=== PATIENT | female | born 1985 | race African-American/Black ===

== ENCOUNTER 2021-08-01 12:15 | Emergency (ER) | payer SELFPAY ==
[2021-08-01 13:02] LABS: Absolute Lymphocytes (CBC) 1.7 K/uL (0.7-4.9); Basophils % 0.5 % (0-1.3); Hematocrit 35.6 % (36.0-45.0); Lymphocytes % 37.1 % (15.3-44.8); MPV 9.6 fL (7.6-11.3); RBC Red Blood Cell Count 4.74 M/uL (3.86-4.86)
[2021-08-01 13:20] LABS: Urine Blood Negative (Negative); Urine Glucose Negative (Negative); Urine Protein Negative (Negative); Urine Specific Gravity 1.025 (1.005-1.030)
[2021-08-01 13:20] LABS: ALT/SGPT 15 U/L (12-78); AST/SGOT 17 U/L (15-37); Albumin 3.9 g/dL (3.4-5.0); Alkaline Phosphatase 97 U/L (45-117); BUN Blood Urea Nitrogen 14 mg/dL (7-18); Bicarbonate 22 mmol/L (21-32); Bilirubin Direct 0.2 mg/dL (0-0.2); Bilirubin Total 0.5 mg/dL (0.2-1.0); Glucose Level 101 mg/dL (74-106); Lipase 55 U/L (73-393); Potassium 3.9 mmol/L (3.5-5.1); Protein, Total 8.5 g/dL (6.4-8.2); Sodium Level 136 mmol/L (136-145)
[2021-08-01] MEDS ORDERED: METOCLOPRAMIDE 10 MG/2mL INJ ONE (13:23)
[2021-08-01] MEDS ORDERED: KETOROLAC 30 MG/ML INJ ONE (13:24)
[2021-08-01] MEDS ORDERED: NA CHLORIDE 0.9% 1,000 ML ONE (13:24)
[2021-08-01] MEDS ORDERED: ONDANSETRON 4 MG/2 ML VIAL ONE (13:24)
--- NOTE | 2021-08-01 13:30 | RAD REPORT ---
EXAM DESCRIPTION: CT - Head Brain Wo Cont - 08/01/2021 1:19 pm CLINICAL HISTORY: PAIN COMPARISON: No comparisons TECHNIQUE: All CT scans are performed using dose optimization technique as appropriate and may inclu de automated exposure control or mA/KV adjustment according to patient size. FINDINGS: No intracranial hemorrhage, hydrocephalus or extra-axial fluid collection.No areas of brai n edema or evidence of midline shift. The paranasal sinuses and mastoids are clear. The calvarium is intact. IMPRESSION: No acute intracranial abnormality.
--- NOTE | 2021-08-01 13:53 | ER ---
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 i felt nauseous. i went to sit down \T\ it was like i couldn't recover from it. Coronavirus screen: nausea, Client presents with at least one sign or symptom that may indicate coronavirus-19. Ebola Screen: Patient denies travel to an Ebola-affected area in the 21 days before illness onset. Initial Sepsis Screen: Does the patient meet any 2 criteria? No. Patient's initial sepsis screen is negative. Does the patient have a suspected source of infection? No. Patient's initial sepsis screen is negative. Risk Assessment: Do you want to hurt yourself or someone else? Patient reports no desire to harm self or others. Onset of symptoms was August 01, 2021. 12:20 Method Of Arrival: Ambulatory tw2 12:20 Acuity: ILIA 2 tw2 Triage Assessment: 12:23 General: Appears uncomfortable, Behavior is calm, cooperative, appropriate for age. tw2 Pain: Complains of pain in headache. GI: Reports nausea. 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 - Social history:: Smoking status: Patient denies any tobacco usage or history of. - Family history:: not pertinent. Screenin:27 Abuse screen: Denies threats or abuse. Nutritional screening: No deficits noted. tw2 Tuberculosis screening: No symptoms or risk factors identified. Fall Risk None identified. Assessment: 12:28 Reassessment:. General: Appears in no apparent distress. comfortable, obese, well aj2 developed. Pain: Denies pain. Complains of pain in left parietal area and right parietal area Pain does not radiate. Pain currently is 7 out of 10 on a pain scale. Quality of pain is described as aching, Pain began 30 min ago. Is continuous, Alleviated by nothing. Aggravated by increased activity. GI: Abdomen is flat. 13:43 Reassessment: Patient appears in no apparent distress at this time. Patient and/or aj2 family updated on plan of care and expected duration. Pain level reassessed. Patient is alert, oriented x 3, equal unlabored respirations, skin warm/dry/pink. Patient denies pain at this time. Patient states feeling better. Patient states symptoms have improved. 13:43 General: Behavior is calm, cooperative. aj2 Vital Signs: 12:20 BP 147 / 103; Pulse 112; Resp 17; Temp 97.9(TE); Pulse Ox 100% on R/A; Weight 70.31 kg tw2 (R); Height 5 ft. 4 in. (162.56 cm); Pain 8/10; 12:28 BP 138 / 101; Pulse 94; Resp 18; Temp 98.0; Pulse Ox 100% ; aj2 12:54 BP 121 / 91; Pulse 90; Resp 18; Temp 98.0; Pulse Ox 100% ; aj2 13:42 BP 104 / 69; Pulse 93; Resp 18; Temp 98.0; Pulse Ox 100% ; aj2 12:20 Body Mass Index 26.61 (70.31 kg, 162.56 cm) tw2 12:20 headache tw2 ED Course: 12:17 Patient arrived in ED. as 12:22 Triage completed. tw2 12:23 Arm band placed on. tw2 12:26 Olivia Rubi is Primary Nurse. aj2 12:28 No apparent distress. Resting quietly. aj2 12:28 Placed in gown. Bed in low position. Call light in reach. tw2 12:28 No provider procedures requiring assistance completed. Inserted saline lock: 20 gauge. aj2 12:28 Inserted saline lock: 20 gauge in right antecubital area, using aseptic technique. aj2 12:46 Fish Banks MD is Attending Physician. ma2 12:50 Basic Metabolic Panel Sent. aj2 12:50 CBC with Diff Sent. aj2 12:50 Hepatic Function Sent. aj2 12:50 Lipase Sent. aj2 12:54 No apparent distress. Resting quietly. aj2 12:54 IV is patent, is intact. aj2 13:18 CT Head Brain wo Cont In Process Unspecified. EDMS 13:43 No apparent distress. Resting quietly. aj2 13:43 IV is patent, is intact. aj2 14:29 IV discontinued. aj2 Administered Medications: 12:51 Drug: NS 0.9% 1000 ml Route: IV; Rate: 1 bolus; Site: right antecubital; aj2 13:19 Drug: Reglan (metoCLOPramide) 20 mg Route: IVP; Site: left antecubital; aj2 13:19 Drug: Ketorolac 30 mg Route: IVP; Site: left antecubital; aj2 13:19 Drug: Zofran (Ondansetron) 4 mg Route: IVP; Site: left antecubital; aj2 Outcome: 13:53 Discharge ordered by . ma2 14:29 Discharged to home ambulatory. aj2 14:29 Condition: stable 14:29 Discharge instructions given to patient, Instructed on discharge instructions, follow up and referral plans. Demonstrated understanding of instructions, follow-up care, medications, Prescriptions given X 2. 14:30 Patient left the ED. aj2 Signatures: Dispatcher [employer] EDMS Yamile Morton Tara, RN RN tw2 Fish Banks MD MD ma2 Olivia Rubi aj2
--- NOTE | 2021-08-01 13:53 | EDPHYS ---
Physician Documentation [facility] Name: Tran Ocampo Age: 36 yrs Sex: Female : 1985 Arrival Date: 08/01/2021 Time: 12:17 Bed 23 Private MD: ED Physician Fish Banks HPI: 08/01 13:15 This 36 yrs old Black Female presents to ER via Ambulatory with complaints of Blood ma2 Pressure Problem, Nausea. 13:15 The patient presents to the emergency department with nausea, vomiting. Onset: The ma2 symptoms/episode began/occurred gradually, 1 day(s) ago. Associated signs and symptoms: Pertinent positives: nausea, Pertinent negatives: diarrhea, fever, hematuria, nausea. Severity of symptoms: At their worst the symptoms were mild in the emergency department the symptoms are unchanged. The patient has not experienced similar symptoms in the past. 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 - Social history:: Smoking status: Patient denies any tobacco usage or history of. - Family history:: not pertinent. ROS: 13:15 Constitutional: Negative for fever, chills, and weight loss. ma2 13:15 All other systems are negative. Exam: 13:15 Constitutional: This is a well developed, well nourished patient who is awake, alert, ma2 and in no acute distress. Head/Face: Normocephalic, atraumatic. Eyes: Pupils equal round and reactive to light, extra-ocular motions intact. Lids and lashes normal. Conjunctiva and sclera are non-icteric and not injected. Cornea within normal limits. Periorbital areas with no swelling, redness, or edema. ENT: Nares patent. No nasal discharge, no septal abnormalities noted. Tympanic membranes are normal and external auditory canals are clear. Oropharynx with no redness, swelling, or masses, exudates, or evidence of obstruction, uvula midline. Mucous membranes moist. Neck: Trachea midline, no thyromegaly or masses palpated, and no cervical lymphadenopathy. Supple, full range of motion without nuchal rigidity, or vertebral point tenderness. No Meningismus. Chest/axilla: Normal chest wall appearance and motion. Nontender with no deformity. No lesions are appreciated. Cardiovascular: Regular rate and rhythm with a normal S1 and S2. No gallops, murmurs, or rubs. Normal PMI, no JVD. No pulse deficits. Respiratory: Lungs have equal breath sounds bilaterally, clear to auscultation and percussion. No rales, rhonchi or wheezes noted. No increased work of breathing, no retractions or nasal flaring. Abdomen/GI: Soft, non-tender, with normal bowel sounds. No distension or tympany. No guarding or rebound. No evidence of tenderness throughout. Skin: Warm, dry with normal turgor. Normal color with no rashes, no lesions, and no evidence of cellulitis. MS/ Extremity: Pulses equal, no cyanosis. Neurovascular intact. Full, normal range of motion. Neuro: Awake and alert, GCS 15, oriented to person, place, time, and situation. Cranial nerves II-XII grossly intact. Motor strength 5/5 in all extremities. Sensory grossly intact. Cerebellar exam normal. Normal gait. Vital Signs: 12:20 BP 147 / 103; Pulse 112; Resp 17; Temp 97.9(TE); Pulse Ox 100% on R/A; Weight 70.31 kg tw2 (R); Height 5 ft. 4 in. (162.56 cm); Pain 8/10; 12:28 BP 138 / 101; Pulse 94; Resp 18; Temp 98.0; Pulse Ox 100% ; aj2 12:54 BP 121 / 91; Pulse 90; Resp 18; Temp 98.0; Pulse Ox 100% ; aj2 13:42 BP 104 / 69; Pulse 93; Resp 18; Temp 98.0; Pulse Ox 100% ; aj2 12:20 Body Mass Index 26.61 (70.31 kg, 162.56 cm) tw2 12:20 headache tw2 MDM: 12:46 Patient medically screened. ma2 13:15 Differential diagnosis: Nonspecific abd pain, gastritis, viral gastroenteritis, ma2 gastroenteritis. Data reviewed: vital signs, nurses notes. Counseling: I had a detailed discussion with the patient and/or guardian regarding: the historical points, exam findings, and any diagnostic results supporting the discharge/admit diagnosis, the presence of at least one elevated blood pressure reading (>120/80) during this emergency department visit, the need for outpatient follow up. Response to treatment: the patient's symptoms have markedly improved after treatment. 08/01 12:46 Order name: Basic Metabolic Panel; Complete Time: 13:25 ma2 08/01 12:46 Order name: CBC with Diff; Complete Time: 13:19 ma2 08/01 12:46 Order name: Hepatic Function; Complete Time: 13:25 ma2 08/01 12:46 Order name: Lipase; Complete Time: 13:25 ma2 08/01 12:52 Order name: CT Head Brain wo Cont; Complete Time: 13:52 ma2 08/01 13:19 Order name: Urine Dipstick-Ancillary; Complete Time: 13:25 EDMS 08/01 12:46 Order name: IV Saline Lock; Complete Time: 12:50 ma2 08/01 12:46 Order name: Labs collected and sent; Complete Time: 12:50 ma2 08/01 12:47 Order name: Urine Dipstick-Ancillary (obtain specimen); Complete Time: 13:20 ma2 Administered Medications: 12:51 Drug: NS 0.9% 1000 ml Route: IV; Rate: 1 bolus; Site: right antecubital; aj2 13:19 Drug: Reglan (metoCLOPramide) 20 mg Route: IVP; Site: left antecubital; aj2 13:19 Drug: Ketorolac 30 mg Route: IVP; Site: left antecubital; aj2 13:19 Drug: Zofran (Ondansetron) 4 mg Route: IVP; Site: left antecubital; aj2 Disposition Summary: 08/01/21 13:53 Discharge Ordered Location: Home ma2 Condition: Stable ma2 Diagnosis - Headache - and Nausea ma2 Followup: ma2 - With: Private Physician - When: Tomorrow - Reason: Continuance of care Discharge Instructions: - Discharge Summary Sheet ma2 - General Headache Without Cause ma2 - Form - Excuse from Work, School, or Physical Activity ma2 Forms: - Medication Reconciliation Form ma2 - Thank You Letter ma2 - Antibiotic Education ma2 - Prescription Opioid Use ma2 - Work release form aj2 Prescriptions: - Zofran 4 mg Oral Tablet - take 1 tablet by ORAL route every 12 hours As needed; 20 tablet; Refills: 0, ma2 Product Selection Permitted - Diclofenac Sodium 75 mg Oral Tablet Sustained Release - take 1 tablet by ORAL route 2 times per day; 30 tablet; Refills: 0, Product ma2 Selection Permitted Signatures: Dispatcher [employer] Maria D Mckeon RN RN tw2 Fish Banks MD MD mi2 Olivia Rubi2 Corrections: (The following items were deleted from the chart) 13:21 12:[address] [facility] aj2
[2021-08-01 15:19] VITALS: O2SAT 100
[2021-08-01 15:20] VITALS: TEMP 98
[2021-08-01 15:23] VITALS: BP 104/69
== END 2021-08-01 14:30 | disposition home or self-care (01) ==
LOC: ER 12:15
DX: R51.9 Headache, unspecified (principal); R11.0 Nausea
CPT/HCPCS: 36415; 70450; 80048; 80076; 81003; 83690; 85025; 96374; 96375; 99284; J2405; J2765; J7030

== ENCOUNTER 2022-04-20 10:26 | Emergency (ER) | payer BC, SELFPAY ==
--- OUTSIDE RECORDS SUMMARY | 2022-04-20 10:31 | XMS REPORT | Continuity of Care Document ---
:1985 Author Organization [facility] t Address [address] [place] [address] Care Team Providers Name Role Phone Munira BABB Attending Clinician Unavailable Mario Ahn DO Attending Clinician [address] Attending Clinician Katarina CABRERA R Attending Clinician Adalgisa PEÑAP Attending Clinician Provider, Temp Attending Clinician Unavailable Wei PEÑAP C Attending Clinician WEI C Attending Clinician Unavailable Sudeep MCCALLUMP, R Attending Clinician Doctor Unassigned, Name Attending Clinician Unavailable Pcp, Does Not Have A Attending Clinician Singer GUTIERREZ Attending Clinician Payers Payer Name Policy Type Policy Number Effective Date Expiration Date Artie BOLTON O [id number] 2019 00:00:00 Problems Condition Condition Condition Status Onset Resolution Last Treating Co mments Source Name Details Category Date Date Treatment Clinician Date Well woman Well woman Disease Active U nivers exam exam 3-28 ity of 00:00: [address] Other Other Disease Active Univers general general 3-28 [place] and advice and advice 00 Vt dical [facility] contracept contracept sky sky management management UTI UTI Disease Active Univers symptoms symptoms 3-28 ity of 00:00: [address] History of History of Disease Active U nivers tubal tubal 3-28 ity of ligation ligation 00:00: [address] Obese Obese Disease Active Univers 3-28 ity of 00:00: [facility] Essential Essential Disease Active Uni vers hypertensi hypertensi 02-04 it y of on, benign [place], benign [place] [facility] BV BV Disease Active Univers (bacterial (bacterial 02-04 it y of vaginosis) vaginosis) [place] [facility] UTI UTI Disease Active Univers symptoms symptoms 02-04 ity of 00:00: [facility] Allergies, Adverse Reactions, Alerts Allergy Allergy Status Severity Reaction(s) Onset Inactive Treating Comm ents Source Name Type Date Date Clinician NO KNOWN Drug Active Unknown-Cmnt Un shena ALLERGIE Class 7-12 ity of S 00:00: [facility] No Known Propensi Active Unknown - Uni vers Allergie ty to See comments 7-12 it y of s adverse 00:00: [place] reaction 00 [facility] s [place] Social History Social Habit Start Date Stop Date Quantity Comments Source Exposure to Not sure [place] of SARS-CoV-2 [facility] (event) Branch History of Cigarette Smoker Universi ty of tobacco use [facility] Tobacco use and 2020-08-29 2020-08-29 Never used Universit y of exposure 00:00:00 00:00:00 [facility] Alcohol intake 2020-08-29 2020-08-29 Current drinker of Un iversity of 00:00:00 00:00:00 alcohol (finding) [facility] Alcohol Comment 2020-03-24 2020-03-24 occasional Universit y of 00:00:00 00:00:00 [facility] Tobacco Comment 2017-02-04 2017-02-04 3 cigarettes/day Uni versity of 00:00:00 00:00:00 [facility] Sex [birth year] Universit y of 00:00:00 00:00:00 [facility] Smoking Status Start Date Stop Date Source Current every day smoker 2020-08-29 00:00:00 Uni versity of [facility] Medications Ordered Filled Start Stop Current Ordering Indication Dosage Frequency Signature Comments Components Source Medication Medication Date Date Medication? Clinician (SIG) Name Name cloNIDine 2019-11 2020- No .2mg 0.2 mg, Univ ers (CATAPRES) 0-21 10-21 Oral, ity of tablet 0.2 03:00: 02:11 ONCE, 1 [place] mg 00 :00 dose, [facility] 08/29/20 Branch at 2200, STAT diphenhydrA 2019-11 2020- No 12.5mg 12.5 mg, Univers MINE 0-21 10-21 Slow IV ity of (BENADRYL) 03:00: 02:03 Push, [place] injection 00 :00 ONCE, 1 Medical 12.5 mg dose, [facility] 08/29/20 at 2200, STAT metoclopram 2019-11 2020- No 10mg 10 mg, Uni vers patrick HCl 0-21 10-21 Slow IV ity of (REGLAN) 03:00: 02:02 Push, [place] injection 00 :00 ONCE, 1 Medical 10 mg dose, [facility] 08/29/20 at 2200, RAMIRO HYDROCHLORO 2019-1 Yes 1{tbl} Take 1 Un shena THIAZIDE 0-21 tablet by ity of ORAL 00:10: mouth [place] 08 daily. Medical Branch HYDROCHLORO 2019- Yes 1{tbl} Take 1 Un shena THIAZIDE 0-21 tablet by ity of ORAL 00:10: mouth [place] 08 daily. Medical Branch hydroCHLORO 2019-1 Yes [id number] 25mg Take 1 Univers thiazide 25 0-20 tablet by ity of mg tablet 00:00: mouth [place] 00 every Medical morning. Branch hydroCHLORO 2020-1 Yes [id number] 25mg Take 1 Univers thiazide 25 0-20 tablet by ity of mg tablet 00:00: mouth [place] 00 every Medical morning. Branch amoxicillin 2020-0 Yes [id number] 500mg Take 1 Univers 500 mg 5-20 capsule by ity of capsule 00:00: mouth 2 (two) Medical times Branch daily. amoxicillin 2020-0 Yes [id number] 500mg Take 1 Univers 500 mg 5-20 capsule by ity of capsule 00:00: mouth (two) Medical times Branch daily. amoxicillin 2020-0 Yes [id number] 500mg Take 1 Univers 500 mg 5-20 capsule by ity of capsule 00:00: mouth 2 (two) Medical times Branch daily. amoxicillin 2020-0 Yes [id number] 500mg Take 1 Univers 500 mg 5-20 capsule by ity of capsule 00:00: mouth 2 (two) Medical times Branch daily. HYDROCHLORO 2020-0 Yes 1{tbl} Take 1 Un shena THIAZIDE 5-15 tablet by ity of ORAL 16:15: mouth [place] 23 daily. Medical Branch HYDROCHLORO 2020-0 Yes 1{tbl} Take 1 Un shena THIAZIDE 5-15 tablet by ity of ORAL 16:15: mouth [place] 23 daily. Medical Branch HYDROCHLORO 2020-0 Yes 1{tbl} Take 1 Un shena THIAZIDE 5-15 tablet by ity of ORAL 16:15: mouth [place] 23 daily. Medical Branch HYDROCHLORO 2020-0 Yes 1{tbl} Take 1 Un shena THIAZIDE 5-15 tablet by ity of ORAL 16:15: mouth [place] 23 daily. Medical Branch HYDROCHLORO 2020-0 Yes 1{tbl} Take 1 Un shena THIAZIDE 5-15 tablet by ity of ORAL 16:15: mouth [place] 23 daily. Medical Branch ondansetron 2019- No 4mg 4 mg, Univ ers (ZOFRAN-ODT 03-15 Oral, ity of ) 18:15: 17:25 ONCE, 1 [place] disintegrat 00 :00 dose, Wed Med ical ing tablet 03/15/[address] [facility] ch 4 mg 1315, Routine metroNIDAZO 2019- No 2000mg 2,000 mg, Univers LE (FLAGYL) 03-15 Oral, ity of tablet 18:15: 17:25 ONCE, 1 [place] 2,000 mg 00 :00 dose, Wed Medica l 03/15/20 at Branch 1315, RAMIRO
Re ason for Anti-Infec tive: Empiric Therapy for Suspected Infection< br>Empiric Therapy Site: Urine
D uration of therapy: 7 days azithromyci 2019- No 1000mg 1,000 mg, Univers n 03-15 Oral, ity of (ZITHROMAX) 18:15: 17:26 ONCE, 1 [place] tablet 00 :00 dose, Wed Medical 1,000 mg 03/15/20 at Branch 1315, RAMIRO
Re ason for Anti-Infec tive: Empiric Therapy for Suspected Infection< br>Empiric Therapy Site: Urine
D uration of therapy: 7 days lidocaine 2020- No 2mL 2 mL, Univer s 1% 5-06 05- Infiltrati ity of (XYLOCAINE) 18:15: 17:32 on, ONCE, [place] 10 mg/mL (1 00 :00 1 dose, Medic al %) [facility] 03/15/20 Branch injection 2 at 1315, mL RAMIRO cefTRIAXone 2019-0 2020- No 250mg 250 mg, U nivers (ROCEPHIN) 03-15- Intramuscu it y of injection 18:15: 17:28 lar, ONCE, [place] 250 mg 00 :00 1 dose, Medical 03/15/20 Branch at 1315, RAMIRO
Re ason for Anti-Infec tive: Empiric Therapy for Suspected Infection< br>Empiric Therapy Site: Urine
D uration of therapy: 7 days phenazopyri 2020-0 2020- No 200mg 200 mg, U nivers dine 03-15-06 Oral, ity of (PYRIDIUM) 18:15: 17:26 ONCE, 1 [place] tablet 200 00 :00 dose, Wed Medi candelario mg 03/15/20 at Branch 1315, RAMIRO phenazopyri 2020-0 Yes [id number] 200mg Take 1 Univers dine 200 mg 5-06 tablet by ity of tablet 00:00: mouth 3 [place] 00 (three) Medical times Branch daily. phenazopyri 2020-0 Yes [id number] 200mg Take 1 Univers dine 200 mg 5-06 tablet by ity of tablet 00:00: mouth 3 [place] 00 (three) Medical times Branch daily. phenazopyri 2020-0 Yes [id number] 200mg Take 1 Univers dine 200 mg 5-06 tablet by ity of tablet 00:00: mouth 3 [place] 00 (three) Medical times Branch daily. phenazopyri 2020-0 Yes [id number] 200mg Take 1 Univers dine 200 mg 5-06 tablet by ity of tablet 00:00: mouth 3 [place] 00 (three) Medical times Branch daily. phenazopyri 2020-0 Yes [id number] 200mg Take 1 Univers dine 200 mg 5-06 tablet by ity of tablet 00:00: mouth 3 [place] 00 (three) Medical times Branch daily. phenazopyri 2020-0 Yes [id number] 200mg Take 1 Univers dine 200 mg 5-06 tablet by ity of tablet 00:00: mouth 3 00 (three) Medical times Branch daily. phenazopyri 2020-0 Yes [id number] 200mg Take 1 Univers dine 200 mg 5-06 tablet by ity of tablet 00:00: mouth 3 (three) Medical times Branch daily. phenazopyri 2020-0 Yes [id number] 200mg Take 1 Univers dine 200 mg 5-06 tablet by ity of tablet 00:00: mouth 3 (three) Medical times Branch daily. ciprofloxac 2019-0 2020- No [id number] 500mg Take 1 Univers in HCl 500 5-06 05-14 tablet by ity of mg tablet 00:00: 04:59 [place] :[place] (two) Medical times [place] daily for 7 days. erythromyci 2019-0 Yes [id number] .5[in_u Place 0.5 Univers n 5 mg/gram 3-02 9105 s] Inches in ity of (0.5 %) 00:00: left eye [place] ophthalmic 00 at Medical ointment bedtime. [place] erythromyci 2019-0 Yes [id number] .5[in_u Place 0.5 Univers n 5 mg/gram 3-02 9105 s] Inches in ity of (0.5 %) 00:00: left eye [place] ophthalmic 00 at Medical ointment bedtime. Anthony erythromyci 2019-0 Yes [id number] .5[in_u Place 0.5 Univers n 5 mg/gram 3-02 9105 s] Inches in ity of (0.5 %) 00:00: left eye [place] ophthalmic 00 at Medical ointment bedtime. Anthony erythromyci 2019-0 Yes [id number] .5[in_u Place 0.5 Univers n 5 mg/gram 3-02 9105 s] Inches in ity of (0.5 %) 00:00: left eye [place] ophthalmic 00 at Medical ointment bedtime. Anthony erythromyci 2020-0 Yes [id number] .5[in_u Place 0.5 Univers n 5 mg/gram 3-02 9105 s] Inches in ity of (0.5 %) 00:00: left eye [place] ophthalmic 00 at Medical ointment bedtime. Anthony erythromyci 2019-0 Yes [id number] .5[in_u Place 0.5 Univers n 5 mg/gram 3-02 9105 s] Inches in ity of (0.5 %) 00:00: left eye [place] ophthalmic 00 at Medical ointment bedtime. Anthony erythromyci Yes [id number] .5[in_u Place 0.5 Univers n 5 mg/gram 3-02 9105 s] Inches in ity of (0.5 %) 00:00: left eye [place] ophthalmic 00 at Medical ointment bedtime. Anthony erythromyci Yes [id number] .5[in_u Place 0.5 Univers n 5 mg/gram 3-02 9105 s] Inches in ity of (0.5 %) 00:00: left eye [place] ophthalmic 00 at Medical ointment bedtime. Anthony erythromyci Yes [id number] .5[in_u Place 0.5 Univers n 5 mg/gram 3-02 9105 s] Inches in ity of (0.5 %) 00:00: left eye [place] ophthalmic 00 at Medical ointment bedtime. Anthony erythromyci Yes [id number] .5[in_u Place 0.5 Univers n 5 mg/gram 3-02 9105 s] Inches in ity of (0.5 %) 00:00: left eye [place] ophthalmic 00 at Medical ointment bedtime. Anthony erythromyci Yes [id number] .5[in_u Place 0.5 Univers n 5 mg/gram 3-02 9105 s] Inches in ity of (0.5 %) 00:00: left eye [place] ophthalmic 00 at Medical ointment bedtime. Anthony erythromyci Yes [id number] .5[in_u Place 0.5 Univers n 5 mg/gram 3-02 9105 s] Inches in ity of (0.5 %) 00:00: left eye [place] ophthalmic 00 at Medical ointment bedtime. Anthony ketorolac 2018-0 2019- No 60mg 60 mg, Unive rs (TORADOL) 07-09 Intramuscu ity of injection 11:00: 09:58 [place], ONCE, [place] 60 mg 00 :00 1 dose, Medical Fri Branch 07/09/19 at 0600, [facility] : SHWETA MORRISON bital Yes [id number] 1{tbl} Take 1 Univers acetaminoph 8-30 tablet by ity of en-caff 00:00: mouth [place] 50-325-40 00 every 4 Medical mg tablet (four) Branch hours as needed for Pain (scale 7-10) (HEADACHE) . bit Yes [id number] 1{tbl} Take 1 Univers acetaminoph 8-30 tablet by ity of en-caff 00:00: mouth [place] 50-325-40 00 every 4 Medical mg tablet (four) Branch hours as needed for Pain (scale 7-10) (HEADACHE) . bit Yes [id number] 1{tbl} Take 1 Univers acetaminoph 8-30 tablet by ity of en-caff 00:00: mouth [place] 50-325-40 00 every 4 Medical mg tablet (four) Branch hours as needed for Pain (scale 7-10) (HEADACHE) . bit Yes [id number] 1{tbl} Take 1 Univers acetaminoph 8-30 tablet by ity of en-caff 00:00: mouth [place] 50-325-40 00 every 4 Medical mg tablet (four) Branch hours as needed for Pain (scale 7-10) (HEADACHE) . butbital Yes [id number] 1{tbl} Take 1 Univers acetaminoph 8-30 tablet by ity of en-caff 00:00: mouth [place] 50-325-40 00 every 4 Medical mg tablet (four) Branch hours as needed for Pain (scale 7-10) (HEADACHE) . butalbital Yes [id number] 1{tbl} Take 1 Univers acetaminoph 8-30 tablet by ity of en-caff 00:00: mouth [place] 50-325-40 00 every 4 Medical mg tablet (four) Branch hours as needed for Pain (scale 7-10) (HEADACHE) . butalbital Yes [id number] 1{tbl} Take 1 Univers acetaminoph 8-30 tablet by ity of en-caff 00:00: mouth [place] 50-325-40 00 every 4 Medical mg tablet (four) Branch hours as needed for Pain (scale 7-10) (HEADACHE) . butalbital Yes [id number] 1{tbl} Take 1 Univers acetaminoph 8-30 tablet by ity of en-caff 00:00: mouth [place] 50-325-40 00 every 4 Medical mg tablet (four) Branch hours as needed for Pain (scale 7-10) (HEADACHE) . butalbital Yes [id number] 1{tbl} Take 1 Univers acetaminoph 8-30 tablet by ity of en-caff 00:00: mouth [place] 50-325-40 00 every 4 Medical mg tablet (four) Branch hours as needed for Pain (scale 7-10) (HEADACHE) . butalbital Yes [id number] 1{tbl} Take 1 Univers acetaminoph 8-30 tablet by ity of en-caff 00:00: mouth [place] 50-325-40 00 every 4 Medical mg tablet (four) Branch hours as needed for Pain (scale 7-10) (HEADACHE) . butbit Yes [id number] 1{tbl} Take 1 Univers acetaminoph 8-30 tablet by ity of en-caff 00:00: mouth [place] 50-325-40 00 every 4 Medical mg tablet (four) Branch hours as needed for Pain (scale 7-10) (HEADACHE) . butbit Yes [id number] 1{tbl} Take 1 Univers acetaminoph 8-30 tablet by ity of en-caff 00:00: mouth [place] 50-325-40 00 every 4 Medical mg tablet (four) Branch hours as needed for Pain (scale 7-10) (HEADACHE) . butalbital Yes [id number] 1{tbl} Take 1 Univers acetaminoph 8-30 tablet by ity of en-caff 00:00: mouth [place] 50-325-40 00 every 4 Medical mg tablet (four) Branch hours as needed for Pain (scale 7-10) (HEADACHE) . butalbital Yes [id number] 1{tbl} Take 1 Univers acetaminoph 8-30 tablet by ity of en-caff 00:00: mouth [place] 50-325-40 00 every 4 Medical mg tablet (four) Branch hours as needed for Pain (scale 7-10) (HEADACHE) . KCL 2019- No 40meq 40 mEq, Univers (KLOR-CON 06-23 Oral, ity of M20) tablet 11:30: 10:37 ONCE, 1 [place] 40 mEq 00 :00 dose, Fri Medical 06/23/19 at Branch 0630, RAMIRO diphenhydrA 2018- No 12.5mg 12.5 mg, Univers MINE 06-23 Slow IV ity of (BENADRYL) 10:30: 09:52 Push, [place] injection 00 :00 ONCE, 1 Medical 12.5 mg dose, Fri [place] 06/23/19 at 0530, STAT metoclopram 2018- No 10mg 10 mg, Uni vers patrick HCl 06-23 Slow IV ity of (REGLAN) 10:30: 09:50 Push, [place] injection 00 :00 ONCE, 1 Medical 10 mg dose, [facility] 06/23/19 at 0530, [facility] hydroCHLORO 2019- No 25mg 25 mg, Uni vers thiazide 06-23 Oral, ity of (ESIDRIX) 10:30: 09:49 ONCE, 1 [place] tablet 25 00 :00 dose, Fri Medic al mg 06/23/19 at Branch 0530, [facility] hydroCHLORO Yes [id number] 25mg Take 1 Univers thiazide 25 8-14 tablet by ity of mg tablet 00:00: mouth [place] 00 every Medical morning. [place] hydroCHLORO Yes [id number] 25mg Take 1 Univers thiazide 25 8-14 tablet by ity of mg tablet 00:00: mouth [place] 00 every Medical morning. [place] hydroCHLORO Yes [id number] 25mg Take 1 Univers thiazide 25 8-14 tablet by ity of mg tablet 00:00: mouth [place] 00 every Medical morning. [place] hydroCHLORO Yes [id number] 25mg Take 1 Univers thiazide 25 8-14 tablet by ity of mg tablet 00:00: mouth [place] 00 every Medical morning. [place] hydroCHLORO Yes [id number] 25mg Take 1 Univers thiazide 25 8-14 tablet by ity of mg tablet 00:00: mouth [place] 00 every Medical morning. [place] hydroCHLORO 2019-0 Yes [id number] 25mg Take 1 Univers thiazide 25 8-14 tablet by ity of mg tablet 00:00: mouth [place] 00 every Medical morning. Branch hydroCHLORO 2019-0 Yes [id number] 25mg Take 1 Univers thiazide 25 8-14 tablet by ity of mg tablet 00:00: mouth [place] 00 every Medical morning. Branch hydroCHLORO 2019-0 Yes [id number] 25mg Take 1 Univers thiazide 25 8-14 tablet by ity of mg tablet 00:00: mouth [place] 00 every Medical morning. Branch hydroCHLORO 2019-0 Yes [id number] 25mg Take 1 Univers thiazide 25 8-14 tablet by ity of mg tablet 00:00: mouth [place] 00 every Medical morning. Branch hydroCHLORO 2019-0 Yes [id number] 25mg Take 1 Univers thiazide 25 8-14 tablet by ity of mg tablet 00:00: mouth [place] 00 every Medical morning. Branch hydroCHLORO 2018-0 Yes [id number] 25mg Take 1 Univers thiazide 25 8-14 tablet by ity of mg tablet 00:00: mouth [place] 00 every Medical morning. Branch hydroCHLORO 2018-0 Yes [id number] 25mg Take 1 Univers thiazide 25 8-14 tablet by ity of mg tablet 00:00: mouth [place] 00 every Medical morning. Branch hydroCHLORO 2019-0 Yes [id number] 25mg Take 1 Univers thiazide 25 8-14 tablet by ity of mg tablet 00:00: mouth [place] 00 every Medical morning. Branch hydroCHLORO 2019-0 Yes [id number] 25mg Take 1 Univers thiazide 25 8-14 tablet by ity of mg tablet 00:00: mouth [place] 00 every Medical morning. Branch hydroCHLORO 2019-0 Yes [id number] 25mg Take 1 Univers thiazide 25 8-14 tablet by ity of mg tablet 00:00: mouth [place] 00 every Medical morning. [place] phenazopyri 2018-0 Yes [id number] 200mg Take 1 Univers dine 200 mg 6-28 tablet by ity of tablet 00:00: mouth 3 [place] 00 (three) Medical times Branch daily. traMADOL 2019-0 Yes [id number] 50mg Take 1 Uni vers (ULTRAM) 50 6-28 tablet by ity of mg tablet 00:00: mouth [place] 00 every 8 Medical (eight) Branch hours as needed for Pain (scale 4-6). phenazopyri 2019-0 Yes [id number] 200mg Take 1 Univers dine 200 mg 6-28 tablet by ity of tablet 00:00: mouth 3 (three) Medical times Branch daily. traMADOL 2019-0 Yes [id number] 50mg Take 1 Uni vers (ULTRAM) 50 6-28 tablet by ity of mg tablet 00:00: mouth [place] 00 every 8 Medical (eight) Branch hours as needed for Pain (scale 4-6). phenazopyri 2019-0 Yes [id number] 200mg Take 1 Univers dine 200 mg 6-28 tablet by ity of tablet 00:00: mouth 3 [place] (three) Medical times Branch daily. traMADOL 2019-0 Yes [id number] 50mg Take 1 Uni vers (ULTRAM) 50 6-28 tablet by ity of mg tablet 00:00: mouth [place] 00 every 8 Medical (eight) Branch hours as needed for Pain (scale 4-6). phenazopyri 2019-0 Yes [id number] 200mg Take 1 Univers dine 200 mg 6-28 tablet by ity of tablet 00:00: mouth (three) Medical times Branch daily. traMADOL 2019-0 Yes [id number] 50mg Take 1 Uni vers (ULTRAM) 50 6-28 tablet by ity of mg tablet 00:00: mouth [place] 00 every 8 Medical (eight) Branch hours as needed for Pain (scale 4-6). phenazopyri 2019-0 Yes [id number] 200mg Take 1 Univers dine 200 mg 6-28 tablet by ity of tablet 00:00: mouth (three) Medical times Branch daily. traMADOL 2019-0 Yes [id number] 50mg Take 1 Uni vers (ULTRAM) 50 6-28 tablet by ity of mg tablet 00:00: mouth [place] 00 every 8 Medical (eight) Branch hours as needed for Pain (scale 4-6). phenazopyri 2019-0 Yes [id number] 200mg Take 1 Univers dine 200 mg 6-28 tablet by ity of tablet 00:00: mouth 3 (three) Medical times Branch daily. traMADOL 2019-0 Yes [id number] 50mg Take 1 Uni vers (ULTRAM) 50 6-28 tablet by ity of mg tablet 00:00: mouth [place] 00 every 8 Medical (eight) Branch hours as needed for Pain (scale 4-6). phenazopyri 2019-0 Yes [id number] 200mg Take 1 Univers dine 200 mg 6-28 tablet by ity of tablet 00:00: mouth 3 (three) Medical times Branch daily. traMADOL 2019-0 Yes [id number] 50mg Take 1 Uni vers (ULTRAM) 50 6-28 tablet by ity of mg tablet 00:00: mouth [place] 00 every 8 Medical (eight) Branch hours as needed for Pain (scale 4-6). phenazopyri 2019-0 Yes [id number] 200mg Take 1 Univers dine 200 mg 6-28 tablet by ity of tablet 00:00: mouth 3 (three) Medical times Branch daily. traMADOL 2019-0 Yes [id number] 50mg Take 1 Uni vers (ULTRAM) 50 6-28 tablet by ity of mg tablet 00:00: mouth 00 every 8 Medical (eight) Branch hours as needed for Pain (scale 4-6). phenazopyri 2019-0 Yes [id number] 200mg Take 1 Univers dine 200 mg 6-28 tablet by ity of tablet 00:00: mouth (three) Medical times Branch daily. traMADOL 2019-0 Yes [id number] 50mg Take 1 Uni vers (ULTRAM) 50 6-28 tablet by ity of mg tablet 00:00: mouth [place] 00 every 8 Medical (eight) Branch hours as needed for Pain (scale 4-6). phenazopyri 2018-0 Yes [id number] 200mg Take 1 Univers dine 200 mg 6-28 tablet by ity of tablet 00:00: mouth (three) Medical times Branch daily. phenazopyri 2019-0 Yes [id number] 200mg Take 1 Univers dine 200 mg 6-28 tablet by ity of tablet 00:00: mouth (three) Medical times Branch daily. traMADOL 2019-0 Yes [id number] 50mg Take 1 Uni vers (ULTRAM) 50 6-28 tablet by ity of mg tablet 00:00: mouth [place] 00 every 8 Medical (eight) Branch hours as needed for Pain (scale 4-6). traMADOL 2019-0 Yes [id number] 50mg Take 1 Uni vers (ULTRAM) 50 6-28 tablet by ity of mg tablet 00:00: mouth [place] 00 every 8 Medical (eight) Branch hours as needed for Pain (scale 4-6). phenazopyri 2019-0 Yes [id number] 200mg Take 1 Univers dine 200 mg 6-28 tablet by ity of tablet 00:00: mouth 3 [place] 00 (three) Medical times Branch daily. traMADOL 2019-0 Yes [id number] 50mg Take 1 Uni vers (ULTRAM) 50 6-28 tablet by ity of mg tablet 00:00: mouth [place] 00 every 8 Medical (eight) Branch hours as needed for Pain (scale 4-6). phenazopyri 2019-0 Yes [id number] 200mg Take 1 Univers dine 200 mg 6-28 tablet by ity of tablet 00:00: mouth 3 [place] 00 (three) Medical times Branch daily. traMADOL 2019-0 Yes [id number] 50mg Take 1 Uni vers (ULTRAM) 50 6-28 tablet by ity of mg tablet 00:00: mouth [place] 00 every 8 Medical (eight) Branch hours as needed for Pain (scale 4-6). phenazopyri 2019-0 Yes [id number] 200mg Take 1 Univers dine 200 mg 6-28 tablet by ity of tablet 00:00: mouth 3 [place] 00 (three) Medical times Branch daily. traMADOL 2019-0 Yes [id number] 50mg Take 1 Uni vers (ULTRAM) 50 6-28 tablet by ity of mg tablet 00:00: mouth [place] 00 every 8 Medical (eight) Branch hours as needed for Pain (scale 4-6). phenazopyri 2019-0 Yes [id number] 200mg Take 1 Univers dine 200 mg 6-28 tablet by ity of tablet 00:00: mouth 3 [place] 00 (three) Medical times Branch daily. traMADOL 2019-0 Yes [id number] 50mg Take 1 Uni vers (ULTRAM) 50 6-28 tablet by ity of mg tablet 00:00: mouth [place] 00 every 8 Medical (eight) Branch hours as needed for Pain (scale 4-6). HYDROCHLORO 2018-0 Yes 1{tbl} Take 1 Un shena THIAZIDE 1-18 tablet by ity of ORAL 16:43: mouth [place] 41 daily. Medical Branch HYDROCHLORO 2018-0 Yes 1{tbl} Take 1 Un shena THIAZIDE 1-18 tablet by ity of ORAL 16:43: mouth [place] 41 daily. Medical Branch HYDROCHLORO Yes 1{tbl} Take 1 Un shena THIAZIDE 1-18 tablet by ity of ORAL 16:43: mouth [place] 41 daily. Medical Branch HYDROCHLORO Yes 1{tbl} Take 1 Un shena THIAZIDE 1-18 tablet by ity of ORAL 16:43: mouth [place] 41 daily. Medical Branch HYDROCHLORO Yes 1{tbl} Take 1 Un shena THIAZIDE 1-18 tablet by ity of ORAL 16:43: mouth [place] 41 daily. Medical Branch HYDROCHLORO Yes 1{tbl} Take 1 Un shena THIAZIDE 1-18 tablet by ity of ORAL 16:43: mouth [place] 41 daily. Medical Branch HYDROCHLORO Yes 1{tbl} Take 1 Un shena THIAZIDE 1-18 tablet by ity of ORAL 16:43: mouth [place] 41 daily. Medical Branch HYDROCHLORO Yes 1{tbl} Take 1 Un shena THIAZIDE 1-18 tablet by ity of ORAL 16:43: mouth [place] 41 daily. [facility] Immunizations Ordered Filled Immunization Date Status Comments [facility] e Immunization Name Name Tdap 2017-02-04 Completed University of 00:00:00 [place] [facility] Tdap 2017-02-04 Completed University of 00:00:00 [place] [facility] Tdap 2017-02-04 Completed University of 00:00:00 [place] [facility] Tdap 2017-02-04 Completed University of 00:00:00 [place] [facility] Tdap 2017-02-04 Completed University of 00:00:00 [place] [facility] Tdap 2017-02-04 Completed University of 00:00:00 [place] [facility] Tdap 2017-02-04 Completed University of 00:00:00 [facility] Tdap 2017-02-04 Completed University of 00:00:00 [place] [facility] TDAP 2017-02-04 Completed University of 00:00:00 [facility] Branch TDAP 2017-02-04 Completed [facility] 00:00:[address] [facility] [facility] TDAP 2017-02-04 Completed [facility] 00:00:00 [facility] Tdap 2017-02-04 Completed [facility] 00:00:00 [facility] Tdap 2017-02-04 Completed [facility] 00:00:00 [facility] Tdap 2017-02-04 Completed [facility] 00:00:00 [facility] Tdap 2017-02-04 Completed University 00:00:00 [facility] Vital Signs Vital Name Observation Time Observation Value Comments Source Systolic blood 2020-08-30 02:45:00 136 mm[Hg] Univer sity of pressure [facility] Diastolic blood 2020-08-30 02:45:00 97 mm[Hg] Unive rsity of pressure [facility] Heart rate 2020-08-30 02:45:00 94 /min [facility] Respiratory rate 2020-08-30 02:45:00 20 /min [facility] Oxygen saturation in 2020-08-30 02:45:00 97 /min [facility] of Arterial blood by [facility] Pulse oximetry Branch Body temperature 2020-08-30 00:08:00 37.17 Angelique [facility] Body height 2020-08-30 00:08:00 162.6 cm [facility] Body weight 2020-08-30 00:08:00 79.379 kg [facility] BMI 2020-08-30 00:08:00 30.04 kg/m2 [facility] Systolic blood 2020-05-20 00:15:00 150 mm[Hg] [facility] Diastolic blood 2020-05-20 00:15:00 102 mm[Hg] Unive rsity of pressure [facility] Heart rate 2020-05-20 00:15:00 102 /min [facility] Body temperature 2020-05-20 00:15:00 37.11 Angelique [facility] [address] Respiratory rate 2020-05-20 00:15:00 22 /min [facility] Body weight 2020-05-20 00:15:00 83.915 kg [facility] BMI 2020-05-20 00:15:00 31.76 kg/m2 [facility] Oxygen saturation in 2020-05-20 00:15:00 99 /min [facility] of Arterial blood by [facility] P[facility] oxim[facility] Systolic blood 2020-03-24 16:03:00 148 mm[Hg] [facility] Diastolic blood 2020-03-24 16:03:00 98 mm[Hg] Unive rsity of pressure [facility] Heart rate 2020-03-24 16:03:00 101 /min [facility] Body temperature 2020-03-24 16:03:00 36.39 Angelique [facility] Respiratory rate 2020-03-24 16:03:00 16 /min [facility] Body height 2020-03-24 16:03:00 162.6 cm [facility] Body weight 2020-03-24 16:03:00 75.921 kg [facility] BMI 2020-03-24 16:03:00 28.73 kg/m2 [facility] Systolic blood 2020-03-15 16:47:00 162 mm[Hg] Univer sity of pressure [facility] Diastolic blood 2020-03-15 16:47:00 97 mm[Hg] Unive rsity of pressure [facility] Heart rate 2020-03-15 16:47:00 98 /min [facility] Body temperature 2020-03-15 16:47:00 36.83 Angelique [facility] Respiratory rate 2020-03-15 16:47:00 16 /min [facility] Body height 2020-03-15 16:47:00 162.6 cm [facility] Body weight 2020-03-15 16:47:00 77.111 kg [facility] BMI 2020-03-15 16:47:00 29.18 kg/m2 [facility] Oxygen saturation in 2020-03-15 16:47:00 100 /min University Arterial blood by [facility] Pulse oximetry Branch Systolic blood 2020-01-10 15:06:00 117 mm[Hg] Univer sity of pressure [facility] Diastolic blood 2020-01-10 15:06:00 99 mm[Hg] Unive rsity of pressure [facility] Heart rate 2020-01-10 15:06:00 85 /min [facility] Body temperature 2020-01-10 15:06:00 36.78 Angelique [facility] Respiratory rate 2020-01-10 15:06:00 18 /min [facility] Body weight 2020-01-10 15:06:00 77.111 kg [facility] BMI 2020-01-10 15:06:00 30.11 kg/m2 [facility] Oxygen saturation in 2020-01-10 15:06:00 100 /min University of Arterial blood by [facility] Pulse oximetry Branch Systolic blood 2019-07-09 09:45:00 144 mm[Hg] [facility] Diastolic blood 2019-07-09 09:45:00 92 mm[Hg] [facility] Heart rate 2019-07-09 09:45:00 75 /min [facility] Respiratory rate 2019-07-09 09:45:00 18 /min [facility] Body height 2019-07-09 09:45:00 160 cm [facility] Body weight 2019-07-09 09:45:00 83.008 kg [facility] BMI 2019-07-09 09:45:00 32.42 kg/m2 [facility] Oxygen saturation in 2019-07-09 09:45:00 99 /min University of Arterial blood by [facility] Pulse oximetry Branch Systolic blood 2019-06-23 10:25:00 132 mm[Hg] [facility] Diastolic blood 2019-06-23 10:25:00 96 mm[Hg] [facility] Heart rate 2019-06-23 10:25:00 68 /min [facility] Respiratory rate 2019-06-23 10:25:00 20 /min [facility] Oxygen saturation in 2019-06-23 10:25:00 99 /min University of Arterial blood by [facility] Pulse oximetry Branch Body weight 2019-06-23 09:24:00 77.111 kg [facility] BMI 2019-06-23 09:24:00 29.18 kg/m2 [facility] Body temperature 2019-06-23 09:04:00 36.44 Angelique [address] [facility] Body height 2019-06-23 09:04:00 162.6 cm [facility] Procedures Procedure Date / Time Performing Clinician Source Performed ADC / LCC - DRUG SCREEN 2020-08-30 01:03:00 Shweta Morrison [facility] XR CHEST 1 VW 2020-08-30 00:55:08 Shweta Morrison [facility] URINALYSIS 2020-08-30 00:29:00 Shweta Morrison [facility] LIPASE 2020-08-30 00:25:00 Shweta Morrison [facility] TROPONIN I 2020-08-30 00:25:00 Shweta Morrison [facility] THYROID STIMULATING 2020-08-30 00:25:00 Shweta Morrison [facility] HORMONE [facility] COMP. METABOLIC PANEL 2020-08-30 00:25:00 Shweta Morrison [facility] ([id number]) Medical Branch CBC WITH DIFF 2020-08-30 00:25:00 Shweta Morrison [facility] PROTHROMBIN TIME / INR 2020-08-30 00:25:00 Shweta Morrison [facility] ACTIVATED PARTIAL 2020-08-30 00:25:00 Shweta Morrison [facility] 2020-08-30 00:23:19 Shweta Morrison [facility] ASSIGNMENT OF BENEFITS 2020-05-20 00:09:07 Doctor Unassigned, No [facility] NOTICE OF PRIVACY 2020-05-20 00:05:27 Doctor Unassigned, No [facility] CONSENT/REFUSAL FOR 2020-05-20 00:05:07 Doctor Unassigned, No [facility] [place] [facility] AND [facility] POCT TEST 2020-03-15 17:16:00 Eddie Sheets [facility] URINALYSIS 2020-03-15 17:13:00 Eddie Sheets [place] [facility] CONSENT/REFUSAL FOR 2020-03-15 16:41:49 Doctor Unassigned, No [facility] [place] DIAGNOS[facility] AND TREATMENT [facility] NOTICE OF PRIVACY 2020-01-10 14:55:15 Doctor Unassigned, No [facility] CONSENT/REFUSAL FOR 2020-01-10 14:54:57 Doctor Unassigned, No [facility] [place] DI[facility] TREATMENT [facility] CT HEAD WO CONTRAST 2019-07-09 10:39:05 Shweta Morrison [facility] NOTICE OF PRIVACY 2019-07-09 09:34:37 Doctor Unassigned, No [facility] PRACTICES Name [facility] CONSENT/REFUSAL FOR 2019-07-09 09:34:16 Doctor [facility]igned, No [facility] Name [facility] URINALYSIS 2019-06-23 10:01:00 Shweta Morrison [facility] POCT TEST 2019-06-23 09:54:00 Shweta Morrison [facility] BASIC METABOLIC PANEL 2019-06-23 09:46:00 Shweta Morrison [facility] (NA, K, CL, CO2, [facility] GLUCOSE, BUN, CREATININE, CA) CBC WITH DIFFERENTIAL 2019-06-23 09:46:[address] [facility] EKG-12 LEAD 2019-06-23 09:27:58 Shweta Morrison [facility] Encounters Start End Encounter Admission Attending Care Care Encounter Source Date/Time Date/Time Type Type Clinicians Facility Department ID 2021-09-08 Emergency [facility] [id number] Univers 00:06:[address] [facility] 2021-09-07 Emergency [facility] [id number] [facility] [id number] [facility]06 Emergency [facility] [id number] Univers 11:54:55 [facility] 2021-06-13 2021-06-13 Outpatient R SKINNY [facility] [id number] Univers 14:15:00 14:15:00 OTF [id number] [facility] 2021-01-29 2021-01-29 Patient Jimy [facility] [id number] Univers 00:00:00 00:00:00 Outreach Rashad PRIMARY 350.1.13.10 i ty of [facility] 4.2.7.2.686 Makayla PATTEN [id number] Me dical [address] 2020-08-31 2020-08-31 Outpatient R [facility] [id number] Univers 15:20:00 15:20:00 [id number] ity of [facility] 2020-08-29 2020-08-29 [facility] [id number] Univers 19:12:00 21:56:00 Shweta Belloton 350.1.13.10 ity of [place] 4.2.7.2.686 [facility] [id number] [address] 2020-05-19 2020-05-19 Emergency [facility] [id number] Univers 19:17:07 22:36:00 Abimbola R Cassia 350.1.13.10 i ty of [place] 4.2.7.2.686 [facility] [id number] [address] 2020-03-29 2020-03-29 [facility] [id number] Univers 00:00:00 00:00:00 Management 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 10 ity [facility] 4.2.7.2.686 Thien as MATERNAL [id number] Med ical & CHILD 107 [facility] 2020-03-24 2020-03-24 Outpatient R WEI, [facility] [id number] Univers 10:30:00 10:30:00 SARA [id number] cuellar [facility] 2020-03-24 2020-03-24 Outpatient R WEI, [facility] [id number] Univers 10:30:00 10:30:00 SARA cochran f [facility] 2020-03-24 2020-03-24 Outpatient R [facility] [id number] Univers 10:30:00 10:30:00 SARA danielley o f [facility] 2020-03-15 2020-03-15 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 MACHINE OPERATOR 350.1.13.10 ity of [facility] 4.2.7.2.686 Thien as MATERNAL [phone] Med ical & CHILD [address] [place] [address] 2020-02-15 2020-02-15 Telephone [facility] [id number] Univers 00:00:00 00:00:00 Patient PORTABLE GRINDING MACHINE OPERATOR 350.1.13.10 it y of Does Not [place]2.7.2.686 [place] MATERNAL [id number] Med ical & CHILD [address] [place] [address] 2020-01-10 2020-01-10 [facility] [id number] Univers 10:16:29 10:19:00 Pastor Antony 350.1.13.10 i ty of [place] 4.2.7.2.686 [facility] [id number] [address] 2020-01-10 2020-01-10 Orders Doctor KRAUSE 1.2.840.114 [id number] Univers 00:00:00 00:00:00 Only Unassigned, JOSE 350.1.13.10 ity of [place] [facility] 4.2.7.2.686 Thien [id number] [place] [address] Branch 2019-07-09 2019-07-09 Emergency [facility] [id number] Univers 04:40:10 06:17:00 Shweta Antony 350.1.13.10 ity of [place] 4.2.7.2.686 [facility] [id number] [place] [address]524 Anthony 2019-06-23 2019-06-23 Emergency [facility] [id number] Univers 04:00:44 05:50:00 Shweta Antony 350.1.13.10 ity of [place] 4.2.7.2.686 [facility] [id number] [address] Results Test Description Test Time Test Comments Results Result Comments Source THYROID STIMULATING HORMONE 2020-08-30 01:50:00 Test Item Value Reference Range Interpretation Comme nts TSH (test code = 3638811245) <0.02 See_Comment L Biotin has been reported to cause a negativ e bias, interpret results relativ e to patient's use of biotin. [Automated message] The sy stem which generated this result transmitted ref erence range: 0.45 - 4.70 mIU /L. The reference range was not u sed to interpret this result as normal/abnormal. Lab Interpretation (test code Abnormal = 37213-8) [facility] - DRUG SCREEN [id number] 01:31:00 Test Item Value Reference Range Interpretation Comments BENZO U (test code = Negative Negative 7915693716) YADIEL U (test code = Negative Negative 5153988047) AMPHET (test code = Negative Negative 3369440369) THC (test code = Presumptive Negative A Confirmatio n of 0349648474) Positive Presumptive Positive THC result requires physician order . METHADONE (test code Negative Negative = 0844497395) Meth U (test code = Negative Negative 2425369966) OPIATES (test code = Negative Negative 6817504676) Cocaine Metabolite Negative Negative (test code = 3984935626) PROPOXY (test code = Negative Negative 8976169663) Tric U (test code = Negative Negative 1460427611) PCP (test code = Negative Negative 7806323040) OXYCOD (test code = Negative Negative 2195926024) ANDREA (test code = Urine Drug Cutoff ANDREA) Ranges Benzodiazepines: ? ? 150 ng/mLBarbiturates : ?200 ng/mLAmphetamine: ? 500 ng/mLCannabinoids : ?50 ?ng/mLMethadone: ? 200 ng/mLMethamphetam ine: ? ? 500 ng/mL Opiates: ? 100 ng/mL or 2000 ng/mLCocaine: ? 150 ng/mLPropoxyphene : ?300 ng/mLTricyclics: ?300 ng/mLOxycodone: ? 100 ng/mLPCP: ? 25 ?ng/mL The results are to be used only for medical (i.e., treatment) purposes. Unconfirmed screening results must not be used for non-medical purposes (e.g., employment testing, legal testing). Lab Interpretation Abnormal (test code = 32223-1) [facility] 1 [id number] 01:04:49 No acute cardiopulmonary abnormality within the confines of radiographicimaging. Preliminary ReportDictated by Resident: Alec Giron MD., have reviewed this study and agree with the abovereport.XR CHEST 1 VW HISTORY: 35 years-old; Female; chest pain COMPARISON: None TECHNIQUE: SINGLE VIEW CHEST RADIOGRAPH. FINDINGS: The lungs are well-expanded and clear with no focal consolidation. There isno pleural effusion or pneumothorax. The cardiac silhouette is within normal limits. There is no acute osseous abnormality. [facility], Radiant Results Inft User - 08/29/2020 8:05 PM CDTXR CHEST 1 VWHISTORY: 35 years-old; Female; chest pain COMPARISON: NoneTECHNIQUE: SINGLE VIEW CHEST RADIOGRAPH.FINDINGS:The lungs are well-expanded and clear with no focal consolidation. There isno pleural effusion or pneumothorax.The cardiac silhouette is within normal limits.There is no acute osseous abnorma lity.IMPRESSIONNo acute cardiopulmonary abnormality within the confines of radiographicimaging.Preliminary Report Dictated by Resident: Alec Lan MD., have reviewed this study andagree with the abovereport. [facility]TR[facility] [id number] 01:03:00 Test Item Value Reference Range Interpretation Comments TROPONIN I (test <0.012 See_Comment [Automated code = 4153414467) message] The system which generated this result transmitted reference range : <=0.034 ng/mL. The reference range was not used to interpr et this result as normal/abnormal . ANDREA (test code = Equal or Less than ANDREA) 0.034 ng/ml---Normal ?Note: Cardiac troponin begins to rise 3-4 hours after the onset of ischemia. Repeat in 4-6 hours if the sample was drawn within 3-4 hours of the onset of the symptom and found normal. Between 0.035 and 0.120 ng/mL--- Borderline. Questionable myocardial injury or necrosis ? ?Note: Serial measurement may be necessary to confirm or exclude the diagnosis of myocardial injury or necrosis; Clinical correlation (symptoms, EKGs, imaging studies, and others) required; Repeat in 4-6 hours if clinically indicated. ? Equal or Higher than 0.121 ng/mL---Abnormal. Myocardial Injury or Necrosis Likely ? Biotin has been reported to cause a negative bias, interpret results relative to patient's use of biotin. ? Lab Interpretation Normal (test code = 36963-3) [facility] METABOLIC PANEL (91223)2020-08-30 00:52:00 Test Item Value Reference Range Interpretation Comments NA (test code = 137 mmol/L 135-145 4814690824) K (test code = 3.5 mmol/L 3.5-5 0861953822) CL (test code = 103 mmol/L 98-108 8361177401) CO2 TOTAL (test code = 19 mmol/L 23-31 L 4805778745) AGAP (test code = 2-16 6390579008) BUN (test code = 17 mg/dL 7-23 2061251965) GLUCOSE (test code = 112 mg/dL 70-110 H 9563151824) CREATININE (test code = 0.50 mg/dL 0.5-1.04 7870092768) TOTAL BILI (test code = 0.7 mg/dL 0.1-1.3 2981682149) CALCIUM (test code = 10.4 mg/dL 8.6-10.6 4532923693) T PROTEIN (test code = 9.2 g/dL 6.3-8.2 H 7803799626) ALBUMIN (test code = 4.8 g/dL 3.5-5 2030097118) ALK PHOS (test code = 163 U/L 34-122 H 6918229284) ALTv (test code = 17 U/L 5-35 1742-6) AST(SGOT) (test code = 33 U/L 13-40 4698516322) eGFR Calculation mL/min/1.73m2 (Non-) (test code = 8663172905) eGFR Calculation mL/min/1.73m2 () (test code = 9690953429) ANDREA (test code = ANDREA) Association of Glomerular Filtration Rate (GFR) and Staging of Kidney Disease* + --+ --+ ------+| GFR (mL/min/1.73 m2) ?| With Kidney Damage ?| ?Without Kidney Damage+ --------+ --------+ +| ?>90 ?| ?Stage one ?| ? Normal ?+ ---+ ---+ -------+| ?60-89 ?| ?Stage two ?| ? Decreased GFR ? + --+ --+ ------+| ?30-59 ?| ?Stage three ?| ? Stage three ? + --+ --+ ------+| ?15-29 ?| ?Stage four ? | ? Stage four ?+ ---+ ---+ -------+| ?<15 (or dialysis) ? ?| ?Stage five ? | ? Stage five ?+ ---+ ---+ -------+ *Each stage assumes the associated GFR level has been in effect for at least three months. ?Stages 1 to 5, with or without kidney disease, indicate chronic kidney disease. Notes: Determination of stages one and two (with eGFR >59mL/min/1.73 m2) requires estimation of kidney damage for at least three months as defined by structural or functional abnormalities of the kidney, manifested by either:Pathological abnormalities or Markers of kidney damage (including abnormalities in the composition of the blood or urine or abnormalities in imaging tests). Lab Interpretation Abnormal (test code = 18365-2) [facility]IP[facility], [id number] 00:51:00 Test Item Value Reference Range Interpretation Comments LIPASE (test code = 3900866951) 54 U/L 0-220 Lab Interpretation (test code = Normal 74022-8) [facility]PTT2020-10-21 00:48:00 Test Item Value Reference Range Interpretation Comments APTT Patient (test See_Comment [Automat ed code = 3173-2) message] The system which generated this result transmitted reference range : 23 - 38 Seconds . The reference range was not used to interpr et this result as normal/abnormal . ANDREA (test code = ANDREA) The [facility] patient population mean normal value for aPTT is 30 seconds. Lab Interpretation Normal (test code = 69285-6) [facility] HospitalPROTHROMBIN TIME / [id number] 00:46:00 Test Item Value Reference Range Interpretation Comments PROTIME PATIENT (test See_Comment [Auto mated message] code = 5964-2) The system wh ich generated this result transmitted ref erence range: 12.0 - 1 4.7 Seconds. The re ference range was not u sed to interpret this result as normal/abnor mal. INR (test code = 6301-6) Nor mal INR <1.1; Warfarin Therap eutic range 2.0 to 3. 0 or 2.5 to 3.5, dep ending upon the indica tions. Lab Interpretation (test Normal code = 68853-4) [facility]IS2020-10-21 00:43:00 Test Item Value Reference Range Interpretation Comments APPEARANCE (test code = Hazy Clear A 3499496115) COLOR (test code = Nirmala Yellow A 1026318095) PH (test code = 4.8-8.0 0606555914) SP GRAVITY (test code = 1.003-1.030 9265779872) GLU U QUAL (test code = Normal Normal 0236417605) BLOOD (test code = 3+ Negative A 9727631108) KETONES (test code = 20 mg/dL Negative A 6049192468) PROTEIN (test code = 100 mg/dL Negative A 2887-8) UROBILIN (test code = 2.0 mg/dL Normal A 5114330478) BILIRUBIN (test code = Negative Negative 4657332193) NITRITE (test code = Negative Negative 3324931982) LEUK PARTH (test code = Negative Negative 2709653119) RBC/HPF (test code = See_Comment H [Autom ated message] 8749750267) The system [employer] generated this result transmit brenda reference range : 0 - 3 HPF. The refe rence range was not u sed to interpret th is result as normal/abnormal . WBC/HPF (test code = See_Comment H [Autom ated message] 1418738543) The system [employer] generated this result transmit brenda reference range : 0 - 5 HPF. The refe rence range was not u sed to interpret th is result as normal/abnormal . BACTERIA (test code = Moderate Negative A 1311784161) MUCOUS (test code = Marked Negative LPF A 1301303039) SQ EPITH (test code = HPF 5504965389) HYAL CAST (test code = See_Comment H [Aut omated message] 7918094994) The system [employer] generated this result transmit brenda reference range : <=2 LPF. The refere nce range was not u sed to interpret th is result as normal/abnormal . Lab Interpretation (test Abnormal code = 92334-4) [facility] WITH [id number] 00:35:00 Test Item Value Reference Range Interpretation Comments WBC (test code = See_Comment [Automated 4590-2) message] The sy stem which generated this result transmitted reference range : 4.30 - 11.10 10*3/?L. The reference range was not used to interpret this result as normal/abnormal . RBC (test code = See_Comment H [Automated 789-8) message] The sy stem which generated this result transmitted reference range : 3.93 - 5.25 10*6/?L. The reference range was not used to interpret this result as normal/abnormal . HGB (test code = 13.9 g/dL 11.6-15 718-7) HCT (test code = 44.0 % 35.7-45.2 4544-3) MCV (test code = 74.3 fL 80.6-95.5 L 787-2) MCH (test code = 23.5 pg 25.9-32.8 L 785-6) MCHC (test code = 31.6 g/dL 31.6-35.1 786-4) RDW-SD (test code = 34.2 fL 39-49.9 L 35622-5) RDW-CV (test code = 12.9 % 12-15.5 788-0) PLT (test code = See_Comment H [Automated 777-3) message] The sy stem which generated this result transmitted reference range : 166 - 358 10*3/ ?L. The reference r tony was not used to interpret this result as normal/abnormal . MPV (test code = 11.7 fL 9.5-12.9 79891-2) NRBC/100 WBC (test See_Comment [Automat ed code = 0842834709) message] The system which generated this result transmitted reference range : 0.0 - 10.0 /100 WBCs. The refer ence range was not u sed to interpret th is result as normal/abnormal . NRBC x10^3 (test code <0.01 See_Comment [Auto mated = [id number]) message] The s ystem which generated this result transmitted reference range : 10*3/?L. The reference range was not used to interpret this result as normal/abnormal . GRAN MAT (NEUT) % 47.0 % (test code = 770-8) IMM GRAN % (test code 0.30 % = 2946783488) LYMPH % (test code = 44.9 % 736-9) MONO % (test code = 7.2 % 5905-5) EOS % (test code = 0.3 % 713-8) BASO % (test code = 0.3 % 706-2) GRAN MAT x10^3(ANC) 3.21 10*3/uL 1.88-7.09 (test code = 1205137186) IMM GRAN x10^3 (test <0.03 0-0.06 code = 8858539681) LYMPH x10^3 (test code 3.07 10*3/uL 1.32-3.29 = 731-0) MONO x10^3 (test code 0.49 10*3/uL 0.33-0.92 = 742-7) EOS x10^3 (test code = <0.03 0.03-0.39 L 711-2) BASO x10^3 (test code <0.03 0.01-0.07 = 704-7) Lab Interpretation Abnormal (test code = 16140-0) [facility] Test Item Value Reference Range Interpretation Comments APPEARANCE (test code = Cloudy Clear A 7978915706) COLOR (test code = Yellow Yellow 0642924929) PH (test code = 4.8-8.0 9262170375) SP GRAVITY (test code = 1.003-1.030 4816010104) GLU U QUAL (test code = Normal Normal 5113279523) BLOOD (test code = 3+ Negative A 1678798227) KETONES (test code = Negative Negative 9907704234) PROTEIN (test code = 100 mg/dL Negative A 2887-8) UROBILIN (test code = 4.0 mg/dL Normal A 6044705450) BILIRUBIN (test code = Negative Negative 2836031307) NITRITE (test code = Positive Negative A 4556261937) LEUK PARTH (test code = 500/uL Negative A 6234492455) RBC/HPF (test code = >182 See_Comment H [Autom ated message] 3539307060) The system [employer] generated this result transmit brenda reference range : 0 - 3 HPF. The refe rence range was not u sed to interpret th is result as normal/abnormal . WBC/HPF (test code = >182 See_Comment H [Autom ated message] 3992163514) The system [employer] generated this result transmit brenda reference range : 0 - 5 HPF. The refe rence range was not u sed to interpret th is result as normal/abnormal . BACTERIA (test code = Many Negative A 0291386055) SQ EPITH (test code = HPF 7079580437) WBC CLUMPS (test code = See_Comment H [Au tomated message] 7955443140) The system [employer] generated this result transmit brenda reference range : <=1 HPF. The refere nce range was not u sed to interpret th is result as normal/abnormal . Lab Interpretation (test Abnormal code = 76356-2) [facility] [id number] 17:16:00 Test Item Value Reference Range Interpretation Comments POCT PREG (test code = 1605) negative On board controls acceptable with present C Line (test code = 3574) POCT PREG LOT # (test code = 3575) [id number] POCT PREG TEST DATE (test 2021-06-09 code = 3576) Lab Interpretation (test code = Normal 69608-3) [facility] HEAD WO [id number] 10:48:25 No acute intracranial abnormality.? RL: [id number] CT HEAD WITHOUT ORDERING PHYSICIAN: SHWETA MCKEONMAHISTORY: Acute headache COMPARISON: none TECHNIQUE: CT of the head without contrast The Technique was utilized with ALARA (as low as reasonably achievable)protocol. FINDINGS: There is no acute intracranial hemorrhage. No extra axial fluidcollections.No midline shift.?Ventricles are normal in size and symmetric.The garcia-white matter differentiation is preserved. The visualizedparanasal sinuses and mastoid air cells are clear.?Osseous structures areunremarkable.? [facility], Radiant Results Inft User - 07/09/2019 5:50 AM CDTCT HEAD WITHOUTORDERING PHYSICIAN: SHWETA MORRISONHISTORY: Acute headacheCOMPARISON: noneTECHNIQUE: CT of the head without contrastThe Technique was utilized with ALARA (as low as reasonably achievable)protocol.FINDINGS:There is no acute intracranial hemorrhage. No extra axial fluidcollections.No midline shift. Ventricles are normal in size and symmetric.The garcia-white matter differ entiation is preserved. The visualizedparanasal sinuses and mastoid air cells are clear. Osseous structures areunremarkable. IMPRESSIONNo acute intracranial abnormality. [id number] Test Item Value Reference Range Interpretation Comments APPEARANCE (test code = Clear Clear 7898374905) COLOR (test code = Yellow Yellow 6079145914) PH (test code = 4.8-8.0 9083265932) SP GRAVITY (test code = >=1.030 1.003-1.030 2505907424) GLU U QUAL (test code = Negative Negative 2488434595) BLOOD (test code = Moderate Negative A 4202557765) KETONES (test code = Negative Negative 0675092737) PROTEIN (test code = Negative Negative 2887-8) UROBILIN (test code = 1.0 mg/dL See_Comment [Auto mated message] 1108781161) The system [employer] generated this result transmit brenda reference range : 0-1.0 mg/dL. Th e reference range was not used to interpret this result as normal/abnormal . BILIRUBIN (test code = Negative Negative 6862697924) NITRITE (test code = Negative Negative 6480559231) LEUK PARTH (test code = Negative Negative 7679269775) RBC/HPF (test code = See_Comment H [Autom ated message] 0991838195) The system [employer] generated this result transmit brenda reference range : 0 - 3 HPF. The refe rence range was not u sed to interpret th is result as normal/abnormal . WBC/HPF (test code = See_Comment [Autom ated message] 0491995519) The system [employer] generated this result transmit brenda reference range : 0 - 5 HPF. The refe rence range was not u sed to interpret th is result as normal/abnormal . BACTERIA (test code = Few Negative A 1105001273) MUCOUS (test code = Slight Negative LPF A 8984552550) Lab Interpretation (test Abnormal code = 26169-3) [facility] (NA, K, CL, CO2, GLUCOSE, BUN, CREATININE, CA)2019-06-23 10:17:00 Test Item Value Reference Range Interpretation Comments NA (test code = 143 mmol/L 135-145 1719674736) K (test code = 3.4 mmol/L 3.5-5 L 1750664472) CL (test code = 110 mmol/L 98-108 H 7216982212) CO2 TOTAL (test code = 25 mmol/L 23-31 7443800348) AGAP (test code = 2-16 4281397178) BUN (test code = 12 mg/dL 7-23 3473331783) GLUCOSE (test code = 91 mg/dL 70-110 6214607481) CREATININE (test code = 0.46 mg/dL 0.5-1.04 L 1193574968) CALCIUM (test code = 9.4 mg/dL 8.6-10.6 3701952320) eGFR Calculation mL/min/1.73m2 (Non-) (test code = 7086022230) eGFR Calculation mL/min/1.73m2 () (test code = 8890986862) ANDREA (test code = ANDREA) Association of Glomerular Filtration Rate (GFR) and Staging of Kidney Disease*+ + + +| GFR (mL/min/1.73 m2)?| With Kidney Damage?|?Without Kidney Damage+ --------+ --------+ +|?>90?|?S tage one?|? Normal?+ ---------+ ---------+ +|?60-89? |?Stage two?|? Decreased GFR? + --+ --+ ------+|?30-59?|?Stage three?|? Stage three? + --+ --+ ------+|?15-29?|?Stage four? |? Stage four?+ -------+ -------+ +|?<15 (or dialysis)?|?Stage five? |? Stage five?+ -------+ -------+ +*Each stage assumes the associated GFR level has been in effect for at least three months.?Stages 1 to 5, with or without kidney disease, indicate chronic kidney disease.Notes: Determination of stages one and two (with eGFR >59mL/min/1.73 m2) requires estimation of kidney damage for at least three months as defined by structural or functional abnormalities of the kidney, manifested by either:Pathological abnormalities or Markers of kidney damage (including abnormalities in the composition of the blood or urine or abnormalities in imaging tests). Lab Interpretation Abnormal (test code = 15827-0) [facility] WITH [id number] 10:01:00 Test Item Value Reference Range Interpretation Comments WBC (test code = See_Comment [Automated 7986-2) message] The sy stem which generated this result transmitted reference range : 4.30 - 11.10 10*3/?L. The reference range was not used to interpret this result as normal/abnormal . RBC (test code = See_Comment [Automated 088-8) message] The sy stem which generated this result transmitted reference range : 3.93 - 5.25 10*6/?L. The reference range was not used to interpret this result as normal/abnormal . HGB (test code = 11.5 g/dL 11.6-15 L 718-7) HCT (test code = 35.9 % 35.7-45.2 4544-3) MCV (test code = 79.8 fL 80.6-95.5 L 787-2) MCH (test code = 25.6 pg 25.9-32.8 L 785-6) MCHC (test code = 32.0 g/dL 31.6-35.1 786-4) RDW-SD (test code = 35.1 fL 39-49.9 L 91327-0) RDW-CV (test code = 12.1 % 12-15.5 788-0) PLT (test code = See_Comment [Automated 777-3) message] The sy stem which generated this result transmitted reference range : 166 - 358 10*3/ ?L. The reference r tony was not used to interpret this result as normal/abnormal . MPV (test code = 11.7 fL 9.5-12.9 48311-5) NRBC/100 WBC (test See_Comment [Automat ed code = 4380861847) message] The system which generated this result transmitted reference range : 0.0 - 10.0 /100 WBCs. The refer ence range was not u sed to interpret th is result as normal/abnormal . NRBC x10^3 (test code <0.01 See_Comment [Auto mated = 8488749902) message] The s ystem which generated this result transmitted reference range : 10*3/?L. The reference range was not used to interpret this result as normal/abnormal . GRAN MAT (NEUT) % 49.5 % (test code = 770-8) IMM GRAN % (test code 0.40 % = 4360763759) LYMPH % (test code = 40.7 % 736-9) MONO % (test code = 8.3 % 5905-5) EOS % (test code = 0.7 % 713-8) BASO % (test code = 0.4 % 706-2) GRAN MAT x10^3(ANC) 2.75 10*3/uL 1.88-7.09 (test code = 5334648580) IMM GRAN x10^3 (test <0.03 0-0.06 code = 0940357083) LYMPH x10^3 (test code 2.26 10*3/uL 1.32-3.29 = 731-0) MONO x10^3 (test code 0.46 10*3/uL 0.33-0.92 = 742-7) EOS x10^3 (test code = 0.04 10*3/uL 0.03-0.39 711-2) BASO x10^3 (test code <0.03 0.01-0.07 = 704-7) Lab Interpretation Abnormal (test code = 87673-5) [facility] [id number] 09:54:00 Test Item Value Reference Range Interpretation Comments POCT PREG (test code = 1605) negative On board controls acceptable with yes C Line (test code = 3574) POCT PREG LOT # (test code = 3575) [id number] POCT PREG TEST DATE (test 11/09/2020 code = 3576) Lab Interpretation (test code = Normal 99304-3) [facility]"
[2022-04-20] MEDS ORDERED: IBUPROFEN 400 MG TAB ONE (10:50)
--- NOTE | 2022-04-20 11:16 | RAD REPORT ---
EXAM DESCRIPTION: RAD - Chest Single View - 04/20/2022 10:58 am CLINICAL HISTORY: Cough COMPARISON: None TECHNIQUE: AP portable chest image was obtained 04/20/2022 10:58 am . FINDINGS: Lungs are clear. Heart and vasculature are normal. No measurable pleural effusion and no p neumothorax. No acute bony abnormality seen. No acute aortic findings suspected. IMPRESSION: No acute cardiopulmonary process.
--- NOTE | 2022-04-20 12:06 | EDPHYS ---
Physician Documentation [facility] Name: Tran Ocampo Age: 37 yrs Sex: Female : 1985 Arrival Date: 04/20/2022 Time: 10:28 Bed Waiting Private MD: ED Physician Eder Ba HPI: 04/20 12:38 This 37 yrs old Black Female presents to ER via Ambulatory with complaints of Fever, aj3 Headache, Chest Pain with cough. 12:38 Onset: The symptoms/episode began/occurred acutely, 2 day(s) ago. Associated signs and aj3 symptoms: Pertinent positives: arthralgias, chills, cough, myalgias, night sweats, runny nose, sinus congestion. Patient is presenting with COVID symptoms for the past 2 days. She has been taking Tylenol and ibuprofen for symptom management.. 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 - Social history:: Smoking status: Patient denies any tobacco usage or history of. ROS: 12:38 Neck: Negative for injury, pain, and swelling, Abdomen/GI: Negative for abdominal pain, aj3 nausea, vomiting, diarrhea, and constipation, Skin: Negative for injury, rash, and discoloration, Neuro: Negative for syncope, headache, weakness, numbness, tingling, and seizure. 12:38 Constitutional: Positive for body aches, chills, fever, malaise. 12:38 ENT: Positive for rhinorrhea, sinus congestion. 12:38 Cardiovascular: Positive for chest pain, with cough. 12:38 Respiratory: Positive for cough, Negative for dyspnea on exertion, shortness of breath, wheezing. 12:38 MS/extremity: Positive for pain, generalized. Exam: 12:38 Constitutional: This is a well developed, well nourished patient who is awake, alert, aj3 and in no acute distress. Head/Face: Normocephalic, atraumatic. Eyes: Pupils equal round and reactive to light, extra-ocular motions intact. Lids and lashes normal. Conjunctiva and sclera are non-icteric and not injected. Cornea within normal limits. Periorbital areas with no swelling, redness, or edema. 12:38 Cardiovascular: Mildly tachy rate and normal rhythm with a normal S1 and S2. No gallops, murmurs, or rubs. Normal PMI, no JVD. No pulse deficits. Respiratory: Lungs have equal breath sounds bilaterally, clear to auscultation and percussion. No rales, rhonchi or wheezes noted. No increased work of breathing, no retractions or nasal flaring. Abdomen/GI: Soft, non-tender, with normal bowel sounds. No distension or tympany. No guarding or rebound. No evidence of tenderness throughout. Skin: Warm, dry with normal turgor. Normal color with no rashes, no lesions, and no evidence of cellulitis. MS/ Extremity: Pulses equal, no cyanosis. Neurovascular intact. Full, normal range of motion. Neuro: Awake and alert, GCS 15, oriented to person, place, time, and situation. Cranial nerves II-XII grossly intact. Motor strength 5/5 in all extremities. Sensory grossly intact. Cerebellar exam normal. Normal gait. 12:38 ENT: Nose: Nasal mucosa: edematous. Vital Signs: 10:36 BP 168 / 107; Pulse 102; Resp 19 S; Temp 99.9(TE); Pulse Ox 98% on R/A; Weight 70.31 kg jd3 (R); Height 5 ft. 4 in. (162.56 cm) (R); Pain 10/10; 10:36 Body Mass Index 26.61 (70.31 kg, 162.56 cm) jd3 MDM: 11:17 Patient medically screened. aj3 12:37 Data reviewed: vital signs, nurses notes, lab test result(s). Counseling: I had a aj3 detailed discussion with the patient and/or guardian regarding: the historical points, exam findings, and any diagnostic results supporting the discharge/admit diagnosis, lab results, the need for outpatient follow up. ED course: Patient has a positive for COVID-19. She was given COVID-19 discharge instructions along with supportive measures how to manage symptoms, follow-up and ER return precautions.. 04/20 10:42 Order name: SARS-COV-2 RT PCR (Document "Date of Onset" if Symptomatic); Complete Time: jd3 12:01 04/20 10:42 Order name: Flu; Complete Time: 12:01 jd3 04/20 10:42 Order name: Strep; Complete Time: 11:16 jd3 04/20 10:42 Order name: XRAY Chest (1 view); Complete Time: 11:20 jd3 04/20 11:16 Order name: Throat Culture EDMS Administered Medications: 10:50 Drug: Motrin (ibuprofen) 800 mg Route: PO; jd3 11:50 Follow up: Response: No adverse reaction jd3 Disposition: 12:44 Co-signature as Attending Physician, Eder Ba MD I agree with the assessment and kdr plan of care. Disposition Summary: 04/20/22 12:05 Discharge Ordered Location: Home aj3 Problem: new aj3 Condition: Stable aj3 Diagnosis - Covid-19 aj3 - Myalgia aj3 - Fever, unspecified aj3 Followup: aj3 - With: Private Physician - When: 1 week - Reason: Re-evaluation by your physician Discharge Instructions: - Discharge Summary Sheet aj3 - 10 Things You Can Do to Manage Your COVID-19 Symptoms at Home - [facility] aj3 Forms: - Medication Reconciliation Form aj3 - Thank You Letter aj3 - Work release form eb - Antibiotic Education aj3 - Prescription Opioid Use aj3 Prescriptions: - Bromfed DM 2-30-10 mg/5 mL Oral syrup - take 10 milliliter by ORAL route every 4 hours; 200 milliliter; Refills: 0, aj3 Product Selection Permitted Signatures: Dispatcher [employer] Eder Méndez MD MD kdr Davies, Jonathon, RN RN jd3 Annalisa Graham, ELECTRICAL & INSTRUMENTATION SUPERVISOR ELECTRICAL & INSTRUMENTATION SUPERVISOR aj3
--- NOTE | 2022-04-20 12:06 | ER ---
Nurse's Notes [facility] Name: Tran Ocampo Age: 37 yrs Sex: Female : 1985 Arrival Date: 04/20/2022 Time: 10:28 Bed Waiting Private MD: Diagnosis: Covid-19;Myalgia;Fever, unspecified Presentation: 04/20 10:34 Chief complaint: Patient states: "I am having chills, body aches, fever. this has been jd3 going on for 2 days now.". Coronavirus screen: chills, cough unrelated to allergies, difficulty breathing, fever. Ebola Screen: No symptoms or risks identified at this time. Initial Sepsis Screen: Does the patient meet any 2 criteria? No. Patient's initial sepsis screen is negative. Does the patient have a suspected source of infection? No. Patient's initial sepsis screen is negative. Risk Assessment: Do you want to hurt yourself or someone else? Patient reports no desire to harm self or others. Onset of symptoms was April 18, 2022. 10:34 Method Of Arrival: Ambulatory jd3 10:34 Acuity: ILIA 3 jd3 Triage Assessment: 10:39 Headache History: Denies prior headaches. General: Appears in no apparent distress. jd3 uncomfortable, Behavior is calm, cooperative, appropriate for age. Pain: Complains of pain in back, chest, abdomen, right arm and left arm Pain at worst was 10 out of 10 on a pain scale. Quality of pain is described as aching, Pain began 2-3 days ago. Also complains of no other associated symptoms. Neuro: Alvarado Agitation-Sedation Scale (RASS): 0 - Alert and Calm Level of Consciousness is awake, alert, obeys commands, Oriented to person, place, time, situation. Cardiovascular: Capillary refill < 3 seconds Patient's skin is warm and dry. Respiratory: Reports shortness of breath cough that is productive, hacking, Airway is patent Respiratory effort is even, unlabored, Respiratory pattern is regular, symmetrical. GI: Reports nausea. : No signs and/or symptoms were reported regarding the genitourinary system. Derm: Skin is intact, Skin is dry, Skin is normal, Skin temperature is warm. Musculoskeletal: Circulation, motion, and sensation intact. Range of motion: intact in all extremities. 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 - Social history:: Smoking status: Patient denies any tobacco usage or history of. Screenin:26 Abuse screen: Denies threats or abuse. Nutritional screening: No deficits noted. jd3 Tuberculosis screening: No symptoms or risk factors identified. Fall Risk Ambulatory Aid- None/Bed Rest/Nurse Assist (0 pts). Gait- Normal/Bed Rest/Wheelchair (0 pts) Mental Status- Oriented to own ability (0 pts). Total Horner Fall Scale indicates No Risk (0-24 pts). Assessment: 12:27 Reassessment: Patient appears in no apparent distress at this time. Patient and/or jd3 family updated on plan of care and expected duration. Pain level reassessed. Patient is alert, oriented x 3, equal unlabored respirations, skin warm/dry/pink. Vital Signs: 10:36 BP 168 / 107; Pulse 102; Resp 19 S; Temp 99.9(TE); Pulse Ox 98% on R/A; Weight 70.31 kg jd3 (R); Height 5 ft. 4 in. (162.56 cm) (R); Pain 10/10; 10:36 Body Mass Index 26.61 (70.31 kg, 162.56 cm) jd3 ED Course: 10:28 Patient arrived in ED. as 10:35 Triage completed. jd3 10:36 Arm band placed on. jd3 10:53 Annalisa Graham NP is PHCP. aj3 10:53 Eder Ba MD is Attending Physician. aj3 10:59 XRAY Chest (1 view) In Process Unspecified. EDMS 12:26 No provider procedures requiring assistance completed. Patient did not have IV access jd3 during this emergency room visit. 12:27 Patient has correct armband on for positive identification. Bed in low position. Call jd3 light in reach. Side rails up X 1. Adult w/ patient. 12:28 Ashutosh Colon, RN is Primary Nurse. jd3 Administered Medications: 10:50 Drug: Motrin (ibuprofen) 800 mg Route: PO; jd3 11:50 Follow up: Response: No adverse reaction jd3 Medication: 12:27 VIS not applicable for this client. jd3 Outcome: 12:05 Discharge ordered by MD. dubois 12:27 Discharged to home ambulatory, with family. jd3 12:27 Condition: stable 12:27 Discharge instructions given to patient, Instructed on discharge instructions, follow up and referral plans. medication usage, Demonstrated understanding of instructions, follow-up care, medications, Prescriptions given X 1. 12:28 Patient left the ED. jd3 Signatures: Dispatcher [employer] EDMS Yamile Morton as Ashutosh Colon, RN RN jd3 Annalisa Graham NP [employer] aj3
[2022-04-20 12:33] VITALS: BP 168/107; TEMP 99.9; O2SAT 98
== END 2022-04-20 12:28 | disposition home or self-care (01) ==
LOC: ER 10:26
DX: U07.1 COVID-19 (principal); M79.10 Myalgia, unspecified site; I10 Essential (primary) hypertension
CPT/HCPCS: 87070; 87081; 87804 ×2; 71045; 99283; U0003

== ENCOUNTER 2022-06-14 10:29 | Emergency (ER) | payer BC ==
--- OUTSIDE RECORDS SUMMARY | 2022-06-14 10:34 | XMS REPORT | Continuity of Care Document ---
:1985 Author Organization [facility] t Address [address] [place] [address] Care Team Providers Name Role Phone OTF BABB Attending Clinician Unavailable Rashad Ahn DO Attending Clinician Shweta Morrison MD Attending Clinician Abimbola Adames Attending Clinician Adalgisa Conchis ALDRIDGE Attending Clinician Provider, Geovany Temkennedi Attending Clinician Unavailable Sara Cates Attending Clinician [phone] SARA CARVAJAL Attending Clinician Unavailable Eddie Mojica Attending Clinician Doctor Unassigned, [place] Attending Clinician Unavailable Pcp, Patient Does Not Have A Attending Clinician [phone] Pastor Camara DO Attending Clinician Payers Payer Name Policy Type Policy Number Effective Date Expiration Date Artie BOLTON O [id number] 2019 00:00:00 Problems Condition Condition Condition Status Onset Resolution Last Treating Co mments Source Name Details Category Date Date Treatment Clinician Date Well woman Well woman Disease Active U nivers exam exam 3-28 ity of 00:00: [address] Other Other Disease Active Univers general general 3-28 [place] of counseling [place] and advice and advice 00 Mi dical for for Branch contracept contracept sky [employer] management management UTI UTI Disease Active Univers symptoms symptoms 3-28 ity of 00:00: [address] History of History of Disease Active U nivers tubal tubal 3-28 ity of ligation ligation 00:00: Medical Branch Obese Obese Disease Active Univers 3-28 ity of 00:00: Medical Branch Essential Essential Disease Active Uni vers hypertensi hypertensi 3-28 it y of on, benign on, benign 00:[place]: [place] [facility] BV BV Disease Active Univers (bacterial (bacterial 3-28 it y of vaginosis) vaginosis) 00:00: [place] [facility] UTI UTI Disease Active Univers symptoms symptoms 02-04 ity of 00:00: Medical Branch Allergies, Adverse Reactions, Alerts Allergy Allergy Status Severity Reaction(s) Onset Inactive Treating Comm ents Source Name Type Date Date Clinician NO KNOWN Drug Active Unknown-Cmnt Un shena ALLERGIE Class 7-12 ity of S 00:00: [place] [facility] [place] No Known Propensi Active Unknown - Uni vers Allergie ty to See comments 7-12 it y of s adverse 00:00: [place] reaction 00 [facility] s Branch Social History Social Habit Start Date Stop Date Quantity Comments Source Exposure to Not sure [facility] SARS-CoV-2 [facility] (event) Branch History of Cigarette Smoker Universi ty of tobacco use [facility] Tobacco use and 2020-08-29 2020-08-29 Never used Universit y of exposure 00:00:00 00:00:[address] [facility] Alcohol intake 2020-08-29 2020-08-29 Current drinker of Un iversity of 00:00:00 00:00:00 [facility] [place] Alcohol Comment 2020-03-24 2020-03-24 occasional Universit y of 00:00:00 00:00:[address] [facility] Tobacco Comment 2017-02-04 2017-02-04 3 cigarettes/day Uni versity of 00:00:00 00:00:[address] [facility] Sex [birth year] At [birth year] Universit y of 00:00:00 00:00:[address] [facility] Smoking Status Start Date Stop Date Source Current every day smoker 2020-08-29 00:00:[address] [facility] Medications Ordered Filled Start Stop Current Ordering Indication Dosage Frequency Signature Comments Components Source Medication Medication Date Date Medication? Clinician (SIG) Name Name cloNIDine 2019-11 2020- No .2mg 0.2 mg, Univ ers (CATAPRES) 0-30 08- Oral, ity of tablet 0.2 03:00: 02:11 ONCE, 1 [place] mg 00 :00 dose, [facility] Medical 08/29/20 Branch at 2200, STAT diphenhydrA 2019-11 2020- No 12.5mg 12.5 mg, Univers MINE 008-30 Slow IV ity of (BENADRYL) 03:00: 02:03 Push, [place] injection 00 :00 ONCE, 1 Medical 12.5 mg dose, [facility] Branch 08/29/20 at 2200, STAT metoclopram 2019-11- No 10mg 10 mg, Uni vers patrick HCl 008-30 Slow IV ity of (REGLAN) 03:00: 02:02 Push, [place] injection 00 :00 ONCE, 1 Medical 10 mg dose, [facility] Branch 08/29/20 at 2200, RAMIRO HYDROCHLORO 2019-11 Yes 1{tbl} Take 1 Un shena THIAZIDE 0-21 tablet by ity of ORAL 00:10: mouth [place] 08 daily. Medical Branch HYDROCHLORO 2019-11 Yes 1{tbl} Take 1 Un shena THIAZIDE 0-21 tablet by ity of ORAL 00:10: mouth [place] 08 daily. Medical Branch hydroCHLORO 2019-11 Yes [id number] 25mg Take 1 Univers thiazide 25 0-20 tablet by ity of mg tablet 00:00: mouth [place] 00 every Medical morning. Branch hydroCHLORO 2019-11 Yes [id number] 25mg Take 1 Univers thiazide 25 0-20 tablet by ity of mg tablet 00:00: mouth [place] 00 every Medical morning. Branch amoxicillin 2019-0 Yes [id number] 500mg Take 1 Univers 500 mg 5-20 capsule by ity of capsule 00:00: mouth 2 00 (two) Medical times Branch daily. amoxicillin 2020-0 Yes [id number] 500mg Take 1 Univers 500 mg 5-20 capsule by ity of capsule 00:00: mouth 2 (two) Medical times Branch daily. amoxicillin 2020-0 Yes [id number] 500mg Take 1 Univers 500 mg 5-20 capsule by ity of capsule 00:00: mouth 2 00 (two) Medical times Branch daily. amoxicillin 2020-0 Yes [id number] 500mg Take 1 Univers 500 mg 5-20 capsule by ity of capsule 00:00: mouth 2 [place] 00 (two) Medical times Branch daily. HYDROCHLORO 2019-0 Yes 1{tbl} Take 1 Un shena THIAZIDE [...] Wed Med ical ing tablet 03/15/20 at [facility] ch 4 mg 1315, Routine metroNIDAZO 2019- No 2000mg 2,000 mg, Univers LE (FLAGYL) 03-15 Oral, ity of tablet 18:15: 17:25 ONCE, 1 [place] 2,000 mg 00 :00 dose, Wed Medica l 03/15/20 at Branch 1315, RAMIRO
Re ason for Anti-Infec tive: Empiric Therapy for Suspected Infection< br>Empiric Therapy Site: Urine
D uration of therapy: 7 days azithromyci 2020- No 1000mg 1,000 mg, Univers n 03-15 Oral, ity of (ZITHROMAX) 18:15: 17:26 ONCE, 1 [place] tablet 00 :00 dose, Wed Medical 1,000 mg 03/15/20 at Branch 1315, RAMIRO
Re ason for Anti-Infec tive: Empiric Therapy for Suspected Infection< br>Empiric Therapy Site: Urine
D uration of therapy: 7 days lidocaine 2019- No 2mL 2 mL, Univer s 1% 03-15 Infiltrati ity of (XYLOCAINE) 18:15: 17:32 on, ONCE, [place] 10 mg/mL (1 00 :00 1 dose, Medic al %) 03/15/20 Branch injection 2 at 1315, mL RAMIRO cefTRIAXone 2019- No 250mg 250 mg, U nivers (ROCEPHIN) 03-15 Intramuscu it y of injection 18:15: 17:28 lar, ONCE, [place] 250 mg 00 :00 1 dose, Medical 03/15/20 Branch at 1315, RAMIRO
Re ason for Anti-Infec tive: Empiric Therapy for Suspected Infection< br>Empiric Therapy Site: Urine
D uration of therapy: 7 days phenazopyri 2019- No 200mg 200 mg, U nivers dine 03-1506 Oral, ity of (PYRIDIUM) 18:15: 17:26 ONCE, 1 [place] tablet 200 00 :00 dose, Wed Medi candelario mg 03/15/20 at Branch 1315, RAMIRO phenazopyri 2020-0 Yes [id number] 200mg Take 1 Univers dine 200 mg 5-06 tablet by ity of tablet 00:00: mouth 3 [place] (three) Medical times Branch daily. phenazopyri 2020-0 Yes [id number] 200mg Take 1 Univers dine 200 mg 5-06 tablet by ity of tablet 00:00: mouth 3 [place] (three) Medical times Branch daily. phenazopyri 2020-0 Yes [id number] 200mg Take 1 Univers dine 200 mg 5-06 tablet by ity of tablet 00:00: mouth 3 [place] (three) Medical times Branch daily. phenazopyri 2020-0 Yes [id number] 200mg Take 1 Univers dine 200 mg 5-06 tablet by ity of tablet 00:00: mouth 3 [place] (three) Medical times Branch daily. phenazopyri 2020-0 Yes [id number] 200mg Take 1 Univers dine 200 mg 5-06 tablet by ity of tablet 00:00: mouth 3 [place] (three) Medical times Branch daily. phenazopyri 2020-0 Yes [id number] 200mg Take 1 Univers dine 200 mg 5-06 tablet by ity of tablet 00:00: mouth 3 [place] 00 (three) Medical times Branch daily. phenazopyri 2020-0 Yes [id number] 200mg Take 1 Univers dine 200 mg 5-06 tablet by ity of tablet 00:00: mouth 3 [place] 00 (three) Medical times Branch daily. phenazopyri 2020-0 Yes [id number] 200mg Take 1 Univers dine 200 mg 5-06 tablet by ity of tablet 00:00: mouth 3 [place] 00 (three) Medical times Branch daily. ciprofloxac 2020-0 2020- No [id number] 500mg Take 1 Univers in HCl 500 5-06 05-14 tablet by ity of mg tablet 00:00: 04:59 mouth 2 [place] :[place] (two) Medical times Branch daily for 7 days. erythromyci 2020-0 Yes [id number] .5[in_u Place 0.5 Univers n 5 mg/gram 3-02 9105 s] Inches in ity of (0.5 %) 00:00: left eye [place] ophthalmic 00 at Medical ointment bedtime. Branch erythromyci 2019-0 Yes [id number] .5[in_u Place 0.5 Univers n 5 mg/gram 3-02 9105 s] Inches in ity of (0.5 %) 00:00: left eye [place] ophthalmic 00 at Medical ointment bedtime. Branch erythromyci 2019-0 Yes [id number] .5[in_u Place 0.5 Univers n 5 mg/gram 3-02 9105 s] Inches in ity of (0.5 %) 00:00: left eye [place] ophthalmic 00 at Medical ointment bedtime. Branch erythromyci 2020-0 Yes [id number] .5[in_u Place 0.5 Univers n 5 mg/gram 3-02 9105 s] Inches in ity of (0.5 %) 00:00: left eye [place] ophthalmic 00 at Medical ointment bedtime. Branch erythromyci 2020-0 Yes [id number] .5[in_u Place 0.5 Univers n 5 mg/gram 3-02 9105 s] Inches in ity of (0.5 %) 00:00: left eye [place] ophthalmic 00 at Medical ointment bedtime. Branch erythromyci 2020-0 Yes [id number] .5[in_u Place 0.5 Univers n 5 mg/gram 3-02 9105 s] Inches in ity of (0.5 %) 00:00: left eye [place] ophthalmic 00 at Medical ointment bedtime. Branch erythromyci 2020-0 Yes [id number] .5[in_u Place 0.5 Univers n 5 mg/gram 3-02 9105 s] Inches in ity of (0.5 %) 00:00: left eye [place] ophthalmic 00 at Medical ointment bedtime. Branch erythromyci 2019-0 Yes [id number] .5[in_u Place 0.5 Univers n 5 mg/gram 3-02 9105 s] Inches in ity of (0.5 %) 00:00: left eye [place] ophthalmic 00 at Medical ointment bedtime. [place] erythromyci 2019-0 Yes [id number] .5[in_u Place 0.5 Univers n 5 mg/gram 3-02 9105 s] Inches in ity of (0.5 %) 00:00: left eye [place] ophthalmic 00 at Medical ointment bedtime. Branch erythromyci 2019-0 Yes [id number] .5[in_u Place 0.5 Univers n 5 mg/gram 3-02 9105 s] Inches in ity of (0.5 %) 00:00: left eye [place] ophthalmic 00 at Medical ointment bedtime. Branch erythromyci 2019-0 Yes [id number] .5[in_u Place 0.5 Univers n 5 mg/gram 3-02 9105 s] Inches in ity of (0.5 %) 00:00: left eye [place] ophthalmic 00 at Medical ointment bedtime. Branch erythromyci 2019-0 Yes [id number] .5[in_u Place 0.5 Univers n 5 mg/gram 3-02 9105 s] Inches in ity of (0.5 %) 00:00: left eye [place] ophthalmic 00 at Medical ointment bedtime. Bill ketorolac 2018-0 2019- No 60mg 60 mg, Unive rs (TORADOL) 830 08-30 Intramuscu ity of injection 11:00: 09:58 lar, ONCE, [place] 60 mg 00 :00 1 dose, Medical Fri Branch 07/09/19 at 0600, RAMIRO
[facility] approving Restricted medication : SHWETA MORRISON bit Yes [id number] 1{tbl} Take 1 Univers acetaminoph 8-30 tablet by ity of en-caff 00:00: mouth [place] 50-325-40 00 every 4 Medical mg tablet (four) Branch hours as needed for Pain (scale 7-10) (HEADACHE) . bit Yes [id number] 1{tbl} Take 1 Univers acetaminoph 8-30 tablet by ity of en-caff 00:00: mouth [place] 50-325-40 00 every 4 Medical mg tablet (four) Branch hours as needed for Pain (scale 7-10) (HEADACHE) . bit Yes [id number] 1{tbl} Take 1 Univers acetaminoph 8-30 tablet by ity of en-caff 00:00: mouth [place] 50-325-40 00 every 4 Medical mg tablet (four) Branch hours as needed for Pain (scale 7-10) (HEADACHE) . albit Yes [id number] 1{tbl} Take 1 Univers acetaminoph 8-30 tablet by ity of en-caff 00:00: mouth [place] 50-325-40 00 every 4 Medical mg tablet (four) Branch hours as needed for Pain (scale 7-10) (HEADACHE) . bital Yes [id number] 1{tbl} Take 1 Univers acetaminoph 8-30 tablet by ity of en-caff 00:00: mouth [place] 50-325-40 00 every 4 Medical mg tablet (four) Branch hours as needed for Pain (scale 7-10) (HEADACHE) . butalbital Yes [id number] 1{tbl} Take 1 Univers acetaminoph 8-30 tablet by ity of en-caff 00:00: mouth [place] 50-325-40 00 every 4 Medical mg tablet (four) Branch hours as needed for Pain (scale 7-10) (HEADACHE) . butalbital Yes [id number] 1{tbl} Take 1 Univers acetaminoph 8-30 tablet by ity of en-caff 00:00: mouth [place] 50-325-40 00 every 4 Medical mg tablet (four) Branch hours as needed for Pain (scale 7-10) (HEADACHE) . butbital Yes [id number] 1{tbl} Take 1 Univers acetaminoph 8-30 tablet by ity of en-caff 00:00: mouth [place] 50-325-40 00 every 4 Medical mg tablet (four) Branch hours as needed for Pain (scale 7-10) (HEADACHE) . bit Yes [id number] 1{tbl} Take 1 Univers acetaminoph 8-30 tablet by ity of en-caff 00:00: mouth [place] 50-325-40 00 every 4 Medical mg tablet (four) Branch hours as needed for Pain (scale 7-10) (HEADACHE) . bit Yes [id number] 1{tbl} Take 1 Univers acetaminoph 8-30 tablet by ity of en-caff 00:00: mouth [place] 50-325-40 00 every 4 Medical mg tablet (four) Branch hours as needed for Pain (scale 7-10) (HEADACHE) . butalbital Yes [id number] 1{tbl} Take 1 Univers acetaminoph 8-30 tablet by ity of en-caff 00:00: mouth [place] 50-325-40 00 every 4 Medical mg tablet (four) Branch hours as needed for Pain (scale 7-10) (HEADACHE) . butbital Yes [id number] 1{tbl} Take 1 Univers acetaminoph 8-30 tablet by ity of en-caff 00:00: mouth [place] 50-325-40 00 every 4 Medical mg tablet (four) Branch hours as needed for Pain (scale 7-10) (HEADACHE) . butalbital Yes [id number] 1{tbl} Take 1 Univers acetaminoph 8-30 tablet by ity of en-caff 00:00: mouth [place] 50-325-40 00 every 4 Medical mg tablet (four) Branch hours as needed for Pain (scale 7-10) (HEADACHE) . butalbital Yes [id number] 1{tbl} Take 1 Univers acetaminoph 8-30 tablet by ity of en-caff 00:00: mouth [place] 50-325-40 00 every 4 Medical mg tablet (four) Branch hours as needed for Pain (scale 7-10) (HEADACHE) . KCL 2019- No 40meq 40 mEq, Univers (KLOR-CON 06-23 Oral, ity of M20) tablet 11:30: 10:37 ONCE, 1 [place] 40 mEq 00 :00 dose, Fri Medical 06/23/19 at Branch 0630, RMAIRO diphenhydrA 2018- No 12.5mg 12.5 mg, Univers MINE 06-23 Slow IV ity of (BENADRYL) 10:30: 09:52 Push, [place] injection 00 :00 ONCE, 1 Medical 12.5 mg dose, [facility] 06/23/19 at 0530, STAT metoclopram 2018- No 10mg 10 mg, Uni vers patrick HCl 06-23 Slow IV ity of (REGLAN) 10:30: 09:50 Push, [place] injection 00 :00 ONCE, 1 Medical 10 mg dose, [facility] 06/23/19 at 0530, RAMIRO hydroCHLORO 2019- No 25mg 25 mg, Uni vers thiazide 06-23 Oral, ity of (ESIDRIX) 10:30: 09:49 ONCE, 1 [place] tablet 25 00 :00 dose, Fri Medic al mg 06/23/19 at Branch 0530, [facility] hydroCHLORO Yes [id number] 25mg Take 1 Univers thiazide 25 8-14 tablet by ity of mg tablet 00:00: mouth [place] 00 every Medical morning. Branch hydroCHLORO Yes [id number] 25mg Take 1 Univers thiazide 25 8-14 tablet by ity of mg tablet 00:00: mouth [place] 00 every Medical morning. [place] hydroCHLORO 2019 Yes [id number] 25mg Take 1 Univers thiazide 25 8-14 tablet by ity of mg tablet 00:00: mouth [place] 00 every Medical morning. [place] hydroCHLORO Yes [id number] 25mg Take 1 Univers thiazide 25 8-14 tablet by ity of mg tablet 00:00: mouth [place] 00 every Medical morning. Branch hydroCHLORO Yes [id number] 25mg Take 1 Univers thiazide 25 8-14 tablet by ity of mg tablet 00:00: mouth [place] 00 every Medical morning. Branch hydroCHLORO 2019-0 Yes [id number] 25mg Take 1 Univers thiazide 25 8-14 tablet by ity of mg tablet 00:00: mouth [place] 00 every Medical morning. Branch hydroCHLORO 2019-0 Yes [id number] 25mg Take 1 Univers thiazide 25 8-14 tablet by ity of mg tablet 00:00: mouth [place] 00 every Medical morning. Branch hydroCHLORO 2019-0 Yes [id number] 25mg Take 1 Univers thiazide 25 8-14 tablet by ity of mg tablet 00:00: mouth [place] 00 every Medical morning. Branch hydroCHLORO 2019-0 Yes [id number] 25mg Take 1 Univers thiazide 25 8-14 tablet by ity of mg tablet 00:00: mouth [place] 00 every Medical morning. Branch hydroCHLORO 2019-0 Yes [id number] 25mg Take 1 Univers thiazide 25 8-14 tablet by ity of mg tablet 00:00: mouth [place] 00 every Medical morning. Branch hydroCHLORO 2019-0 Yes [id number] 25mg Take 1 Univers thiazide 25 8-14 tablet by ity of mg tablet 00:00: mouth [place] 00 every Medical morning. Branch hydroCHLORO 2019-0 Yes [id number] 25mg Take 1 Univers thiazide 25 8-14 tablet by ity of mg tablet 00:00: mouth [place] 00 every Medical morning. Branch hydroCHLORO 2019-0 Yes [id number] 25mg Take 1 Univers thiazide 25 8-14 tablet by ity of mg tablet 00:00: mouth [place] 00 every Medical morning. Branch hydroCHLORO 2019-0 Yes [id number] 25mg Take 1 Univers thiazide 25 8-14 tablet by ity of mg tablet 00:00: mouth [place] 00 every Medical morning. Branch hydroCHLORO 2019-0 Yes [id number] 25mg Take 1 Univers thiazide 25 8-14 tablet by ity of mg tablet 00:00: mouth [place] 00 every Medical morning. Branch phenazopyri 2019-0 Yes [id number] 200mg Take 1 Univers dine 200 mg 6-28 tablet by ity of tablet 00:00: mouth 3 [place] 00 (three) Medical times Branch daily. traMADOL 2019-0 Yes [id number] 50mg Take 1 Uni vers (ULTRAM) 50 6-28 tablet by ity of mg tablet 00:00: mouth [place] 00 every 8 Medical (eight) Branch hours as needed for Pain (scale 4-6). phenazopyri 2019-0 Yes [id number] 200mg Take 1 Univers dine 200 mg 6-28 tablet by ity of tablet 00:00: mouth 3 00 (three) Medical times Branch daily. traMADOL 2019-0 Yes [id number] 50mg Take 1 Uni vers (ULTRAM) 50 6-28 tablet by ity of mg tablet 00:00: mouth [place] 00 every 8 Medical (eight) Branch hours as needed for Pain (scale 4-6). phenazopyri 2019-0 Yes [id number] 200mg Take 1 Univers dine 200 mg 6-28 tablet by ity of tablet 00:00: mouth 3 (three) Medical times Branch daily. traMADOL 2019-0 Yes [id number] 50mg Take 1 Uni vers (ULTRAM) 50 6-28 tablet by ity of mg tablet 00:00: mouth [place] 00 every 8 Medical (eight) Branch hours as needed for Pain (scale 4-6). phenazopyri 2019-0 Yes [id number] 200mg Take 1 Univers dine 200 mg 6-28 tablet by ity of tablet 00:00: mouth (three) Medical times Branch daily. traMADOL 2019-0 Yes [id number] 50mg Take 1 Uni vers (ULTRAM) 50 6-28 tablet by ity of mg tablet 00:00: mouth [place] 00 every 8 Medical (eight) Branch hours as needed for Pain (scale 4-6). phenazopyri 2019-0 Yes [id number] 200mg Take 1 Univers dine 200 mg 6-28 tablet by ity of tablet 00:00: mouth (three) Medical times Branch daily. traMADOL 2019-0 Yes [id number] 50mg Take 1 Uni vers (ULTRAM) 50 6-28 tablet by ity of mg tablet 00:00: mouth [place] 00 every 8 Medical (eight) Branch hours as needed for Pain (scale 4-6). phenazopyri 2019-0 Yes [id number] 200mg Take 1 Univers dine 200 mg 6-28 tablet by ity of tablet 00:00: mouth 3 (three) Medical times Branch daily. traMADOL 2019-0 Yes [id number] 50mg Take 1 Uni vers (ULTRAM) 50 6-28 tablet by ity of mg tablet 00:00: mouth [place] 00 every 8 Medical (eight) Branch hours as needed for Pain (scale 4-6). phenazopyri 2019-0 Yes [id number] 200mg Take 1 Univers dine 200 mg 6-28 tablet by ity of tablet 00:00: mouth 3 [place] 00 (three) Medical times Branch daily. traMADOL 2019-0 Yes [id number] 50mg Take 1 Uni vers (ULTRAM) 50 6-28 tablet by ity of mg tablet 00:00: mouth [place] 00 every 8 Medical (eight) Branch hours as needed for Pain (scale 4-6). phenazopyri 2019-0 Yes [id number] 200mg Take 1 Univers dine 200 mg 6-28 tablet by ity of tablet 00:00: mouth 3 (three) Medical times Branch daily. traMADOL 2019-0 Yes [id number] 50mg Take 1 Uni vers (ULTRAM) 50 6-28 tablet by ity of mg tablet 00:00: mouth [place] 00 every 8 Medical (eight) Branch hours as needed for Pain (scale 4-6). phenazopyri 2019-0 Yes [id number] 200mg Take 1 Univers dine 200 mg 6-28 tablet by ity of tablet 00:00: mouth 3 (three) Medical times Branch daily. traMADOL 2019-0 Yes [id number] 50mg Take 1 Uni vers (ULTRAM) 50 6-28 tablet by ity of mg tablet 00:00: mouth [place] 00 every 8 Medical (eight) Branch hours as needed for Pain (scale 4-6). phenazopyri 2019-0 Yes [id number] 200mg Take 1 Univers dine 200 mg 6-28 tablet by ity of tablet 00:00: mouth 3 (three) Medical times Branch daily. phenazopyri 2019-0 Yes [id number] 200mg Take 1 Univers dine 200 mg 6-28 tablet by ity of tablet 00:00: mouth 3 (three) Medical times Branch daily. traMADOL 2019-0 Yes [id number] 50mg Take 1 Uni vers (ULTRAM) 50 6-28 tablet by ity of mg tablet 00:00: mouth [place] 00 every 8 Medical (eight) Branch hours as needed for Pain (scale 4-6). traMADOL 2019-0 Yes [id number] 50mg Take 1 Uni vers (ULTRAM) 50 6-28 tablet by ity of mg tablet 00:00: mouth [place] 00 every 8 Medical (eight) Branch hours as needed for Pain (scale 4-6). phenazopyri 2019-0 Yes [id number] 200mg Take 1 Univers dine 200 mg 6-28 tablet by ity of tablet 00:00: mouth 3 [place] 00 (three) Medical times Branch daily. traMADOL 2019-0 Yes [id number] 50mg Take 1 Uni vers (ULTRAM) 50 6-28 tablet by ity of mg tablet 00:00: mouth [place] 00 every 8 Medical (eight) Branch hours as needed for Pain (scale 4-6). phenazopyri 2019-0 Yes [id number] 200mg Take 1 Univers dine 200 mg 6-28 tablet by ity of tablet 00:00: mouth 3 [place] 00 (three) Medical times Branch daily. traMADOL 2019-0 Yes [id number] 50mg Take 1 Uni vers (ULTRAM) 50 6-28 tablet by ity of mg tablet 00:00: mouth [place] 00 every 8 Medical (eight) Branch hours as needed for Pain (scale 4-6). phenazopyri 2019-0 Yes [id number] 200mg Take 1 Univers dine 200 mg 6-28 tablet by ity of tablet 00:00: mouth 3 [place] 00 (three) Medical times Branch daily. traMADOL 2019-0 Yes [id number] 50mg Take 1 Uni vers (ULTRAM) 50 6-28 tablet by ity of mg tablet 00:00: mouth [place] 00 every 8 Medical (eight) Branch hours as needed for Pain (scale 4-6). phenazopyri 2019-0 Yes [id number] 200mg Take 1 Univers dine 200 mg 6-28 tablet by ity of tablet 00:00: mouth 3 [place] 00 (three) Medical times Branch daily. traMADOL 2019-0 Yes [id number] 50mg Take 1 Uni vers (ULTRAM) 50 [...] ORAL 16:43: mouth [place] 41 daily. [facility] Immunizations Ordered Filled Immunization Date Status Comments [facility] e Immunization Name Name Tdap 2017-02-04 Completed University of 00:00:[address] [facility] Tdap 2017-02-04 Completed University of 00:00:[address] [facility] Tdap 2017-02-04 Completed University of 00:00:[address] [facility] Tdap 2017-02-04 Completed University of 00:00:[address] [facility] Tdap 2017-02-04 Completed University of 00:00:[address] [facility] Tdap 2017-02-04 Completed University of 00:00:[address] [facility] Tdap 2017-02-04 Completed University of 00:00:[address] [facility] Tdap 2017-02-04 Completed University of 00:00:[address] [facility] TDAP 2017-02-04 Completed University of 00:00:[address] [facility] TDAP 2017-02-04 Completed University of 00:00:[address] [facility] TDAP 2017-02-04 Completed University of 00:00:[address] [facility] Tdap 2017-02-04 Completed University of 00:00:[address] [facility] Tdap 2017-02-04 Completed University of 00:00:00 [place] [facility] Tdap 2017-02-04 Completed University of 00:00:00 [place] [facility] Tdap 2017-02-04 Completed University of 00:00:[address] [facility] Vital Signs Vital Name Observation Time Observation Value Comments Source Systolic blood 2020-08-30 02:45:00 136 mm[Hg] Univer sity of pressure [place] [facility] Diastolic blood 2020-08-30 02:45:00 97 mm[Hg] Unive rsity of pressure [place] [facility] Heart rate 2020-08-30 02:45:00 94 /min Universi ty of [place] [facility] Respiratory rate 2020-08-30 02:45:00 20 /min Univ ersity of [place] [facility] Oxygen saturation in 2020-08-30 02:45:00 97 /min University of Arterial blood by [place] [employer] [facility] Pulse oximetry Branch Body temperature 2020-08-30 00:08:00 37.17 Angelique Univ ersity of [facility] Branch Body height 2020-08-30 00:08:00 162.6 cm [facility] [place] [facility] Body weight 2020-08-30 00:08:00 79.379 kg [facility] [place] [facility] BMI 2020-08-30 00:08:00 30.04 kg/m2 [facility] [place] [facility] Branch Systolic blood 2020-05-20 00:15:00 150 mm[Hg] [facility] Diastolic blood 2020-05-20 00:15:00 102 mm[Hg] Unive rsity [facility] Heart rate 2020-05-20 00:15:00 102 /min [facility] Body temperature 2020-05-20 00:15:00 37.11 Angelique [facility] Respiratory rate 2020-05-20 00:15:00 22 /min [facility] Body weight 2020-05-20 00:15:00 83.915 kg [facility] BMI 2020-05-20 00:15:00 31.76 kg/m2 [facility] Oxygen saturation in 2020-05-20 00:15:00 99 /min [facility] of Arterial blood by [facility] [employer] [facility]el[facility] Pulse oximetry Branch Systolic blood 2020-03-24 16:03:00 148 mm[Hg] [facility] Diastolic blood 2020-03-24 16:03:00 98 mm[Hg] Unive rsity of pressure [facility] Heart rate 2020-03-24 16:03:00 101 /min Universi ty of [facility] Body temperature 2020-03-24 16:03:00 36.39 Angelique Univ ersity of [facility] Branch Respiratory rate 2020-03-24 16:03:00 16 /min Univ ersity of [facility] Body height 2020-03-24 16:03:00 162.6 cm Universi ty of [facility] Body weight 2020-03-24 16:03:00 75.921 kg Universi ty of [facility] BMI 2020-03-24 16:03:00 28.73 kg/m2 Universi ty of [facility] Branch Systolic blood 2020-03-15 16:47:00 162 mm[Hg] Univer sity of pressure [facility] Branch Diastolic blood 2020-03-15 16:47:00 97 mm[Hg] Unive rsity of pressure [facility] Heart rate 2020-03-15 16:47:00 98 /min Universi ty of [facility] Body temperature 2020-03-15 16:47:00 36.83 Angelique Univ ersity of [facility] Branch Respiratory rate 2020-03-15 16:47:00 16 /min Univ ersity of [facility] Body height 2020-03-15 16:47:00 162.6 cm Universi ty of [facility] Body weight 2020-03-15 16:47:00 77.111 kg [facility] BMI 2020-03-15 16:47:00 29.18 kg/m2 Universi ty of [facility] Oxygen saturation in 2020-03-15 16:47:00 100 /min University Arterial blood by [facility] Pulse oximetry Branch Systolic blood 2020-01-10 15:06:00 117 mm[Hg] Univer sity of pressure [facility] Branch Diastolic blood 2020-01-10 15:06:00 99 mm[Hg] Unive rsity of pressure [facility] Heart rate 2020-01-10 15:06:00 85 /min Universi ty of [facility] Body temperature 2020-01-10 15:06:00 36.78 Angelique Univ ersity of [facility] Respiratory rate 2020-01-10 15:06:00 18 /min Univ ersity of [facility] Body weight 2020-01-10 15:06:00 77.111 kg [facility] BMI 2020-01-10 15:06:00 30.11 kg/m2 [facility] Oxygen saturation in 2020-01-10 15:06:00 100 /min [facility]ial blood by [facility] Pulse oximetry Branch Systolic blood 2019-07-09 09:45:00 144 mm[Hg] [facility] Diastolic blood 2019-07-09 09:45:00 92 mm[Hg] Unive rs[facility] Heart rate 2019-07-09 09:45:00 75 /min [facility] Respiratory rate 2019-07-09 09:45:00 18 /min Univ [facility] Body height 2019-07-09 09:45:00 160 cm [facility] Body weight 2019-07-09 09:45:00 83.008 kg [facility] BMI 2019-07-09 09:45:00 32.42 kg/m2 [facility] Oxygen saturation in 2019-07-09 09:45:00 99 /min University of Arterial blood by [facility] Pulse oximetry Branch Systolic blood 2019-06-23 10:25:00 132 mm[Hg] Univer [facility] Diastolic blood 2019-06-23 10:25:00 96 mm[Hg] Unive rsity [facility] Heart rate 2019-06-23 10:25:00 68 /min [facility] Respiratory rate 2019-06-23 10:25:00 20 /min [facility] Oxygen saturation in 2019-06-23 10:25:00 99 /min University of Arterial blood by [facility] candelario Pulse oximetry Branch Body weight 2019-06-23 09:24:00 77.111 kg [facility] BMI 2019-06-23 09:24:00 29.18 kg/m2 [facility] Body temperature 2019-06-23 09:04:00 36.44 Angelique [facility] Body height 2019-06-23 09:04:00 162.6 cm [facility] Procedures Procedure Date / Time Performing Clinician Source Performed ADC / LCC - DRUG SCREEN 2020-08-30 01:03:00 [facility] CHEST 1 VW 2020-08-30 00:55:08 Shweta Morrison [facility] URINALYSIS 2020-08-30 00:29:00 Shweta Morrison [facility] LIPASE 2020-08-30 00:25:00 Shweta Morrison [facility] TROPONIN I 2020-08-30 00:25:00 Shweta Morrison [facility] THYROID STIMULATING 2020-08-30 00:25:00 Shweta Morrison [facility] HORMONE [facility] COMP. METABOLIC PANEL 2020-08-30 00:25:00 Shweta Morrison [facility] ([id number]) [facility] CBC WITH DIFF 2020-08-30 00:25:00 Shweta Morrison [facility] PROTHROMBIN TIME / INR 2020-08-30 00:25:00 Shweta Morrison [facility] ACTIVATED PARTIAL 2020-08-30 00:25:00 Shweta Morrison [facility] 2020-08-30 00:23:19 Shweta Morrison [facility] ASSIGNMENT OF BENEFITS 2020-05-20 00:09:07 Doctor Unassigned, No [facility] NOTICE OF PRIVACY 2020-05-20 00:05:27 Doctor Unassigned, No [facility] CONSENT/REFUSAL FOR 2020-05-20 00:05:07 Doctor Unassigned, No [facility] POCT TEST 2020-03-15 17:16:00 Eddie Sheets [facility] URINALYSIS 2020-03-15 17:13:00 Eddie Sheets [place] [facility] CONSENT/REFUSAL FOR 2020-03-15 16:41:49 Doctor Unassigned, No [facility] NOTICE OF PRIVACY 2020-01-10 14:55:15 Doctor Unassigned, No [facility] CONSENT/REFUSAL FOR 2020-01-10 14:54:57 Doctor Unassigned, No [facility] CT HEAD WO CONTRAST 2019-07-09 10:39:05 Shweta Morrison [facility] NOTICE OF PRIVACY 2019-07-09 09:34:37 Doctor Unassigned, No [facility] CONSENT/REFUSAL FOR 2019-07-09 09:34:16 Doctor Unassigned, No Un iversity [facility] DIAGNOSIS AND TREATMENT Name [facility] URINALYSIS 2019-06-23 10:01:00 Shweta Morrison [facility] POCT TEST 2019-06-23 09:54:00 Shweta Morrison [facility] BASIC METABOLIC PANEL 2019-06-23 09:46:00 Shweta Morrison [facility] (NA, K, CL, CO2, Medical Branch GLUCOSE, BUN, CREATININE, CA) CBC WITH DIFFERENTIAL 2019-06-23 09:46:00 Shweta Morrison [facility] EKG-12 LEAD 2019-06-23 09:27:58 Shweta Morrison [facility] Encounters Start End Encounter Admission Attending Care Care Encounter Source Date/Time Date/Time Type Type Clinicians Facility Department ID 2021-09-08 Emergency [facility] [id number] Univers 00:06:01 ity [facility] 2021-09-07 Emergency [facility] [id number] [facility]-06 Emergency [facility] [id number] Univers [facility]:05[facility] 2021-09-06 Emergency [facility] [id number] Univers 11:54[facility] 2021-06-13 2021-06-13 Outpatient R SKINNY [facility] [id number] Univers 14:15:00 14:15:00 OTF [id number] [facility] 2021-01-29 2021-01-29 Patient Jimy [facility] [id number] Univers 00:00:00 00:00:00 Outreach [facility] [id number] i ty of [facility] [place] [id number] Mi crow [address] [place] [address] 2020-08-31 2020-08-31 Outpatient R [facility] [id number] Univers 15:20:00 15:20:00 [id number] ity of [facility] 2020-08-29 2020-08-29 Emergency [facility] [id number] Univers 19:12:00 21:56:00 Shweta Belloton 350.1.13.10 ity of [place].2.[place] [id number] [address] 2020-05-19 2020-05-19 Emergency [facility] [id number] Univers 19:17:07 22:36:00 Abimbola Shabbir Cassia 350.1.13.10 i ty of [place] 4.2.7.2.686 [facility] [id number] [address] 2020-03-29 2020-03-29 [facility] [id number] Univers 00:00:00 00:00:00 Management Conchis MULTI DISCIPLINED LANGUAGE ANALYST 350.1.13.10 ity of [facility] 4.2.7.2.686 Thien as MATERNAL [id number] Med ical & CHILD 124 [facility] 2020-03-24 2020-03-24 Office Provider, [facility] 1 .2.840.114 [id number] Univers 10:41:59 11:47:48 Visit Sara Carvajal MULTI DISCIPLINED LANGUAGE ANALYST 350.1.13. 10 ity of [facility] 4.2.7.2.686 Thien as MATERNAL [id number] Med ical & CHILD 107 [facility] 2020-03-24 2020-03-24 Outpatient R SHARLA [facility] [id number] Univers 10:30:00 10:30:00 SARA [id number] ity o f [facility] 2020-03-24 2020-03-24 [facility] [id number] Univers 10:30:00 10:30:00 SARA danielley o f [facility] 2020-03-24 2020-03-24 Outpatient R AKINSONIA, [facility] [id number] Univers 10:30:00 10:30:00 SARA danielley o f [facility] 2020-03-15 2020-03-15 Emergency Sudeep, [facility] [id number] Univers 11:57:03 13:13:00 Eddie Antony 350.1.13.10 i ty of [place] 4.2.7.2.686 [facility] [id number] [address] 2020-03-15 2020-03-15 Orders Doctor NELIDA 1.2.840.114 [id number] Univers 00:00:00 00:00:00 Only Unassigned, JOSE 350.1.13.[address] [place] [facility] 4.2.7.2.686 Thien as [id number] [address] 2020-03-15 2020-03-[address] [facility] [id number] Univers 00:00:00 00:00:00 Sara C MULTI DISCIPLINED LANGUAGE ANALYST 350.1.13.10 ity of [facility] 4.2.7.2.686 [place]ien as MATERNAL [id number] Med ical & CHILD [address] [place] [address] 2020-02-15 2020-02-15 Telephone [facility], [facility] [id number] Univers 00:00:00 00:00:00 Patient MULTI DISCIPLINED LANGUAGE ANALYST 350.1.13.10 it y of Does Not [facility] 4[place]2.7.2.[place] MATERNAL [id number] [facility] CHILD [address] [place] [address] 2020-01-10 2020-01-10 Emergency , [facility] [id number] Univers 10:16:29 10:19:00 Pastor Antony 350.1.13.10 i ty of [place] 4.2.7.2.686 [facility] [id number] [address] 2020-01-10 2020-01-10 Orders Doctor KRAUSE 1.2.840.114 [id number] Univers 00:00:00 00:00:00 Only Unassigned, JOSE 350.1.13.[address] [place] [facility] 4.2.7.2.686 [facility] [id number] [facility] [address] [place] 2019-07-09 2019-07-09 Emergency [facility] [id number] Univers 04:40:10 06:17:00 Shweta Antony 350.1.13.10 ity of [place] 4.2.7.2.686 [facility] [id number] [facility] 084 Branch 2019-06-23 2019-06-23 Emergency [facility] [id number] Univers 04:00:44 05:50:00 Shweta Antony 350.1.13.10 ity of [place] 4.2.7.2.686 [facility] [id number] [address] Results Test Description Test Time Test Comments Results Result Comments Source THYROID STIMULATING HORMONE 2020-08-30 01:50:00 Test Item Value Reference Range Interpretation Comme nts TSH (test code = 3286956306) <0.02 See_Comment L Biotin has been reported to cause a negativ e bias, interpret results relativ e to patient's use of biotin. [Automated message] The sy stem which generated this result transmitted ref erence range: 0.45 - 4.70 mIU /L. The reference range was not u sed to interpret this result as normal/abnormal. Lab Interpretation (test code Abnormal = 10977-1) [facility] / [facility] - DRUG SCREEN [id number] 01:31:00 Test Item Value Reference Range Interpretation Comments BENZO U (test code = Negative Negative 9484759532) YADIEL U (test code = Negative Negative 7170922046) AMPHET (test code = Negative Negative 3237812536) THC (test code = Presumptive Negative A Confirmatio n of 4896027257) Positive Presumptive Positive THC result requires physician order . METHADONE (test code Negative Negative = 8396994110) Meth U (test code = Negative Negative 8342586529) OPIATES (test code = Negative Negative 1383868195) Cocaine Metabolite Negative Negative (test code = 3531050385) PROPOXY (test code = Negative Negative 1474409209) Tric U (test code = Negative Negative 1872117058) PCP (test code = Negative Negative 3511349839) OXYCOD (test code = Negative Negative 2017976727) ANDREA (test code = Urine Drug Cutoff [...] testing). Lab Interpretation Abnormal (test code = 28498-4) [facility] 1 [id number] 01:04:49 No acute cardiopulmonary abnormality within the [...] limits. There is no acute osseous abnormality. [facility], Radiant Results Inft User - 08/29/2020 8:05 PM CDTXR CHEST 1 VWHISTORY: 35 years-old; Female; chest pain COMPARISON: NoneTECHNIQUE: SINGLE VIEW CHEST RADIOGRAPH.FINDINGS:The lungs are well-expanded and clear with no focal consolidation. There isno pleural effusion or pneumothorax.The cardiac silhouette is within normal limits.There is no acute osseous abnormali ty.IMPRESSIONNo acute cardiopulmonary abnormality within the confines of radiographicimaging.Preliminary Report Dictated by Resident: Azael Humphrey, Alec Laws MD., have reviewed this study and agree with the abovereport. [facility] CenterTR[facility]OCKCALVINN [id number] 01:03:00 Test Item Value Reference Range Interpretation Comments TROPONIN I (test <0.012 See_Comment [Automated code = 4135310083) message] The system which generated this result [...] ? Lab Interpretation Normal (test code = 39848-1) [facility] (20944)2020-08-30 00:52:00 Test Item Value Reference Range Interpretation Comments NA (test code = 137 mmol/L 135-145 5861267204) K (test code = 3.5 mmol/L 3.5-5 2590671519) CL (test code = 103 mmol/L 98-108 9233747610) CO2 TOTAL (test code = 19 mmol/L 23-31 L 3114447128) AGAP (test code = 2-16 7575555944) BUN (test code = 17 mg/dL 7-23 5049728551) GLUCOSE (test code = 112 mg/dL 70-110 H 1252159262) CREATININE (test code = 0.50 mg/dL 0.5-1.04 7010323108) TOTAL BILI (test code = 0.7 mg/dL 0.1-1.2 9803578803) CALCIUM (test code = 10.4 mg/dL 8.6-10.6 0717909051) T PROTEIN (test code = 9.2 g/dL 6.3-8.2 H 0498627096) ALBUMIN (test code = 4.8 g/dL 3.5-5 4302442443) ALK PHOS (test code = 163 U/L 34-122 H 1506205969) ALTv (test code = 17 U/L 5-35 1742-6) AST(SGOT) (test code = 33 U/L 13-40 4357135764) eGFR Calculation mL/min/1.73m2 (Non-) (test code = 6841368338) eGFR Calculation mL/min/1.73m2 () (test code = 0225068655) ANDREA (test code = ANDREA) Association of [...] tests). Lab Interpretation Abnormal (test code = 60793-4) [facility] Center[facility], [id number] 00:51:00 Test Item Value Reference Range Interpretation Comments LIPASE (test code = 8714092647) 54 U/L 0-220 Lab Interpretation (test code = Normal 49357-2) [facility]eraPTT2020-10-21 00:48:00 Test Item Value Reference Range Interpretation Comments APTT Patient (test See_Comment [Automat ed code = 3173-2) message] The system which generated this result transmitted reference range : 23 - 38 Seconds . The reference range was not used to interpr et this result as normal/abnormal . ANDREA (test code = ANDREA) The [facility] patient population mean normal value for aPTT is 30 seconds. Lab Interpretation Normal (test code = 46445-9) [facility] CenterPROTHROMBIN TIME / [id number] 00:46:00 Test Item Value Reference Range Interpretation [...] tions. Lab Interpretation (test Normal code = 44070-7) [facility]IS2020-10-21 00:43:00 Test Item Value Reference Range Interpretation Comments APPEARANCE (test code = Hazy Clear A 4379287657) COLOR (test code = Nirmala Yellow A 3737899302) PH (test code = 4.8-8.0 7533766619) SP GRAVITY (test code = 1.003-1.030 1881183969) GLU U QUAL (test code = Normal Normal 5050644761) BLOOD (test code = 3+ Negative A 5881939659) KETONES (test code = 20 mg/dL Negative A 3029962387) PROTEIN (test code = 100 mg/dL Negative A 2887-8) UROBILIN (test code = 2.0 mg/dL Normal A 1103014040) BILIRUBIN (test code = Negative Negative 8932090941) NITRITE (test code = Negative Negative 5829449245) LEUK PARTH (test code = Negative Negative 3471453359) RBC/HPF (test code = See_Comment H [Autom ated message] 4077865362) The system [employer] generated this result transmit brenda reference range : 0 - 3 HPF. The refe rence range was not u sed to interpret th is result as normal/abnormal . WBC/HPF (test code = See_Comment H [Autom ated message] 7763721773) The system [employer] generated this result transmit brenda reference range : 0 - 5 HPF. The refe rence range was not u sed to interpret th is result as normal/abnormal . BACTERIA (test code = Moderate Negative A 2271093998) MUCOUS (test code = Marked Negative LPF A 0508218744) SQ EPITH (test code = HPF 0145159769) HYAL CAST (test code = See_Comment H [Aut omated message] 3262045458) The system [employer] generated this result transmit brenda reference range : <=2 LPF. The refere nce range was not u sed to interpret th is result as normal/abnormal . Lab Interpretation (test Abnormal code = 83070-8) [facility] WITH [id number] 00:35:00 Test Item Value Reference Range Interpretation Comments WBC (test code = See_Comment [Automated 7790-2) message] The sy stem which generated this result transmitted reference range : 4.30 - 11.10 10*3/?L. The reference range was not used to interpret this result as normal/abnormal . RBC (test code = See_Comment H [Automated 019-8) message] The sy stem which generated this [...] (test code = 34.2 fL 39-49.9 L 22663-3) RDW-CV (test code = 12.9 % 12-15.5 788-0) PLT (test code = See_Comment H [Automated 777-3) message] The sy stem which generated this result transmitted reference range : 166 - 358 10*3/ ?L. The reference r tony was not used to interpret this result as normal/abnormal . MPV (test code = 11.7 fL 9.5-12.9 41704-8) NRBC/100 WBC (test See_Comment [Automat ed code = 1328475287) message] The system which generated this result transmitted reference range : 0.0 - 10.0 /100 WBCs. The refer ence range was not u sed to interpret th is result as normal/abnormal . NRBC x10^3 (test code <0.01 See_Comment [Auto mated = 0752975857) message] The s ystem which generated this result transmitted reference range : 10*3/?L. The reference range was not used to interpret this result as normal/abnormal . GRAN MAT (NEUT) % 47.0 % (test code = 770-8) IMM GRAN % (test code 0.30 % = 1980431964) LYMPH % (test code = 44.9 % 736-9) MONO % (test code = 7.2 % 5905-5) EOS % (test code = 0.3 % 713-8) BASO % (test code = 0.3 % 706-2) GRAN MAT x10^3(ANC) 3.21 10*3/uL 1.88-7.09 (test code = 8737966823) IMM GRAN x10^3 (test <0.03 0-0.06 code = 6794696763) LYMPH x10^3 (test code 3.07 10*3/uL 1.32-3.29 = 731-0) MONO x10^3 (test code 0.49 10*3/uL 0.33-0.92 = 742-7) EOS x10^3 (test code = <0.03 0.03-0.39 L 711-2) BASO x10^3 (test code <0.03 0.01-0.07 = 704-7) Lab Interpretation Abnormal (test code = 29445-3) [facility]IS2020-[facility]-06 17:52:00 Test Item Value Reference Range Interpretation Comments APPEARANCE (test code = Cloudy Clear A 5146371573) COLOR (test code = Yellow Yellow 5507512700) PH (test code = 4.8-8.0 0455218322) SP GRAVITY (test code = 1.003-1.030 1002155665) GLU U QUAL (test code = Normal Normal 2998976203) BLOOD (test code = 3+ Negative A 4899102236) KETONES (test code = Negative Negative 3373114186) PROTEIN (test code = 100 mg/dL Negative A 2887-8) UROBILIN (test code = 4.0 mg/dL Normal A 8012414806) BILIRUBIN (test code = Negative Negative 0102895812) NITRITE (test code = Positive Negative A 9037834189) LEUK PARTH (test code = 500/uL Negative A 4958357786) RBC/HPF (test code = >182 See_Comment H [Autom ated message] 5915860287) The system [employer] generated this result transmit brenda reference range : 0 - 3 HPF. The refe rence range was not u sed to interpret th is result as normal/abnormal . WBC/HPF (test code = >182 See_Comment H [Autom ated message] 7251549959) The system [employer] generated this result transmit brenda reference range : 0 - 5 HPF. The refe rence range was not u sed to interpret th is result as normal/abnormal . BACTERIA (test code = Many Negative A 0907276754) SQ EPITH (test code = HPF 8767886169) WBC CLUMPS (test code = See_Comment H [Au tomated message] 5719611176) The system [employer] generated this result transmit brenda reference range : <=1 HPF. The refere nce range was not u sed to interpret th is result as normal/abnormal . Lab Interpretation (test Abnormal code = 04919-2) [facility] CenterPOCT [id number] 17:16:00 Test Item Value Reference Range Interpretation Comments POCT PREG (test code = 1605) negative On board controls acceptable with present C Line (test code = 3574) POCT PREG LOT # (test code = 3575) [id number] POCT PREG TEST DATE (test 2021-06-09 code = 3576) Lab Interpretation (test code = Normal 19074-7) [facility] CenterCT HEAD WO [id number] 10:48:25 No acute intracranial abnormality.? RL: [id number] CT HEAD WITHOUT ORDERING PHYSICIAN: SHWETA MORRISON HISTORY: Acute headache COMPARISON: none TECHNIQUE: CT of [...] structures areunremarkable. IMPRESSIONNo acute intracranial abnormality. [id number] 2019-06[facility]23 10:41:00 Test Item Value Reference Range Interpretation Comments APPEARANCE (test code = Clear Clear 1216052561) COLOR (test code = Yellow Yellow 5053650551) PH (test code = 4.8-8.0 4345252302) SP GRAVITY (test code = >=1.030 1.003-1.030 9880692077) GLU U QUAL (test code = Negative Negative 8712247380) BLOOD (test code = Moderate Negative A 8989048898) KETONES (test code = Negative Negative 6682901742) PROTEIN (test code = Negative Negative 2887-8) UROBILIN (test code = 1.0 mg/dL See_Comment [Auto mated message] 2090333950) The system [employer] generated this result transmit brenda reference range : 0-1.0 mg/dL. Th e reference range was not used to interpret this result as normal/abnormal . BILIRUBIN (test code = Negative Negative 8214813459) NITRITE (test code = Negative Negative 4011549405) LEUK PARTH (test code = Negative Negative 7149907118) RBC/HPF (test code = See_Comment H [Autom ated message] 9105590927) The system [employer] generated this result transmit brenda reference range : 0 - 3 HPF. The refe rence range was not u sed to interpret th is result as normal/abnormal . WBC/HPF (test code = See_Comment [Autom ated message] [id number]) The system [employer] generated this result transmit brenda reference range : 0 - 5 HPF. The refe rence range was not u sed to interpret th is result as normal/abnormal . BACTERIA (test code = Few Negative A 7196278698) MUCOUS (test code = Slight Negative LPF A 3324005256) Lab Interpretation (test Abnormal code = 68018-2) [facility] (NA, K, CL, CO2, GLUCOSE, BUN, CREATININE, CA)2019-06-23 10:17:00 Test Item Value Reference Range Interpretation Comments NA (test code = 143 mmol/L 135-145 5451842771) K (test code = 3.4 mmol/L 3.5-5 L 0190992374) CL (test code = 110 mmol/L 98-108 H 9602751466) CO2 TOTAL (test code = 25 mmol/L 23-31 0194621501) AGAP (test code = 2-16 3828385860) BUN (test code = 12 mg/dL 7-23 8481185835) GLUCOSE (test code = 91 mg/dL 70-110 6273384247) CREATININE (test code = 0.46 mg/dL 0.5-1.04 L 2080250363) CALCIUM (test code = 9.4 mg/dL 8.6-10.6 1661090971) eGFR Calculation mL/min/1.73m2 (Non-) (test code = 1700411990) eGFR Calculation mL/min/1.73m2 () (test code = 4007369892) ANDREA (test code = ANDREA) Association of [...] tests). Lab Interpretation Abnormal (test code = 56043-5) [facility] WITH [id number] 10:01:00 Test Item Value Reference Range Interpretation Comments WBC (test code = See_Comment [Automated 5871-2) message] The sy stem which generated this result transmitted reference range : 4.30 - 11.10 10*3/?L. The reference range was not used to interpret this result as normal/abnormal . RBC (test code = See_Comment [Automated 520-1) message] The sy stem which generated this [...] (test code = 35.1 fL 39-49.9 L 26394-5) RDW-CV (test code = 12.1 % 12-15.5 788-0) PLT (test code = See_Comment [Automated 777-3) message] The sy stem which generated this result transmitted reference range : 166 - 358 10*3/ ?L. The reference r tony was not used to interpret this result as normal/abnormal . MPV (test code = 11.7 fL 9.5-12.9 01866-2) NRBC/100 WBC (test See_Comment [Automat ed code = 1173589160) message] The system which generated this result transmitted reference range : 0.0 - 10.0 /100 WBCs. The refer ence range was not u sed to interpret th is result as normal/abnormal . NRBC x10^3 (test code <0.01 See_Comment [Auto mated = 0202046940) message] The s ystem which generated this result transmitted reference range : 10*3/?L. The reference range was not used to interpret this result as normal/abnormal . GRAN MAT (NEUT) % 49.5 % (test code = 770-8) IMM GRAN % (test code 0.40 % = 2786341665) LYMPH % (test code = 40.7 % 736-9) MONO % (test code = 8.3 % 5905-5) EOS % (test code = 0.7 % 713-8) BASO % (test code = 0.4 % 706-2) GRAN MAT x10^3(ANC) 2.75 10*3/uL 1.88-7.09 (test code = 1232867421) IMM GRAN x10^3 (test <0.03 0-0.06 code = 1049320825) LYMPH x10^3 (test code 2.26 10*3/uL 1.32-3.29 = 731-0) MONO x10^3 (test code 0.46 10*3/uL 0.33-0.92 = 742-7) EOS x10^3 (test code = 0.04 10*3/uL 0.03-0.39 711-2) BASO x10^3 (test code <0.03 0.01-0.07 = 704-7) Lab Interpretation Abnormal (test code = 16372-4) [id number] Test Item Value Reference Range Interpretation Comments POCT PREG (test code = 1605) negative On board controls acceptable with yes C Line (test code = 3574) POCT PREG LOT # (test code = 3575) [id number] POCT PREG TEST DATE (test 11/09/2020 code = 3576) Lab Interpretation (test code = Normal 99413-1) [facility]"
[2022-06-14] MEDS ORDERED: IBUPROFEN 200 MG TAB PO ONE (11:27)
--- NOTE | 2022-06-14 13:19 | RAD REPORT ---
EXAM DESCRIPTION: RAD - Hip Left 2 View - 06/14/2022 12:57 pm CLINICAL HISTORY: Left hip pain status post injury FINDINGS: No fracture or dislocation is seen.
--- NOTE | 2022-06-14 13:20 | RAD REPORT ---
EXAM DESCRIPTION: RAD - Femur Left - 06/14/2022 12:57 pm CLINICAL HISTORY: Left leg pain FINDINGS: No fracture seen
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
[2022-06-14 14:18] VITALS: BP 148/94; TEMP 97.9; O2SAT 100
== END 2022-06-14 13:29 | disposition home or self-care (01) ==
LOC: ER 10:29
DX: M79.605 Pain in left leg (principal); M25.552 Pain in left hip; I10 Essential (primary) hypertension
CPT/HCPCS: 99283

== ENCOUNTER 2022-12-23 08:48 | Inpatient (IN) | payer BC, OTHER, SELFPAY ==
--- OUTSIDE RECORDS SUMMARY | 2022-12-23 08:53 | XMS REPORT | Continuity of Care Document ---
:1985 Author Organization [facility] t Address [address] [place] [address] Care Team Providers Name Role Phone PCP, PATIENT DOES NOT HAVE A Primary Care Physician Unavaila JORDAN Sullivan Attending Clinician Unavailable Jordan Hull MD Attending Clinician Rashad Ahn DO Attending Clinician Shweta Morrison MD Attending Clinician Abimbola Adames Attending Clinician Conchis Norwood Attending Clinician Provider, Clovisnj Gonzalez Attending Clinician Unavailable Sara Cates Attending Clinician [phone] SARA CARVAJAL Attending Clinician Unavailable Eddie Mojica Attending Clinician Doctor Unassigned, [place] Attending Clinician Unavailable Pcp, Patient Does Not Have A Attending Clinician [phone] Pastor Camara DO Attending Clinician JORDAN HULL Admitting Clinician Unavailable Payers Payer Name Policy Type Policy Number Effective Date Expiration Date Artie [facility] [id number] 2019 00:00:00 [facility] [id number] 2022 HEALTHCARE 00:00:00 Problems Condition Condition Condition Status Onset Resolution Last Treating Co mments Source Name Details Category Date Date Treatment Clinician Date Well woman Well woman Disease Active U nivers exam exam 3-28 ity of 00:00: Medical Branch Other Other Disease Active Univers general general 3-28 ity of counseling [place] and advice and advice 00 Wy dical for for Branch contracept contracept sky sky management management UTI UTI Disease Active Univers symptoms symptoms 3- ity of 00:00: Medical Branch History of History of Disease Active U nivers tubal tubal 3- ity of ligation ligation 00:00: Medical Branch Obese Obese Disease Active Univers 3- ity of 00:00: Medical Branch Essential Essential Disease Active Uni vers hypertensi hypertensi 3-28 it y of on, benign [place], benign 00:[place]: [place] [facility] [place] BV BV Disease Active Univers (bacterial (bacterial 328 it y of vaginosis) vaginosis) 00:00: [place] 00 [place] UTI UTI Disease Active Univers symptoms symptoms 3-28 ity of 00:00: Medical Branch Allergies, Adverse Reactions, Alerts Allergy Allergy Status Severity Reaction(s) Onset Inactive Treating Comm ents Source Name Type Date Date Clinician NO KNOWN Drug Active Unknown-Cmnt Un shena ALLERGIE Class 7-12 ity of S 00:00: Medical Branch No Known Propensi Active Unknown - Uni vers Allergie ty to See comments 7-12 it y of s adverse 00:00: [place] reaction Medical s Branch No Known Propensi Active Unknown - Uni vers Allergie ty to See comments 7-12 it y of s adverse 00:00: [place] reaction 00 Medical s Branch Social History Social Habit Start Date Stop Date Quantity Comments Source History of Cigarette Smoker Universi ty of tobacco use [facility] Exposure to 2022-11-13 2022-11-23 Not sure University SARS-CoV-2 00:00:00 06:54:00 [facility] (event) [place] Alcohol intake 2020-08-29 2020-08-29 0 /d University of 00:00:00 00:00:00 [facility] Alcohol Comment 2020-03-24 2020-03-24 occasional Universit y of 00:00:00 00:00:00 [facility] Tobacco use and 2020-03-24 2020-03-24 Smokeless tobacco Un iversity of exposure 00:00:00 00:00:00 non-user [facility] Tobacco Comment 2017-02-04 2017-02-04 3 cigarettes/day Uni versity of 00:00:00 00:00:00 [facility] Sex [birth year] Universit y of 00:00:00 00:00:00 [facility] Smoking Status Start Date Stop Date Source Smokes tobacco daily 2020-03-24 00:00:00 Univers ity of [facility] Medications Ordered Filled Start Stop Current Ordering Indication Dosage Frequency Signature Comments Components Source Medication Medication Date Date Medication? Clinician (SIG) Name Name ketorolac No 30mg 30 mg, Unive rs (TORADOL) 11-23 Slow IV ity of injection 15:30: 14:47 Push, [place] 30 mg 00 :00 ONCE, 1 Medical dose, On Branch 11/23/22 at 0930, RAMIRO iopamidol 2022- No [id number] 90mL 90 mL, U nivers (ISOVUE 11-23 Intravenou ity o f 370-500 mL) 15:00: 14:05 s, ONCE, 1 [place] injection 00 :00 dose, On Medica l 90 mL Sat Branch 11/23/22 at 0900, Routine morpHINE (2 No 4mg 4 mg, Slow Univers mg/mL) 11-23 IV Push, ity of injection 4 14:45: 13:41 ONCE, 1 [place] mg 00 :00 dose, On Medical Sat Branch 11/23/22 at 0845, STAT NaCl 0.9% 2022- No 1000mL at 999 Uni vers (NS) bolus 11-23 mL/hr, ity of infusion 14:00: 16:12 1,000 mL, [place] as 1,000 mL 00 :00 IV Medical Piggyback, Branch ONCE, 1 dose, On 11/23/22 at 0800, STAT ondansetron 2022- No 4mg 4 mg, Slow Univers (ZOFRAN -14 -14 IV Push, ity of (PF)) 13:45: 13:40 ONCE, 1 [place] injection 4 00 :00 dose, On Medi candelario mg Sat Branch 11/23/22 at 0745, RAMIRO naproxen Yes [id number] 500mg Take 1 Un shena 500 mg -14 tablet by ity of tablet 00:00: mouth 2 [place] 00 (two) Medical times Branch daily as needed for Pain (scale 4-6). cloNIDine 2019-11- No .2mg 0.2 mg, Univ ers (CATAPRES) 008-30 Oral, ity of tablet 0.2 03:00: 02:11 ONCE, 1 [place] mg 00 :00 dose, [facility] 08/29/20 Branch at 2200, STAT diphenhydrA 2019-11- No 12.5mg 12.5 mg, Univers MINE 08-30 Slow IV ity of (BENADRYL) 03:00: 02:03 Push, [place] injection 00 :00 ONCE, 1 Medical 12.5 mg dose, [facility] Branch 08/29/20 at 2200, STAT metoclopram 2019-11- No 10mg 10 mg, Uni vers patrick HCl 08-30 Slow IV ity of (REGLAN) 03:00: 02:02 Push, [place] injection 00 :00 ONCE, 1 Medical 10 mg dose, [facility] Branch 08/29/20 at 2200, RAMIRO HYDROCHLORO 2019-11 Yes 1{tbl} Take 1 Un shena THIAZIDE 0-21 tablet by ity of ORAL 00:10: mouth [place] 08 daily. Medical Branch HYDROCHLORO 2019-11 Yes 1{tbl} Take 1 Un shena THIAZIDE 0-21 tablet by ity of ORAL 00:10: mouth [place] 08 daily. Medical Branch HYDROCHLORO 2019-11 Yes 1{tbl} Take 1 Un shena THIAZIDE 0-20 tablet by ity of ORAL 19:10: mouth [place] 08 daily. Medical Branch hydroCHLORO 2019-11 Yes [id number] 25mg Take 1 Univers thiazide 25 0-20 tablet by ity of mg tablet 00:00: mouth [place] 00 every Medical morning. Branch hydroCHLORO 2020-1 Yes [id number] 25mg Take 1 Univers thiazide 25 0-20 tablet by ity of mg tablet 00:00: mouth [place] 00 every Medical morning. Branch hydroCHLORO 2020-1 Yes [id number] 25mg Take 1 Univers thiazide 25 0-20 tablet by ity of mg tablet 00:00: mouth [place] 00 every Medical morning. Branch amoxicillin 2020-0 Yes [id number] 500mg Take 1 Univers 500 mg 5-20 capsule by ity of capsule 00:00: mouth 2 [place] 00 (two) Medical times Branch daily. amoxicillin 2020-0 Yes [id number] 500mg Take 1 Univers 500 mg 5-20 capsule by ity of capsule 00:00: mouth 2 [place] 00 (two) Medical times Branch daily. amoxicillin 2020-0 Yes [id number] 500mg Take 1 Univers 500 mg 5-20 capsule by ity of capsule 00:00: mouth 2 [place] 00 (two) Medical times Branch daily. amoxicillin 2020-0 Yes [id number] 500mg Take 1 Univers 500 mg 5-20 capsule by ity of capsule 00:00: mouth 2 [place] 00 (two) Medical times Branch daily. amoxicillin 2020-0 Yes [id number] 500mg Take 1 Univers 500 mg 5-20 capsule by ity of capsule 00:00: mouth 2 [place] 00 (two) Medical times Branch daily. HYDROCHLORO 2020-0 [...] mouth [place] 23 daily. Medical Branch ondansetron 2020-0 2020- No 4mg 4 mg, Univ ers (ZOFRAN-ODT 5-06 05-06 Oral, ity of ) 18:15: 17:25 ONCE, 1 [place] disintegrat 00 :00 dose, Wed Med ical ing tablet 03/15/20 at Bran ch 4 mg 1315, Routine metroNIDAZO 2019- [...] No 200mg 200 mg, U nivers dine 03-15 Oral, ity of (PYRIDIUM) 18:15: 17:26 ONCE, 1 [place] as tablet 200 00 :00 dose, Wed Medi candelario mg 5/20 at Branch 1315, RAMIRO phenazopyri 2020-0 Yes [id number] 200mg Take 1 Univers dine 200 mg 5-06 tablet by ity of tablet 00:00: mouth 3 (three) Medical times Branch daily. phenazopyri 2020-0 Yes [id number] 200mg Take 1 Univers dine 200 mg 5-06 tablet by ity of tablet 00:00: mouth 3 [place] (three) Medical times Branch daily. phenazopyri 2020-0 Yes [id number] 200mg Take 1 Univers dine 200 mg 5-06 tablet by ity of tablet 00:00: mouth 3 [place] (three) Medical times Branch daily. phenazopyri 2020-0 Yes [id number] 200mg Take 1 Univers dine 200 mg 5-06 tablet by ity of tablet 00:00: mouth 3 [place] (three) Medical times Branch daily. phenazopyri 2020-0 Yes [id number] 200mg Take 1 Univers dine 200 mg 5-06 tablet by ity of tablet 00:00: mouth 3 [place] (three) Medical times Branch daily. phenazopyri 2020-0 Yes [id number] 200mg Take 1 Univers dine 200 mg 5-06 tablet by ity of tablet 00:00: mouth 3 [place] (three) Medical times Branch daily. phenazopyri 2020-0 Yes [id number] 200mg Take 1 Univers dine 200 mg 5-06 tablet by ity of tablet 00:00: mouth 3 [place] (three) Medical times Branch daily. phenazopyri 2020-0 Yes [id number] 200mg Take 1 Univers dine 200 mg 5-06 tablet by ity of tablet 00:00: mouth 3 [place] (three) Medical times Branch daily. phenazopyri 2020-0 Yes [id number] 200mg Take 1 Univers dine 200 mg 5-06 tablet by ity of tablet 00:00: mouth 3 [place] (three) Medical times Branch daily. ciprofloxac 2020-0 2020- No [id number] 500mg Take 1 Univers in HCl 500 5-06 05-14 tablet by ity of mg tablet 00:00: 04:59 mouth 2 [place] 00 :[place] (two) Medical times Branch daily for 7 days. erythromyci 2020-0 Yes [id number] .5[in_u Place 0.5 Univers n 5 mg/gram 3-02 9105 s] Inches in ity of (0.5 %) 00:00: left eye [place] ophthalmic 00 at Medical ointment bedtime. Branch erythromyci 2020-0 Yes [id number] .5[in_u Place 0.5 Univers n 5 mg/gram 3-02 9105 s] Inches in ity of (0.5 %) 00:00: left eye [place] ophthalmic 00 at Medical ointment bedtime. Branch erythromyci 2020-0 Yes [id number] .5[in_u Place 0.5 Univers n 5 mg/gram 3-02 9105 s] Inches in ity of (0.5 %) 00:00: left eye [place] ophthalmic 00 at Medical ointment bedtime. Branch erythromyci 2020-0 Yes [id number] .5[in_u Place 0.5 Univers n 5 mg/gram 3-02 9105 s] Inches in ity of (0.5 %) 00:00: left eye [place] ophthalmic 00 at Medical ointment bedtime. Branch erythromyci 2020-0 Yes [id number] .5[in_u Place 0.5 Univers n 5 mg/gram 3-02 9105 s] Inches in ity of (0.5 %) 00:00: left eye [place] ophthalmic 00 at Medical ointment bedtime. Branch erythromyci 2019-0 Yes [id number] .5[in_u Place 0.5 Univers n 5 mg/gram 3-02 9105 s] Inches in ity of (0.5 %) 00:00: left eye [place] ophthalmic 00 at Medical ointment bedtime. Branch erythromyci 2020-0 Yes [id number] .5[in_u Place 0.5 Univers n 5 mg/gram 3-02 9105 s] Inches in ity of (0.5 %) 00:00: left eye [place] ophthalmic 00 at Medical ointment bedtime. Branch erythromyci 2020-0 Yes [id number] .5[in_u Place 0.5 Univers n 5 mg/gram 3-02 9105 s] Inches in ity of (0.5 %) 00:00: left eye [place] ophthalmic 00 at Medical ointment bedtime. [place] erythromyci Yes [id number] .5[in_u Place 0.5 Univers n 5 mg/gram 3-02 9105 s] Inches in ity of (0.5 %) 00:00: left eye [place] ophthalmic 00 at Medical ointment bedtime. [place] erythromyci Yes [id number] .5[in_u Place 0.5 Univers n 5 mg/gram 3-02 9105 s] Inches in ity of (0.5 %) 00:00: left eye [place] ophthalmic 00 at Medical ointment bedtime. [place] erythromyci Yes [id number] .5[in_u Place 0.5 Univers n 5 mg/gram 3-02 9105 s] Inches in ity of (0.5 %) 00:00: left eye [place] ophthalmic 00 at Medical ointment bedtime. [place] erythromyci Yes [id number] .5[in_u Place 0.5 Univers n 5 mg/gram 3-02 9105 s] Inches in ity of (0.5 %) 00:00: left eye [place] ophthalmic 00 at Medical ointment bedtime. [place] erythromyci Yes [id number] .5[in_u Place 0.5 Univers n 5 mg/gram 3-02 9105 s] Inches in ity of (0.5 %) 00:00: left eye [place] ophthalmic 00 at Medical ointment bedtime. [place] ketorolac 2019- No 60mg 60 mg, Unive rs (TORADOL) 8-30 08-30 Intramuscu ity of injection 11:00: 09:58 [place], ONCE, [place] 60 mg 00 :00 1 dose, Medical Fri Branch 07/09/19 at 0600, RAMIRO
Fa culty member approving Restricted medication : SHWETA MORRISON butalbital- Yes [id number] 1{tbl} Take 1 Univers acetaminoph 8-30 tablet by ity of en-caff 00:00: mouth [place] 50-325-40 00 every 4 Medical mg tablet (four) Branch hours as needed for Pain (scale 7-10) (HEADACHE) . butalbital- Yes [id number] 1{tbl} Take 1 Univers acetaminoph 8-30 tablet by ity of en-caff 00:00: mouth [place] 50-325-40 00 every 4 Medical mg tablet (four) Branch hours as needed for Pain (scale 7-10) (HEADACHE) . butalbital Yes [id number] 1{tbl} Take 1 Univers acetaminoph 8-30 tablet by ity of en-caff 00:00: mouth [place] 50-325-40 00 every 4 Medical mg tablet (four) Branch hours as needed for Pain (scale 7-10) (HEADACHE) . butalbital Yes [id number] 1{tbl} Take 1 Univers acetaminoph 8-30 tablet by ity of en-caff 00:00: mouth [place] 50-325-40 00 every 4 Medical mg tablet (four) Branch hours as needed for Pain (scale 7-10) (HEADACHE) . butalbital Yes [id number] 1{tbl} Take 1 Univers acetaminoph 8-30 tablet by ity of en-caff 00:00: mouth [place] 50-325-40 00 every 4 Medical mg tablet (four) Branch hours as needed for Pain (scale 7-10) (HEADACHE) . butalbital Yes [id number] 1{tbl} Take 1 Univers acetaminoph 8-30 tablet by ity of en-caff 00:00: mouth [place] 50-325-40 00 every 4 Medical mg tablet (four) Branch hours as needed for Pain (scale 7-10) (HEADACHE) . butalbital Yes [id number] 1{tbl} Take 1 Univers acetaminoph 8-30 tablet by ity of en-caff 00:00: mouth [place] 50-325-40 00 every 4 Medical mg tablet (four) Branch hours as needed for Pain (scale 7-10) (HEADACHE) . butalbital Yes [id number] 1{tbl} Take 1 Univers acetaminoph 8-30 tablet by ity of en-caff 00:00: mouth [place] 50-325-40 00 every 4 Medical mg tablet (four) Branch hours as needed for Pain (scale 7-10) (HEADACHE) . butalbital Yes [id number] 1{tbl} Take 1 Univers acetaminoph 8-30 tablet by ity of en-caff 00:00: mouth [place] 50-325-40 00 every 4 Medical mg tablet (four) Branch hours as needed for Pain (scale 7-10) (HEADACHE) . butalbital Yes [id number] 1{tbl} Take 1 Univers acetaminoph 8-30 tablet by ity of en-caff 00:00: mouth [place] 50-325-40 00 every 4 Medical mg tablet (four) Branch hours as needed for Pain (scale 7-10) (HEADACHE) . butalbital Yes [id number] 1{tbl} Take 1 Univers acetaminoph 8-30 tablet by ity of en-caff 00:00: mouth [place] 50-325-40 00 every 4 Medical mg tablet (four) Branch hours as needed for Pain (scale 7-10) (HEADACHE) . butalbital Yes [id number] 1{tbl} Take 1 Univers acetaminoph 8-30 tablet by ity of en-caff 00:00: mouth [place] 50-325-40 00 every 4 Medical mg tablet (four) Branch hours as needed for Pain (scale 7-10) (HEADACHE) . butalbital Yes [id number] 1{tbl} Take 1 Univers acetaminoph 8-30 tablet by ity of en-caff 00:00: mouth [place] 50-325-40 00 every 4 Medical mg tablet (four) Branch hours as needed for Pain (scale 7-10) (HEADACHE) . butalbital Yes [id number] 1{tbl} Take 1 Univers acetaminoph 8-30 tablet by ity of en-caff 00:00: mouth [place] 50-325-40 00 every 4 Medical mg tablet (four) Branch hours as needed for Pain (scale 7-10) (HEADACHE) . butalbital Yes [id number] 1{tbl} Take 1 Univers acetaminoph 8-30 tablet by ity of en-caff 00:00: mouth [place] 50-325-40 00 every 4 Medical mg tablet (four) Branch hours as needed for Pain (scale 7-10) (HEADACHE) . KCL 2019- No 40meq 40 mEq, Univers (KLOR-CON 06-23 Oral, ity of M20) tablet 11:30: 10:37 ONCE, 1 [place] 40 mEq 00 :00 dose, [facility] Medical 06/23/19 at Branch 0630, [facility] diphenhydrA 2018- No 12.5mg 12.5 mg, Univers MINE 06-23 Slow IV ity of (BENADRYL) 10:30: 09:52 Push, [place] injection 00 :00 ONCE, 1 Medical 12.5 mg dose, Fri [place] 06/23/19 at 0530, STAT metoclopram 2018- No 10mg 10 mg, Uni vers patrick HCl 06-23 Slow IV ity of (REGLAN) 10:30: 09:50 Push, [place] injection 00 :00 ONCE, 1 Medical 10 mg dose, [place] [facility] 06/23/19 at 0530, [facility] hydroCHLORO 2018- No 25mg 25 mg, Uni vers thiazide 06-23 Oral, ity of (ESIDRIX) 10:30: 09:49 ONCE, 1 [place] tablet 25 00 :00 dose, Fri Medic al mg 06/23/19 at Branch 0530, [facility] hydroCHLORO 0 Yes [id number] 25mg Take 1 Univers thiazide 25 8-14 tablet by ity of mg tablet 00:00: mouth [place] 00 every Medical morning. [place] hydroCHLORO 2018- Yes [id number] 25mg Take 1 Univers thiazide 25 8-14 tablet by ity of mg tablet 00:00: mouth [place] 00 every Medical morning. [place] hydroCHLORO 2019-0 Yes [id number] 25mg Take 1 Univers thiazide 25 8-14 tablet by ity of mg tablet 00:00: mouth [place] 00 every Medical morning. [place] hydroCHLORO 2019-0 Yes [id number] 25mg Take 1 Univers thiazide 25 8-14 tablet by ity of mg tablet 00:00: mouth [place] 00 every Medical morning. [place] hydroCHLORO 2019-0 Yes [id number] 25mg Take 1 Univers thiazide 25 8-14 tablet by ity of mg tablet 00:00: mouth [place] 00 every Medical morning. [place] hydroCHLORO 2019- Yes [id number] 25mg Take 1 Univers thiazide 25 8-14 tablet by ity of mg tablet 00:00: mouth [place] 00 every Medical morning. Branch hydroCHLORO 2019-0 Yes [id number] 25mg Take 1 Univers thiazide 25 8-14 tablet by ity of mg tablet 00:00: mouth [place] 00 every Medical morning. Branch hydroCHLORO 2019-0 Yes [id number] 25mg Take 1 Univers thiazide 25 8-14 tablet by ity of mg tablet 00:00: mouth [place] 00 every Medical morning. Branch hydroCHLORO 2019-0 Yes [id number] 25mg Take 1 Univers thiazide 25 8-14 tablet by ity of mg tablet 00:00: mouth [place] 00 every Medical morning. Branch hydroCHLORO 2019-0 Yes [id number] 25mg Take 1 Univers thiazide 25 8-14 tablet by ity of mg tablet 00:00: mouth [place] 00 every Medical morning. Branch hydroCHLORO 2019-0 Yes [id number] 25mg Take 1 Univers thiazide 25 8-14 tablet by ity of mg tablet 00:00: mouth [place] 00 every Medical morning. Branch hydroCHLORO 2019-0 Yes [id number] 25mg Take 1 Univers thiazide 25 8-14 tablet by ity of mg tablet 00:00: mouth [place] 00 every Medical morning. Branch hydroCHLORO 2019-0 Yes [id number] 25mg Take 1 Univers thiazide 25 8-14 tablet by ity of mg tablet 00:00: mouth [place] 00 every Medical morning. Branch hydroCHLORO 2019-0 Yes [id number] 25mg Take 1 Univers thiazide 25 8-14 tablet by ity of mg tablet 00:00: mouth [place] 00 every Medical morning. Branch hydroCHLORO 2019-0 Yes [id number] 25mg Take 1 Univers thiazide 25 8-14 tablet by ity of mg tablet 00:00: mouth [place] 00 every Medical morning. Branch hydroCHLORO 2019-0 Yes [id number] 25mg Take 1 Univers thiazide 25 8-14 tablet by ity of mg tablet 00:00: mouth [place] 00 every Medical morning. [place] phenazopyri 2019-0 Yes [id number] 200mg Take 1 Univers dine 200 mg 6-28 tablet by ity of tablet 00:00: mouth 3 [place] 00 (three) Medical times Branch daily. traMADOL 2019-0 Yes [id number] 50mg Take 1 Uni vers (ULTRAM) 50 6-28 tablet by ity of mg tablet 00:00: mouth [place] 00 every 8 Medical (eight) Branch hours as needed for Pain (scale 4-6). phenazopyri 2019-0 Yes [id number] 200mg Take 1 Univers dine 200 mg 6-28 tablet by ity of tablet 00:00: mouth 3 (three) Medical times Branch daily. traMADOL 2019-0 Yes [id number] 50mg Take 1 Uni vers (ULTRAM) 50 6-28 tablet by ity of mg tablet 00:00: mouth [place] 00 every 8 Medical (eight) Branch hours as needed for Pain (scale 4-6). phenazopyri 2019-0 Yes [id number] 200mg Take 1 Univers dine 200 mg 6-28 tablet by ity of tablet 00:00: mouth (three) Medical times Branch daily. traMADOL 2019-0 Yes [id number] 50mg Take 1 Uni vers (ULTRAM) 50 6-28 tablet by ity of mg tablet 00:00: mouth [place] 00 every 8 Medical (eight) Branch hours as needed for Pain (scale 4-6). phenazopyri 2019-0 Yes [id number] 200mg Take 1 Univers dine 200 mg 6-28 tablet by ity of tablet 00:00: mouth (three) Medical times Branch daily. traMADOL 2019-0 Yes [id number] 50mg Take 1 Uni vers (ULTRAM) 50 6-28 tablet by ity of mg tablet 00:00: mouth [place] 00 every 8 Medical (eight) Branch hours as needed for Pain (scale 4-6). phenazopyri 2019-0 Yes [id number] 200mg Take 1 Univers dine 200 mg 6-28 tablet by ity of tablet 00:00: mouth (three) Medical times Branch daily. traMADOL 2019-0 Yes [id number] 50mg Take 1 Uni vers (ULTRAM) 50 6-28 tablet by ity of mg tablet 00:00: mouth [place] 00 every 8 Medical (eight) Branch hours as needed for Pain (scale 4-6). phenazopyri 2019-0 Yes [id number] 200mg Take 1 Univers dine 200 mg 6-28 tablet by ity of tablet 00:00: mouth 3 (three) Medical times Branch daily. traMADOL 2019-0 Yes [id number] 50mg Take 1 Uni vers (ULTRAM) 50 6-28 tablet by ity of mg tablet 00:00: mouth [place] 00 every 8 Medical (eight) Branch hours as needed for Pain (scale 4-6). phenazopyri 2019-0 Yes [id number] 200mg Take 1 Univers dine 200 mg 6-28 tablet by ity of tablet 00:00: mouth 3 00 (three) Medical times Branch daily. traMADOL 2019-0 Yes [id number] 50mg Take 1 Uni vers (ULTRAM) 50 6-28 tablet by ity of mg tablet 00:00: mouth [place] 00 every 8 Medical (eight) Branch hours as needed for Pain (scale 4-6). phenazopyri 2019-0 Yes [id number] 200mg Take 1 Univers dine 200 mg 6-28 tablet by ity of tablet 00:00: mouth 3 00 (three) Medical times Branch daily. traMADOL 2019-0 Yes [id number] 50mg Take 1 Uni vers (ULTRAM) 50 6-28 tablet by ity of mg tablet 00:00: mouth [place] 00 every 8 Medical (eight) Branch hours as needed for Pain (scale 4-6). phenazopyri 2019-0 Yes [id number] 200mg Take 1 Univers dine 200 mg 6-28 tablet by ity of tablet 00:00: mouth (three) Medical times Branch daily. traMADOL 2019-0 Yes [id number] 50mg Take 1 Uni vers (ULTRAM) 50 6-28 tablet by ity of mg tablet 00:00: mouth [place] 00 every 8 Medical (eight) Branch hours as needed for Pain (scale 4-6). phenazopyri 2019-0 Yes [id number] 200mg Take 1 Univers dine 200 mg 6-28 tablet by ity of tablet 00:00: mouth (three) Medical times Branch daily. phenazopyri 2019-0 Yes [id number] 200mg Take 1 Univers dine 200 mg 6-28 tablet by ity of tablet 00:00: mouth 3 00 (three) Medical times Branch daily. traMADOL 2019-0 Yes [id number] 50mg Take 1 Uni vers (ULTRAM) 50 6-28 tablet by ity of mg tablet 00:00: mouth [place] 00 every 8 Medical (eight) Branch hours as needed for Pain (scale 4-6). traMADOL 2019-0 Yes [id number] 50mg Take 1 Uni vers (ULTRAM) 50 6-28 tablet by ity of mg tablet 00:00: mouth [place] 00 every 8 Medical (eight) Branch hours as needed for Pain (scale 4-6). phenazopyri 2019-0 Yes [id number] 200mg Take 1 Univers dine 200 mg 6-28 tablet by ity of tablet 00:00: mouth 3 (three) Medical times Branch daily. traMADOL 2019-0 Yes [id number] 50mg Take 1 Uni vers (ULTRAM) 50 6-28 tablet by ity of mg tablet 00:00: mouth [place] 00 every 8 Medical (eight) Branch hours as needed for Pain (scale 4-6). phenazopyri 2019-0 Yes [id number] 200mg Take 1 Univers dine 200 mg 6-28 tablet by ity of tablet 00:00: mouth (three) Medical times Branch daily. traMADOL 2019-0 Yes [id number] 50mg Take 1 Uni vers (ULTRAM) 50 6-28 tablet by ity of mg tablet 00:00: mouth [place] 00 every 8 Medical (eight) Branch hours as needed for Pain (scale 4-6). phenazopyri 2019-0 Yes [id number] 200mg Take 1 Univers dine 200 mg 6-28 tablet by ity of tablet 00:00: mouth (three) Medical times Branch daily. traMADOL 2019-0 Yes [id number] 50mg Take 1 Uni vers (ULTRAM) 50 6-28 tablet by ity of mg tablet 00:00: mouth [place] 00 every 8 Medical (eight) Branch hours as needed for Pain (scale 4-6). phenazopyri 2019-0 Yes [id number] 200mg Take 1 Univers dine 200 mg 6-28 tablet by ity of tablet 00:00: mouth (three) Medical times Branch daily. traMADOL 2019-0 Yes [id number] 50mg Take 1 Uni vers (ULTRAM) 50 6-28 tablet by ity of mg tablet 00:00: mouth [place] 00 every 8 Medical (eight) Branch hours as needed for Pain (scale 4-6). phenazopyri 2019-0 Yes [id number] 200mg Take 1 Univers dine 200 mg 6-28 tablet by ity of tablet 00:00: mouth 3 (three) Medical times Branch daily. traMADOL 2019-0 Yes [id number] 50mg Take 1 Uni vers (ULTRAM) 50 6-28 tablet by ity of mg tablet 00:00: mouth [place] 00 every 8 Medical (eight) Branch hours as needed for Pain (scale 4-6). HYDROCHLORO Yes 1{tbl} Take 1 Un shena [...] of ORAL 16:43: mouth [place] 41 daily. [facility] Branch Immunizations Ordered Filled Immunization Date Status Comments [facility] e Immunization Name Name Tdap 2017-02-04 Completed University of 00:00: [facility] Tdap 2017-02-04 Completed University of 00:00:00 [facility] Tdap 2017-02-04 Completed University of 00:00: [facility] Tdap 2017-02-04 Completed University of 00:00:00 [facility] Tdap 2017-02-04 Completed University of 00:00: [facility] Tdap 2017-02-04 Completed [facility] of 00:00:00 [facility] [facility] 00:00:00 [facility] Tdap 2017-02-04 Completed [facility] 00:00:00 [facility] TDAP 2017-02-04 Completed [facility] 00:00:00 [facility] TDAP 2017-02-04 Completed [facility] 00:00:00 [facility] TDAP 2017-02-04 Completed [facility] 00:00:00 [facility] Tdap 2017-02-04 Completed University of 00:00:00 [facility] TDAP 2017-02-04 Completed University [facility] 00:00:00 [facility] Tdap 2017-02-04 Completed [facility] 00:00:00 [facility] Tdap 2017-02-04 Completed [facility] 00:00:00 [facility] Tdap 2017-02-04 Completed [facility] of 00:00:00 [facility] Vital Signs Vital Name Observation Time Observation Value Comments Source Systolic blood 2022-11-23 12:54:00 131 mm[Hg] Univer sity of pressure [facility] Diastolic blood 2022-11-23 12:54:00 82 mm[Hg] Unive rsity of [facility] Heart rate 2022-11-23 12:54:00 101 /min [facility] Body temperature 2022-11-23 12:54:00 37.28 Angelique [facility] Respiratory rate 2022-11-23 12:54:00 18 /min Univ [facility] Body height 2022-11-23 12:54:00 162.6 cm [facility] Body weight 2022-11-23 12:54:00 72.576 kg [facility] BMI 2022-11-23 12:54:00 27.46 kg/m2 [facility] Oxygen saturation in 2022-11-23 12:54:00 100 /min University of Arterial blood by [facility] Systolic blood 2020-08-30 02:45:00 136 mm[Hg] Univer sity of pressure [facility] Diastolic blood 2020-08-30 02:45:00 97 mm[Hg] Unive rsity of pressure [facility] Heart rate 2020-08-30 02:45:00 94 /min [facility] Respiratory rate 2020-08-30 02:45:00 20 /min [facility] Oxygen saturation in 2020-08-30 02:45:00 97 /min University of Arterial blood by [facility] Branch Body temperature 2020-08-30 00:08:00 37.17 Angelique Univ ersity of [facility] Body height 2020-08-30 00:08:00 162.6 cm [facility]i [facility] Body weight 2020-08-30 00:08:00 79.379 kg Universi ty of [facility] BMI 2020-08-30 00:08:00 30.04 kg/m2 Universi ty of [facility] Systolic blood 2020-05-20 00:15:00 150 mm[Hg] Univer sity of pressure [facility] Diastolic blood 2020-05-20 00:15:00 102 mm[Hg] Unive rsity of pressure [facility] Heart rate 2020-05-20 00:15:00 102 /min Universi ty of [facility] Body temperature 2020-05-20 00:15:00 37.11 Angelique Univ ersity of [facility] Respiratory rate 2020-05-20 00:15:00 22 /min Univ ersity of [facility] Body weight 2020-05-20 00:15:00 83.915 kg Universi ty of [facility] BMI 2020-05-20 00:15:00 31.76 kg/m2 Universi ty of [facility] Oxygen saturation in 2020-05-20 00:15:00 99 /min University of Arterial blood by [facility] Pulse oximetry Branch Systolic blood 2020-03-24 16:03:00 148 mm[Hg] Univer sity of pressure [facility] Diastolic blood 2020-03-24 16:03:00 98 mm[Hg] Unive rsity of pressure [facility] Heart rate 2020-03-24 16:03:00 101 /min Universi ty of [facility] Body temperature 2020-03-24 16:03:00 36.39 Angelique Univ ersity of [facility] Respiratory rate 2020-03-24 16:03:00 16 /min Univ ersity of [facility] Body height 2020-03-24 16:03:00 162.6 cm Universi ty of [facility] Body weight 2020-03-24 16:03:00 75.921 kg Universi ty of [facility] BMI 2020-03-24 16:03:00 28.73 kg/m2 Universi ty of [facility] Systolic blood 2020-03-15 16:47:00 162 mm[Hg] Univer sity of pressure [facility] Diastolic blood 2020-03-15 16:47:00 97 mm[Hg] Unive rsity of pressure [facility] Heart rate 2020-03-15 16:47:00 98 /min Universi ty of [facility] Body temperature 2020-03-15 16:47:00 36.83 Angelique Univ ersity of [facility] Respiratory rate 2020-03-15 16:47:00 16 /min Univ ersity of [facility] Body height 2020-03-15 16:47:00 162.6 cm Universi ty of [facility] Body weight 2020-03-15 16:47:00 77.111 kg Universi ty of [facility] BMI 2020-03-15 16:47:00 29.18 kg/m2 Universi ty of [facility] Oxygen saturation in 2020-03-15 16:47:00 100 /min University of Arterial blood by [place] [employer] [facility] Systolic blood 2020-01-10 15:06:00 117 mm[Hg] Univer sity of pressure [facility] Diastolic blood 2020-01-10 15:06:00 99 mm[Hg] Unive rsity of pressure [facility] Heart rate 2020-01-10 15:06:00 85 /min Universi ty of [facility] Body temperature 2020-01-10 15:06:00 36.78 Angelique Univ ersity of [facility] Respiratory rate 2020-01-10 15:06:00 18 /min Univ ersity of [facility] Body weight 2020-01-10 15:06:00 77.111 kg Universi ty of [facility] BMI 2020-01-10 15:06:00 30.11 kg/m2 Universi ty of [facility] Oxygen saturation in 2020-01-10 15:06:00 100 /min University of Arterial blood by [place] [facility] Systolic blood 2019-07-09 09:45:00 144 mm[Hg] Univer sity of pressure [facility] Diastolic blood 2019-07-09 09:45:00 92 mm[Hg] Unive rsity of pressure [facility] Heart rate 2019-07-09 09:45:00 75 /min Universi ty of [facility] Respiratory rate 2019-07-09 09:45:00 18 /min Univ ersity of [facility] Body height 2019-07-09 09:45:00 160 cm [facility] Body weight 2019-07-09 09:45:00 83.008 kg [facility] BMI 2019-07-09 09:45:00 32.42 kg/m2 [facility] Oxygen saturation in 2019-07-09 09:45:00 99 /min [facility] Arterial blood by [facility] Pulse oximetry Branch Systolic blood 2019-06-23 10:25:00 132 mm[Hg] [facility] pressure [facility] Diastolic blood 2019-06-23 10:25:00 96 mm[Hg] [facility] Heart rate 2019-06-23 10:25:00 68 /min [facility] Respiratory rate 2019-06-23 10:25:00 20 /min [facility] Oxygen saturation in 2019-06-23 10:25:00 99 /min [facility] Arterial blood by [facility] Pulse oximetry Branch Body weight 2019-06-23 09:24:00 77.111 kg [facility] BMI 2019-06-23 09:24:00 29.18 kg/m2 [facility] Body temperature 2019-06-23 09:04:00 36.44 Angelique [facility] Body height 2019-06-23 09:04:00 162.6 cm [facility] Procedures Procedure Date / Time Performing Clinician Source Performed US OVARY TORSION 2022-11-23 14:41:00 Jordan Hull [facility] CT ABDOMEN PELVIS W 2022-11-23 14:12:00 Jordan Hull [facility] CONTRAST [facility] POCT TEST 2022-11-23 13:13:00 Jordan Hull [facility] LIPASE 2022-11-23 13:10:00 Jordan Hull [facility] COMP. METABOLIC PANEL 2022-11-23 13:10:00 Jordan Hull [facility] ([id number]) [facility] CBC WITH DIFF 2022-11-23 13:10:00 Jordan Hull [facility] URINALYSIS 2022-11-23 13:10:00 Jordan Hull [facility] CONSENT/REFUSAL FOR 2022-11-23 12:38:19 Doctor Unassigned, [facility] ADC / LCC - DRUG SCREEN 2020-08-30 01:03:00 Shweta Morrison [facility] XR CHEST 1 VW 2020-08-30 00:55:08 Shweta Morrison [facility] URINALYSIS 2020-08-30 00:29:00 Shweta Morrison [facility] LIPASE 2020-08-30 00:25:00 Shweta Morrison [facility] TROPONIN I 2020-08-30 00:25:00 Shweta Morrison [facility] THYROID STIMULATING 2020-08-30 00:25:00 Shweta Morrison [facility] HORMONE [facility] COMP. METABOLIC PANEL 2020-08-30 00:25:00 Shweta Morrison [facility] ([id number]) [facility] CBC WITH DIFF 2020-08-30 00:25:00 Shweta Morrison [facility] PROTHROMBIN TIME / INR 2020-08-30 00:25:00 Shweta Morrison [facility] ACTIVATED PARTIAL 2020-08-30 00:25:00 Shweta Morrison [facility] THRMPLAS [facility] EKG-12 LEAD 2020-08-30 00:23:19 Shweta Morrison [facility] ASSIGNMENT OF BENEFITS 2020-05-20 00:09:07 Doctor Unassigned, No [facility] NOTICE OF PRIVACY 2020-05-20 00:05:27 Doctor Unassigned, No Univ [facility] PRACTICES [facility] CONSENT/REFUSAL FOR 2020-05-20 00:05:07 [facility] POCT TEST 2020-03-15 17:16:00 Eddie Sheets [facility] URINALYSIS 2020-03-15 17:13:00 Eddie Sheets Ada o f [facility] CONSENT/REFUSAL FOR 2020-03-15 16:41:49 Doctor Unassigned, No Un i[facility] of [place] DIAG[facility]IS AND TREATMENT Name [facility] NOTICE OF PRIVACY 2020-01-10 14:55:15 Doctor Unassigned, No [facility]US[facility] FOR 2020-01-10 14:54:57 Doctor Unassigned, No Un iversity of [place] DIAGNOSIS AND TREATMENT Name [facility] CT HEAD WO CONTRAST 2019-07-09 10:39:05 Shweta Morrison [facility] NOTICE OF PRIVACY 2019-07-09 09:34:37 Doctor Unassigned, No [facility] CONSENT/REFUSAL FOR 2019-07-09 09:34:16 Doctor Unassigned, No Un iversity of [place] DIAGNOSIS AND TREATMENT Name [facility] URINALYSIS 2019-06-23 10:01:00 Shweta Morrison [facility] POCT TEST 2019-06-23 09:54:00 Shweta Morrison [facility] BASIC METABOLIC PANEL 2019-06-23 09:46:00 Shweta Morrison [facility] (NA, K, CL, CO2, Medical Branch GLUCOSE, BUN, CREATININE, CA) CBC WITH DIFFERENTIAL 2019-06-23 09:46:00 Shweta Morrison [facility] EKG-12 LEAD 2019-06-23 09:27:58 Shweta Morrison [facility] Encounters Start End Encounter Admission Attending Care Care Encounter Source Date/Time Date/Time Type Type Clinicians Facility Department ID 2021-09-08 Emergency [facility] [id number] Univers 00:06:01 ity of [facility] 2021-09-07 Emergency [facility] [id number] Univers 06:08:37 ity of [facility] 2021-09-06 Emergency [facility] [id number] Univers 20:05:09 ity of [facility] 2021-09-06 Emergency [facility] [id number] Univers [facility]:54[facility]23 2022-11-23 Emergency X DELLA, [facility] ERT [id number] Univers 06:55:00 10:13:00 JORDAN ity [facility] 2022-11-23 2022-11-23 Emergency Della, [facility] [id number] Univers 06:55:00 10:13:00 Jordan ZAPATA [id number] i ty of [place] 4.2.7.2.686 [facility] [id number] [address] 2021-01-29 2021-01-29 [facility] [id number] Univers 00:00:00 00:00:00 Outreach Rashad PRIMARY [id number] i ty of [facility] 4.2.7.2.686 [facility] PAVBRYANON [id number] [address] 2020-08-29 2020-08-29 Emergency [facility] [id number] Univers 19:12:00 21:56:00 Shweta Zapata [id number] ity of [place] 4.2.7.[address] [facility] [id number] [address] 2020-05-19 2020-05-[address] [facility] [id number] Univers 19:17:07 22:36:00 Abimbola Zapata [id number] i ty of [place] 4.2.7.2.[address] [facility] [id number] [address] 2020-03-29 2020-03-29 Case [facility] [id number] Univers 00:00:00 00:00:00 Management Conchis [employer] [id number] ity of [facility] 4.2.7.2.686 Thien as MATERNAL [id number] Med ical & CHILD [address] [place] [address] 2020-03-24 2020-03-24 Office Provider, ClovisRmchkennedi [facility] 1 .2.840.114 [id number] Univers 10:41:59 11:47:48 Visit Sara Carvajal [employer] 350.1.13. 10 ity of [facility] 4.2.7.2.686 Thien as MATERNAL [id number] Med ical & CHILD [address] [place] [address] 2020-03-24 2020-03-24 Outpatient R AKINPE, [facility] [id number] Univers 10:30:00 10:30:00 SARA cochran f [facility] 2020-03-24 2020-03-24 Outpatient R AKINSIPE, [facility] [id number] Univers 10:30:00 10:30:00 SARA randall o f [facility] 2020-03-15 2020-03-15 Emergency [facility] [id number] Univers 11:57:03 13:13:00 Eddie Zapata 350.1.13.10 i [place] [id number] [facility] [address]84 [place] 2020-03-15 2020-03-15 Orders Doctor NELIDA [id number] Univers 00:00:00 00:00:00 Only Unassigned, JOSE [id number] ity of [place] [facility] 4.2.7.2.686 Thien as [id number] [facility] 009 [place] 2020-03-15 2020-03-15 Telephone [facility] 1.2.840.114 [id number] Univers 00:00:00 00:00:00 Sara Bond [employer] [id number] ity of [facility] 4.2.7.2.686 [place]ien as MATERNAL [id number] [facility] & CHILD [address] [place] [address] 2020-02-15 2020-02-15 Telephone [facility] [id number] Univers 00:00:00 00:00:00 Patient [employer] 350.1.13.10 it y of Does Not [facility] [place]7.2.686 [place]ERNAL [id number] [facility] & CHILD [address] [place] [address] 2020-01-10 2020-01-10 Emergency [facility] [id number] Univers 10:16:29 10:19:00 Pastor Zapata 350.1.13.10 i ty [place] [id number] [address] 2020-01-10 2020-01-10 Orders Doctor NELIDA 1.2.840.114 [id number] 00:00:00 00:00:00 Only Unassigned, JOSE 350.1.13.10 ity of [place] [facility] 4.2.7.2.686 [facility] [id number] [address] 2019-07-09 2019-07-09 Emergency [facility] [id number] Univers 04:40:10 06:17:00 Shweta Zapata 350.1.13.10 ity of [place] 4.2.7.2.[address] [facility] [id number] [address] 2019-06-23 2019-06-23 [facility] [id number] Univers 04:00:44 05:50:00 Shweta Zapata 350.1.13.10 ity of [place] 4.2.7.2.[address] [facility] [id number] [address] Results Test Description Test Time Test Comments Results Result Comments Source COMP. METABOLIC PANEL (18675) 2022-11-23 13:38:11 Test Item Value Reference Range Interpretation Comme nts NA (test code = 9386967430) 137 mmol/L 135-145 K (test code = 1607524196) 4.5 mmol/L 3.5-5.0 CL (test code = 7762528772) 108 mmol/L 98-108 CO2 TOTAL (test code = 0331308165) 20 mmol/L 23-31 L AGAP (test code = 9664698598) 2-16 BUN (test code = 6751023307) 14 mg/dL 7-23 GLUCOSE (test code = 7611153394) 97 mg/dL 70-110 CREATININE (test code = 0.54 mg/dL 0.50-1.04 2218492204) TOTAL BILI (test code = 0.7 mg/dL 0.1-1.2 5511798189) CALCIUM (test code = 3397161223) 9.7 mg/dL 8.6-10.6 T PROTEIN (test code = 3191693385) 8.4 g/dL 6.3-8.2 H ALBUMIN (test code = 3648390800) 4.7 g/dL 3.5-5.0 ALK PHOS (test code = 3007862541) 119 U/L 34-122 ALTv (test code = 1742-6) 16 U/L 5-35 AST(SGOT) (test code = 6998223541) 28 U/L 13-40 eGFR (test code = 2004724954) mL/min/1.73m2 ANDREA (test code = ANDREA) Association of Glomerular Filtration Rate (GFR) and Staging of Kidney Disease* + +-------- + ------+| GFR (mL/min/1.73 m2) ?| With Kidney Damage ?| ?Without Kidney Damage+ +-- + +| ?>90 ?| ?Stage one ?| ? Normal ?+ +------- + -------+| ?60-89 ?| ?Stage two ?| ? Decreased GFR ? + +-------- + ------+| ?30-59 ?| ?Stage three ?| ? Stage three ? + +-------- + ------+| ?15-29 ?| ?Stage four ? | ? Stage four ?+ +------- + -------+| ?<15 (or dialysis) ? ?| ?Stage five ? | ? Stage five ?+ +------- + -------+ *Each stage assumes the associated GFR [...] or abnormalities in imaging tests). Lab Interpretation (test code = Abnormal 92790-7) [facility]31 Test Item Value Reference Range Interpretation Comments LIPASE (test code = 6366913673) 49 U/L 0-220 Lab Interpretation (test code = Normal 10806-8) [facility] WITH [id number] 13:21:08 Test Item Value Reference Range Interpretation Comments WBC (test code = See_Comment [Automated 6690-2) message] The sy stem which generated this result transmitted reference range : 4.30 - 11.10 10*3/?L. The reference range was not used to interpret this result as normal/abnormal . RBC (test code = See_Comment [Automated 789-8) message] The sy stem which generated this result transmitted reference range : 3.93 - 5.25 10*6/?L. The reference range was not used to interpret this result as normal/abnormal . HGB (test code = 12.5 g/dL 11.6-15.0 718-7) HCT (test code = 39.6 % 35.7-45.2 4544-3) MCV (test code = 76.3 fL 80.6-95.5 L 787-2) MCH (test code = 24.1 pg 25.9-32.8 L 785-6) MCHC (test code = 31.6 g/dL 31.6-35.1 786-4) RDW-SD (test code = 35.0 fL 39.0-49.9 L 34518-2) RDW-CV (test code = 12.7 % 12.0-15.5 788-0) PLT (test code = See_Comment [Automated 777-3) message] The sy stem which generated this result transmitted reference range : 166 - 358 10*3/ ?L. The reference r tony was not used to interpret this result as normal/abnormal . MPV (test code = 11.8 fL 9.5-12.9 43521-4) NRBC/100 WBC (test See_Comment [Automat ed code = 0151169861) message] The system which generated this result transmitted reference range : 0.0 - 10.0 /100 WBCs. The refer ence range was not u sed to interpret th is result as normal/abnormal . NRBC x10^3 (test code See_Comment [Auto mated = 6504118861) message] The s ystem which generated this result transmitted reference range : 10*3/?L. The reference range was not used to interpret this result as normal/abnormal . GRAN MAT (NEUT) % 61.7 % (test code = 770-8) IMM GRAN % (test code 0.40 % = 5483635651) LYMPH % (test code = 25.4 % 736-9) MONO % (test code = 11.0 % 5905-5) EOS % (test code = 1.1 % 713-8) BASO % (test code = 0.4 % 706-2) GRAN MAT x10^3(ANC) 3.49 10*3/uL 1.88-7.09 (test code = 3687943366) IMM GRAN x10^3 (test 0.00-0.06 code = 1183211057) LYMPH x10^3 (test code 1.43 10*3/uL 1.32-3.29 = 731-0) MONO x10^3 (test code 0.62 10*3/uL 0.33-0.92 = 742-7) EOS x10^3 (test code = 0.06 10*3/uL 0.03-0.39 711-2) BASO x10^3 (test code 0.01-0.07 = 704-7) Lab Interpretation Abnormal (test code = 49819-1) [facility] [id number] 13:13:00 Test Item Value Reference Range Interpretation Comments POCT PREG (test code = 1605) negative On board controls acceptable with C present Line (test code = 3574) Lab Interpretation (test code = Normal 28534-1) [facility] [id number] 01:50:00 Test Item Value Reference Range Interpretation Comments TSH (test code = <0.02 See_Comment L Biotin has been 5262673664) reported to cau se a negative bias, interpret resul ts relative to pat ient's use of biotin. [Automated mess age] The system Nalaic h generated this result transmitted ref erence range: 0.45 - 4 .70 mIU/L. The refe rence range was not u sed to interpret this result as normal/abnor mal. Lab Interpretation (test Abnormal code = 62812-2) [facility] - DRUG SCREEN [id number] 01:31:00 Test Item Value Reference Range Interpretation Comments BENZO U (test code = Negative Negative 9957534572) YADIEL U (test code = Negative Negative 8489449800) AMPHET (test code = Negative Negative 9609963980) THC (test code = Presumptive Negative A Confirmatio n of 9458855442) Positive Presumptive Positive THC result requires physician order . METHADONE (test code Negative Negative = 0965649368) Meth U (test code = Negative Negative 2236018923) OPIATES (test code = Negative Negative 2321147273) Cocaine Metabolite Negative Negative (test code = 4531436746) PROPOXY (test code = Negative Negative 2586796787) Tric U (test code = Negative Negative 4133089633) PCP (test code = Negative Negative 3134262695) OXYCOD (test code = Negative Negative 6898168693) ANDREA (test code = Urine Drug Cutoff [...] testing). Lab Interpretation Abnormal (test code = 07605-4) [facility] 1 [id number] 01:04:49 No acute cardiopulmonary abnormality within the [...] Alec Lan MD., have reviewed this study and agree with the abovereport. [facility] [id number] 01:03:00 Test Item Value Reference Range Interpretation Comments TROPONIN I (test <0.012 See_Comment [Automated code = 7373815519) message] The system which generated this result [...] ? Lab Interpretation Normal (test code = 12213-8) [facility]. METABOLIC PANEL (00809)2020-08-30 00:52:00 Test Item Value Reference Range Interpretation Comments NA (test code = 137 mmol/L 135-145 8120707839) K (test code = 3.5 mmol/L 3.5-5 2842532619) CL (test code = 103 mmol/L 98-108 2152576961) CO2 TOTAL (test code = 19 mmol/L 23-31 L 0084608986) AGAP (test code = 2-16 8200762769) BUN (test code = 17 mg/dL 7-23 8410617143) GLUCOSE (test code = 112 mg/dL 70-110 H 0928588388) CREATININE (test code = 0.50 mg/dL 0.5-1.04 8841909613) TOTAL BILI (test code = 0.7 mg/dL 0.1-1.1 8146391683) CALCIUM (test code = 10.4 mg/dL 8.6-10.6 1045581173) T PROTEIN (test code = 9.2 g/dL 6.3-8.2 H 8708799919) ALBUMIN (test code = 4.8 g/dL 3.5-5 2598179575) ALK PHOS (test code = 163 U/L 34-122 H 5965860982) ALTv (test code = 17 U/L 5-35 1742-6) AST(SGOT) (test code = 33 U/L 13-40 4779787280) eGFR Calculation mL/min/1.73m2 (Non-) (test code = 4103816513) eGFR Calculation mL/min/1.73m2 () (test code = 4825084424) ANDREA (test code = ANDREA) Association of [...] tests). Lab Interpretation Abnormal (test code = 25729-9) [facility], [id number] 00:51:00 Test Item Value Reference Range Interpretation Comments LIPASE (test code = 9416011625) 54 U/L 0-220 Lab Interpretation (test code = Normal 69611-7) [facility] 00:48:00 Test Item Value Reference Range Interpretation Comments APTT Patient (test See_Comment [Automat ed code = 3173-2) message] The system which generated this result transmitted reference range : 23 - 38 Seconds . The reference range was not used to interpr et this result as normal/abnormal . ANDREA (test code = ANDREA) The [facility] patient population mean normal value for aPTT is 30 seconds. Lab Interpretation Normal (test code = 31237-6) [facility] / [id number] 00:46:00 Test Item Value Reference Range Interpretation [...] tions. Lab Interpretation (test Normal code = 61610-2) [facility]2020-[facility]21 00:43:00 Test Item Value Reference Range Interpretation Comments APPEARANCE (test code = Hazy Clear A 3766870246) COLOR (test code = Nirmala Yellow A 0789677987) PH (test code = 4.8-8.0 0302554038) SP GRAVITY (test code = 1.003-1.030 5646085824) GLU U QUAL (test code = Normal Normal 6435174453) BLOOD (test code = 3+ Negative A 7371706060) KETONES (test code = 20 mg/dL Negative A 1724988219) PROTEIN (test code = 100 mg/dL Negative A 2887-8) UROBILIN (test code = 2.0 mg/dL Normal A 1337464457) BILIRUBIN (test code = Negative Negative 2950971414) NITRITE (test code = Negative Negative 9772750939) LEUK PARTH (test code = Negative Negative 4770560696) RBC/HPF (test code = See_Comment H [Autom ated message] 2254161471) The system [employer] generated this result transmit brenda reference range : 0 - 3 HPF. The refe rence range was not u sed to interpret th is result as normal/abnormal . WBC/HPF (test code = See_Comment H [Autom ated message] 1905741325) The system [employer] generated this result transmit brenda reference range : 0 - 5 HPF. The refe rence range was not u sed to interpret th is result as normal/abnormal . BACTERIA (test code = Moderate Negative A 5522724767) MUCOUS (test code = Marked Negative LPF A 7113311995) SQ EPITH (test code = HPF 8478011343) HYAL CAST (test code = See_Comment H [Aut omated message] 1672986296) The system [employer] generated this result transmit brenda reference range : <=2 LPF. The refere nce range was not u sed to interpret th is result as normal/abnormal . Lab Interpretation (test Abnormal code = 79153-4) [id number] 00:35:00 Test Item Value Reference Range Interpretation Comments WBC (test code = See_Comment [Automated 6690-2) message] The sy stem which generated this [...] (test code = 34.2 fL 39-49.9 L 65929-9) RDW-CV (test code = 12.9 % 12-15.5 788-0) PLT (test code = See_Comment H [Automated 777-3) message] The sy stem which generated this result transmitted reference range : 166 - 358 10*3/ ?L. The reference r tony was not used to interpret this result as normal/abnormal . MPV (test code = 11.7 fL 9.5-12.9 04066-2) NRBC/100 WBC (test See_Comment [Automat ed code = 7348588072) message] The system which generated this result transmitted reference range : 0.0 - 10.0 /100 WBCs. The refer ence range was not u sed to interpret th is result as normal/abnormal . NRBC x10^3 (test code <0.01 See_Comment [Auto mated = 2866039080) message] The s ystem which generated this result transmitted reference range : 10*3/?L. The reference range was not used to interpret this result as normal/abnormal . GRAN MAT (NEUT) % 47.0 % (test code = 770-8) IMM GRAN % (test code 0.30 % = 6179517328) LYMPH % (test code = 44.9 % 736-9) MONO % (test code = 7.2 % 5905-5) EOS % (test code = 0.3 % 713-8) BASO % (test code = 0.3 % 706-2) GRAN MAT x10^3(ANC) 3.21 10*3/uL 1.88-7.09 (test code = 2235398722) IMM GRAN x10^3 (test <0.03 0-0.06 code = 1705487684) LYMPH x10^3 (test code 3.07 10*3/uL 1.32-3.29 = 731-0) MONO x10^3 (test code 0.49 10*3/uL 0.33-0.92 = 742-7) EOS x10^3 (test code = <0.03 0.03-0.39 L 711-2) BASO x10^3 (test code <0.03 0.01-0.07 = 704-7) Lab Interpretation Abnormal (test code = 45369-2) [facility] Test Item Value Reference Range Interpretation Comments APPEARANCE (test code = Cloudy Clear A 3973478972) COLOR (test code = Yellow Yellow 8884449275) PH (test code = 4.8-8.0 7202564021) SP GRAVITY (test code = 1.003-1.030 5223548349) GLU U QUAL (test code = Normal Normal 3868401475) BLOOD (test code = 3+ Negative A 0535861779) KETONES (test code = Negative Negative 1050463321) PROTEIN (test code = 100 mg/dL Negative A 2887-8) UROBILIN (test code = 4.0 mg/dL Normal A 0032026785) BILIRUBIN (test code = Negative Negative 1464012521) NITRITE (test code = Positive Negative A 1307535781) [place] (test code = 500/uL Negative A 5947567845) RBC/HPF (test code = >182 See_Comment H [Autom ated message] 3572258197) The system [employer] generated this result transmit brenda reference range : 0 - 3 HPF. The refe rence range was not u sed to interpret th is result as normal/abnormal . WBC/HPF (test code = >182 See_Comment H [Autom ated message] 0888745821) The system [employer] generated this result transmit brenda reference range : 0 - 5 HPF. The refe rence range was not u sed to interpret th is result as normal/abnormal . BACTERIA (test code = Many Negative A 0398267229) SQ EPITH (test code = HPF 8815204452) WBC CLUMPS (test code = See_Comment H [Au tomated message] 4421235345) The system [employer] generated this result transmit brenda reference range : <=1 HPF. The refere nce range was not u sed to interpret th is result as normal/abnormal . Lab Interpretation (test Abnormal code = 64632-9) [facility] [id number] 17:16:00 Test Item Value Reference Range Interpretation Comments POCT PREG (test code = 1605) negative On board controls acceptable with present C Line (test code = 3574) POCT PREG LOT # (test code = 3575) [id number] POCT PREG TEST DATE (test 2021-06-09 code = 3576) Lab Interpretation (test code = Normal 70459-3) [facility] HEAD WO [id number] 10:48:25 No acute intracranial abnormality.? RL: [id number] [...] mastoid air cells are clear.?Osseous structures areunremarkable.? [facility], Radiant Results Inft User - 07/09/2019 5:50 [...] structures areunremarkable. IMPRESSIONNo acute intracranial abnormality. [id number] 10:41[facility]00 Test Item Value Reference Range Interpretation Comments APPEARANCE (test code = Clear Clear 2317166288) COLOR (test code = Yellow Yellow 6100178022) PH (test code = 4.8-8.0 9844212500) SP GRAVITY (test code = >=1.030 1.003-1.030 8137914747) GLU U QUAL (test code = Negative Negative 7539181712) BLOOD (test code = Moderate Negative A 6068004459) KETONES (test code = Negative Negative 3158853215) PROTEIN (test code = Negative Negative 2887-8) UROBILIN (test code = 1.0 mg/dL See_Comment [Auto mated message] 9443662534) The system [employer] generated this result transmit brenda reference range : 0-1.0 mg/dL. Th e reference range was not used to interpret this result as normal/abnormal . BILIRUBIN (test code = Negative Negative 4100509428) NITRITE (test code = Negative Negative 1867816075) LE[place] PARTH (test code = Negative Negative 0929386147) RBC/HPF (test code = See_Comment H [Autom ated message] 9647616099) The system [employer] generated this result transmit brenda reference range : 0 - 3 HPF. The refe rence range was not u sed to interpret th is result as normal/abnormal . WBC/HPF (test code = See_Comment [Autom ated message] 6886366336) The system [employer] generated this result transmit brenda reference range : 0 - 5 HPF. The refe rence range was not u sed to interpret th is result as normal/abnormal . BACTERIA (test code = Few Negative A 4047998309) MUCOUS (test code = Slight Negative LPF A 6123775319) Lab Interpretation (test Abnormal code = 87562-3) [facility] (NA, K, CL, CO2, GLUCOSE, BUN, CREATININE, CA)2019-06-23 10:17:00 Test Item Value Reference Range Interpretation Comments NA (test code = 143 mmol/L 135-145 8557534080) K (test code = 3.4 mmol/L 3.5-5 L 2327952885) CL (test code = 110 mmol/L 98-108 H 6648091194) CO2 TOTAL (test code = 25 mmol/L 23-31 2203983024) AGAP (test code = 2-16 2414924369) BUN (test code = 12 mg/dL 7-23 0163838664) GLUCOSE (test code = 91 mg/dL 70-110 5487458726) CREATININE (test code = 0.46 mg/dL 0.5-1.04 L 2730531917) CALCIUM (test code = 9.4 mg/dL 8.6-10.6 8486051677) eGFR Calculation mL/min/1.73m2 (Non-) (test code = 5141709053) eGFR Calculation mL/min/1.73m2 () (test code = 7985757802) ANDREA (test code = ANDREA) Association of [...] tests). Lab Interpretation Abnormal (test code = 26254-7) [facility] WITH [id number] 10:01:00 Test Item Value Reference Range Interpretation Comments WBC (test code = See_Comment [Automated 9990-2) message] The sy stem which generated this result transmitted reference range : 4.30 - 11.10 10*3/?L. The reference range was not used to interpret this result as normal/abnormal . RBC (test code = See_Comment [Automated 789-8) message] The sy stem which [...] (test code = 35.1 fL 39-49.9 L 40659-8) RDW-CV (test code = 12.1 % 12-15.5 788-0) PLT (test code = See_Comment [Automated 777-3) message] The sy stem which generated this result transmitted reference range : 166 - 358 10*3/ ?L. The reference r tony was not used to interpret this result as normal/abnormal . MPV (test code = 11.7 fL 9.5-12.9 02418-6) NRBC/100 WBC (test See_Comment [Automat ed code = 6053343379) message] The system which generated this result transmitted reference range : 0.0 - 10.0 /100 WBCs. The refer ence range was not u sed to interpret th is result as normal/abnormal . NRBC x10^3 (test code <0.01 See_Comment [Auto mated = 2761122263) message] The s ystem which generated this result transmitted reference range : 10*3/?L. The reference range was not used to interpret this result as normal/abnormal . GRAN MAT (NEUT) % 49.5 % (test code = 770-8) IMM GRAN % (test code 0.40 % = 3163321283) LYMPH % (test code = 40.7 % 736-9) MONO % (test code = 8.3 % 5905-5) EOS % (test code = 0.7 % 713-8) BASO % (test code = 0.4 % 706-2) GRAN MAT x10^3(ANC) 2.75 10*3/uL 1.88-7.09 (test code = 3512046334) IMM GRAN x10^3 (test <0.03 0-0.06 code = 8271015799) LYMPH x10^3 (test code 2.26 10*3/uL 1.32-3.29 = 731-0) MONO x10^3 (test code 0.46 10*3/uL 0.33-0.92 = 742-7) EOS x10^3 (test code = 0.04 10*3/uL 0.03-0.39 711-2) BASO x10^3 (test code <0.03 0.01-0.07 = 704-7) Lab Interpretation Abnormal (test code = 88884-0) [facility] [id number] 09:54:00 Test Item Value Reference Range Interpretation Comments POCT PREG (test code = 1605) negative On board controls acceptable with yes C Line (test code = 3574) POCT PREG LOT # (test code = 3575) [id number] POCT PREG TEST DATE (test 11/09/2020 code = 3576) Lab Interpretation (test code = Normal 65934-3) [facility]"
[2022-12-23] MEDS ORDERED: NA CHLORIDE 0.9% 500 ML ONE (09:36)
[2022-12-23 09:37] LABS: Hematocrit 36.1 % (36.0-45.0); Lymphocytes % 23.4 % (15.3-44.8); MPV 9.8 fL (7.6-11.3); RBC Red Blood Cell Count 4.88 M/uL (3.86-4.86)
[2022-12-23 09:43] LABS: Urine Blood 2+ (Negative); Urine Glucose Negative (Negative); Urine Protein Negative (Negative); Urine pH 5.5 (5.0-7.0)
[2022-12-23 09:46] LABS: SARS-CoV-2 Antigen Rapid Res Negative (Negative)
[2022-12-23 10:05] LABS: BUN Blood Urea Nitrogen 64 mg/dL (7-18); Bicarbonate 19 mmol/L (21-32); Glomerular Filtration Rate 64 ml/min (=/>90); Glucose Level 121 mg/dL (74-106); NT PRO-BNP 46 pg/mL (<125); Potassium 4.1 mmol/L (3.5-5.1); Sodium Level 137 mmol/L (136-145)
[2022-12-23 10:06] LABS: HCG, Quantitative < 1 mIU/mL (1-3); Thyroid Stimulating Hormone < 0.005 uIU/mL (0.358-3.740)
--- NOTE | 2022-12-23 10:07 | RAD REPORT ---
EXAM DESCRIPTION: CT - Head Brain Wo Cont - 12/23/2022 9:47 am CLINICAL HISTORY: VISUAL DISTURBANCES Headache, drowsiness COMPARISON: Head Brain Wo Cont dated 08/01/2021 TECHNIQUE: All CT scans are performed using dose optimization technique as appropriate and may inclu de automated exposure control or mA/KV adjustment according to patient size. FINDINGS: No intracranial hemorrhage, hydrocephalus or extra-axial fluid collection.No areas of brai n edema or evidence of midline shift. The paranasal sinuses and mastoids are clear. The calvarium is intact. IMPRESSION: No acute intracranial abnormality.
--- NOTE | 2022-12-23 10:12 | RAD REPORT ---
EXAM DESCRIPTION: RAD - Chest Single View - 12/23/2022 9:56 am CLINICAL HISTORY: CHEST PAIN Chest pain. COMPARISON: Chest Single View dated 04/20/2022 FINDINGS: Portable technique limits examination quality. The lungs are grossly clear. The heart is normal in size. No displaced fractures. IMPRESSION: No acute intrathoracic process suspected.
[2022-12-23 10:34] LABS: Albumin 3.8 g/dL (3.4-5.0); Bilirubin Direct 0.1 mg/dL (0-0.2); Bilirubin Total 0.4 mg/dL (0.2-1.0); Protein, Total 8.3 g/dL (6.4-8.2)
--- NOTE | 2022-12-23 10:42 | EDPHYS ---
Physician Documentation [facility] Name: Tran Ocampo Age: 37 yrs Sex: Female : 1985 Arrival Date: 12/23/2022 Time: 08:49 Bed 6 Private MD: ED Physician Ryan Dennison HPI: 12/23 09:18 This 37 yrs old Black Female presents to ER via Ambulatory with complaints of Headache, bs3 Difficulty Swallowing, Vision Problem, Doesn't Feel Right. 09:18 37y f hx of htn, presents with weakness, weight loss, vision problems, leaning toward bs3 the right, pain with swallowing, symptoms started before farrah but got worse over the last week. She went to an outside hospital over a month ago, but does. 09:24 she is a poor historian but notes progressive symptoms, she has diarrhea, she feels bs3 anxious, weak, has weight loss over this month, and her heart feels like it is raising. Denies fever or chills, denies recent illness. . 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 - Social history:: Smoking status: Patient denies any tobacco usage or history of. ROS: 09:24 Constitutional: Negative for fever, chills bs3 09:24 All other systems are negative. Exam: 09:24 Constitutional: This is a well developed, well nourished patient who is awake, alert, bs3 and in no acute distress. Head/Face: Normocephalic, atraumatic. Eyes: Pupils equal round and reactive to light, extra-ocular motions intact. Lids and lashes normal. ENT: mmm, no posterior phyarngeal erythema Neck: thyromegaly, trachea midline Chest/axilla: Normal chest wall appearance and motion. Nontender with no deformity. No lesions are appreciated. Cardiovascular: tachycardic, no murmur Respiratory: Lungs have equal breath sounds bilaterally, clear to auscultation, no respiratory distress Abdomen/GI: Soft, non-tender, no rebound or guarding MS/ Extremity: Pulses equal, no cyanosis. Neurovascular intact. Full, normal range of motion. Neuro: Awake and alert, GCS 15, oriented to person, place, time, and situation. Cranial nerves II-XII grossly intact. Motor strength 5/5 in all extremities. Sensory grossly intact. Psych: Awake, alert, with orientation to person, place and time. Behavior, mood, and affect are within normal limits. Vital Signs: 08:53 BP 119 / 78; Pulse 124; Resp 18; Temp 99.2; Pulse Ox 100% ; Weight 65.77 kg; Height 5 5 ft. 3 in. (160.02 cm); Pain 8/10; 11:00 BP 107 / 70; Pulse 86; Resp 15; Pulse Ox 100% ; jl7 08:53 Body Mass Index 25.69 (65.77 kg, 160.02 cm) 5 MDM: 09:03 Patient medically screened. bs3 09:24 Differential diagnosis: hypertensive headache, hypoglycemia, hyponatremia, bs3 meningoencephalitis, migraine, tension headache, thyrotoxicosis, infection (less likely denies fever, chills, cough, sob, urinary symptoms). Data reviewed: vital signs, nurses notes. Consideration of Admission/Observation consideration for admission. Care significantly affected by the following Social Determinants of Health: Poor access to healthcare and/or lack of insurance. 10:39 Management of patient was discussed with the following: Hospitalist: agree with plan. 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 12/23 09:15 Order name: TSH bs3 12/23 09:15 Order name: BNP bs3 12/23 09:15 Order name: SARS-COV-2 Antigen Rapid bs3 12/23 09:16 Order name: HCG-Quantitative bs3 12/23 09:16 Order name: Basic Metabolic Panel bs3 12/23 09:16 Order name: CBC with Diff bs3 12/23 09:16 Order name: Troponin HS 3 12/23 09:44 Order name: Urine Dipstick-Ancillary; Complete Time: 09:56 EDMS 12/23 09:45 Order name: Urine --Ancillary (enter results) bd 12/23 09:47 Order name: SARS-COV-2 Antigen Rapid; Complete Time: 09:56 EDMS 12/23 09:47 Order name: CBC with Automated Diff; Complete Time: 09:56 EDMS 12/23 09:54 Order name: Urine --Ancillary; Complete Time: 09:56 EDMS 12/23 10:00 Order name: Troponin High Sensitivity; Complete Time: 10:01 EDMS 12/23 10:06 Order name: Basic Metabolic Panel; Complete Time: 10:13 EDMS 12/23 10:06 Order name: NT PRO-BNP; Complete Time: 10:13 EDMS 12/23 10:06 Order name: HCG, Quantitative; Complete Time: 10:13 EDMS 12/23 10:06 Order name: Thyroid Stimulating Hormone; Complete Time: 10:13 EDMS 12/23 10:17 Order name: LFT's 3 12/23 10:35 Order name: Liver (Hepatic) Function; Complete Time: 13:13 EDMS 12/23 10:36 Order name: Cortisol 3 12/23 11:28 Order name: T4 Free 3 12/23 11:28 Order name: T4,Total 3 12/23 11:47 Order name: T4,Total; Complete Time: 13:13 EDMS 12/23 11:47 Order name: T4 Free; Complete Time: 13:13 EDMS 12/23 11:58 Order name: Cortisol; Complete Time: 13:13 EDMS 12/23 13:24 Order name: Phosphorus EDMS 12/23 13:24 Order name: Creatine Phosphokinase EDMS 12/23 13:24 Order name: Lipid Profile [facility] 12/23 13:24 Order name: Magnesium EDNM 12/23 09:16 Order name: XRAY Chest (1 view) 3 12/23 09:16 Order name: EKG; Complete Time: 09:17 3 12/23 09:16 Order name: Cardiac monitoring; Complete Time: 10:31 bs3 12/23 09:16 Order name: EKG - Nurse/Tech; Complete Time: 10:31 bs3 12/23 09:16 Order name: IV Saline Lock; Complete Time: 09:55 bs3 12/23 09:16 Order name: Labs collected and sent; Complete Time: 09:55 3 12/23 09:16 Order name: O2 Per Protocol; Complete Time: 09:55 bs3 12/23 09:16 Order name: O2 Sat Monitoring; Complete Time: 09:55 bs3 12/23 09:24 Order name: Urine Dipstick-Ancillary (obtain specimen); Complete Time: 09:49 iw 12/23 09:32 Order name: CT Head Brain wo Cont bs3 12/23 10:07 Order name: CT; Complete Time: 10:13 EDMS 12/23 10:13 Order name: RAD; Complete Time: 10:20 EDMS 12/23 12:48 Order name: US; Complete Time: 13:13 EDMS 12/23 13:28 Order name: Hemoglobin A1c EDMS Administered Medications: 09:32 CANCELLED (waiting for tshs): INDeral (propranolol) 40 mg PO once bs3 09:49 Drug: NS 0.9% 500 ml Route: IV; Rate: 1000 bolus; Site: right antecubital; jl7 10:30 Follow up: IV Status: Completed infusion; IV Intake: 500ml ss 10:30 Not Given (dont givev): Propranolol 1 mg IVP once; over 10 minutes bs3 11:10 Drug: HydroCORTISONE 100 mg Route: IVP; Site: right antecubital; ss 14:17 Follow up: Response: No adverse reaction ss 11:38 Drug: INDeral (propranolol) 60 mg Route: PO; ss 14:17 Follow up: Response: No adverse reaction ss 11:39 Not Given (Not available in hospital at this time. aware): propylthiouraciL 200 mg ss PO every 4 hours 12:05 Not Given (SEE admission orders in [facility]): HydroCORTISONE 100 mg IVP See ss Administration Instructions; every 8 hours, to be started 8 hours after initial stat dose 12:05 Drug: methIMAzole 20 mg Route: PO; ss 14:18 Follow up: Response: No adverse reaction ss 14:27 Drug: Zofran (Ondansetron) 4 mg Route: IVP; Site: right antecubital; ss Disposition Summary: 12/23/22 10:42 Hospitalization Ordered Hospitalization Status: Inpatient Admission bs3 Provider: Juan Lau bs3 Location: Telemetry/MedSurg (Inpatient) bs3 Condition: Fair bs3 Problem: new bs3 Symptoms: have worsened bs3 Bed/Room Type: Standard bs3 Room Assignment: [facility](12/23/22 15:45) dw Diagnosis - Abnormal results of thyroid function studies bs3 - Dehydration bs3 Forms: - Medication Reconciliation Form bs3 - SBAR form bs3 Critical care time excluding procedures: 11:37 Critical care time: Bedside Care: 25 minutes, Consultation: 15 minutes. Total time: 40 bs3 minutes Signatures: Dispatcher [employer] Betsey Brito RN RN Marlin Hernandez, RN Tamera Camarena RN RN ss Leal, Jahala, RN RN 7 Paz Donaldson RN RN 5 Ryan Dennison MD MD bs3 Corrections: (The following items were deleted from the chart) 08:59 08:58 PMHx: teratoma 2007; jh5 jh5 09:32 09:32 INDeral (propranolol) 40 mg PO once ordered. bs3 bs3 15:45 10:42 bs3 dw
--- NOTE | 2022-12-23 10:42 | ER ---
Nurse's Notes [facility] Name: Tran Ocampo Age: 37 yrs Sex: Female : 1985 Arrival Date: 12/23/2022 Time: 08:49 Bed 6 Private MD: Diagnosis: Abnormal results of thyroid function studies;Dehydration Presentation: 12/23 08:53 Chief complaint: Patient states: for a week now, i cant walk straight, my vision is jh5 blurry, I feel yue waves in my head, I cant hardly swallow anything. [facility] told me before farrah this happened and they told me it was my thyroid. I am so tired, I cant hardly go from the bathroom to the bed without being so tired. The headache is so bad for this last week, and my symptoms are just getting worse; when I think i am walking straight I am walking at an angle or something and running into things. This all started before farrah when I went to [facility], it didn't get better but now the last week it is way worse. Coronavirus screen: Vaccine status:. Ebola Screen: Patient negative for fever greater than or equal to 101.5 degrees Fahrenheit, and additional compatible Ebola Virus Disease symptoms Patient denies exposure to infectious person. Patient denies travel to an Ebola-affected area in the 21 days before illness onset. Initial Sepsis Screen: Does the patient meet any 2 criteria? HR > 90 bpm. Does the patient have a suspected source of infection? No. Patient's initial sepsis screen is negative. Risk Assessment: Do you want to hurt yourself or someone else? Patient reports no desire to harm self or others. 08:53 Method Of Arrival: Ambulatory [facility] 08:53 Acuity: ILIA 3 [facility] Triage Assessment: 08:58 Headache History: Denies prior headaches. General: Appears uncomfortable, slender, well [facility] groomed, well developed, Behavior is calm, cooperative, appropriate for age. Pain: Pain currently is 8 out of 10 on a pain scale. at worst was 10 out of 10 on a pain scale. Pain began gradually, x1 week Also complains of. Neuro: Reports blurred vision difficulty swallowing headache. 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 - Social history:: Smoking status: Patient denies any tobacco usage or history of. Screenin:15 [facility] ED Fall Risk Assessment (Adult) History of falling in the last 3 months, jl7 including since admission No falls in past 3 months (0 pts) Confusion or Disorientation No (0 pts) Intoxicated or Sedated No (0 pts) Impaired Gait No (0 pts) Mobility Assist Device Used No (0 pt) Altered Elimination No (0 pt) Score/Fall Risk Level 0 - 2 = Low Risk Oriented to surroundings, Maintained a safe environment. Abuse screen: Denies threats or abuse. Denies injuries from another. Nutritional screening: No deficits noted. Tuberculosis screening: No symptoms or risk factors identified. Assessment: 09:15 General: Appears in no apparent distress. uncomfortable, Behavior is calm, cooperative, jl7 appropriate for age. Pain: Complains of pain in generalized pain all over Pain currently is 8 out of 10 on a pain scale. Neuro: Level of Consciousness is awake, alert, obeys commands, Oriented to person, place, time, situation. Cardiovascular: Patient's skin is warm and dry. Rhythm is regular. Respiratory: Airway is patent Respiratory effort is even, unlabored, Respiratory pattern is regular, symmetrical. Derm: Skin is pink, warm \T\ dry. 10:30 Reassessment: Dr. Chacon at bedside assessing pt and discussing POC. [facility] 11:20 Reassessment: Awaiting for pharmacy to bring dose of propranolol and propylthiouracil. ss Call light remains within reach. 15:49 Reassessment: attempted to call report. Nurse unavailable at this time and will call ss back. Vital Signs: 08:53 BP 119 / 78; Pulse 124; Resp 18; Temp 99.2; Pulse Ox 100% ; Weight 65.77 kg; Height 5 [facility] ft. 3 in. (160.02 cm); Pain 8/10; 11:00 BP 107 / 70; Pulse 86; Resp 15; Pulse Ox 100% ; jl7 08:53 Body Mass Index 25.69 (65.77 kg, 160.02 cm) [facility] ED Course: 08:49 Patient arrived in ED. am2 08:58 Triage completed. jh5 08:58 Arm band placed on right wrist. jh5 09:03 Ryan Dennison MD is Attending Physician. bs3 09:03 Alonso Blake, SREE is Primary Nurse. jl7 09:15 Patient has correct armband on for positive identification. Bed in low position. Call jl7 light in reach. Side rails up X2. Client placed on continuous cardiac and pulse oximetry monitoring. NIBP monitoring applied. Warm blanket given. 09:30 Initial lab(s) drawn, by ED staff, sent to lab. Inserted saline lock: 20 gauge in right jl7 antecubital area, using aseptic technique. Blood collected. 09:57 Tamera Scott, SREE is Primary Nurse. jl7 10:40 Juan Lau MD is Hospitalizing Provider. bs3 10:40 EKG done, by ED staff, reviewed by Ryan Dennison MD. jl7 10:57 Cortisol Sent. ss 14:01 No provider procedures requiring assistance completed. Patient admitted, IV remains in jl7 place. intact, No redness/swelling at site. Administered Medications: 09:32 CANCELLED (waiting for tshs): INDeral (propranolol) 40 mg PO once bs3 09:49 Drug: NS 0.9% 500 ml Route: IV; Rate: 1000 bolus; Site: right antecubital; jl7 10:30 Follow up: IV Status: Completed infusion; IV Intake: 500ml ss 10:30 Not Given (dont givev): Propranolol 1 mg IVP once; over 10 minutes bs3 11:10 Drug: HydroCORTISONE 100 mg Route: IVP; Site: right antecubital; ss 14:17 Follow up: Response: No adverse reaction ss 11:38 Drug: INDeral (propranolol) 60 mg Route: PO; ss 14:17 Follow up: Response: No adverse reaction ss 11:39 Not Given (Not available in hospital at this time. MD aware): propylthiouraciL 200 mg ss PO every 4 hours 12:05 Not Given (SEE admission orders in [facility]): HydroCORTISONE 100 mg IVP See ss Administration Instructions; every 8 hours, to be started 8 hours after initial stat dose 12:05 Drug: methIMAzole 20 mg Route: PO; ss 14:18 Follow up: Response: No adverse reaction ss 14:27 Drug: Zofran (Ondansetron) 4 mg Route: IVP; Site: right antecubital; Medication: 09:15 VIS not applicable for this client. jl7 Intake: 10:30 IV: 500ml; Total: 500ml. ss Outcome: 10:42 Decision to Hospitalize by Provider. bs3 16:31 Patient left the ED. iw Signatures: Marlin Gray RN RN Tamera Scott RN RN ss Leal, Jahala, RN RN jl7 Annalisa Blackwood Jessica, RN RN jh5 Ryan Dennison MD MD bs3 Corrections: (The following items were deleted from the chart) 08:59 08:58 PMHx: teratoma 2007; nayely jh
[2022-12-23] MEDS ORDERED: HYDROCORTISONE SUC 100 MG INJ ONE (11:06)
[2022-12-23] MEDS ORDERED: PROPYLTHIOURACIL 50 MG TAB PO ONE (11:30)
[2022-12-23] MEDS ORDERED: PROPRANOLOL HCL 10 MG TAB PO ONE (11:30)
[2022-12-23] MEDS ORDERED: ACETAMINOPHEN 325 MG TABLET PO PRN (12:19)
--- NOTE | 2022-12-23 12:22 | P.HP ---
Certification for Inpatient Patient admitted to: Inpatient With expected LOS: >2 Midnights Patient will require the following post-hospital care: None Practitioner: I am a practitioner with admitting privileges, knowledge of patient current condition, hospital course, and medical plan of care. Services: Services provided to patient in accordance with Admission requirements found in Title 42 Section 412.3 of the Code of Federal Regulations <GerdaMikhailneo Cat - Last Filed: 12/23/22 23:43> Patient History Date of Service: 12/23/22 Reason for admission: Symptomatic hyperthyroidism History of Present Illness: Patient is a 37-year-old female with a past medical history significant for hypertension who presents with complaint of generalized malaise, palpitations, headache, blurry vision, weight loss that has been ongoing for the past 2 months. Patient reported that she has lost about 30 pounds in the last 3 months. Patient reported associated signs and symptoms of neck tenderness\swelling, fatigue, weakness, anxiety, shortness of breath, cough, poor appetite, mild tremors and chest tightness. Patient denies any other signs/symptoms. Symptoms are aggravated or relieved by nothing. Patient decided to present to the hospital due to worsening symptoms. - Past Medical/Surgical History -: HTN Past Surgical History: Reviewed- Non-Contributory - Family History Father History Unknown: Yes -: Hypertension, Other (see notes) Notes: Hypothyroid Mother -: Hypertension - Social History Smoking Status: Former smoker Alcohol use: Yes CD- Drugs: No Caffeine use: No Place of Residence: Home <Onelia Lorenz - Last Filed: 12/23/22 23:43> Date of Service: 12/24/22 <Juan Lau - Last Filed: 12/24/22 18:30> Allergies No Known Drug Allergies Allergy (Verified 12/23/22 16:58) Unknown Home Medications: lisinopriL [Lisinopril] 40 mg PO DAILY 12/23/22 Review of Systems General: Weakness, Malaise, Other (fatigue, weight loss, poor appetite ) Eyes: Vision Change ENT: Other (Neck swelling\tenderness ) Respiratory: Cough, Shortness of Breath, Other (chest tightness ) Cardiovascular: Palpitations Gastrointestinal: Unremarkable Genitourinary: Unremarkable Musculoskeletal: Unremarkable Neurological: Weakness, Other (tremors ) Lymphatics: Unremarkable <Onelia Lorenz E - Last Filed: 12/23/22 23:43> Physical Examination - Physical Exam General: Alert, In no apparent distress, Oriented x3, Cooperative, Mild distress HEENT: Atraumatic, PERRLA, Mucous membr. moist/pink, EOMI, Sclerae nonicteric Neck: Supple, 2+ carotid pulse no bruit, No LAD, Thyromegaly Respiratory: Clear to auscultation bilaterally, Normal air movement Cardiovascular: No edema, Normal S1 S2, Other (tachycardia ), Irregular heart rate/rhythm Capillary refill: <2 Seconds Gastrointestinal: Normal bowel sounds, Soft and benign, Non-distended, No tenderness Musculoskeletal: No clubbing, No swelling, No tenderness Integumentary: No rashes, No breakdown Neurological: Normal speech, Normal tone, Normal affect Lymphatics: No axilla or inguinal lymphadenopathy - Studies Laboratory Data (last 24 hrs) 12/23/22 09:27: Total Bilirubin 0.4, AST 14 L, ALT 14, Alkaline Phosphatase 98 12/23/22 09:27: WBC 8.80, Hgb 11.9 L, Hct 36.1, Plt Count 249 12/23/22 09:27: Sodium 137, Potassium 4.1, BUN 64 H, Creatinine 1.14 H, Glucose 121 H <Onelia Lorenz E - Last Filed: 12/23/22 23:43> Assessment and Plan - Plan --Symptomatic hyperthyroidism. Thyroid ultrasound indicates findings consistent with Graves' disease or thyroiditis. TSH < 0.005 and free T4 of 3.31. Patient given loading dose of hydrocortisone, Tapazole and propranolol in the ER. We will continue medications. --Hypertension. Stable. Continue propranolol. --Dehydration. Secondary to poor p.o. intake. Continue IV hydration. -- JAZMIN. Likely prerenal secondary to dehydration. Continue IV hydration. We will hold off on GEE inhibitor, Avoid nephrotoxins and NSAIDs. We will continue to monitor renal functions. --Anemia of chronic disease. H&H stable. We will Continue to monitor hemoglobin and transfuse if less than 7.0. --Anxiety disorder. Likely secondary to hyperthyroidism. Ativan prn --Palpitations\Tachycardia. Likely secondary to hyperthyroidism. Echocardiogram pending for further evaluation. Telemetry to monitor for any malignant arrhythmia. Continue supportive care. -- DVT prophylaxis with Lovenox subQ. Discharge Plan: Home Plan to discharge in: Greater than 2 days - Advance Directives Does patient have a Living Will: No Does patient have a Durable POA for Healthcare: No - Code Status/Comfort Care Code Status Assessed: Yes Physician Review: Patient Assessed, Agree with Above Assessment and Plan Critical Care: No <Onelia Lorenz - Last Filed: 12/23/22 23:43> Physician Review: Patient Assessed, Agree with Above Assessment and Plan <Juan Lau - Last Filed: 12/24/22 18:30>
--- NOTE | 2022-12-23 12:47 | RAD REPORT ---
EXAM DESCRIPTION: US - Thyroid Para Parotid Gland - 12/23/2022 11:25 am CLINICAL HISTORY: neck swelling Neck pain/ hyperthyroidism COMPARISON: No comparisons FINDINGS: The isthmus of the thyroid measures 4 mm. The right lobe of the thyroid measures 4.9 x 2.1 x 1.9 cm. The left lobe of the thyroid measures 5.4 x 2.3 x 1.6 cm. Thyroid gland is diffusely enlarged, heterogenous with increased vascularity. No discrete thyroid nod ules. IMPRESSION: Findings would favor Graves disease or thyroiditis.
[2022-12-23 13:23] LABS: Phosphorus 4.3 mg/dL (2.5-4.9)
[2022-12-23 13:24] LABS: Magnesium 2.4 mg/dL (1.6-2.4)
[2022-12-23] MEDS ORDERED: ONDANSETRON 4 MG/2 ML VIAL ONE (14:16)
[2022-12-23] MEDS: HYDROCODONE/APAP 5/325 MG TAB PO PRN ×2 (16:47→23:02)
[2022-12-23] MEDS: HYDROCORTISONE SUC 100 MG INJ IV SCH ×2 (16:47→22:01)
[2022-12-23] MEDS: ENOXAPARIN 40 MG/0.4 ML SQ SCH (16:47)
[2022-12-23] MEDS: NA CHLORIDE 0.9% 1,000 ML IV SCH (16:48)
[2022-12-23 17:13] VITALS: BMI 25.7
[2022-12-23] MEDS: PROPRANOLOL HCL 10 MG TAB PO SCH ×2 (17:29→23:06)
[2022-12-23] MEDS ORDERED: PROPRANOLOL HCL 10 MG TAB PO SCH (18:00)
[2022-12-23 19:43] LABS: Specific Gravity 1.012 (1.005-1.030); Urine Bilirubin NEGATIVE (Negative); Urine Blood Negative (Negative); Urine Clarity Clear (Clear); Urine Color Colorless (Yellow); Urine Glucose NEGATIVE (Negative); Urine Protein NEGATIVE (Negative); Urine Urobilinogen Normal (Normal)
[2022-12-23] MEDS ORDERED: LORAZEPAM 0.5 MG TABLET PO PRN (23:45)
[2022-12-24] MEDS: NA CHLORIDE 0.9% 1,000 ML IV SCH ×3 (04:00→16:44)
[2022-12-24 06:05] LABS: Absolute Lymphocytes (CBC) 1.1 K/uL (0.7-4.9); Lymphocytes % 18.3 % (15.3-44.8); MCV 74.7 fL (80-100); RBC Red Blood Cell Count 4.15 M/uL (3.86-4.86)
[2022-12-24] MEDS: HYDROCORTISONE SUC 100 MG INJ IV SCH ×3 (06:18→17:33)
[2022-12-24] MEDS: PROPRANOLOL HCL 10 MG TAB PO SCH ×3 (06:18→17:32)
[2022-12-24 06:19] LABS: Potassium 4.2 mmol/L (3.5-5.1)
[2022-12-24] MEDS: HYDROCODONE/APAP 5/325 MG TAB PO PRN ×2 (08:53→16:47)
[2022-12-24] MEDS: ENOXAPARIN 40 MG/0.4 ML SQ SCH (08:54)
[2022-12-24] MEDS: ASPIRIN 81 MG CHEWABLE TABLET PO SCH (08:55)
[2022-12-24] MEDS: KETOROLAC 30 MG/ML INJ IV PRN (16:53)
--- NOTE | 2022-12-24 17:15 | EKG ---
Test Date: 2022-12-23 Test Time: 10:34:03 Squad Sergeant: AGUSTINA MEASUREMENT RESULTS: Intervals: Rate: 91 GA: 166 QRSD: 100 QT: 354 QTc: 435 [place]: P: 78 GA: 166 QRS: 78 T: 67 INTERPRETIVE STATEMENTS: Age and gender specific ECG analysis Normal sinus rhythm ST elevation, consider inferior injury or acute infarct ACUTE AR Abnormal ECG Compared to ECG 12/23/2022 10:28:17 No significant changes Electronically Signed On 12-24-22 17:10:34 RESIDENT INSPECTOR by Ventura Salmon
--- NOTE | 2022-12-24 17:15 | EKG ---
Test Date: 2022-12-23 Test Time: 10:28:17 Explosive Ordnance Disposal Specialist: AGUSTINA MEASUREMENT RESULTS: Intervals: Rate: 88 MN: 162 QRSD: 82 QT: 352 QTc: 425 [place]: P: 83 MN: 162 QRS: 78 T: 75 INTERPRETIVE STATEMENTS: Age and gender specific ECG analysis Normal sinus rhythm ST elevation, consider inferolateral injury or acute infarct ACUTE ND Consider right ventricular involvement in acute inferior infarct Abnormal ECG No previous ECG available for comparison Electronically Signed On 12-24-22 17:10:37 ENVIRONMENTAL HEALTH TECHNOLOGIST by Ventura Salmon
--- NOTE | 2022-12-24 18:23 | P.PN ---
Subjective Date of Service: 12/24/22 Chief Complaint: Symptomatic hyperthyroidism No acute events overnight. Her symptoms are much improved compared to admission. Will wean her off of steroids and monitor for recurrent signs of thyrotoxicosis. Review of Systems 10-point ROS is otherwise unremarkable Physical Examination - Vital Signs Temperature: 98.7 F Blood Pressure: 157/83 Pulse: 70 Respirations: 18 Pulse Ox (%): 100 - Physical Exam General: Alert, In no apparent distress, Oriented x3 HEENT: Atraumatic, Mucous membr. moist/pink, EOMI, Sclerae nonicteric Neck: Thyromegaly (tender) Respiratory: Clear to auscultation bilaterally, Normal air movement Cardiovascular: No edema, Regular rate/rhythm, Normal S1 S2, No gallops, No rubs, No murmurs Gastrointestinal: Normal bowel sounds, Soft and benign, Non-distended, No tenderness, No rebound, No guarding Musculoskeletal: No clubbing Integumentary: No rashes Neurological: Normal speech, Normal affect Assessment And Plan - Plan # Symptomatic Hyperthyroidism - suspect Graves Disease vs Thyroiditis # KDIGO Stage I Acute Kidney Injury - resolved # Hypertension - Evaluation thus far: - TSH = <0.005, Total T4 22.0, Free T4 3.31 - Thyroid ultrasound = "findings would favor Graves disease or thyroiditis." - CT head = "no acute intracranial abnormality." - Managmenet plan: - Consulted ENT and spoke with Dr. Rodrigues - recommendations appreciated - Started on hydrocortisone, propanolol, and methimazole, with significant improvement in her symptoms - Wean off of hydrocortisone over next 24-48 hours and anticipate discharge if doing well without steroids - Will need close Endocrinology follow-up Juan Lau M.D.
[2022-12-24] MEDS: ONDANSETRON 4 MG/2 ML VIAL IV PRN (20:00)
[2022-12-25] MEDS: PROPRANOLOL HCL 10 MG TAB PO SCH ×4 (00:10→17:03)
[2022-12-25] MEDS: NA CHLORIDE 0.9% 1,000 ML IV SCH ×2 (00:17→09:03)
[2022-12-25] MEDS: HYDROCODONE/APAP 5/325 MG TAB PO PRN ×3 (00:49→21:31)
[2022-12-25] MEDS: KETOROLAC 30 MG/ML INJ IV PRN ×3 (00:51→21:32)
[2022-12-25] MEDS ORDERED: HYDROCORTISONE SUC 100 MG INJ IV ONE (05:01)
[2022-12-25 06:30] LABS: BUN Blood Urea Nitrogen 37 mg/dL (7-18); Bicarbonate 20 mmol/L (21-32); Glomerular Filtration Rate 87 ml/min (=/>90); Glucose Level 113 mg/dL (74-106); Potassium 3.9 mmol/L (3.5-5.1); Sodium Level 139 mmol/L (136-145)
[2022-12-25 06:34] LABS: Thyroid Stimulating Hormone < 0.005 uIU/mL (0.358-3.740)
--- NOTE | 2022-12-25 07:17 | ECHO ---
HEIGHT: 5 ft 3 in WEIGHT: 144 lb 15.968 oz DATE OF STUDY: 12/24/[address]: Onelia Lorenz 2-DIMENSIONAL: YES M.MODE: YES DOPPLER: YES COLOR FLOW: YES TDS: PORTABLE: YES DEFINITY: BUBBLE STUDY: DIAGNOSIS: HYPERTENSION HEART DISEASE CARDIAC HISTORY: CATHERIZATION: SURGERY: PROSTHETIC VALVE: PACEMAKER: MEASUREMENTS (cm) DIASTOLIC (NORMALS) SYSTOLIC (NORMALS) IVSd 0.9 (0.6-1.2) LA Diam 3.2 (1.9-4.0) LVEF 68% LVIDd 4.2 (3.5-5.7) LVIDs 2.6 (2.0-3.5) %FS 38% LVPWd 1.0 (0.6-1.2) Ao Diam 2.6 (2.0-3.7) 2 DIMENSIONAL ASSESSMENT: RIGHT ATRIUM: NORMAL LEFT ATRIUM: NORMAL RIGHT VENTRICLE: NORMAL LEFT VENTRICLE: NORMAL TRICUSPID VALVE: MILD TRICUSPID REGURGITATION MITRAL VALVE: NORMAL PULMONIC VALVE: NORMAL AORTIC VALVE: NORMAL PERICARDIAL EFFUSION: NONE AORTIC ROOT: NORMAL LEFT VENTRICULAR WALL MOTION: NORMAL DOPPLER/COLOR FLOW: MILD TRICUSPID REGURGITATION COMMENTS: 1. NORMAL LEFT VENTRICULAR EJECTION FRACTION 60-65% 2. NORMAL WLAL MOTION 3. MILD TRICUPSID REGURGITATION 4. NORMAL DIASTOLIC FUNCTION TECHNOLOGIST: REED MERLOS
[2022-12-25] MEDS ORDERED: POTASSIUM CL SA 10 MEQ TAB PO ONE (09:00)
[2022-12-25] MEDS: ASPIRIN 81 MG CHEWABLE TABLET PO SCH (09:01)
[2022-12-25] MEDS: ENOXAPARIN 40 MG/0.4 ML SQ SCH (09:02)
[2022-12-25 10:05] VITALS: O2SAT 99
[2022-12-25] MEDS: ONDANSETRON 4 MG/2 ML VIAL IV PRN (13:38)
--- NOTE | 2022-12-25 17:51 | P.PN ---
Subjective Date of Service: 12/25/22 Chief Complaint: Symptomatic hyperthyroidism No acute events overnight. Her symptoms are much improved compared to admission. Will wean her off of steroids today and monitor for recurrent signs of thyrotoxicosis. Possible discharge tomorrow if symptoms remain controlled. Review of Systems 10-point ROS is otherwise unremarkable Physical Examination - Vital Signs Temperature: 98.2 F Blood Pressure: 141/83 Pulse: 72 Respirations: 16 Pulse Ox (%): 100 Assessment And Plan - Plan - Physical Exam General: Alert, In no apparent distress, Oriented x3 HEENT: Atraumatic, Mucous membr. moist/pink, EOMI, Sclerae nonicteric Neck: Thyromegaly (minimally tender) Respiratory: Clear to auscultation bilaterally, Normal air movement Cardiovascular: No edema, Regular rate/rhythm, No murmurs Gastrointestinal: Normal bowel sounds, Soft, Non-distended, No tenderness, No rebound, No guarding Musculoskeletal: No clubbing Integumentary: No rashes Neurological: Normal speech, Normal affect Assessment And Plan - Plan # Symptomatic Hyperthyroidism - suspect Graves Disease vs Thyroiditis # KDIGO Stage I Acute Kidney Injury - resolved # Hypertension - Evaluation thus far: - TSH = <0.005, Total T4 22.0, Free T4 3.31 - Thyroid ultrasound = "findings would favor Graves disease or thyroiditis." - CT head = "no acute intracranial abnormality." - Managmenet plan: - Consulted ENT and spoke with Dr. Rodrigues - recommendations appreciated - Started on hydrocortisone, propanolol, and methimazole, with significant improvement in her symptoms - Wean off of hydrocortisone today and anticipate discharge tomorrow if doing well without steroids - Will need close Endocrinology follow-up Juan Lau M.D.
[2022-12-25] MEDS ORDERED: atenoloL 25 MG TAB PO SCH (18:00)
[2022-12-26] MEDS: NA CHLORIDE 0.9% 1,000 ML IV SCH (01:58)
[2022-12-26] MEDS: ONDANSETRON 4 MG/2 ML VIAL IV PRN (05:25)
[2022-12-26] MEDS ORDERED: atenoloL 25 MG TAB PO SCH (06:00)
[2022-12-26 06:34] LABS: Thyroid Stimulating Hormone < 0.005 uIU/mL (0.358-3.740)
--- NOTE | 2022-12-26 07:09 | P.DS ---
Admission Date: 12/23/22 Discharge Date: 12/26/22 Disposition: ROUTINE DISCHARGE Discharge Condition: GOOD Reason for Admission: Symptomatic hyperthyroidism Consultations: 1. Otorhinolaryngology Hospital Course: DIAGNOSES: # Symptomatic Hyperthyroidism - suspect Graves Disease vs Thyroiditis # KDIGO Stage I Acute Kidney Injury - resolved # Hypertension HOSPITAL COURSE: Ms. Tran Ocampo is a 37 year old female with a past medical history significant for hypertension who was admitted to the [facility] on 12/23/2022 for generalized malaise, palpitations, headache, blurry vision, weight loss, and diarrhea. She was admitted to the Medicine service. Upon further evaluation, her TSH was <0.005 and her Free T4 was 3.31. A thyroid ultrasound revealed, "findings would favor Graves disease or thyroiditis." She was started on steroids, beta- blockers, and methimazole, and over the course of her hospitalization, her symptoms improved significantly. Her medications were gradually tapered, without any issues. Otorhinolaryngology was consulted and she was evaluated by Dr. Rodrigues. It was recommended that she establish care with an Installer Technician for medical management prior to any surgical intervention. This morning, she stated that her symptoms have completely resolved and she would like to be discharged home. On 12/26/2022, she was seen on morning rounds and deemed medically stable for discharge. She was discharged with instructions to schedule follow-up appointments with her PCP, with [facility] Endocrinology, and with ENT (Dr. Rodrigues). She was provided prescriptions for atenolol and methimazole. She was given the opportunity to ask questions and reported no further questions. Furthermore, all questions were answered to the best of my ability. A copy of this discharge summary will be sent to the above providers to facilitate continuity of care. Today, I personally spent 25 minutes on her case, of which greater than 50% of the time was spent in patient education, counseling, and coordination of care as described above. - Physical Exam General: Alert, In no apparent distress, Oriented x3 HEENT: Atraumatic, Mucous membr. moist/pink, Sclerae nonicteric Neck: Thyromegaly (non-tender) Respiratory: Clear to auscultation bilaterally, Normal air movement Cardiovascular: No edema, Regular rate/rhythm, No murmurs Gastrointestinal: Normal bowel sounds, Soft, Non-distended, No tenderness, No rebound, No guarding Musculoskeletal: No clubbing Integumentary: No rashes Neurological: Normal speech, Normal affect Vital Signs/Physical Exam: Temp Pulse Resp BP Pulse Ox 97.2 F 64 18 110/68 99 12/26/22 04:00 12/26/22 04:00 12/26/22 04:00 12/26/22 04:00 12/26/22 04:00 Laboratory Data at Discharge: WBC 5.90 K/uL (4.3-10.9) 12/24/22 05:44 Hgb 10.4 g/dL (12.0-15.0) L D 12/24/22 05:44 Hct 31.0 % (36.0-45.0) L 12/24/22 05:44 Plt Count 181 K/uL (152-406) D 12/24/22 05:44 Sodium 139 mmol/L (136-145) 12/25/22 05:27 Potassium 3.9 mmol/L (3.5-5.1) 12/25/22 05:27 BUN 37 mg/dL (7-18) H 12/25/22 05:27 Creatinine 0.88 mg/dL (0.55-1.02) 12/25/22 05:27 Glucose 113 mg/dL (74-106) H 12/25/22 05:27 Phosphorus 4.3 mg/dL (2.5-4.9) 12/23/22 10:52 Magnesium 2.4 mg/dL (1.6-2.4) 12/23/22 10:52 Total Bilirubin 0.4 mg/dL (0.2-1.0) 12/23/22 09:27 AST 14 U/L (15-37) L 12/23/22 09:27 ALT 14 U/L (13-56) 12/23/22 09:27 Alkaline Phosphatase 98 U/L (45-117) 12/23/22 09:27 Triglycerides 130 mg/dL (<150) 12/23/22 10:52 Cholesterol 152 mg/dL (<200) 12/23/22 10:52 HDL Cholesterol 40 mg/dL (40-60) 12/23/22 10:52 Cholesterol/HDL Ratio 3.80 12/23/22 10:52 Home Medications: RX: atenoloL [Tenormin*] 25 mg PO [id number] #30 tab 12/26/22 RX: methIMAzole [Tapazole*] 10 mg PO Q12HR #60 tab 12/26/22 New Medications: RX: methIMAzole [Tapazole*] 10 mg PO Q12HR #60 tab RX: atenoloL [Tenormin*] 25 mg PO [id number] #30 tab Physician Discharge Instructions: 1. Please call and schedule a follow-up appointment with your PCP in 3-5 days 2. Please call and schedule a follow-up appointment with [facility] Endocrinology in 3-5 days 3. Please call and schedule a follow-up appointment with ENT (Dr. Rodrigues) in 5- 7 days Diet: Regular Activity: Ad antonio Followup: Poppy Rodrigues MD [ACTIVE - CAN ADMIT] - 1 Week (Call for appointment.) NONE,NONE [Primary Care Provider] - 2-3 Days (Call for appointment.) Time spent managing pt's care (in minutes): 25
--- NOTE | 2022-12-26 07:37 | P.CNS ---
Date of Consult: 12/25/22 Re for Consult: Thyroid storm HPI: Patient with history of progressive symptoms of hyperthyroidism including chronic diarrhea, anxiety, tremors, pulsating tinnitus, tachycardia/palpitations, heat intolerance, night sweats, weight loss, inability to sleep progressing to severe fatigue and finally prompting ER visit. She was found to have symptoms and labs consistent with thryoid storm and was treated with methimazole and beta blockers and steroids. Over the last 48-72 hours her symptoms are subjectively dramatically improved. She has been able to sleep and feels much more at ease. Pulse rate and subjective heart racing is resolved. Muscle fatigue and energy levels are improving. PMH: HTN FH/SH/Meds/All: reviewed from H&P by Dr Lau and unchanged PE: NAD. AAO. Mild tremor of hands. Mild proptosis of eyes. Thin body habitus. Prominent appearing thyroid gland. Temp Pulse Resp BP Pulse Ox 97.2 F 64 18 110/68 99 12/26/22 04:00 12/26/22 04:00 12/26/22 04:00 12/26/22 04:00 12/26/22 04:00 DATA: US thyroid with increased vascularity and no discernable nodules Laboratory Last Values WBC 8.80 K/uL (4.3-10.9) 12/23/22 09:27 RBC 4.88 M/uL (3.86-4.86) H 12/23/22 09:27 Hgb 11.9 g/dL (12.0-15.0) L 12/23/22 09:27 Hct 36.1 % (36.0-45.0) 12/23/22 09:27 MCV 74.0 fL (80-100) L 12/23/22 09:27 MCH 24.4 pg (27.0-35.0) L 12/23/22 09:27 MCHC 32.9 g/dL (32.0-36.0) 12/23/22 09:27 RDW 12.8 % (12.1-15.2) 12/23/22 09:27 Plt Count 249 K/uL (152-406) 12/23/22 09:27 MPV 9.8 fL (7.6-11.3) 12/23/22 09:27 Neutrophils % 68.3 % (41.7-73.7) 12/23/22 09:27 Lymphocytes % 23.4 % (15.3-44.8) 12/23/22 09: Monocytes % 7.6 % (3.3-12.3) 12/23/22 09:27 Eosinophils % 0.2 % (0-4.4) 12/23/22 09: Basophils % 0.5 % (0-1.3) 12/23/22 09:27 Absolute Neutrophils 6.0 K/uL (1.8-8.0) 12/23/22 09:27 Absolute Lymphocytes 2.0 K/uL (0.7-4.9) 12/23/22 09: Absolute Monocytes 0.7 K/uL (0.1-1.3) 12/23/22 09: Absolute Eosinophils 0.0 K/uL (0-0.5) 12/23/22 09:27 Absolute Basophils 0.0 K/uL (0-0.5) 12/23/22 09:27 Sodium 137 mmol/L (136-145) 12/23/22 09:27 Potassium 4.1 mmol/L (3.5-5.1) 12/23/22 09:27 Chloride 112 mmol/L (98-107) H 12/23/22 09:27 Carbon Dioxide 19 mmol/L (21-32) L 12/23/22 09:27 Anion Gap 10.1 mEq/L (5.0-15.0) 12/23/22 09:27 BUN 64 mg/dL (7-18) H 12/23/22 09:27 Creatinine 1.14 mg/dL (0.55-1.02) H 12/23/22 09:27 Est GFR (CKD-EPI) 64 ml/min (=/>90) L 12/23/22 09:27 Glucose 121 mg/dL (74-106) H 12/23/22 09:27 Hemoglobin A1c 4.9 % (4.2-6.3) 12/23/22 09:27 Calcium 9.3 mg/dL (8.5-10.1) 12/23/22 09:27 Phosphorus 4.3 mg/dL (2.5-4.9) 12/23/22 10:52 Magnesium 2.4 mg/dL (1.6-2.4) 12/23/22 10:52 Total Bilirubin 0.4 mg/dL (0.2-1.0) 12/23/22 09:27 Direct Bilirubin 0.1 mg/dL (0-0.2) 12/23/22 09:27 AST 14 U/L (15-37) L 12/23/22 09:27 ALT 14 U/L (13-56) 12/23/22 09:27 Alkaline Phosphatase 98 U/L (45-117) 12/23/22 09:27 Creatine Kinase 50 U/L (26-192) 12/23/22 10:52 Troponin I High Sens 7.3 pg/mL (<58.9) 12/23/22 09:27 NT-Pro-B Natriuret Pep 46 pg/mL (<125) 12/23/22 09:27 Serum Total Protein 8.3 g/dL (6.4-8.2) H 12/23/22 09:27 Albumin 3.8 g/dL (3.4-5.0) 12/23/22 09:27 Globulin 4.5 g/dL (2.3-3.5) H 12/23/22 09:27 Albumin/Globulin Ratio 0.8 (1.1-1.8) L 12/23/22 09:27 Triglycerides 130 mg/dL (<150) 12/23/22 10:52 Cholesterol 152 mg/dL (<200) 12/23/22 10:52 LDL Cholesterol, Calc 86 mg/dL (<130) 12/23/22 10:52 HDL Cholesterol 40 mg/dL (40-60) 12/23/22 10:52 Cholesterol/HDL Ratio 3.80 12/23/22 10:52 TSH < 0.005 uIU/mL (0.358-3.740) L 12/23/22 09:27 Free T4 3.31 ng/dL (0.76-1.46) H 12/23/22 09:27 Thyroxine (T4) 22.0 ug/dL (4.8-13.9) H 12/23/22 09:27 Beta HCG, Quant < 1 mIU/mL (1-3) L 12/23/22 09:27 Cortisol 4.96 ug/dL (SEE COMMENT) 12/23/22 10:52 Urine Color Cancelled 12/23/22 09:15 Urine Clarity Cancelled 12/23/22 09:15 Urine pH 5.5 (5.0-7.0) 12/23/22 09:39 Ur Specific [place] 1.010 (1.005-1.030) 12/23/22 09:39 Glucose (UA)(Auto) Negative (Negative) 12/23/22 09:39 Urine Ketones Negative (Negative) 12/23/22 09:39 Urine Blood 2+ (Negative) H 12/23/22 09:39 Urine Nitrite Negative (Negative) 12/23/22 09:39 Urine Bilirubin Cancelled 12/23/22 09:15 Urine Urobilinogen Cancelled 12/23/22 09:15 Ur Leukocyte Esterase Negative (Negative) 12/23/22 09:39 Urine RBC Cancelled 12/23/22 09:15 Urine Red Cell Clumps Cancelled 12/23/22 09:15 Urine WBC Cancelled 12/23/22 09:15 Urine WBC Clumps Cancelled 12/23/22 09:15 Ur Squamous Epith Cells Cancelled 12/23/22 09:15 U Non-Squamous Epi Cells Cancelled 12/23/22 09:15 Ur Transition Epith Cell Cancelled 12/23/22 09:15 Ur Renal Epithelial Cell Cancelled 12/23/22 09:15 Calcium Carbonate Cryst Cancelled 12/23/22 09:15 Calcium Oxalate Crystal Cancelled 12/23/22 09:15 Leucine Crystals Cancelled 12/23/22 09:15 Cystine Crystals Cancelled 12/23/22 09:15 Uric Acid Crystals Cancelled 12/23/22 09:15 Triple Phos Crystals Cancelled 12/23/22 09:15 Tyrosine Crystals Cancelled 12/23/22 09:15 Unidentified Crystals Cancelled 12/23/22 09:15 Amorphous Crystals Cancelled 12/23/22 09:15 Urine Bacteria Cancelled 12/23/22 09:15 Hyaline Casts Cancelled 12/23/22 09:15 Granular Casts Cancelled 12/23/22 09:15 Waxy Casts Cancelled 12/23/22 09:15 RBC Casts Cancelled 12/23/22 09:15 WBC Casts Cancelled 12/23/22 09:15 Urine Mucus Cancelled 12/23/22 09:15 Urine Trichomonas Cancelled 12/23/22 09:15 Ur Yeast w Hyphae Cancelled 12/23/22 09:15 Urine Yeast (Budding) Cancelled 12/23/22 09:15 Urine Sperm Cancelled 12/23/22 09:15 Ur Oval Fat Bodies Cancelled 12/23/22 09:15 Urine Culture Reflexed Cancelled 12/23/22 09:15 Urine Total Protein Negative (Negative) 12/23/22 09:39 Urine Ascorbic Acid Cancelled 12/23/22 09:15 Urine Fat Cancelled 12/23/22 09:15 Ur Specific [place] (HCG) 1.010 (1.005-1.030) 12/23/22 09:45 Urine Test Neg (NEG) 12/23/22 09:45 SARS-CoV-2 Ag (Rapid) Negative (Negative) 12/23/22 09:27 Assessment: Hyperthyroidism with thyrotoxicosis, improved with medical therapy. 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 Given US findings, I suspect Graves more then a hyperactive nodule. Plan: Continue Methimazole and beta maria r. Wean steroids. If remains symptomically improved without steroids, can discharge from ENT standpoint. I discussed the patient presentation and US/lab findings are most suspicious for Graves, an autoimmune form of hyperthyroidism. We discussed that many patients are managed solely with medications and that over time, the thyroid can "burn out" with resolution of the hyperthyrodism and conversion to a hypothryoid state requiring levothyroid thyroid supplementation instead. We discussed that some patients are treated with radioactive iodine to decrease the hyperthyroidism and that surgery for removal of the thyroid is another option. Typically, medical management is performed with a ostrich farmer who can guide decision making for medication vs GREENE vs surgery and that I would be happy to re-visit with the patient again on an outpatient basis to aid in continued management of this condition. I stressed that it very important to continue her medical treatment with methimazole after discharge to avoid exacerbation of her condition. I provided my business card to the patient for immediate outpatient management and coordination to get in to an ostrich farmer. I spend about 40 minutes in review of chart, in direct discussion with patient and coordination of care with primary team and documentation of visit.
[2022-12-26 08:26] VITALS: BP 159/84; TEMP 97.3
[2022-12-26] MEDS: ASPIRIN 81 MG CHEWABLE TABLET PO SCH (08:40)
[2022-12-26] MEDS: ENOXAPARIN 40 MG/0.4 ML SQ SCH (08:40)
[2022-12-26] MEDS ORDERED: POTASSIUM 25 MEQ EFFERV TAB PO ONE (09:00)
== END 2022-12-26 08:50 | disposition home or self-care (01) | DRG 644 ==
LOC: ER 08:48 → ERHOLD 12:12 → 4TH 16:20
PROVIDERS: ADMIT Internal Medicine; ATTEND Emergency Medicine
DX: E05.00 Thyrotoxicosis with diffuse goiter without thyrotoxic crisis or storm (principal); N17.9 Acute kidney failure, unspecified; I10 Essential (primary) hypertension; E86.0 Dehydration; D63.8 Anemia in other chronic diseases classified elsewhere; F41.9 Anxiety disorder, unspecified; Z87.891 Personal history of nicotine dependence; Z79.899 Other long term (current) drug therapy; Z20.822 Contact with and (suspected) exposure to COVID-19
CPT/HCPCS: 36415; 70450; 71045; 76536; 80048; 80061; 80076; 81003; 81025; 82533; 82550; 83036; 83735; 83880; 84100; 84436; 84439; 84443; 84484; 84702; 85025; 87811; 93005; 93306; 96361; 96374; 96375; 99284; J1650; J1720; J2405; J7030; J7040

== ENCOUNTER 2023-12-21 12:02 | Observation (INO) | payer OTHER ==
--- OUTSIDE RECORDS SUMMARY | 2023-12-21 12:07 | XMS REPORT | Continuity of Care Document ---
Author Name Unknown Address [address] [facility] [address]. [address] [place] [address] [facility] [address] [facility]. [address] [place] [address] Care Team Providers Care Chief Merchandising Officer Name Role Phone PCP, PATIENT DOES NOT HAVE A Primary Care Physic bria Unavailable JORDAN HULL Attending Clinician Unavailable Jordan Hull MD Attending Clinician [phone] SHWETA MORRISON Attending Clinician Unavailable Shweta Morrison MD Attending Clinician [phone] Rashad Ahn DO Attending Clinician [phone] Abimbola Adames Attending Clinician [phone] Adalgisa Conchis ALDRIDGE Attending Clinician [phone] Provider, Geovany Hadleyp Attending Clinician Ilene vailaSara Wilcox Attending Clinician + SARA CARVAJAL Attending Clinician Unavail able Eddie Mojica Attending Clinician [phone] Doctor Unassigned, [place] Attending Clinician U navailable Pcp, Patient Does Not Have A Attending Clinician Pastor Camara DO Attending Clinician [phone] JORDAN HULL Admitting Clinician Unavailable SHWETA MORRISON Admitting Clinician Unavailable Payers Payer Name Policy Type Policy Number Effective Date Expirati on Date Source CHE Benoit [id number] 2019 00:00:00 [facility] [id number] 2022 00:00:00 Problems Condition Name Condition Details Condition Category Status Onset Date Resolution Date Last Treatment Date Treating Clinician Comments Source Well woman exam Well woman exam Disease Active 02-04 00:00: 00 [facility] Other general counseling and advice for contracept sky management Other general counseling and advice for contracept sky management Disease Active 02-04 00:00: 00 [facility] UTI symptoms UTI symptoms Disease Active 02-04 00:00: 00 [facility] History of tubal ligation History of tubal ligation Disease Active 02-04 00:00: 00 [facility] Obese Obese Disease Active 02-04 00:00: 00 [facility] Essential hypertensi on, benign Essential hypertensi on, benign Disease Active 02-04 00:00: 00 [facility] BV (bacterial vaginosis) BV (bacterial vaginosis) Disease Active 02-04 00:00: 00 [facility] UTI symptoms UTI symptoms Disease Active 02-04 00:00: 00 [facility] Allergies, Adverse Reactions, Alerts Allergy Name Allergy Type Status Severity Reaction(s) Onset Date Inactive Date Treating Clinician Comments Source NO KNOWN ALLERGIE S Drug Class Active Unknown-Cmnt 05-21 00:00: 00 [facility] No Known Allergie s Propensi ty to adverse reaction s Active Unknown - See comments 05-21 00:00: 00 [facility] No Known Allergie s Propensi ty to adverse reaction s Active Unknown - See comments 05-21 00:00: 00 [facility] Social History Social Habit Start Date Stop Date Quantity Comments Source History of tobacco use Cigarette Smoker [facility] intake 2023-04-17 00:00:00 2023-04-17 00:00:00 0 /d [facility] Exposure to SARS-CoV-2 (event) 2022-11-13 00:00:00 2022-11-23 06:54:00 Not sure [facility] Alcohol Comment 2020-03-24 00:00:00 2020-03-24 00:00:00 occasional [facility] Tobacco use and exposure 2020-03-24 00:00:00 2020-03-24 00:00:00 Smokeless tobacco non-user [facility] History of Social function 2020-03-24 00:00:00 2020-03-24 00:00:00 [facility] Tobacco Comment 2017-02-04 00:00:00 2017-02-04 00:00:00 3 cigarettes/day [facility] Sex Assigned At 1985 00:00:00 1985 00:00:00 [facility] Smoking Status Start Date Stop Date Source Smokes tobacco daily 2020-03-24 00:00:00 [facility] Medications Ordered Medication Name Filled Medication Name Start Date Stop Date Current Medication? Ordering Clinician Indication Dosage Frequency Signature (SIG) Comments Components Source iopamidol (ISOVUE 370-500 mL) injection 70 mL 11-23 08:15: 00 11-23 08:15 :00 No [id number] 70mL 70 mL, Intravenou s, ONCE, 1 dose, On 11/23/23 at 0215, Routine [facility] labetaloL (NORMODYNE) injection 10 mg 11-23 06:30: 00 11-23 05:41 :00 No 10mg 10 mg, Slow IV Push, ONCE, 1 dose, On 11/23/23 at 0030, RAMIRO [facility] diazePAM (VALIUM) injection 5 mg 11-23 05:45: 00 11-23 05:41 :00 No 5mg 5 mg, Slow IV Push, ONCE, 1 dose, On 11/22/23 at 2345, STAT [facility] atenoloL 25 mg tablet 11-23 00:00: 00 Yes [id number] 25mg Take 1 tablet by mouth in the morning. [facility] methIMAzole 10 mg tablet 04-18 00:00: 00 05-19 04:59 :00 No [id number] 10mg Take 1 tablet by mouth every 8 (eight) hours for 30 days. [facility] atenoloL 25 mg tablet 04-18 00:00: 00 05-19 04:59 :00 No [id number] 25mg Take 1 tablet by mouth in the morning for 30 days. [facility] ketorolac (TORADOL) injection 30 mg 11-23 15:30: 00 11-23 14:47 :00 No 30mg 30 mg, Slow IV Push, ONCE, 1 dose, On 11/23/22 at 0930, RAMIRO [facility] iopamidol (ISOVUE 370-500 mL) injection 90 mL 11-23 15:00: 00 11-23 14:05 :00 No [id number] 90mL 90 mL, Intravenou s, ONCE, 1 dose, On 11/23/22 at 0900, Routine [facility] morpHINE (2 mg/mL) injection 4 mg 11-23 14:45: 00 11-23 13:41 :00 No 4mg 4 mg, Slow IV Push, ONCE, 1 dose, On 11/23/22 at 0845, STAT [facility] NaCl 0.9% (NS) bolus infusion 1,000 mL 11-23 14:00: 00 11-23 16:12 :00 No 1000mL at 999 mL/hr, 1,000 mL, IV Piggyback, ONCE, 1 dose, On 11/23/22 at 0800, STAT [facility] ondansetron (ZOFRAN (PF)) injection 4 mg 11-23 13:45: 00 11-23 13:40 :00 No 4mg 4 mg, Slow IV Push, ONCE, 1 dose, On 11/23/22 at 0745, RAMIRO [facility] naproxen 500 mg tablet 11-23 00:00: 00 Yes [id number] 500mg Take 1 tablet by mouth 2 (two) times daily as needed for Pain (scale 4-6). [facility] naproxen 500 mg tablet 11-23 00:00: 00 Yes [id number] 500mg Take 1 tablet by mouth 2 (two) times daily as needed for Pain (scale 4-6). [facility] naproxen 500 mg tablet 11-23 00:00: 00 Yes [id number] 500mg Take 1 tablet by mouth 2 (two) times daily as needed for Pain (scale 4-6). [facility] cloNIDine (CATAPRES) tablet 0.2 mg 2019-11 03:00: 00 08-30 02:11 :00 No .2mg 0.2 mg, Oral, ONCE, 1 dose, Tue 10 at 2200, STAT [facility] diphenhydrA MINE (BENADRYL) injection 12.5 mg 2019-11 03:00: 00 08-30 02:03 :00 No 12.5mg 12.5 mg, Slow IV Push, ONCE, 1 dose, Tue 1020 at 2200, STAT [facility] metoclopram patrick HCl (REGLAN) injection 10 mg 2019-11 03:00: 00 08-30 02:02 :00 No 10mg 10 mg, Slow IV Push, ONCE, 1 dose, Tue 20 at 2200, RAMIRO [facility] HYDROCHLORO THIAZIDE ORAL 2019-11 00:10: 08 Yes 1{tbl} Take 1 tablet by mouth daily. [facility] HYDROCHLORO THIAZIDE ORAL 2019-11 00:10: 08 Yes 1{tbl} Take 1 tablet by mouth daily. [facility] HYDROCHLORO THIAZIDE ORAL 2019-11 19:10: 08 Yes 1{tbl} Take 1 tablet by mouth daily. [facility] HYDROCHLORO THIAZIDE ORAL 2019-11 19:10: 08 Yes 1{tbl} Take 1 tablet by mouth daily. [facility] HYDROCHLORO THIAZIDE ORAL 2020-1 0-20 19:10: 08 Yes 1{tbl} Take 1 tablet by mouth daily. [facility] hydroCHLORO thiazide 25 mg tablet 2020-1 0-20 00:00: 00 Yes [id number] 25mg Take 1 tablet by mouth every morning. [facility] hydroCHLORO thiazide 25 mg tablet 2020-1 0-20 00:00: 00 Yes [id number] 25mg Take 1 tablet by mouth every morning. [facility] hydroCHLORO thiazide 25 mg tablet 2020-1 0-20 00:00: 00 Yes [id number] 25mg Take 1 tablet by mouth every morning. [facility] hydroCHLORO thiazide 25 mg tablet 2020-1 0-20 00:00: 00 Yes [id number] 25mg Take 1 tablet by mouth every morning. [facility] hydroCHLORO thiazide 25 mg tablet 2020-1 0-20 00:00: 00 Yes [id number] 25mg Take 1 tablet by mouth every morning. [facility] amoxicillin 500 mg capsule 2020-0 5-20 00:00: 00 Yes [id number] 500mg Take 1 capsule by mouth 2 (two) times daily. [facility] amoxicillin 500 mg capsule 2020-0 5-20 00:00: 00 Yes [id number] 500mg Take 1 capsule by mouth 2 (two) times daily. [facility] amoxicillin 500 mg capsule 2020-0 5-20 00:00: 00 Yes [id number] 500mg Take 1 capsule by mouth 2 (two) times daily. [facility] amoxicillin 500 mg capsule 2020-0 5-20 00:00: 00 Yes [id number] 500mg Take 1 capsule by mouth 2 (two) times daily. [facility] amoxicillin 500 mg capsule 2020-0 5-20 00:00: 00 Yes [id number] 500mg Take 1 capsule by mouth 2 (two) times daily. [facility] amoxicillin 500 mg capsule 2020-0 5-20 00:00: 00 Yes [id number] 500mg Take 1 capsule by mouth 2 (two) times daily. [facility] amoxicillin 500 mg capsule 2020-0 5-20 00:00: 00 Yes [id number] 500mg Take 1 capsule by mouth 2 (two) times daily. [facility] HYDROCHLORO THIAZIDE ORAL 03-24 16:15: 23 Yes 1{tbl} Take 1 tablet by mouth daily. [facility] HYDROCHLORO THIAZIDE ORAL 03-24 16:15: 23 Yes 1{tbl} Take 1 tablet by mouth daily. [facility] HYDROCHLORO THIAZIDE ORAL 03-24 16:15: 23 Yes 1{tbl} Take 1 tablet by mouth daily. [facility] HYDROCHLORO THIAZIDE ORAL 03-24 16:15: 23 Yes 1{tbl} Take 1 tablet by mouth daily. [facility] HYDROCHLORO THIAZIDE ORAL 03-24 16:15: 23 Yes 1{tbl} Take 1 tablet by mouth daily. [facility] ondansetron (ZOFRAN-ODT ) disintegrat ing tablet 4 mg 03-15 18:15: 00 03-15 17:25 :00 No 4mg 4 mg, Oral, ONCE, 1 dose, 03/15/20 at 1315, Routine [facility] metroNIDAZO LE (FLAGYL) tablet 2,000 mg 03-15 18:15: 00 03-15 17:25 :00 No 2000mg 2,000 mg, Oral, ONCE, 1 dose, 03/15/20 at 1315, RAMIRO
Re ason for Anti-Infec tive: Empiric Therapy for Suspected Infection< br>Empiric Therapy Site: Urine
D uration of therapy: 7 days [facility] azithromyci n (ZITHROMAX) tablet 1,000 mg 03-15 18:15: 00 03-15 17:26 :00 No 1000mg 1,000 mg, Oral, ONCE, 1 dose, 03/15/20 at 1315, RAMIRO
Re ason for Anti-Infec tive: Empiric Therapy for Suspected Infection< br>Empiric Therapy Site: Urine
D uration of therapy: 7 days [facility] lidocaine 1% (XYLOCAINE) 10 mg/mL (1 %) injection 2 mL 03-15 18:15: 00 03-15 17:32 :00 No 2mL 2 mL, Infiltrati on, ONCE, 1 dose, Fri03/15/20 at 1315, RAMIRO [facility] cefTRIAXone (ROCEPHIN) injection 250 mg 03-15 18:15: 00 03-15 17:28 :00 No 250mg 250 mg, Intramuscu lar, ONCE, 1 dose, Fri03/15/20 at 1315, RAMIRO
Re ason for Anti-Infec tive: Empiric Therapy for Suspected Infection< br>Empiric Therapy Site: Urine
D uration of therapy: 7 days [facility] phenazopyri dine (PYRIDIUM) tablet 200 mg 03-15 18:15: 00 03-15 17:26 :00 No 200mg 200 mg, Oral, ONCE, 1 dose, Fri03/15/20 at 1315, RAMIRO [facility] phenazopyri dine 200 mg tablet 03-15 00:00: 00 Yes [id number] 200mg Take 1 tablet by mouth 3 (three) times daily. [facility] phenazopyri dine 200 mg tablet 03-15 00:00: 00 Yes [id number] 200mg Take 1 tablet by mouth 3 (three) times daily. [facility] phenazopyri dine 200 mg tablet 03-15 00:00: 00 Yes [id number] 200mg Take 1 tablet by mouth 3 (three) times daily. [facility] phenazopyri dine 200 mg tablet 03-15 00:00: 00 Yes [id number] 200mg Take 1 tablet by mouth 3 (three) times daily. [facility] phenazopyri dine 200 mg tablet 03-15 00:00: 00 Yes [id number] 200mg Take 1 tablet by mouth 3 (three) times daily. [facility] phenazopyri dine 200 mg tablet 03-15 00:00: 00 Yes [id number] 200mg Take 1 tablet by mouth 3 (three) times daily. [facility] phenazopyri dine 200 mg tablet 03-15 00:00: 00 Yes [id number] 200mg Take 1 tablet by mouth 3 (three) times daily. [facility] phenazopyri dine 200 mg tablet 03-15 00:00: 00 Yes [id number] 200mg Take 1 tablet by mouth 3 (three) times daily. [facility] phenazopyri dine 200 mg tablet 03-15 00:00: 00 Yes [id number] 200mg Take 1 tablet by mouth 3 (three) times daily. [facility] phenazopyri dine 200 mg tablet 03-15 00:00: 00 Yes [id number] 200mg Take 1 tablet by mouth 3 (three) times daily. [facility] phenazopyri dine 200 mg tablet 03-15 00:00: 00 Yes [id number] 200mg Take 1 tablet by mouth 3 (three) times daily. [facility] ciprofloxac in HCl 500 mg tablet 03-15 00:00: 00 03-23 04:59 :00 No [id number] 500mg Take 1 tablet by mouth 2 (two) times daily for 7 days. [facility] erythromyci n 5 mg/gram (0.5 %) ophthalmic ointment 01-09 00:00: 00 Yes [id number] 9105 .5[in_u s] Place 0.5 Inches in left eye at bedtime. [facility] erythromyci n 5 mg/gram (0.5 %) ophthalmic ointment 01-09 00:00: 00 Yes [id number] 9105 .5[in_u s] Place 0.5 Inches in left eye at bedtime. [facility] erythromyci n 5 mg/gram (0.5 %) ophthalmic ointment 01-09 00:00: 00 Yes [id number] 9105 .5[in_u s] Place 0.5 Inches in left eye at bedtime. [facility] erythromyci n 5 mg/gram (0.5 %) ophthalmic ointment 01-09 00:00: 00 Yes [id number] 9105 .5[in_u s] Place 0.5 Inches in left eye at bedtime. [facility] erythromyci n 5 mg/gram (0.5 %) ophthalmic ointment 01-09 00:00: 00 Yes [id number] 9105 .5[in_u s] Place 0.5 Inches in left eye at bedtime. [facility] erythromyci n 5 mg/gram (0.5 %) ophthalmic ointment 01-09 00:00: 00 Yes [id number] 9105 .5[in_u s] Place 0.5 Inches in left eye at bedtime. [facility] erythromyci n 5 mg/gram (0.5 %) ophthalmic ointment 01-09 00:00: 00 Yes [id number] 9105 .5[in_u s] Place 0.5 Inches in left eye at bedtime. [facility] erythromyci n 5 mg/gram (0.5 %) ophthalmic ointment 01-09 00:00: 00 Yes [id number] 9105 .5[in_u s] Place 0.5 Inches in left eye at bedtime. [facility] erythromyci n 5 mg/gram (0.5 %) ophthalmic ointment 01-09 00:00: 00 Yes [id number] 9105 .5[in_u s] Place 0.5 Inches in left eye at bedtime. [facility] erythromyci n 5 mg/gram (0.5 %) ophthalmic ointment 01-09 00:00: 00 Yes [id number] 9105 .5[in_u s] Place 0.5 Inches in left eye at bedtime. [facility] erythromyci n 5 mg/gram (0.5 %) ophthalmic ointment 01-09 00:00: 00 Yes [id number] 9105 .5[in_u s] Place 0.5 Inches in left eye at bedtime. [facility] erythromyci n 5 mg/gram (0.5 %) ophthalmic ointment 01-09 00:00: 00 Yes [id number] 9105 .5[in_u s] Place 0.5 Inches in left eye at bedtime. [facility] erythromyci n 5 mg/gram (0.5 %) ophthalmic ointment 01-09 00:00: 00 Yes [id number] 9105 .5[in_u s] Place 0.5 Inches in left eye at bedtime. [facility] erythromyci n 5 mg/gram (0.5 %) ophthalmic ointment 01-09 00:00: 00 Yes [id number] 9105 .5[in_u s] Place 0.5 Inches in left eye at bedtime. [facility] erythromyci n 5 mg/gram (0.5 %) ophthalmic ointment 01-09 00:00: 00 Yes [id number] 9105 .5[in_u s] Place 0.5 Inches in left eye at bedtime. [facility] ketorolac (TORADOL) injection 60 mg 07-09 11:00: 00 07-09 09:58 :00 No 60mg 60 mg, Intramuscu lar, ONCE, 1 dose, Fri07/09/19 at 0600, RAMIRO
Fa culty member approving Restricted medication : SHWETA MORRISON [facility] butalbital- acetaminoph en-caff 50-325-40 mg tablet 07-09 00:00: 00 Yes [id number] 1{tbl} Take 1 tablet by mouth every 4 (four) hours as needed for Pain (scale 7-10) (HEADACHE) . [facility] butalbital- acetaminoph en-caff 50-325-40 mg tablet 07-09 00:00: 00 Yes [id number] 1{tbl} Take 1 tablet by mouth every 4 (four) hours as needed for Pain (scale 7-10) (HEADACHE) . [facility] butalbital- acetaminoph en-caff 50-325-40 mg tablet 07-09 00:00: 00 Yes [id number] 1{tbl} Take 1 tablet by mouth every 4 (four) hours as needed for Pain (scale 7-10) (HEADACHE) . [facility] butalbital- acetaminoph en-caff 50-325-40 mg tablet 07-09 00:00: 00 Yes [id number] 1{tbl} Take 1 tablet by mouth every 4 (four) hours as needed for Pain (scale 7-10) (HEADACHE) . [facility] butalbital- acetaminoph en-caff 50-325-40 mg tablet 07-09 00:00: 00 Yes [id number] 1{tbl} Take 1 tablet by mouth every 4 (four) hours as needed for Pain (scale 7-10) (HEADACHE) . [facility] butalbital- acetaminoph en-caff 50-325-40 mg tablet 07-09 00:00: 00 Yes [id number] 1{tbl} Take 1 tablet by mouth every 4 (four) hours as needed for Pain (scale 7-10) (HEADACHE) . [facility] butalbital- acetaminoph en-caff 50-325-40 mg tablet 07-09 00:00: 00 Yes [id number] 1{tbl} Take 1 tablet by mouth every 4 (four) hours as needed for Pain (scale 7-10) (HEADACHE) . [facility] butalbital- acetaminoph en-caff 50-325-40 mg tablet 07-09 00:00: 00 Yes [id number] 1{tbl} Take 1 tablet by mouth every 4 (four) hours as needed for Pain (scale 7-10) (HEADACHE) . [facility] butalbital- acetaminoph en-caff 50-325-40 mg tablet 07-09 00:00: 00 Yes [id number] 1{tbl} Take 1 tablet by mouth every 4 (four) hours as needed for Pain (scale 7-10) (HEADACHE) . [facility] butalbital- acetaminoph en-caff 50-325-40 mg tablet 07-09 00:00: 00 Yes [id number] 1{tbl} Take 1 tablet by mouth every 4 (four) hours as needed for Pain (scale 7-10) (HEADACHE) . [facility] butalbital- acetaminoph en-caff 50-325-40 mg tablet 07-09 00:00: 00 Yes [id number] 1{tbl} Take 1 tablet by mouth every 4 (four) hours as needed for Pain (scale 7-10) (HEADACHE) . [facility] butalbital- acetaminoph en-caff 50-325-40 mg tablet 07-09 00:00: 00 Yes [id number] 1{tbl} Take 1 tablet by mouth every 4 (four) hours as needed for Pain (scale 7-10) (HEADACHE) . [facility] butalbital- acetaminoph en-caff 50-325-40 mg tablet 07-09 00:00: 00 Yes [id number] 1{tbl} Take 1 tablet by mouth every 4 (four) hours as needed for Pain (scale 7-10) (HEADACHE) . [facility] butalbital- acetaminoph en-caff 50-325-40 mg tablet 07-09 00:00: 00 Yes [id number] 1{tbl} Take 1 tablet by mouth every 4 (four) hours as needed for Pain (scale 7-10) (HEADACHE) . [facility] butalbital- acetaminoph en-caff 50-325-40 mg tablet 07-09 00:00: 00 Yes [id number] 1{tbl} Take 1 tablet by mouth every 4 (four) hours as needed for Pain (scale 7-10) (HEADACHE) . [facility] butalbital- acetaminoph en-caff 50-325-40 mg tablet 07-09 00:00: 00 Yes [id number] 1{tbl} Take 1 tablet by mouth every 4 (four) hours as needed for Pain (scale 7-10) (HEADACHE) . [facility] butalbital- acetaminoph en-caff 50-325-40 mg tablet 07-09 00:00: 00 Yes [id number] 1{tbl} Take 1 tablet by mouth every 4 (four) hours as needed for Pain (scale 7-10) (HEADACHE) . [facility] KCL (KLOR-CON M20) tablet 40 mEq 06-23 11:30: 00 06-23 10:37 :00 No 40meq 40 mEq, Oral, ONCE, 1 dose, Fri06/23/19 at 0630, RAMIRO [facility] diphenhydrA MINE (BENADRYL) injection 12.5 mg 06-23 10:30: 00 06-23 09:52 :00 No 12.5mg 12.5 mg, Slow IV Push, ONCE, 1 dose, Fri06/23/19 at 0530, STAT [facility] metoclopram patrick HCl (REGLAN) injection 10 mg 06-23 10:30: 00 06-23 09:50 :00 No 10mg 10 mg, Slow IV Push, ONCE, 1 dose, Fri06/23/19 at 0530, RAMIRO [facility] hydroCHLORO thiazide (ESIDRIX) tablet 25 mg 06-23 10:30: 00 06-23 09:49 :00 No 25mg 25 mg, Oral, ONCE, 1 dose, Fri06/23/19 at 0530, RAMIRO [facility] hydroCHLORO thiazide 25 mg tablet 06-23 00:00: 00 Yes [id number] 25mg Take 1 tablet by mouth every morning. [facility] hydroCHLORO thiazide 25 mg tablet 06-23 00:00: 00 Yes [id number] 25mg Take 1 tablet by mouth every morning. [facility] hydroCHLORO thiazide 25 mg tablet 06-23 00:00: 00 Yes [id number] 25mg Take 1 tablet by mouth every morning. [facility] hydroCHLORO thiazide 25 mg tablet 06-23 00:00: 00 Yes [id number] 25mg Take 1 tablet by mouth every morning. [facility] hydroCHLORO thiazide 25 mg tablet 06-23 00:00: 00 Yes [id number] 25mg Take 1 tablet by mouth every morning. [facility] hydroCHLORO thiazide 25 mg tablet 06-23 00:00: 00 Yes [id number] 25mg Take 1 tablet by mouth every morning. [facility] hydroCHLORO thiazide 25 mg tablet 06-23 00:00: 00 Yes [id number] 25mg Take 1 tablet by mouth every morning. [facility] hydroCHLORO thiazide 25 mg tablet 06-23 00:00: 00 Yes [id number] 25mg Take 1 tablet by mouth every morning. [facility] hydroCHLORO thiazide 25 mg tablet 06-23 00:00: 00 Yes [id number] 25mg Take 1 tablet by mouth every morning. [facility] hydroCHLORO thiazide 25 mg tablet 06-23 00:00: 00 Yes [id number] 25mg Take 1 tablet by mouth every morning. [facility] hydroCHLORO thiazide 25 mg tablet 06-23 00:00: 00 Yes [id number] 25mg Take 1 tablet by mouth every morning. [facility] hydroCHLORO thiazide 25 mg tablet 06-23 00:00: 00 Yes [id number] 25mg Take 1 tablet by mouth every morning. [facility] hydroCHLORO thiazide 25 mg tablet 06-23 00:00: 00 Yes [id number] 25mg Take 1 tablet by mouth every morning. [facility] hydroCHLORO thiazide 25 mg tablet 06-23 00:00: 00 Yes [id number] 25mg Take 1 tablet by mouth every morning. [facility] hydroCHLORO thiazide 25 mg tablet 06-23 00:00: 00 Yes [id number] 25mg Take 1 tablet by mouth every morning. [facility] hydroCHLORO thiazide 25 mg tablet 06-23 00:00: 00 Yes [id number] 25mg Take 1 tablet by mouth every morning. [facility] hydroCHLORO thiazide 25 mg tablet 06-23 00:00: 00 Yes [id number] 25mg Take 1 tablet by mouth every morning. [facility] hydroCHLORO thiazide 25 mg tablet 2019-0 8-14 00:00: 00 Yes [id number] 25mg Take 1 tablet by mouth every morning. [facility] phenazopyri dine 200 mg tablet 05-07 00:00: 00 Yes [id number] 200mg Take 1 tablet by mouth 3 (three) times daily. [facility] traMADOL (ULTRAM) 50 mg tablet 05-07 00:00: 00 Yes [id number] 50mg Take 1 tablet by mouth every 8 (eight) hours as needed for Pain (scale 4-6). [facility] phenazopyri dine 200 mg tablet 05-07 00:00: 00 Yes [id number] 200mg Take 1 tablet by mouth 3 (three) times daily. [facility] traMADOL (ULTRAM) 50 mg tablet 05-07 00:00: 00 Yes [id number] 50mg Take 1 tablet by mouth every 8 (eight) hours as needed for Pain (scale 4-6). [facility] phenazopyri dine 200 mg tablet 05-07 00:00: 00 Yes [id number] 200mg Take 1 tablet by mouth 3 (three) times daily. [facility] traMADOL (ULTRAM) 50 mg tablet 05-07 00:00: 00 Yes [id number] 50mg Take 1 tablet by mouth every 8 (eight) hours as needed for Pain (scale 4-6). [facility] phenazopyri dine 200 mg tablet 05-07 00:00: 00 Yes [id number] 200mg Take 1 tablet by mouth 3 (three) times daily. [facility] traMADOL (ULTRAM) 50 mg tablet 05-07 00:00: 00 Yes [id number] 50mg Take 1 tablet by mouth every 8 (eight) hours as needed for Pain (scale 4-6). [facility] phenazopyri dine 200 mg tablet 05-07 00:00: 00 Yes [id number] 200mg Take 1 tablet by mouth 3 (three) times daily. [facility] traMADOL (ULTRAM) 50 mg tablet 05-07 00:00: 00 Yes [id number] 50mg Take 1 tablet by mouth every 8 (eight) hours as needed for Pain (scale 4-6). [facility] phenazopyri dine 200 mg tablet 05-07 00:00: 00 Yes [id number] 200mg Take 1 tablet by mouth 3 (three) times daily. [facility] traMADOL (ULTRAM) 50 mg tablet 05-07 00:00: 00 Yes [id number] 50mg Take 1 tablet by mouth every 8 (eight) hours as needed for Pain (scale 4-6). [facility] phenazopyri dine 200 mg tablet 05-07 00:00: 00 Yes [id number] 200mg Take 1 tablet by mouth 3 (three) times daily. [facility] traMADOL (ULTRAM) 50 mg tablet 05-07 00:00: 00 Yes [id number] 50mg Take 1 tablet by mouth every 8 (eight) hours as needed for Pain (scale 4-6). [facility] phenazopyri dine 200 mg tablet 05-07 00:00: 00 Yes [id number] 200mg Take 1 tablet by mouth 3 (three) times daily. [facility] traMADOL (ULTRAM) 50 mg tablet 05-07 00:00: 00 Yes [id number] 50mg Take 1 tablet by mouth every 8 (eight) hours as needed for Pain (scale 4-6). [facility] phenazopyri dine 200 mg tablet 05-07 00:00: 00 Yes [id number] 200mg Take 1 tablet by mouth 3 (three) times daily. [facility] traMADOL (ULTRAM) 50 mg tablet 05-07 00:00: 00 Yes [id number] 50mg Take 1 tablet by mouth every 8 (eight) hours as needed for Pain (scale 4-6). [facility] phenazopyri dine 200 mg tablet 05-07 00:00: 00 Yes [id number] 200mg Take 1 tablet by mouth 3 (three) times daily. [facility] phenazopyri dine 200 mg tablet 05-07 00:00: 00 Yes [id number] 200mg Take 1 tablet by mouth 3 (three) times daily. [facility] traMADOL (ULTRAM) 50 mg tablet 05-07 00:00: 00 Yes [id number] 50mg Take 1 tablet by mouth every 8 (eight) hours as needed for Pain (scale 4-6). [facility] traMADOL (ULTRAM) 50 mg tablet 05-07 00:00: 00 Yes [id number] 50mg Take 1 tablet by mouth every 8 (eight) hours as needed for Pain (scale 4-6). [facility] phenazopyri dine 200 mg tablet 05-07 00:00: 00 Yes [id number] 200mg Take 1 tablet by mouth 3 (three) times daily. [facility] traMADOL (ULTRAM) 50 mg tablet 05-07 00:00: 00 Yes [id number] 50mg Take 1 tablet by mouth every 8 (eight) hours as needed for Pain (scale 4-6). [facility] phenazopyri dine 200 mg tablet 05-07 00:00: 00 Yes [id number] 200mg Take 1 tablet by mouth 3 (three) times daily. [facility] traMADOL (ULTRAM) 50 mg tablet 05-07 00:00: 00 Yes [id number] 50mg Take 1 tablet by mouth every 8 (eight) hours as needed for Pain (scale 4-6). [facility] phenazopyri dine 200 mg tablet 05-07 00:00: 00 Yes [id number] 200mg Take 1 tablet by mouth 3 (three) times daily. [facility] traMADOL (ULTRAM) 50 mg tablet 05-07 00:00: 00 Yes [id number] 50mg Take 1 tablet by mouth every 8 (eight) hours as needed for Pain (scale 4-6). [facility] phenazopyri dine 200 mg tablet 05-07 00:00: 00 Yes [id number] 200mg Take 1 tablet by mouth 3 (three) times daily. [facility] traMADOL (ULTRAM) 50 mg tablet 05-07 00:00: 00 Yes [id number] 50mg Take 1 tablet by mouth every 8 (eight) hours as needed for Pain (scale 4-6). [facility] phenazopyri dine 200 mg tablet 05-07 00:00: 00 Yes [id number] 200mg Take 1 tablet by mouth 3 (three) times daily. [facility] traMADOL (ULTRAM) 50 mg tablet 05-07 00:00: 00 Yes [id number] 50mg Take 1 tablet by mouth every 8 (eight) hours as needed for Pain (scale 4-6). [facility] phenazopyri dine 200 mg tablet 05-07 00:00: 00 Yes [id number] 200mg Take 1 tablet by mouth 3 (three) times daily. [facility] traMADOL (ULTRAM) 50 mg tablet 05-07 00:00: 00 Yes [id number] 50mg Take 1 tablet by mouth every 8 (eight) hours as needed for Pain (scale 4-6). [facility] phenazopyri dine 200 mg tablet 05-07 00:00: 00 Yes [id number] 200mg Take 1 tablet by mouth 3 (three) times daily. [facility] traMADOL (ULTRAM) 50 mg tablet 05-07 00:00: 00 Yes [id number] 50mg Take 1 tablet by mouth every 8 (eight) hours as needed for Pain (scale 4-6). [facility] HYDROCHLORO THIAZIDE ORAL 11-27 16:43: 41 Yes 1{tbl} Take 1 tablet by mouth daily. [facility] HYDROCHLORO THIAZIDE ORAL 11-27 16:43: 41 Yes 1{tbl} Take 1 tablet by mouth daily. [facility] HYDROCHLORO THIAZIDE ORAL 11-27 16:43: 41 Yes 1{tbl} Take 1 tablet by mouth daily. [facility] HYDROCHLORO THIAZIDE ORAL 11-27 16:43: 41 Yes 1{tbl} Take 1 tablet by mouth daily. [facility] HYDROCHLORO THIAZIDE ORAL 2017-11-27 16:43: 41 Yes 1{tbl} Take 1 tablet by mouth daily. [facility] HYDROCHLORO THIAZIDE ORAL 11-27 16:43: 41 Yes 1{tbl} Take 1 tablet by mouth daily. [facility] HYDROCHLORO THIAZIDE ORAL 11-27 16:43: 41 Yes 1{tbl} Take 1 tablet by mouth daily. [facility] HYDROCHLORO THIAZIDE ORAL 11-27 16:43: 41 Yes 1{tbl} Take 1 tablet by mouth daily. [facility] Immunizations Ordered Immunization Name Filled Immunization Name Date Status Comments Source Tdap 2017-02-04 00:00:00 Completed [facility] Tdap 2017-02-04 00:00:00 Completed [facility] Tdap 2017-02-04 00:00:00 Completed [facility] Tdap 2017-02-04 00:00:00 Completed [facility] Tdap 2017-02-04 00:00:00 Completed [facility] Tdap 2017-02-04 00:00:00 Completed [facility] Tdap 2017-02-04 00:00:00 Completed [facility] Tdap 2017-02-04 00:00:00 Completed [facility] TDAP 2017-02-04 00:00:00 Completed [facility] TDAP 2017-02-04 00:00:00 Completed [facility] TDAP 2017-02-04 00:00:00 Completed [facility] Tdap 2017-02-04 00:00:00 Completed [facility] TDAP 2017-02-04 00:00:00 Completed [facility] TDAP 2017-02-04 00:00:00 Completed [facility] Tdap 2017-02-04 00:00:00 Completed [facility] Tdap 2017-02-04 00:00:00 Completed [facility] Tdap 2017-02-04 00:00:00 Completed [facility] TDAP Unknown Completed [facility] Vital Signs Vital Name Observation Time Observation Value Comments S ource Heart rate 2023-11-23 09:00:00 72 /min [facility] Respiratory rate 2023-11-23 09:00:00 18 /min [facility] Oxygen saturation in Arterial blood by Pulse oximetry 2023-11-23 09:00:00 100 /min [facility] Systolic blood pressure 2023-11-23 08:03:00 140 mm[Hg] [facility] Diastolic blood pressure 2023-11-23 08:03:00 88 mm[Hg] [facility] Body temperature 2023-11-23 05:28:00 36.5 Angelique [facility] Body height 2023-11-23 05:28:00 160 cm [facility] Body weight 2023-11-23 05:28:00 75.751 kg [facility] BMI 2023-11-23 05:28:00 29.58 kg/m2 [facility] Systolic blood pressure 2023-04-18 05:00:00 127 mm[Hg] [facility] Diastolic blood pressure 2023-04-18 05:00:00 81 mm[Hg] [facility] Heart rate 2023-04-18 05:00:00 86 /min [facility] Respiratory rate 2023-04-18 05:00:00 23 /min [facility] Oxygen saturation in Arterial blood by Pulse oximetry 2023-04-18 05:00:00 97 /min [facility] Body temperature 2023-04-18 03:20:00 36.67 Angelique [facility] Body height 2023-04-18 03:20:00 160 cm [facility] Body weight 2023-04-18 03:20:00 72.576 kg [facility] BMI 2023-04-18 03:20:00 28.34 kg/m2 [facility] Systolic blood pressure 2022-11-23 12:54:00 131 mm[Hg] [facility] Diastolic blood pressure 2022-11-23 12:54:00 82 mm[Hg] [facility] Heart rate 2022-11-23 12:54:00 101 /min [facility] Body temperature 2022-11-23 12:54:00 37.28 Angelique [facility] Respiratory rate 2022-11-23 12:54:00 18 /min [facility] Body height 2022-11-23 12:54:00 162.6 cm [facility] Body weight 2022-11-23 12:54:00 72.576 kg [facility] BMI 2022-11-23 12:54:00 27.46 kg/m2 [facility] Oxygen saturation in Arterial blood by Pulse oximetry 2022-11-23 12:54:00 100 /min [facility] Systolic blood pressure 2020-08-30 02:45:00 136 mm[Hg] [facility] Diastolic blood pressure 2020-08-30 02:45:00 97 mm[Hg] [facility] Heart rate 2020-08-30 02:45:00 94 /min [facility] Respiratory rate 2020-08-30 02:45:00 20 /min [facility] Oxygen saturation in Arterial blood by Pulse oximetry 2020-08-30 02:45:00 97 /min [facility] Body temperature 2020-08-30 00:08:00 37.17 Angelique [facility] Body height 2020-08-30 00:08:00 162.6 cm [facility] Body weight 2020-08-30 00:08:00 79.379 kg [facility] BMI 2020-08-30 00:08:00 30.04 kg/m2 [facility] Systolic blood pressure 2020-05-20 00:15:00 150 mm[Hg] [facility] Diastolic blood pressure 2020-05-20 00:15:00 102 mm[Hg] [facility] Heart rate 2020-05-20 00:15:00 102 /min [facility] Body temperature 2020-05-20 00:15:00 37.11 Angelique [facility] Respiratory rate 2020-05-20 00:15:00 22 /min [facility] Body weight 2020-05-20 00:15:00 83.915 kg [facility] BMI 2020-05-20 00:15:00 31.76 kg/m2 [facility] Oxygen saturation in Arterial blood by Pulse oximetry 2020-05-20 00:15:00 99 /min [facility] Systolic blood pressure 2020-03-24 16:03:00 148 mm[Hg] [facility] Diastolic blood pressure 2020-03-24 16:03:00 98 mm[Hg] [facility] Heart rate 2020-03-24 16:03:00 101 /min [facility] Body temperature 2020-03-24 16:03:00 36.39 Angelique [facility] Respiratory rate 2020-03-24 16:03:00 16 /min [facility] Body height 2020-03-24 16:03:00 162.6 cm [facility] Body weight 2020-03-24 16:03:00 75.921 kg [facility] BMI 2020-03-24 16:03:00 28.73 kg/m2 [facility] Systolic blood pressure 2020-03-15 16:47:00 162 mm[Hg] [facility] Diastolic blood pressure 2020-03-15 16:47:00 97 mm[Hg] [facility] Heart rate 2020-03-15 16:47:00 98 /min [facility] Body temperature 2020-03-15 16:47:00 36.83 Angelique [facility] Respiratory rate 2020-03-15 16:47:00 16 /min [facility] Body height 2020-03-15 16:47:00 162.6 cm [facility] Body weight 2020-03-15 16:47:00 77.111 kg [facility] BMI 2020-03-15 16:47:00 29.18 kg/m2 [facility] Oxygen saturation in Arterial blood by Pulse oximetry 2020-03-15 16:47:00 100 /min [facility] Systolic blood pressure 2020-01-10 15:06:00 117 mm[Hg] [facility] Diastolic blood pressure 2020-01-10 15:06:00 99 mm[Hg] [facility] Heart rate 2020-01-10 15:06:00 85 /min [facility] Body temperature 2020-01-10 15:06:00 36.78 Angelique [facility] Respiratory rate 2020-01-10 15:06:00 18 /min [facility] Body weight 2020-01-10 15:06:00 77.111 kg [facility] BMI 2020-01-10 15:06:00 30.11 kg/m2 [facility] Oxygen saturation in Arterial blood by Pulse oximetry 2020-01-10 15:06:00 100 /min [facility] Systolic blood pressure 2019-07-09 09:45:00 144 mm[Hg] [facility] Diastolic blood pressure 2019-07-09 09:45:00 92 mm[Hg] [facility] Heart rate 2019-07-09 09:45:00 75 /min [facility] Respiratory rate 2019-07-09 09:45:00 18 /min [facility] Body height 2019-07-09 09:45:00 160 cm [facility] Body weight 2019-07-09 09:45:00 83.008 kg [facility] BMI 2019-07-09 09:45:00 32.42 kg/m2 [facility] Oxygen saturation in Arterial blood by Pulse oximetry 2019-07-09 09:45:00 99 /min [facility] Systolic blood pressure 2019-06-23 10:25:00 132 mm[Hg] [facility] Diastolic blood pressure 2019-06-23 10:25:00 96 mm[Hg] [facility] Heart rate 2019-06-23 10:25:00 68 /min [facility] Respiratory rate 2019-06-23 10:25:00 20 /min [facility] Oxygen saturation in Arterial blood by Pulse oximetry 2019-06-23 10:25:00 99 /min [facility] Body weight 2019-06-23 09:24:00 77.111 kg [facility] BMI 2019-06-23 09:24:00 29.18 kg/m2 [facility] Body temperature 2019-06-23 09:04:00 36.44 Angelique [facility] Body height 2019-06-23 09:04:00 162.6 cm [facility] Procedures Procedure Date / Time Performed Performing Clinician Source CT CHEST PULMONARY ANGIOGRAM 2023-11-23 07:24:07 Jordan Hull [facility] POCT TEST 2023-11-23 07:16:00 Jordan Hull [facility] FREE T4 2023-11-23 05:47:00 Jordan Hull [facility] D-DIMER 2023-11-23 05:47:00 Jordan Hull [facility] LIPASE 2023-11-23 05:36:00 Jordan Hull [facility] TROPONIN I 2023-11-23 05:36:00 Jordan Hull [facility] COMP. METABOLIC PANEL (46501) 2023-11-23 05:36:00 Jordan Hull [facility] CBC WITH DIFF 2023-11-23 05:36:00 Jordan [facility] CONSENT/REFUSAL FOR DIAGNOSIS AND TREATMENT 2023-11-23 05:25:54 Doctor Unassigned, [place] [facility] CT HEAD WO CONTRAST 2023-04-18 04:30:12 Shweta Morrison [facility] MAGNESIUM 2023-04-18 03:30:00 Shweta [facility] TROPONIN I 2023-04-18 03:30:00 Shweta [facility] COMP. METABOLIC PANEL (10664) 2023-04-18 03:30:00 Shweta Morrison [facility] CBC WITH DIFF 2023-04-18 03:30:00 Shweta Morrison [facility] D-DIMER 2023-04-18 03:30:00 Shwtea Morrison [facility] US OVARY TORSION 2022-11-23 14:41:00 [facility]EL[facility]AST 2022-11-23 14:12:00 Jordan Hull [facility] POCT TEST 2022-11-23 13:13:00 Jordan Hull [facility] LIPASE 2022-11-23 13:10:00 Jordan Hull [facility] COMP. METABOLIC PANEL (08545) 2022-11-23 13:10:00 Jordan Hull [facility] CBC WITH DIFF 2022-11-23 13:10:00 Jordan Hull [facility] URINALYSIS 2022-11-23 13:10:00 Jordan Hull [facility] CONSENT/REFUSAL FOR DIAGNOSIS AND TREATMENT 2022-11-23 12:38:19 Doctor Unassigned, [place] [facility] ADC / LCC - DRUG SCREEN TRIAGE 2020-08-30 01:03:00 Shweta Morrison [facility] XR CHEST 1 VW 2020-08-30 00:55:08 Shweta Morrison [facility] URINALYSIS 2020-08-30 00:29:00 Shweta Morrison [facility] LIPASE 2020-08-30 00:25:00 Shweta Morrison [facility] TROPONIN I 2020-08-30 00:25:00 Shweta Morrison [facility] THYROID STIMULATING HORMONE 2020-08-30 00:25:00 Shweta Morrison [facility] COMP. METABOLIC PANEL ([id number]) 2020-08-30 00:25:00 Shweta Morrison [facility] CBC WITH DIFF 2020-08-30 00:25:00 Shweta Morrison [facility] PROTHROMBIN TIME / INR 2020-08-30 00:25:00 Casey Morrison [facility] ACTIVATED PARTIAL THRMPLAS SHANNON 2020-08-30 00:25:00 Shweta Morrison [facility] EKG-12 LEAD 2020-08-30 00:23:19 Shweta Morrison [facility] ASSIGNMENT OF BENEFITS 2020-05-20 00:09:07 Docto r Unassigned, [place] [facility] NOTICE OF PRIVACY PRACTICES 2020-05-20 00:05:27 Doctor Unassigned, [place] [facility] CONSENT/REFUSAL FOR DIAGNOSIS AND TREATMENT 2020-05-20 00:05:07 Doctor Unassigned, [place] [facility] POCT TEST 2020-03-15 17:16:00 Eddie Sheets [facility] URINALYSIS 2020-03-15 17:13:00 Eddie Sheets [facility] CONSENT/REFUSAL FOR DIAGNOSIS AND TREATMENT 2020-03-15 16:41:49 Doctor Unassigned, [place] [facility] NOTICE OF PRIVACY PRACTICES 2020-01-10 14:55:15 Doctor Unassigned, [place] [facility] CONSENT/REFUSAL FOR DIAGNOSIS AND TREATMENT 2020-01-10 14:54:57 Doctor Unassigned, [place] [facility] CT HEAD WO CONTRAST 2019-07-09 10:39:05 Shweta Morrison [facility] NOTICE OF PRIVACY PRACTICES 2019-07-09 09:34:37 Doctor Unassigned, [place] [facility] CONSENT/REFUSAL FOR DIAGNOSIS AND TREATMENT 2019-07-09 09:34:16 Doctor Unassigned, [place] [facility] URINALYSIS 2019-06-23 10:01:00 Shweta Morrison [facility] POCT TEST 2019-06-23 09:54:00 Shweta Morrison [facility] BASIC METABOLIC PANEL (NA, K, CL, CO2, GLUCOSE, BUN, CREATININE, CA) 2019-06-23 09:46:00 Shweta Morrison [facility] CBC WITH DIFFERENTIAL 2019-06-23 09:46:00 Santi Morrison [facility] EKG-12 LEAD 2019-06-23 09:27:58 Shweta Morrison [facility] Encounters Start Date/Time End Date/Time Encounter Type Admission Type Attending [facility] Care Facility Care Department Encounter ID Source 2021-09-08 00:06:01 Emergency [facility] [id number] [facility] 2021-09-07 06:08:37 Emergency [facility] [id number] [facility] 2021-09-06 20:05:09 Emergency [facility] [id number] [facility] 2021-09-06 11:54:55 Emergency [facility] [id number] [facility] 2023-11-22 23:25:00 2023-11-23 03:38:00 Emergency X JORDAN HULL [facility] [id number] [facility] 2023-11-22 23:25:00 2023-11-23 03:38:00 Emergency Jordan Hull [facility] 1..840.114 350.1.13.10 [id number] [id number] [facility] 2023-11-08 13:07:32 2023-11-08 13:07:32 Outpatient SFA SFA [id number] Andriy Serrato 2023-07-04 16:27:37 2023-07-04 16:27:37 Outpatient SFA [id number] [id number] Andriy Serrato 2023-07-02 15:32:46 2023-07-02 15:32:46 Outpatient SFA SFA [id number] Andriy Serrato 2023-06-24 10:11:44 2023-06-24 10:11:44 Outpatient SFA SFA [id number] Andriy Serrato 2023-06-19 09:44:44 2023-06-19 09:44:44 Outpatient SFA [id number] [id number] Andriy Serrato 2023-04-17 22:14:00 2023-04-18 00:46:00 Emergency X SHWETA MORRISON [facility] [id number] [facility] 2023-04-17 22:14:00 2023-04-18 00:46:00 Emergency Shweta Morrison [facility] 1..840.114 350.1.13.10 4.2.7.2.686 [id number] [facility] 2022-11-23 06:55:00 2022-11-23 10:13:00 Emergency X JORDAN HULL [facility] [id number] [facility] 2022-11-23 06:55:00 2022-11-23 10:13:00 Emergency Jordan Hull [facility] [id number] 350.1.13.10 4.2.7.2.686 [id number] [facility] 2021-01-29 00:00:00 2021-01-29 00:00:00 Patient Outreach Rashad Ahn [facility] [id number] 350.1.13.10 4.2.7.2.686 [id number] [facility] 2020-08-29 19:12:00 2020-08-29 21:56:00 Emergency Santi Morrisonanand Artie [facility] 1.2.840.114 350.1.13.10 4.2.7.2.686 [id number] [facility] 2020-05-19 19:17:07 2020-05-19 22:36:00 Emergency Abimbola Bray [facility] [id number] 350.1.13.10 4.2.7.2.686 [id number] [facility] 2020-03-29 00:00:00 2020-03-29 00:00:00 Case Management Conchis Diana [facility] COMPLAINT INVESTIGATOR [facility] [id number] 350.1.13.10 4.2.7.2.686 [id number] [facility] 2020-03-24 10:41:59 2020-03-24 11:47:48 Office Visit Provider, Ofechp Sara Irving [facility] COMPLA[facility] INVESTIGATOR [facility] 1.2.840.114 350.1.13.10 4.2.7.2.686 [id number] [facility] 2020-03-24 10:30:00 2020-03-24 10:30:00 Outpatient R SARA CARVAJAL [facility] [id number] [facility] 2020-03-24 10:30:00 2020-03-24 10:30:00 Outpatient R SARA CARVAJAL [facility] [id number] [facility] 2020-03-15 11:57:03 2020-03-15 13:13:00 Emergency Eddie Sheets [facility] [id number] 350.1.13.10 4.2.7.2.686 [id number] [facility] 2020-03-15 00:00:00 2020-03-15 00:00:00 Orders Only Doctor Unassigned, [place] [facility] [id number] 350.1.13.10 4.2.7.2.686 [id number] [facility] 2020-03-15 00:00:00 2020-03-15 00:00:00 Telephone Sara Carvajal [facility] COMPLAINT INVESTIGATOR [facility] 1.2.840.114 350.1.13.10 4.2.7.2.686 [id number] [facility] 2020-02-15 00:00:00 2020-02-15 00:00:00 Telephone Pcp, Patient Does Not Have A [facility] COMPLAINT INVESTIGATOR [facility] CHILD [facility] 1.2.840.114 350.1.13.10 4.2.7.2.686 [id number] [facility] 2020-01-10 10:16:29 2020-01-10 10:19:00 Emergency Pastor Camara [facility] 1.2.840.114 350.1.13.10 4.2.7.2.686 [id number] [id number] [facility] 2020-01-10 00:00:00 2020-01-10 00:00:00 Orders Only Doctor Unassigned, [place] [facility] 1.2.840.114 350.1.13.10 4.2.7.2.686 [id number] [facility] 2019-07-09 04:40:10 2019-07-09 06:17:00 Emergency [facility] 1.2.840.114 350.1.13.10 4.2.7.2.686 [id number] [id number] [facility] 2019-06-23 04:00:44 2019-06-23 05:50:00 Emergency [facility] 1.2.840.114 350.1.13.10 4.2.7.2.686 [id number] [id number] [facility] Results Test Description Test Time Test Comments Results Resul t Comments Source CT CHEST PULMONARY ANGIOGRAM 2023-11-10 08:28:43 EXAM: CT CHEST PULMONARY ANGIOGRAM ORDERING CLINICIAN: ?JORDAN HUYNH HISTORY: Chest pain. COMPARISON: none TECHNIQUE: CT angiogram of the chest with IV contrast. Multiplanar MIPreformatted images were obtained. ?CT performed [facility] TECHNICAL QUALITY: Limited by respiratory motion. FINDINGS:The lung volumes are slightly reduced. Mild groundglass attenuation in thelower lobes is probably related to respiratory motion and atelectasis. ?Thetrachea and bronchi are patent to the segmental level. ?There is nopathologic lymphadenopathy. ?There are no pleural effusions. ?The thyroidappears normal. The heart is normal in size. ?The aorta and pulmonary arteries are normalin caliber. ?There is no pulmonary embolus. There is no aortic dissection. The visualized portion of the upper abdomen is unremarkable. Soft tissues are normal. ?Osseous structures are unremarkable. [id number] 07:16:00* Test Item Value Reference Range Interpretation Comme nts POCT PREG (test code = 1605) Negative On board controls acceptable with C Line (test code = 3574) Yes Lab Interpretation (test cod e = 96081-0) Normal [facility] [id number] 07:06:56* Test Item Value Reference Range Interpretation Comme nts TROPONIN I (test code = 9638862338) 0.002 ng/mL <=0.034 ANDREA (test code = ANDREA) Reference (Normal) Range (defined by the 99th percentile reference limit): <= 0.034 ng/mL Note: Cardiac troponin begins to rise 3-4 hours after the onset of ischemia. Repeat in 4-6 hours if the sample was drawn within 3-4 hours of the onset of the symptom and found normal. Diagnosis of myocardial injury is made with acute changes in cTn concentrations with at least one serial sample above the 99th percentile upper reference limit (URL), taken together with the patient's clinical presentation. Biotin has been reported to cause a negative bias, interpret results relative to patient's use of biotin. Lab Interpretation (test code = 33908-2) Normal [id number] 07:02:15* Test Item Value Reference Range Interpretation Comments D-DIMER (test code = 6123650204) 0.57 See_Comment H [Automated message] The system which generated this result transmitted reference range: <0.41 ?g/mL (FEU). The reference range was not used to interpret this result as normal/abnormal. ANDREA (test code = ANDREA) This test may be used in conjunction with a clinical pretest probability (PTP) assessment model to exclude venous thromboembolism (VTE) in patients suspected of deep venous thrombosis (DVT) and pulmonary embolism (PE) A D-Dimer value less than 0.50 ?g/ml (FEU) has a negative predicative value of 96 to 100% (95% CI)and 97 to 100% (95% CI) as an aid in the diagnosis of deep vein thrombosis (DVT) and pulmonary embolism when there is low or moderate pretest probability of PE or DVT. D-Dimer values are expressed in initial fibrinogen equivalent units (FEU)" The assay results should be used with other information, including the clinical context, in forming a diagnosis. Lab Interpretation (test code = 51044-7) Abnormal [facility] MET[facility]OLIC PAN[facility] ([id number])2023-11-23 06:55:31* Test Item Value Reference Range Interpretation Comme nts NA (test code = 6930305837) 139 mmol/L 135-145 K (test code = 7677664443) 3.1 mmol/L 3.5-5.0 L CL (test code = 0286214450) 107 mmol/L 98-108 CO2 TOTAL (test code = 8337128396) 20 mmol/L 23-31 L AGAP (test code = 8515975226) 12 2-16 BUN (test code = 3192297173) 19 mg/dL 7-23 GLUCOSE (test code = 1338968395) 105 mg/dL 70-110 CREATININE (test code = 4389413032) 0.68 mg/dL 0.50-1.04 TOTAL BILI (test code = 9190006754) 0.4 mg/dL 0.1-1.1 CALCIUM (test code = 8005925851) 9.8 mg/dL 8.6-10.6 T PROTEIN (test code = 2336904107) 8.8 g/dL 6.3-8.2 H ALBUMIN (test code = 2598536488) 4.6 g/dL 3.5-5.0 ALK PHOS (test code = 7306110380) 90 U/L 34-122 ALTv (test code = 1742-6) 11 U/L 5-35 AST(SGOT) (test code = 2482859725) 24 U/L 13-40 eGFR (test code = 05353-7) 114.5 mL/min/1.73m2 CKD-EPI eGFR (2020). Assuming creatinine has been stable day-to-day for at least three months, the eGFR indicates Category G1 (>= 90 mL/min/1.73 m2) Lab Interpretation (test code = 66294-7) Abnormal [facility], [id number] 06:55:16* Test Item Value Reference Range Interpretation Comme nts LIPASE (test code = 4789599471) 77 U/L 0-220 Lab Interpretation (test cod e = 44491-7) Normal [facility] HospitalCBC WITH [id number] 06:44:11* Test Item Value Reference Range Interpretation Comme nts WBC (test code = 6690-2) 6.78 See_Comment [Automated messa ge] The system which generated this result transmitted reference range: 4.30 - 11.10 10*3/?L. The reference range was not used to interpret this result as normal/abnormal. RBC (test code = 789-8) 4.77 See_Comment [Automated messa ge] The system which generated this result transmitted reference range: 3.93 - 5.25 10*6/?L. The reference range was not used to interpret this result as normal/abnormal. HGB (test code = 718-7) 12.2 g/dL 11.6-15.0 HCT (test code = 4544-3) 38.3 % 35.7-45.2 MCV (test code = 787-2) 80.3 fL 80.6-95.5 L MCH (test code = 785-6) 25.6 pg 25.9-32.8 L MCHC (test code = 786-4) 31.9 g/dL 31.6-35.1 RDW-SD (test code = 20919-4) 38.5 fL 39.0-49.9 L RDW-CV (test code = 788-0) 13.4 % 12.0-15.5 PLT (test code = 777-3) 407 See_Comment H [Automated messa ge] The system which generated this result transmitted reference range: 166 - 358 10*3/?L. The reference range was not used to interpret this result as normal/abnormal. MPV (test code = 67828-8) 12.3 fL 9.5-12.9 NRBC/100 WBC (test code = 4819860983) 0.0 See_Comment [Automated [employer] ssage] The system which generated this result transmitted reference range: 0.0 - 10.0 /100 WBCs. The reference range was not used to interpret this result as normal/abnormal. NRBC x10^3 (test code = 2127603451) See_Comment [Automated messa ge] The system which generated this result transmitted reference range: 10*3/?L. The reference range was not used to interpret this result as normal/abnormal. GRAN MAT (NEUT) % (test code = 770-8) 52.6 % IMM GRAN % (test code = 4217744055) 0.30 % LYMPH % (test code = 736-9) 37.8 % MONO % (test code = 5905-5) 8.0 % EOS % (test code = 713-8) 0.7 % BASO % (test code = 706-2) 0.6 % GRAN MAT x10^3(ANC) (test code = 1892465285) 3.57 10*3/uL 1.88-7.09 IMM GRAN x10^3 (test code = 1886517710) 0.00-0.06 LYMPH x10^3 (test code = 731-0) 2.56 10*3/uL 1.32-3.29 MONO x10^3 (test code = 742-7) 0.54 10*3/uL 0.33-0.92 EOS x10^3 (test code = 711-2) 0.05 10*3/uL 0.03-0.39 BASO x10^3 (test code = 704-7) 0.04 10*3/uL 0.01-0.07 Lab Interpretation (test code = 06633-4) Abnormal [facility] HospitalHEMOGLOBIN [id number] 13:25:29* Test Item Value Reference Range Interpretation Comme nts HEMOGLOBIN A1c (test code = 86382) TEST NOT PERFORMED % 4.2-5.6 Unable to perform testing, specimen not received.Charges adjusted as applicable. HEPATITIS B SURFACE [id number] 04:30:58* Test Item Value Reference Range Interpretation Comme nts HEPATITIS B SURFACE AB (test code = 2737) REACTIVE NON-REACTIVE A LIPID [id number] 02:47:41* Test Item Value Reference Range Interpretation Comme nts CHOLESTEROL (test code = 2210) 169 MG/DL <200 TRIGLYCERIDES (test code = 2232) 83 MG/DL <150 HDL CHOLESTEROL (test code = 2220) 70 MG/DL >39 CALC LDL CHOL (test code = 2237) 82 MG/DL <100 NOTE: CALCULATED LDL IS BASED ON PASQUALE-BARBOZA METHOD WHICHINCLUDES ADJUSTABLE TRIGLYCERIDE:VLDL CHOLESTEROL RATIO.THIS FACTOR VARIES BY MEASURED TRIGLYCERIDE AND NON-HDLCHOLESTEROL CONCENTRATIONS WITH INCREASED CALCULATED LDL SEENIN HIGHER TRIGLYCERIDE OR LOWER NON-HDL SPECIMENS. FOR MOREINFORMATION, SEE CLIENT ANNOUNCEMENT AT [email or web address] /[email or web address]-[email or web address] RISK RATIO LDL/HDL (test code = 2237) 1.17 RATIO <3.22 COMPREHENSIVE METABOLIC [id number] 02:47:41* Test Item Value Reference Range Interpretation Comme nts GLUCOSE (test code = 2216) 90 MG/DL 70-99 BUN (test code = 2207) 7 MG/DL 6-20 CREATININE (test code = 2213) 0.58 MG/DL 0.60-1.30 L eGFR (2020 CKD-EPI) (test code = ) 119 ML/MIN/1.73 >60 CALC BUN/CREAT (test code = 2234) 12 RATIO 6-28 SODIUM (test code = 2230) 141 MEQ/L 133-146 POTASSIUM (test code = 2227) 3.9 MEQ/L 3.5-5.4 CHLORIDE (test code = 2214) 107 MEQ/L 95-107 CARBON DIOXIDE (test code = 2205) 24 MEQ/L 19-31 CALCIUM (test code = 2208) 9.4 MG/DL 8.5-10.5 PROTEIN, TOTAL (test code = 2228) 6.9 G/DL 6.1-8.3 ALBUMIN (test code = 2200) 4.2 G/DL 3.5-5.2 CALC GLOBULIN (test code = 2240) 2.7 G/DL 1.9-3.7 CALC A/G RATIO (test code = 2233) 1.6 RATIO 1.0-2.6 BILIRUBIN, TOTAL (test code = 2206) 0.3 MG/DL See_Comment [Automated me ssage] The system which generated this result transmitted reference range: <=1.2. The reference range was not used to interpret this result as normal/abnormal. ALKALINE PHOSPHATASE (test code = 2203) 90 U/L 40-112 AST (test code = 2218) 15 U/L 9-40 ALT (test code = 2219) 8 U/L 5-40 UNLESS OTHERWISE INDICATED, ALL TESTING PERFORMED AT [facility] [address] [place] [id number] PSYCH ASSISTANT: BURKE URIAS M.D. CLIA NUMBER [id number] [facility] [place] [id number] TROPONIN [id number] 04:34:24* Test Item Value Reference Range Interpretation Comme nts TROPONIN I (test code = 6378593640) 0.001 ng/mL <=0.034 ANDREA (test code = ANDREA) Reference (Normal) Range (defined by the 99th percentile reference limit): <= 0.034 ng/mL Note: Cardiac troponin begins to rise 3-4 hours after the onset of ischemia. Repeat in 4-6 hours if the sample was drawn within 3-4 hours of the onset of the symptom and found normal. Diagnosis of myocardial injury is made with acute changes in cTn concentrations with at least one serial sample above the 99th percentile upper reference limit (URL), taken together with the patient's clinical presentation. Biotin has been reported to cause a negative bias, interpret results relative to patient's use of biotin. Lab Interpretation (test code = 01514-9) Normal [facility]D-[id number] 04:30:42* Test Item Value Reference Range Interpretation Comments D-DIMER (test code = 5103085230) 0.28 See_Comment [Automated message] The system which generated this result transmitted reference range: <0.41 ?g/mL (FEU). The reference range was not used to interpret this result as normal/abnormal. ANDREA (test code = ANDREA) This test may be used in conjunction with a clinical pretest probability (PTP) assessment model to exclude venous thromboembolism (VTE) in patients suspected of deep venous thrombosis (DVT) and pulmonary embolism (PE) A D-Dimer value less than 0.50 ?g/ml (FEU) has a negative predicative value of 96 to 100% (95% CI)and 97 to 100% (95% CI) as an aid in the diagnosis of deep vein thrombosis (DVT) and pulmonary embolism when there is low or moderate pretest probability of PE or DVT. D-Dimer values are expressed in initial fibrinogen equivalent units (FEU)" The assay results should be used with other information, including the clinical context, in forming a diagnosis. Lab Interpretation (test code = 77528-5) Normal [facility] MET[facility]OLIC PANEL ([id number])2023-04-18 04:22:44* Test Item Value Reference Range Interpretation Comme nts NA (test code = 8440075650) 138 mmol/L 135-145 K (test code = 2840452200) 3.8 mmol/L 3.5-5.0 CL (test code = 2026177854) 108 mmol/L 98-108 CO2 TOTAL (test code = 9100794504) 23 mmol/L 23-31 AGAP (test code = 4085799465) 7 2-16 BUN (test code = 6834171943) 17 mg/dL 7-23 GLUCOSE (test code = 7003645161) 103 mg/dL 70-110 CREATININE (test code = 2700828083) 0.63 mg/dL 0.50-1.04 TOTAL BILI (test code = 5859069368) 0.3 mg/dL 0.1-1.1 CALCIUM (test code = 0508893216) 9.0 mg/dL 8.6-10.6 T PROTEIN (test code = 7658060453) 6.8 g/dL 6.3-8.2 ALBUMIN (test code = 5195171664) 3.7 g/dL 3.5-5.0 ALK PHOS (test code = 2969560867) 94 U/L 34-122 ALTv (test code = 1742-6) 12 U/L 5-35 AST(SGOT) (test code = 4891303092) 21 U/L 13-40 eGFR (test code = 4171960272) 105.8 mL/min/1.73m2 ANDREA (test code = ANDREA) Association of Glomerular Filtration Rate (GFR) and Staging of Kidney Disease* + + +- +| GFR (mL/min/1.73 m2) ?| With Kidney Damage ?| ?Without Kidney Damage+ ------+ ----+ ------+| ?>90 ?| ?Stage one ?| ? Normal ?+ -+ + -+| ?60-89 ?| ?Stage two ?| ? Decreased GFR ? + + +- +| ?30-59 ?| ?Stage three ?| ? Stage three ? + + +- +| ?15-29 ?| ?Stage four ? | ? Stage four ?+ -+ + -+| ?<15 (or dialysis) ? ?| ?Stage five ? | ? Stage five ?+ -+ + -+ *Each stage assumes the associated GFR level [...] or urine or abnormalities in imaging tests). [facility]2023-[facility] 04:22:44* Test Item Value Reference Range Interpretation Comme nts MAGNESIUM (test code = 5278703206) 1.5 mg/dL 1.7-2.4 L Lab Interpretation (test cod e = 95393-6) Abnormal [facility] HospitalCB WITH [id number] 04:10:22* Test Item Value Reference Range Interpretation Comme nts WBC (test code = 6690-2) 6.93 See_Comment [Automated [employer]] The system which generated this result transmitted reference range: 4.30 - 11.10 10*3/?L. The reference range was not used to interpret this result as normal/abnormal. RBC (test code = 789-8) 4.40 See_Comment [Automated [employer]] The system which generated this result transmitted reference range: 3.93 - 5.25 10*6/?L. The reference range was not used to interpret this result as normal/abnormal. HGB (test code = 718-7) 11.3 g/dL 11.6-15.0 L HCT (test code = 4544-3) 34.8 % 35.7-45.2 L MCV (test code = 787-2) 79.1 fL 80.6-95.5 L MCH (test code = 785-6) 25.7 pg 25.9-32.8 L MCHC (test code = 786-4) 32.5 g/dL 31.6-35.1 RDW-SD (test code = 39406-2) 34.6 fL 39.0-49.9 L RDW-CV (test code = 788-0) 12.0 % 12.0-15.5 PLT (test code = 777-3) 297 See_Comment [Automated messa ge] The system which generated this result transmitted reference range: 166 - 358 10*3/?L. The reference range was not used to interpret this result as normal/abnormal. MPV (test code = 72367-1) 11.8 fL 9.5-12.9 NRBC/100 WBC (test code = 7107334058) 0.0 See_Comment [Automated me ssage] The system which generated this result transmitted reference range: 0.0 - 10.0 /100 WBCs. The reference range was not used to interpret this result as normal/abnormal. NRBC x10^3 (test code = 2143311189) See_Comment [Automated messa ge] The system which generated this result transmitted reference range: 10*3/?L. The reference range was not used to interpret this result as normal/abnormal. GRAN MAT (NEUT) % (test code = 770-8) 43.5 % IMM GRAN % (test code = 4320464985) 0.30 % LYMPH % (test code = 736-9) 47.8 % MONO % (test code = 5905-5) 5.8 % EOS % (test code = 713-8) 2.2 % BASO % (test code = 706-2) 0.4 % GRAN MAT x10^3(ANC) (test code = 1507508232) 3.02 10*3/uL 1.88-7.09 IMM GRAN x10^3 (test code = 3201012560) 0.00-0.06 LYMPH x10^3 (test code = 731-0) 3.31 10*3/uL 1.32-3.29 H MONO x10^3 (test code = 742-7) 0.40 10*3/uL 0.33-0.92 EOS x10^3 (test code = 711-2) 0.15 10*3/uL 0.03-0.39 BASO x10^3 (test code = 704-7) 0.03 10*3/uL 0.01-0.07 Lab Interpretation (test code = 12072-5) Abnormal [facility]. METABOLIC PANEL ([id number])2022-11-23 13:38:11* Test Item Value Reference Range Interpretation Comme nts NA (test code = 0348000344) 137 mmol/L 135-145 K (test code = 8322879131) 4.5 mmol/L 3.5-5.0 CL (test code = 0177872585) 108 mmol/L 98-108 CO2 TOTAL (test code = 7264929725) 20 mmol/L 23-31 L AGAP (test code = 2567089859) 2-16 BUN (test code = 0498319886) 14 mg/dL 7-23 GLUCOSE (test code = 4072320838) 97 mg/dL 70-110 CREATININE (test code = 7868918015) 0.54 mg/dL 0.50-1.04 TOTAL BILI (test code = 8373951235) 0.7 mg/dL 0.1-1.1 CALCIUM (test code = 2775384369) 9.7 mg/dL 8.6-10.6 T PROTEIN (test code = 0824461029) 8.4 g/dL 6.3-8.2 H ALBUMIN (test code = 9600494103) 4.7 g/dL 3.5-5.0 ALK PHOS (test code = 4476508518) 119 U/L 34-122 ALTv (test code = 1742-6) 16 U/L 5-35 AST(SGOT) (test code = 5282875075) 28 U/L 13-40 eGFR (test code = 7957742612) mL/min/1.73m2 ANDREA (test code = ANDREA) Association [...] imaging tests). Lab Interpretation (test code = 98405-0) Abnormal [facility]2023-[facility] 13:37:31* Test Item Value Reference Range Interpretation Comme nts LIPASE (test code = 0886619122) 49 U/L 0-220 Lab Interpretation (test cod e = 08576-5) Normal [facility] WITH [id number] 13:21:08* Test Item Value Reference Range Interpretation Comme nts WBC (test code = 6690-2) See_Comment [Automated [employer]] The system which generated this result transmitted reference range: 4.30 - 11.10 10*3/?L. The reference range was not used to interpret this result as normal/abnormal. RBC (test code = 789-8) See_Comment [Automated [employer]] The system which generated this result transmitted reference range: 3.93 - 5.25 10*6/?L. The reference range was not used to interpret this result as normal/abnormal. HGB (test code = 718-7) 12.5 g/dL 11.6-15.0 HCT (test code = 4544-3) 39.6 % 35.7-45.2 MCV (test code = 787-2) 76.3 fL 80.6-95.5 L MCH (test code = 785-6) 24.1 pg 25.9-32.8 L MCHC (test code = 786-4) 31.6 g/dL 31.6-35.1 RDW-SD (test code = 84214-9) 35.0 fL 39.0-49.9 L RDW-CV (test code = 788-0) 12.7 % 12.0-15.5 PLT (test code = 777-3) See_Comment [Automated messa ge] The system which generated this result transmitted reference range: 166 - 358 10*3/?L. The reference range was not used to interpret this result as normal/abnormal. MPV (test code = 46724-4) 11.8 fL 9.5-12.9 NRBC/100 WBC (test code = 3709608102) See_Comment [Automated [employer]] The system which generated this result transmitted reference range: 0.0 - 10.0 /100 WBCs. The reference range was not used to interpret this result as normal/abnormal. NRBC x10^3 (test code = 8520339832) See_Comment [Automated messa ge] The system which generated this result transmitted reference range: 10*3/?L. The reference range was not used to interpret this result as normal/abnormal. GRAN MAT (NEUT) % (test code = 770-8) 61.7 % IMM GRAN % (test code = 2268485631) 0.40 % LYMPH % (test code = 736-9) 25.4 % MONO % (test code = 5905-5) 11.0 % EOS % (test code = 713-8) 1.1 % BASO % (test code = 706-2) 0.4 % GRAN MAT x10^3(ANC) (test code = 8018395180) 3.49 10*3/uL 1.88-7.09 IMM GRAN x10^3 (test code = 6548279852) 0.00-0.06 LYMPH x10^3 (test code = 731-0) 1.43 10*3/uL 1.32-3.29 MONO x10^3 (test code = 742-7) 0.62 10*3/uL 0.33-0.92 EOS x10^3 (test code = 711-2) 0.06 10*3/uL 0.03-0.39 BASO x10^3 (test code = 704-7) 0.01-0.07 Lab Interpretation (test code = 90506-1) Abnormal [facility] [id number] 13:13:00* Test Item Value Reference Range Interpretation Comme nts POCT PREG (test code = 1605) negative On board controls acceptable with C Line (test code = 3574) present Lab Interpretation (test cod e = 01300-3) Normal [facility] STIMULATING [id number] 01:50:00 * Test Item Value Reference Range Interpretation Comme nts TSH (test code = 9608724998) <0.02 See_Comment L Biotin has been reported to cause a negative bias, interpret results relative to patient's use of biotin. [Automated message] The system which generated this result transmitted reference range: 0.45 - 4.70 mIU/L. The reference range was not used to interpret this result as normal/abnormal. Lab Interpretation (test code = 98454-6) Abnormal [facility] [id number] 01:31:00* Test Item Value Reference Range Interpretation Comme nts BENZO U (test code = 7928394082) Negative Negative YADIEL U (test code = 5663012804) Negative Negative AMPHET (test code = 7265964820) Negative Negative THC (test code = 7571513476) Presumptive Positive Negative A Confirmation of Presumptive Positive THC result requires physician order. METHADONE (test code = 1025564121) Negative Negative Meth U (test code = 8967619084) Negative Negative OPIATES (test code = 4171869040) Negative Negative Cocaine Metabolite (test code = 2745740339) Negative Negative PROPOXY (test code = 1423305089) Negative Negative Tric U (test code = 0153236172) Negative Negative PCP (test code = 3768980807) Negative Negative OXYCOD (test code = 1280682839) Negative Negative ANDREA (test code = ANDREA) Urine Drug Cutoff Ranges Benzodiazepines: ? ? 150 ng/mLBarbiturates : [...] (e.g., employment testing, legal testing). Lab Interpretation (test code = 05171-0) Abnormal [facility] 1 [id number] 01:04:49No acute cardiopulmonary abnormality within the confines of radiographicimaging. Preliminary ReportDictated by Resident: Alec Giron MD., have reviewed this study and agree withthe abovereport.XR CHEST 1 VW HISTORY: 35 years-old; Female; chest pain COMPARISON: None TECHNIQUE:SINGLE VIEW CHEST RADIOGRAPH. FINDINGS: The lungs are well-expanded and clear with no focal consolidation. There isno pleural effusion or pneumothorax. The cardiac silhouette is within normal limits.There is no acute osseous abnormality. [facility], Radiant Results Inft User - 08/29/2020 8:05 PM CDTXR CHEST 1 VWHISTORY: 35 years-old; Female; chest pain COMPARISON: NoneTECHNIQUE: SINGLE VIEW CHEST RADIO GRAPH.FINDINGS:The lungs are well-expanded and clear with no focal consolidation. There isno pleural effusion or pneumothorax.The cardiac silhouette is within normal limits.There is no acute osseous a bnormality.IMPRESSIONNo acute cardiopulmonary abnormality within the confines of radiographicimaging.Preliminary Report Dictated by Resident: Alec Lan MD., have reviewed this study and agree with the abovereport. [facility]TR[facility] [id number] 01:03:00* Test Item Value Reference Range Interpretation Comme nts TROPONIN I (test code = 5960134840) <0.012 See_Comment [Automated message] The system which generated this result transmitted reference range: <=0.034 ng/mL. The reference range was not used to interpret this result as normal/abnormal. ANDREA (test code = ANDREA) Equal or Less than 0.034 ng/ml---Normal ?Note: Cardiac troponin begins to [...] patient's use of biotin. ? Lab Interpretation (test code = 44275-0) Normal [facility]. METABOLIC PANEL ([id number])2020-08-30 00:52:00* Test Item Value Reference Range Interpretation Comme nts NA (test code = 6659403417) 137 mmol/L 135-145 K (test code = 2589473163) 3.5 mmol/L 3.5-5 CL (test code = 9383994397) 103 mmol/L 98-108 CO2 TOTAL (test code = 7118247398) 19 mmol/L 23-31 L AGAP (test code = 7683892701) 2-16 BUN (test code = 7405801414) 17 mg/dL 7-23 GLUCOSE (test code = 5649439423) 112 mg/dL 70-110 H CREATININE (test code = 0298287071) 0.50 mg/dL 0.5-1.04 TOTAL BILI (test code = 8633482632) 0.7 mg/dL 0.1-1.1 CALCIUM (test code = 9684681899) 10.4 mg/dL 8.6-10.6 T PROTEIN (test code = 0654437881) 9.2 g/dL 6.3-8.2 H ALBUMIN (test code = 4281833479) 4.8 g/dL 3.5-5 ALK PHOS (test code = 2590572861) 163 U/L 34-122 H ALTv (test code = 1742-6) 17 U/L 5-35 AST(SGOT) (test code = 8680542988) 33 U/L 13-40 eGFR Calculation (Non-) (test code = 7845216091) mL/min/1.73m2 eGFR Calculation () (test code = 3824960745) mL/min/1.73m2 ANDREA (test code = ANDREA) Association [...] imaging tests). Lab Interpretation (test code = 16694-9) [facility] [id number] 00:51:00* Test Item Value Reference Range Interpretation Comme [facility] LIPASE (test code = 6558776256) 54 U/L 0-220 Lab Interpretation (test cod e = 69108-3) Normal [facility] 00:48:00* Test Item Value Reference Range Interpretation Comme [facility] APTT Patient (test code = 3173-2) See_Comment [Automated message] The system which generated this result transmitted reference range: 23 - 38 Seconds. The reference range was not used to interpret this result as normal/abnormal. ANDREA (test code = ANDREA) The [facility] patient population mean normal value for aPTT is 30 seconds. Lab Interpretation (test code = 67472-9) Normal [facility] / [id number] 00:46:00* Test Item Value Reference Range Interpretation Comme nts PROTIME PATIENT (test code = 5964-2) See_Comment [Automated [employer]] The system which generated this result transmitted reference range: 12.0 - 14.7 Seconds. The reference range was not used to interpret this result as normal/abnormal. INR (test code = 6301-6) Normal INR <1.1; Warfarin Therapeutic range 2.0 to 3.0 or 2.5 to 3.5, depending upon the indications. Lab Interpretation (test code = 16582-8) Normal [facility] 00:43:00* Test Item Value Reference Range Interpretation Comme nts APPEARANCE (test code = 4582709694) Hazy Clear A COLOR (test code = 2979583456) Nirmala Yellow A PH (test code = 9077633423) 4.8-8.0 SP GRAVITY (test code = 1198578145) 1.003-1.030 GLU U QUAL (test code = 3358575801) Normal Normal BLOOD (test code = 9882297627) 3+ Negative A KETONES (test code = 3165464407) 20 mg/dL Negative A PROTEIN (test code = 2887-8) 100 mg/dL Negative A UROBILIN (test code = 1131188618) 2.0 mg/dL Normal A BILIRUBIN (test code = 4751532410) Negative Negative NITRITE (test code = 5399760902) Negative Negative LEUK PARTH (test code = 6707493616) Negative Negative RBC/HPF (test code = 2773729147) See_Comment H [Automated [employer]] The system which generated this result transmitted reference range: 0 - 3 HPF. The reference range was not used to interpret this result as normal/abnormal. WBC/HPF (test code = 0034968642) See_Comment H [Automated [employer]] The system which generated this result transmitted reference range: 0 - 5 HPF. The reference range was not used to interpret this result as normal/abnormal. BACTERIA (test code = 7827466124) Moderate Negative A MUCOUS (test code = 9205269127) Marked Negative LPF A SQ EPITH (test code = 1102446180) HPF HYAL CAST (test code = 8919434680) See_Comment H [Automated messa ge] The system which generated this result transmitted reference range: <=2 LPF. The reference range was not used to interpret this result as normal/abnormal. Lab Interpretation (test code = 25023-3) Abnormal [facility] WITH [id number] 00:35:00* Test Item Value Reference Range Interpretation Comme nts WBC (test code = 6690-2) See_Comment [Automated messa ge] The system which generated this result transmitted reference range: 4.30 - 11.10 10*3/?L. The reference range was not used to interpret this result as normal/abnormal. RBC (test code = 789-8) See_Comment H [Automated messa ge] The system which generated this result transmitted reference range: 3.93 - 5.25 10*6/?L. The reference range was not used to interpret this result as normal/abnormal. HGB (test code = 718-7) 13.9 g/dL 11.6-15 HCT (test code = 4544-3) 44.0 % 35.7-45.2 MCV (test code = 787-2) 74.3 fL 80.6-95.5 L MCH (test code = 785-6) 23.5 pg 25.9-32.8 L MCHC (test code = 786-4) 31.6 g/dL 31.6-35.1 RDW-SD (test code = 40131-3) 34.2 fL 39-49.9 L RDW-CV (test code = 788-0) 12.9 % 12-15.5 PLT (test code = 777-3) See_Comment H [Automated messa ge] The system which generated this result transmitted reference range: 166 - 358 10*3/?L. The reference range was not used to interpret this result as normal/abnormal. MPV (test code = 38678-0) 11.7 fL 9.5-12.9 NRBC/100 WBC (test code = 6701358451) See_Comment [Automated me ssage] The system which generated this result transmitted reference range: 0.0 - 10.0 /100 WBCs. The reference range was not used to interpret this result as normal/abnormal. NRBC x10^3 (test code = 6881012813) <0.01 See_Comment [Automated messa ge] The system which generated this result transmitted reference range: 10*3/?L. The reference range was not used to interpret this result as normal/abnormal. GRAN MAT (NEUT) % (test code = 770-8) 47.0 % IMM GRAN % (test code = 1980686047) 0.30 % LYMPH % (test code = 736-9) 44.9 % MONO % (test code = 5905-5) 7.2 % EOS % (test code = 713-8) 0.3 % BASO % (test code = 706-2) 0.3 % GRAN MAT x10^3(ANC) (test code = 2167084125) 3.21 10*3/uL 1.88-7.09 IMM GRAN x10^3 (test code = 7294349939) <0.03 0-0.06 LYMPH x10^3 (test code = 731-0) 3.07 10*3/uL 1.32-3.29 MONO x10^3 (test code = 742-7) 0.49 10*3/uL 0.33-0.92 EOS x10^3 (test code = 711-2) <0.03 0.03-0.39 L BASO x10^3 (test code = 704-7) <0.03 0.01-0.07 Lab Interpretation (test code = 02826-7) [facility]normal [facility] 17:52:00* Test Item Value Reference Range Interpretation Comme nts APPEARANCE (test code = 2803531638) Cloudy Clear A COLOR (test code = 6687208281) Yellow Yellow PH (test code = 7156916955) 4.8-8.0 SP GRAVITY (test code = 7397042610) 1.003-1.030 GLU U QUAL (test code = 2124657458) Normal Normal BLOOD (test code = 5178404589) 3+ Negative A KETONES (test code = 9327373500) Negative Negative PROTEIN (test code = 2887-8) 100 mg/dL Negative A UROBILIN (test code = 2404833442) 4.0 mg/dL Normal A BILIRUBIN (test code = 8444751513) Negative Negative NITRITE (test code = 5461209346) Positive Negative A LEUK PARTH (test code = 3379606048) 500/uL Negative A RBC/HPF (test code = 0736464902) >182 See_Comment H [Automated messa ge] The system which generated this result transmitted reference range: 0 - 3 HPF. The reference range was not used to interpret this result as normal/abnormal. WBC/HPF (test code = 4821942157) >182 See_Comment H [Automated messa ge] The system which generated this result transmitted reference range: 0 - 5 HPF. The reference range was not used to interpret this result as normal/abnormal. BACTERIA (test code = 4306166032) Many Negative A SQ EPITH (test code = 5976688004) HPF WBC CLUMPS (test code = 3566443382) See_Comment H [Automated messa ge] The system which generated this result transmitted reference range: <=1 HPF. The reference range was not used to interpret this result as normal/abnormal. Lab Interpretation (test code = 01497-1) Abnormal [facility]PO[facility] [id number] 17:16:00* Test Item Value Reference Range Interpretation Comme nts POCT PREG (test code = 1605) negative On board controls acceptable with C Line (test code = 3574) present POCT PREG LOT # (test code = 3575) [id number] POCT PREG TEST DATE ( test code = 3576) 2021-06-09 Lab Interpretation (test cod e = 34619-0) Normal [facility] HEAD WO HDLRDXTL2785-66-53 10:48:25No acute intracranial abnormality.? RL: 5252 CT HEAD [...] 5:50 AM CDTCT HEAD WITHOUTORDERING PHYSICIAN: SHWETA MCKEONMAHISTORY: Acute headacheCOMPARIS ON: noneTECHNIQUE: CT of the head without contrastThe Technique was utilized with ALARA (as low as reasonably achievable)protocol.FINDINGS:There is no acute intracranial hemorrhage. No extra axial fluidcollections.No midline shift. Ventricles are normal in size and symmetric.The garcia-white matter di fferentiation is preserved. The visualizedparanasal sinuses and mastoid air cells are clear. Osseous structures areunremarkable. IMPRESSIONNo acute intracranial abnormality. [facility] 10:41:00* Test Item Value Reference Range Interpretation Comme nts APPEARANCE (test code = 0403340609) Clear Clear COLOR (test code = 6903344352) Yellow Yellow PH (test code = 7453438236) 4.8-8.0 SP GRAVITY (test code = 0665810053) >=1.030 1.003-1.030 GLU U QUAL (test code = 5910026729) Negative Negative BLOOD (test code = 2516030353) Moderate Negative A KETONES (test code = 3679175075) Negative Negative PROTEIN (test code = 2887-8) Negative Negative UROBILIN (test code = 6392118765) 1.0 mg/dL See_Comment [Automated [employer]] The system which generated this result transmitted reference range: 0-1.0 mg/dL. The reference range was not used to interpret this result as normal/abnormal. BILIRUBIN (test code = 4634902657) Negative Negative NITRITE (test code = 0865884080) Negative Negative LEUK PARTH (test code = 7160598449) Negative Negative RBC/HPF (test code = 4338475703) See_Comment H [Automated [employer]] The system which generated this result transmitted reference range: 0 - 3 HPF. The reference range was not used to interpret this result as normal/abnormal. WBC/HPF (test code = 0993388346) See_Comment [Automated [employer]] The system which generated this result transmitted reference range: 0 - 5 HPF. The reference range was not used to interpret this result as normal/abnormal. BACTERIA (test code = 6999595333) Few Negative A MUCOUS (test code = 7791444317) Slight Negative LPF A Lab Interpretation (test code = 06000-3) Abnormal [facility] METABOLIC PANEL (NA, K, CL, CO2, GLUCOSE, BUN, CREATININE, CA)2019-06-23 10:17:00* Test Item Value Reference Range Interpretation Comme nts NA (test code = 6568741745) 143 mmol/L 135-145 K (test code = 3641642190) 3.4 mmol/L 3.5-5 L CL (test code = 9050913616) 110 mmol/L 98-108 H CO2 TOTAL (test code = 1343352612) 25 mmol/L 23-31 AGAP (test code = 3303871028) 2-16 BUN (test code = 4189357362) 12 mg/dL 7-23 GLUCOSE (test code = 5354267910) 91 mg/dL 70-110 CREATININE (test code = 6822935469) 0.46 mg/dL 0.5-1.04 L CALCIUM (test code = 7085127170) 9.4 mg/dL 8.6-10.6 eGFR Calculation (Non-) (test code = 7465977080) mL/min/1.73m2 eGFR Calculation () (test code = 7600289202) mL/min/1.73m2 ANDREA (test code = ANDREA) Association [...] imaging tests). Lab Interpretation (test code = 58904-3) Abnormal [facility] WITH ZUIHJWVBOAPZ2744-72-70 10:01:00* Test Item Value Reference Range Interpretation Comme nts WBC (test code = 6690-2) See_Comment [Automated [employer] Bootsa ge] The system which generated this result transmitted reference range: 4.30 - 11.10 10*3/?L. The reference range was not used to interpret this result as normal/abnormal. RBC (test code = 789-8) See_Comment [Automated [employer]] The system which generated this result transmitted reference range: 3.93 - 5.25 10*6/?L. The reference range was not used to interpret this result as normal/abnormal. HGB (test code = 718-7) 11.5 g/dL 11.6-15 L HCT (test code = 4544-3) 35.9 % 35.7-45.2 MCV (test code = 787-2) 79.8 fL 80.6-95.5 L MCH (test code = 785-6) 25.6 pg 25.9-32.8 L MCHC (test code = 786-4) 32.0 g/dL 31.6-35.1 RDW-SD (test code = 60999-8) 35.1 fL 39-49.9 L RDW-CV (test code = 788-0) 12.1 % 12-15.5 PLT (test code = 777-3) See_Comment [Automated [employer]] The system which generated this result transmitted reference range: 166 - 358 10*3/?L. The reference range was not used to interpret this result as normal/abnormal. MPV (test code = 95988-4) 11.7 fL 9.5-12.9 NRBC/100 WBC (test code = 4544241545) See_Comment [Automated [employer] ss[employer]] The system which generated this result transmitted reference range: 0.0 - 10.0 /100 WBCs. The reference range was not used to interpret this result as normal/abnormal. NRBC x10^3 (test code = 8786280657) <0.01 See_Comment [Automated messa ge] The system which generated this result transmitted reference range: 10*3/?L. The reference range was not used to interpret this result as normal/abnormal. GRAN MAT (NEUT) % (test code = 770-8) 49.5 % IMM GRAN % (test code = 6225146735) 0.40 % LYMPH % (test code = 736-9) 40.7 % MONO % (test code = 5905-5) 8.3 % EOS % (test code = 713-8) 0.7 % BASO % (test code = 706-2) 0.4 % GRAN MAT x10^3(ANC) (test code = 8441748656) 2.75 10*3/uL 1.88-7.09 IMM GRAN x10^3 (test code = 3506892520) <0.03 0-0.06 LYMPH x10^3 (test code = 731-0) 2.26 10*3/uL 1.32-3.29 MONO x10^3 (test code = 742-7) 0.46 10*3/uL 0.33-0.92 EOS x10^3 (test code = 711-2) 0.04 10*3/uL 0.03-0.39 BASO x10^3 (test code = 704-7) <0.03 0.01-0.07 Lab Interpretation (test code = 17467-2) Abnormal [facility]PO[facility] [id number] 09:54:00* Test Item Value Reference Range Interpretation Comme nts POCT PREG (test code = 1605) negative On board controls acceptable with C Line (test code = 3574) yes POCT PREG LOT # (test code = 3575) [id number] POCT PREG TEST DATE ( test code = 3576) 11/09/2020 Lab Interpretation (test cod e = 90980-6) Normal [facility] Notes Date/Time Note Provider Source 2023-11-23 03:37:37 e/PWROOcoknkp1cFWD7EYmnSZH4nXn2DuAdPK uFhALgcYhlgbjDf/zQhW7DkAIqK3294-76-38 T03:37:37 Pt discharged home following ERP eval. Pt was given all education and information regarding s/s of worsening condition, prescription use, and importance of follow up. Pt verbalized understanding. Alert and ambulatory to pov. VSS. 67962-3Xvszxlhos department SdruNF1955-83-77N20:38:35[facility] NoteTXT1.2.840.398715.1.13.104.2.7.2. 708474|[id number] for patient mwqv11086-2IexnVDSGSAUPYRYJimekfaod C-CDA narrative [id number] A Paul RN[address] Yr[id number] RHRROPHUIAWGWTVLSJBSE3662-29-79Z81:38 :351.2.840.007303.1.72.3.15|1.2.840.1 [id number] 6 Bernard Hyman RN [facility] 2023-11-22 23:24:00 46Nn1N/h0M4TFL1vX/TCNw3GsN9h89QFlEvjC Hcfl8GfHaXotntuFqyWroO5+U8m0935-21-61 T23:24:00 Pt arrives ambulatory to ED reporting that she was @ work and began experiencing chest tightness and SOB. States that her head felt cold and her body felt hot, she became scared and came in.Has hx of hyperthyroidism 38748-4Cfxkyjrww department Triage bygmHW9270-61-90F03:28:00[facility] Triage noteTXT1.2.840.472384.1.13.104.2.7.2. [id number] for patient fzkm94155-6Wvucwyhyc department NoteLNNARRATIVEFormatted C-CDA narrative text[address] Ji[id number] ZRQSDAYTRFHUTFMSEZESO4523-93-07G37:28 :001.2.840.268835.1.72.3.15|1.2.840.1 [id number] 3 [facility]
[2023-12-21] MEDS ORDERED: PANTOPRAZOLE 40 MG INJ ONE (12:24)
[2023-12-21] MEDS ORDERED: ONDANSETRON 4 MG/2 ML VIAL ONE ×2 (12:24→17:09)
[2023-12-21] MEDS ORDERED: NA CHLORIDE 0.9% 1,000 ML ONE (12:25)
[2023-12-21] MEDS ORDERED: MORPHINE 4 MG/ML SYR ONE (12:25)
[2023-12-21 12:33] LABS: Absolute Lymphocytes (CBC) 2.6 K/uL (0.7-4.9); Hematocrit 36.7 % (36.0-45.0); Lymphocytes % 44.5 % (15.3-44.8); MCV 77.1 fL (80-100); MPV 9.8 fL (7.6-11.3); Platelets 286 thou/uL (152-406); RBC Red Blood Cell Count 4.76 M/uL (3.86-4.86)
[2023-12-21 13:17] LABS: ALT/SGPT 15 U/L (13-56); AST/SGOT 17 U/L (15-37); Albumin 3.4 g/dL (3.4-5.0); Alkaline Phosphatase 93 U/L (45-117); BUN Blood Urea Nitrogen 19 mg/dL (7-18); Bicarbonate 24 mEq/L (21-32); Bilirubin Total 0.5 mg/dL (0.2-1.0); Glomerular Filtration Rate 110 ml/min (=/>90); Glucose Level 95 mg/dL (74-106); Lipase 21 U/L (13-75); Potassium 3.5 mEq/L (3.5-5.1); Protein, Total 7.9 g/dL (6.4-8.2); Sodium Level 135 mEq/L (136-145); Thyroid Stimulating Hormone < 0.005 uIU/mL (0.358-3.740)
[2023-12-21 13:44] LABS: Specific Gravity 1.009 (1.005-1.030)
[2023-12-21 13:47] LABS: Specific Gravity 1.009 (1.005-1.030); Urine Bacteria None Seen /HPF (<20); Urine Bilirubin NEGATIVE (Negative); Urine Blood 2+ (Negative); Urine Clarity Turbid (Clear); Urine Color Light-Yellow (Yellow); Urine Glucose NEGATIVE (Negative); Urine Mucus Slight /HPF (None Seen); Urine Protein NEGATIVE (Negative); Urine Urobilinogen Normal (Normal)
--- NOTE | 2023-12-21 13:55 | RAD REPORT ---
EXAM DESCRIPTION: CTAbdomen Pelvis W Contrast - 12/21/2023 1:46 pm CLINICAL HISTORY: Abdominal pain. ABD PAIN COMPARISON: CT ABD PELVIS W CONTRAST dated 09/21/2013 TECHNIQUE: Biphasic CT imaging of the abdomen and pelvis was performed with 100 ml non-ionic IV cont rast. All CT scans are performed using dose optimization technique as appropriate and may include automated exposure control or mA/KV adjustment according to patient size. FINDINGS: The lung bases are clear. The liver, spleen, pancreas, adrenal glands and kidneys are within normal limits. No bowel obstruction, free air, free fluid or abscess. Mild thickening of the colon is seen in the he patic flexure as well as the ascending colon. A few small lymph nodes are present in the right lower quadrant. The appendix is normal. Fibroid uterus. Asymmetric thickening of the anterior urinary bladd er wall measuring up to 7 mm on the right. No suspicious bony findings. IMPRESSION: The findings would favor a colitis pattern, predominately involving the right colon. Aft er appropriate treatment, colonoscopy would be recommended for direct visualization of this region. Asymmetric thickening the anterior urinary bladder wall. Consider cystoscopy for direct visualization of this region. Fibroid uterus.
--- NOTE | 2023-12-21 14:30 | EDPHYS ---
Physician Documentation [facility] Name: Tran Ocampo Age: 38 yrs Sex: Female : 1985 Arrival Date: 12/21/2023 Time: 12:02 Bed 15 Private MD: ED Physician Vu Scales HPI: 12/21 12:25 This 38 yrs old Black Female presents to ER via Ambulatory with complaints of ec2 Black/Tarry Stools, Abdominal Pain. 12:25 Patient arrives today for abdominal pain and dark-colored stools. Reports that she has ec2 been experiencing the symptoms for 2 days. Reports decreased p.o. intake with associated nausea and no vomiting. Reports some upper abdominal pain. Patient reports previous abdominal surgeries including . Reports no urinary complaints. Patient with history of Graves' disease, on methimazole and atenolol. . 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 - Social history:: Smoking status: Reported history of juuling and/or vaping. ROS: 12:25 Constitutional: as per hpi ec2 Exam: 12:25 Constitutional: GEN: NAD Head: atraumatic Eyes: EOMI Ears: External ears are ec2 normal. CV: Tachycardia LUNGS: no respiratory distress ABD: non-distended, soft, generally tender, not guarding, not rigid SKIN: no evidence of rashes MSK: no evidence of trauma NEURO: moves all extremities equally Vital Signs: 12:15 BP 158 / 95; Pulse 101; Resp 18 S; Temp 98.2(O); Pulse Ox 98% on R/A; Weight 68.04 kg as6 (R); Height 5 ft. 3 in. (R); Pain 10/10; 14:03 Pulse 90; ec2 15:20 BP 147 / 96; Pulse 81; Resp 17; Pulse Ox 99% on R/A; rs5 16:01 BP 144 / 99; Pulse 78; Resp 17; Pulse Ox 99% on R/A; rs5 18:01 BP 151 / 90; Pulse 80; Resp 17; Pulse Ox 99% on R/A; rs5 12:15 Body Mass Index 26.57 (68.04 kg, 160.02 cm) as6 12:15 Pain Scale: Adult as6 MDM: 12:15 Patient medically screened. ec2 12:25 Data reviewed: vital signs, nurses notes. ED course: Patient arrives today for ec2 evaluation of abdominal pain and dark stools. Examination remarkable for abdominal findings as noted above as well as tachycardia. She does have sample of dark-colored stool. It is black in color. Will obtain lab work, give the patient Protonix, obtain CT imaging.. 13:50 ED course: Metabolic profile reassuring, urine is noninfectious appearing. Free T4 ec2 minimally elevated. Lipase within normal ranges, negative testing. Patient otherwise not markedly tachycardic and hypertensive to suggest thyrotoxic storm. . 14:27 ED course: CT imaging shows colitis. Will admit as she describes persistent pain. ec2 Discussed case with hospitalist, pending admission.. 12/21 12:22 Order name: CBC with Diff; Complete Time: 12:51 ec2 12/21 12:22 Order name: CMP; Complete Time: 13:48 ec2 12/21 12:22 Order name: Lipase; Complete Time: 13:48 ec2 12/21 12:22 Order name: Test, Urine; Complete Time: 13:48 ec2 12/21 12:22 Order name: Urinalysis w/ reflexes; Complete Time: 13:48 ec2 12/21 12:22 Order name: TSH; Complete Time: 13:48 ec2 12/21 12:22 Order name: T4 Free; Complete Time: 13:48 ec2 12/21 18:07 Order name: CBC with Automated Diff EDMS 12/21 18:07 Order name: CBC with Automated Diff EDMS 12/21 18:07 Order name: Comprehensive Metabolic Panel EDMS 12/21 18:07 Order name: Comprehensive Metabolic Panel EDMS 12/21 18:07 Order name: Protime (+INR) EDMS 12/21 18:07 Order name: Protime (+INR) EDMS 12/21 18:07 Order name: PTT, Activated Partial Thromb EDMS 12/21 18:07 Order name: PTT, Activated Partial Thromb EDMS 02/11 12:22 Order name: CT Abd/Pelvis - IV Contrast Only; Complete Time: 13:56 ec2 12/21 18:07 Order name: CONS Physician Consult EDMS 12/21 12:22 Order name: IV Saline Lock; Complete Time: 12:22 ec2 12/21 12:22 Order name: Labs collected and sent; Complete Time: 12:22 ec2 Administered Medications: 12:23 Drug: NS 0.9% IV 1000 ml IV at 1 bolus Per protocol; 1000 mL bolus Route: IV; Rate: 1 rs5 bolus; Site: right antecubital; 12:41 Follow up: Response: No adverse reaction rs5 12:23 Drug: Ondansetron IVP 4 mg IVP once; over 2 minutes Route: IVP; Site: right antecubital;rs5 12:40 Follow up: Response: No adverse reaction; Nausea is decreased rs5 12:23 Drug: morphine IVP or IV 4 mg IVP once over 4 mins Route: IVP; Infused Over: 4 mins; rs5 Site: right antecubital; 12:40 Follow up: Response: No adverse reaction; Pain is decreased rs5 12:23 Drug: Pantoprazole IVP 80 mg IVP once Route: IVP; Site: right antecubital; rs5 12:41 Follow up: Response: No adverse reaction rs5 Disposition Summary: 12/21/23 14:28 Hospitalization Ordered Notes: Hospitalization Status: Inpatient Admission ec2 Provider: Fish Potter ec2 Location: Telemetry/[facility] (Inpatient) ec2 Condition: Stable ec2 Problem: new ec2 Symptoms: have improved ec2 Bed/Room Type: Standard ec2 Room Assignment: 409(12/21/23 18:13) eb Diagnosis - Indeterminate colitis ec2 Forms: - Medication Reconciliation Form ec2 - SBAR form ec2 - Leadership Thank You Letter ec2 Signatures: Dispatcher [employer] [facility] Beti Wagner Ashby, RN RN as6 Zay Reeves RN RN rs5 Vu Scales MD MD ec2 Corrections: (The following items were deleted from the chart) 14:02 13:50 ED course: Metabolic profile reassuring, urine is noninfectious appearing. Free ec2 T4 cell elevated at 3.39. Lipase within normal ranges, negative testing. Patient otherwise not markedly tachycardic and hypertensive. . ec2 14:02 12:25 Patient arrives today for abdominal pain and dark-colored stools. Reports that ec2 she has been experiencing the symptoms for 2 days. Reports decreased p.o. intake with associated nausea and no vomiting. Reports some upper abdominal pain. Patient reports previous abdominal surgeries including . Reports no urinary complaints. Also reports weight loss over the past several weeks. Patient with history of Graves' disease, on methimazole and atenolol. . ec2 18:13 14:28 ec2 eb
--- NOTE | 2023-12-21 14:30 | ER ---
Nurse's Notes [facility] Name: Tran Ocampo Age: 38 yrs Sex: Female : 1985 Arrival Date: 12/21/2023 Time: 12:02 Bed 15 Private MD: Diagnosis: Indeterminate colitis Presentation: 12/21 12:17 Chief complaint: Patient states: abdominal pain x2 days with black stools that started as6 last night. pt also states that she has had unintentional weight loss over the last 2 weeks. Coronavirus screen: At this time, the client does not indicate any symptoms associated with coronavirus-19. Ebola Screen: No symptoms or risks identified at this time. Initial Sepsis Screen: Does the patient meet any 2 criteria? No. Patient's initial sepsis screen is negative. Does the patient have a suspected source of infection? No. Patient's initial sepsis screen is negative. Risk Assessment: Do you want to hurt yourself or someone else? Patient reports no desire to harm self or others. Onset of symptoms was December 19, 2023. 12:17 Method Of Arrival: Ambulatory as6 12:17 Acuity: ILIA 3 as6 PEARLER: 12:15 LMP 12/16/2023, unknown as6 Historical: - Allergies: 12:17 NKDA; as6 - PMHx: 12:17 Hypertensive disorder; grave's ( section); as6 - PSHx: 12:17 section; as6 - Immunization history:: Adult Immunizations up to date. - Social history:: Smoking status: Reported history of juuling and/or vaping. Screenin:01 [facility] ED Fall Risk Assessment (Adult) History of falling in the last 3 months, rs5 including since admission No falls in past 3 months (0 pts) Confusion or Disorientation No (0 pts) Intoxicated or Sedated No (0 pts) Impaired Gait No (0 pts) Mobility Assist Device Used No (0 pt) Altered Elimination No (0 pt) Score/Fall Risk Level 0 - 2 = Low Risk Oriented to surroundings, Maintained a safe environment. Abuse screen: Denies threats or abuse. Nutritional screening: No deficits noted. Tuberculosis screening: No symptoms or risk factors identified. Assessment: 12:10 General: Appears distressed, uncomfortable, Behavior is cooperative. Pain: Complains of rs5 pain in abdomen Pain currently is 10 out of 10 on a pain scale. Quality of pain is described as aching, Pain began 2-3 days ago. Is continuous. Neuro: Level of Consciousness is awake, alert, obeys commands, Oriented to person, place, time, situation. Cardiovascular: Patient's skin is warm and dry. Rhythm is regular. Respiratory: Respiratory effort is even, unlabored, Respiratory pattern is regular, symmetrical. GI: Abdomen is round non-distended, Bowel sounds present X 4 quads. Abd is soft and non tender X 4 quads. GI: Reports nausea, 3 black dark tarry stools in past two days. : No signs and/or symptoms were reported regarding the genitourinary system. EENT: No signs and/or symptoms were reported regarding the EENT system. Derm: Skin is intact, Skin is dry, Skin is normal. Musculoskeletal: Circulation, motion, and sensation intact. Range of motion: intact in all extremities. 13:05 Reassessment: Patient and/or family updated on plan of care and expected duration. Pain rs5 level reassessed. Patient is alert, oriented x 3, equal unlabored respirations, skin warm/dry/pink. Patient denies pain at this time. Patient states feeling better. Patient states symptoms have improved. 15:10 General: Appears distressed, uncomfortable. Pain: Complains of pain in abdomen Pain rs5 currently is 8 out of 10 on a pain scale. Quality of pain is described as aching, Pain began gradually, Is continuous. Respiratory: Respiratory effort is even, unlabored, Respiratory pattern is regular, symmetrical. GI: Reports nausea. 15:15 Reassessment: Dr. Potter notified pt is experiencing pain, instructed to adm 2 mg rs5 morphine and 4 mg zofran per md orders. 15:17 Reassessment: to bedside for med adm. rs5 16:01 Reassessment: Patient and/or family updated on plan of care and expected duration. Pain rs5 level reassessed. Patient is alert, oriented x 3, equal unlabored respirations, skin warm/dry/pink. Patient denies pain at this time. Patient states feeling better. Patient states symptoms have improved. 16:01 General: Appears in no apparent distress. comfortable, Behavior is calm, cooperative. rs5 GI: Patient currently denies nausea, pain. 17:10 Reassessment: No changes from previously documented assessment. rs5 18:05 Reassessment: Patient and/or family updated on plan of care and expected duration. Pain rs5 level reassessed. Patient is alert, oriented x 3, equal unlabored respirations, skin warm/dry/pink. Vital Signs: 12:15 BP 158 / 95; Pulse 101; Resp 18 S; Temp 98.2(O); Pulse Ox 98% on R/A; Weight 68.04 kg as6 (R); Height 5 ft. 3 in. (R); Pain 10/10; 14:03 Pulse 90; ec2 15:20 BP 147 / 96; Pulse 81; Resp 17; Pulse Ox 99% on R/A; rs5 16:01 BP 144 / 99; Pulse 78; Resp 17; Pulse Ox 99% on R/A; rs5 18:01 BP 151 / 90; Pulse 80; Resp 17; Pulse Ox 99% on R/A; rs5 12:15 Body Mass Index 26.57 (68.04 kg, 160.02 cm) as6 12:15 Pain Scale: Adult as6 ED Course: 12:04 Patient arrived in ED. im 12:07 Vu Scales MD is Attending Physician. ec2 12:12 Zay Reeves RN is Primary Nurse. rs5 12:15 Arm band placed on. as6 12:19 Triage completed. as6 12:19 Patient has correct armband on for positive identification. Placed in gown. Bed in low rs5 position. Call light in reach. Side rails up X2. 12:19 No provider procedures requiring assistance completed. rs5 12:19 Inserted saline lock: 22 gauge in right antecubital area, using aseptic technique. ds4 Blood collected. 13:48 CT Abd/Pelvis - IV Contrast Only In Process Unspecified. EDMS 14:28 Fish Potter MD is Hospitalizing Provider. ec2 18:25 Patient admitted, IV remains in place. rs5 Administered Medications: 12:23 Drug: NS 0.9% IV 1000 ml IV at 1 bolus Per protocol; 1000 mL bolus Route: IV; Rate: 1 rs5 bolus; Site: right antecubital; 12:41 Follow up: Response: No adverse reaction rs5 12:23 Drug: Ondansetron IVP 4 mg IVP once; over 2 minutes Route: IVP; Site: right antecubital;rs5 12:40 Follow up: Response: No adverse reaction; Nausea is decreased rs5 12:23 Drug: morphine IVP or IV 4 mg IVP once over 4 mins Route: IVP; Infused Over: 4 mins; rs5 Site: right antecubital; 12:40 Follow up: Response: No adverse reaction; Pain is decreased rs5 12:23 Drug: Pantoprazole IVP 80 mg IVP once Route: IVP; Site: right antecubital; rs5 12:41 Follow up: Response: No adverse reaction rs5 Medication: 12:19 VIS not applicable for this client. rs5 Outcome: 14:28 Decision to Hospitalize by Provider. ec2 18:25 Admitted to Med/surg accompanied by tech, rs5 18:25 Condition: stable 18:25 Instructed on the need for admit, Demonstrated understanding of instructions, 19:28 Patient left the ED. kc6 Signatures: Dispatcher [employer] EDMS Bentley Finch ds4 Yoandy Earl RN RN as6 Breann Ott RN RN kc6 Zay Reeves RN RN rs5 Monika Yao Edwin, MD MD ec2 Corrections: (The following items were deleted from the chart) 14:25 12:10 Pain: Complains of pain in mid-epigastrum Pain currently is 10 out of 10 on a rs5 pain scale. Quality of pain is described as aching, Pain began 2-3 days ago. Is continuous, rs5 18:25 17:02 BP 144 / 99; Pulse 78bpm; Resp 17bpm; Pulse Ox 99% RA; rs5 rs5
[2023-12-21] MEDS ORDERED: MORPHINE 2 MG/ML SYR ONE (17:10)
[2023-12-21] MEDS ORDERED: ACETAMINOPHEN 500 MG TAB PO PRN (18:03)
[2023-12-21] MEDS ORDERED: SODIUM CHLORIDE 0.9% 10ML INJ IV PRN (18:05)
[2023-12-21] MEDS: PANTOPRAZOLE 40 MG INJ IVP SCH (20:03)
[2023-12-21] MEDS: NA CHLORIDE 0.9% 1,000 ML IV SCH (20:03)
[2023-12-21 21:50] VITALS: BMI 26.5
[2023-12-22] MEDS: PIPER TAZO 3.375 GM in NA CHLORIDE 0.9% 100 ML IV SCH (00:03)
[2023-12-22] MEDS: MORPHINE 2 MG/ML SYR IV PRN (00:51)
[2023-12-22] MEDS: ONDANSETRON 4 MG/2 ML VIAL IV PRN (01:38)
[2023-12-22 06:37] LABS: Hematocrit 33.4 % (36.0-45.0); Lymphocytes % 41.5 % (15.3-44.8); MCV 77.2 fL (80-100); MPV 10.8 fL (7.6-11.3); Platelets 224 thou/uL (152-406); RBC Red Blood Cell Count 4.33 M/uL (3.86-4.86)
[2023-12-22 06:51] LABS: Bilirubin Total 0.5 mg/dL (0.2-1.0); Potassium 4.1 mEq/L (3.5-5.1); Protein, Total 6.7 g/dL (6.4-8.2)
[2023-12-22 06:52] LABS: Protime INR 1.11
--- NOTE | 2023-12-22 12:30 | P.PN ---
Subjective Date of Service: 12/22/23 Pt is resting comfortably in bed. She complains of upper abdominal pain. CT abd shows colitis. She had melena at home. Of note, pt took a lot of NSAIDs at home. Waiting for GI eval. No other complaints. Review of Systems Unremarkable General: Unremarkable Eyes: Unremarkable ENT: Unremarkable Respiratory: Unremarkable Cardiovascular: Unremarkable Gastrointestinal: Abdominal Pain, Melena Genitourinary: Unremarkable Musculoskeletal: Unremarkable Integumentary: Unremarkable Neurological: Unremarkable Lymphatics: Unremarkable Physical Examination - Vital Signs Temperature: 97.9 F Blood Pressure: 130/86 Pulse: 72 Respirations: 14 Pulse Ox (%): 99 - Physical Exam General: Alert, In no apparent distress, Oriented x3 HEENT: Atraumatic, Normocephalic, PERRLA Neck: Supple, 2+ carotid pulse no bruit Respiratory: Clear to auscultation bilaterally, Normal air movement Cardiovascular: No edema, Normal pulses, Regular rate/rhythm, Normal S1 S2 Capillary refill: <2 Seconds Gastrointestinal: Normal bowel sounds, Soft and benign, Non-distended, Tenderness Musculoskeletal: No clubbing, No swelling Integumentary: No rashes, No breakdown Neurological: Normal gait, Normal speech Lymphatics: No axilla or inguinal lymphadenopathy - Studies Laboratory Data (last 24 hrs) 12/21/23 12/21/23 12:25 12:25 WBC 5.90 Hgb 12.1 Hct 36.7 Plt Count 286 Sodium 135 L Potassium 3.5 BUN 19 H Creatinine 0.72 Glucose 95 Total Bilirubin 0.5 AST 17 ALT 15 Alkaline Phosphatase 93 Lipase 21 Assessment And Plan - Plan GI bleed/ melena: Pt had melena at home. She denies any bright red blood per rectum. Hgb is 11.1. Will continue protonix 40mg iv BID, IVF and monitor H/H. Abdominal pain: CT abd shows colitis in the right colon. Will continue zosyn and follow up blood cx. Lactate is pending Htn: Will continue atenolol Anemia: Hgb is 11.1. Will monitor H/H. Transfuse when Hgb < 7. Hx of hyperthyroidism: TSH is 0.005 and free T4 is 3.39. Continue methimazole. DVT ppx: SCD Code: full Dispo: Pending hospital course.
[2023-12-22] MEDS ORDERED: LIDOCAINE 1% MPF 5 ML VIAL ONE (13:55)
[2023-12-22] MEDS ORDERED: propofoL 200 MG/20 ML VIAL IV ONE ×2 (13:56→14:12)
[2023-12-22 14:54] VITALS: O2SAT 100
--- NOTE | 2023-12-22 15:24 | P.HP ---
Certification for Inpatient Patient admitted to: Observation With expected LOS: <2 Midnights Patient will require the following post-hospital care: None Practitioner: I am a practitioner with admitting privileges, knowledge of patient current condition, hospital course, and medical plan of care. Services: Services provided to patient in accordance with Admission requirements found in Title 42 Section 412.3 of the Code of Federal Regulations Patient History Date of Service: 12/21/23 Reason for admission: GI bleeding History of Present Illness: patient is a 38-year-old female came to the hospital with gastrointestinal bleeding. Patient has been having weight loss of about 60 lb over the last year and 10 lb over the last week. She has been noticing that she has been having some difficulty with having a bowel movement and she has been having to strain. She has also noticed blood over the last few days. Her family convinced her to come into the hospital for further evaluation. She does have a family history of colorectal cancer. She also has been noticing that she has palpitations and she has not really been managing her Graves disease well. she uses NSAIDs whenever she is having pain. She will be admitted to the hospital for further evaluation. Allergies No Known Drug Allergies Allergy (Verified 12/23/22 16:58) Unknown Home Medications: atenoloL [Tenormin*] 25 mg PO [id number] #30 tab 12/26/22 methIMAzole [Tapazole*] 10 mg PO Q12HR #60 tab 12/26/22 - Past Medical/Surgical History Has patient received pneumonia vaccine in the past: Yes Diabetic: No -: HTN -: Grave's Disease -: x3 - Family History Father Medical History: Hypertension, Other (see notes) Notes: Hypothyroid Mother Medical History: Hypertension - Social History Smoking Status: Current every day smoker Alcohol use: Yes CD- Drugs: No Caffeine use: No Place of Residence: Home Review of Systems 10-point ROS is otherwise unremarkable Physical Examination - Vital Signs Temperature: 97.7 F Blood Pressure: 108/59 Pulse: 87 Respirations: 18 Pulse Ox (%): 99 - Physical Exam General: Alert, In no apparent distress, Oriented x3 HEENT: Atraumatic, PERRLA, Mucous membr. moist/pink, EOMI, Sclerae nonicteric Neck: Supple, 2+ carotid pulse no bruit, No LAD, Without JVD or thyroid abnormality Respiratory: Clear to auscultation bilaterally, Normal air movement Cardiovascular: Regular rate/rhythm, Normal S1 S2, No murmurs Gastrointestinal: Normal bowel sounds, Soft and benign, Non-distended, No tenderness Musculoskeletal: No clubbing, No swelling, No tenderness Integumentary: No rashes Neurological: Normal gait, Normal speech, Normal strength at 5/5 x4 extr, Normal tone, Cranial nerves 3-12 intact, Normal affect Lymphatics: No axilla or inguinal lymphadenopathy Assessment & Plan - Problems (Diagnosis) (1) Lower GI bleeding Current Visit: Yes Status: Acute (2) Melena Current Visit: Yes Status: Acute (3) NSAID long-term use Current Visit: Yes Status: Acute (4) Graves disease Current Visit: Yes Status: Acute - Plan 1. Continue with IV hydration and PPI 2. Continue with IV antibiotics 3. Continue with pain control 4. NPO 5. GI consultation; Dr. Liu is on-call and will consult. 6. Monitor LFTs and lipase along with electrolytes and serial H&H. Thyroid studies are pending; patient has not been compliant with her medications and maybe start methimazole 7. GI and DVT prophylaxis Discharge Plan: Home Plan to discharge in: Greater than 2 days - Advance Directives Does patient have a Living Will: No Does patient have a Durable POA for Healthcare: No - Code Status/Comfort Care Code Status Assessed: Yes Code Status: Full Code Critical Care: No Time Spent Managing PTS Care (In Minutes): 45
--- NOTE | 2023-12-22 16:37 | P.DS ---
Admission Date: 12/21/23 Discharge Date: 12/22/23 Discharge Condition: GOOD Reason for Admission: GI bleeding Brief History of Present Illness: Patient is a 38-year-old female came to the hospital with gastrointestinal bleeding. Patient has been having weight loss of about 60 lb over the last year and 10 lb over the last week. She has been noticing that she has been having some difficulty with having a bowel movement and she has been having to strain. She has also noticed blood over the last few days. Her family convinced her to come into the hospital for further evaluation. She does have a family history of colorectal cancer. She also has been noticing that she has palpitations and she has not really been managing her Graves disease well. she uses NSAIDs whenever she is having pain. She will be admitted to the hospital for further evaluation. Hospital Course: Pt is a 38yo male with past medical history of hyperthyroidism who presented with melena. Pt had dark tarry stool at home. On admission, pt complained of weight loss and abdominal pain. CT abd showed colitis in the right colon. We gave zosyn, protonix 40mg iv BID, and kept pt NPO for EGD. EGD showed gastric ulcer without any bleeding vessel. GI recommended protonix 40mg po BID and cGI soft diet at home. We continue atenolol and methimazole from home. She will take cipro and flagyl for the colitis for the next 10 days. Pt was advised to follow up with GI for colonoscopy. Pt was in NAD prior to discharge. Vital Signs/Physical Exam: Temp Pulse Resp BP Pulse Ox 97.7 F 87 18 108/59 L 99 12/22/23 15:24 12/22/23 15:24 12/22/23 15:24 12/22/23 15:24 12/22/23 15:24 Laboratory Data at Discharge: WBC 4.90 thou/uL (4.3-10.9) 12/22/23 05:46 Hgb 11.1 g/dL (12.0-15.0) L D 12/22/23 05:46 Hct 33.4 % (36.0-45.0) L 12/22/23 05:46 Plt Count 224 thou/uL (152-406) 12/22/23 05:46 PT 12.2 SECONDS (9.5-12.5) 12/22/23 05:46 INR 1.11 12/22/23 05:46 APTT 31.8 SECONDS (24.3-36.9) 12/22/23 05:46 Sodium 139 mEq/L (136-145) 12/22/23 05:46 Potassium 4.1 mEq/L (3.5-5.1) D 12/22/23 05:46 BUN 11 mg/dL (7-18) 12/22/23 05:46 Creatinine 0.54 mg/dL (0.55-1.02) L 12/22/23 05:46 Glucose 82 mg/dL (74-106) 12/22/23 05:46 Total Bilirubin 0.5 mg/dL (0.2-1.0) 12/22/23 05:46 AST 13 U/L (15-37) L 12/22/23 05:46 ALT 13 U/L (13-56) 12/22/23 05:46 Alkaline Phosphatase 77 U/L (45-117) 12/22/23 05:46 Lipase 21 U/L (13-75) 12/21/23 12:25 Home Medications: atenoloL [Tenormin*] 25 mg PO [id number] #30 tab 12/26/22 methIMAzole [Tapazole*] 10 mg PO Q12HR #60 tab 12/26/22 Ciprofloxacin HCl [Cipro 500 MG Tablet] 500 mg PO DAILY 10 Days #10 tab 12/22/23 Pantoprazole [Protonix Tab] 40 mg PO BID 30 Days #60 tab 12/22/23 metroNIDAZOLE [Flagyl] 500 mg PO Q8H 10 Days #30 tab 12/22/23 New Medications: Ciprofloxacin HCl [Cipro 500 MG Tablet] 500 mg PO DAILY 10 Days #10 tab metroNIDAZOLE [Flagyl] 500 mg PO Q8H 10 Days #30 tab Pantoprazole [Protonix Tab] 40 mg PO BID 30 Days #60 tab Physician Discharge Instructions: Continue ad antonio activity. Take protonix 40mg po BID and continue other home med. Take cipro and flagly for the next 10 days. Follow up with PCP and Dr. Liu in clinic within 1 - 2 weeks. Stop taking NSAIDs like ibuprofen or mortin. Follow up with Dr. Liu within 1 month for colonoscopy. Diet: Regular Activity: Ad antonio Followup: NONE,NONE [Primary Care Provider] - Pawel Liu MD [ASSOCIATE-ACTIVE - CAN ADMIT] -
[2023-12-22 17:25] VITALS: BP 128/70; TEMP 98
[2023-12-23] MEDS ORDERED: atenoloL 25 MG TAB PO SCH (06:00)
== END 2023-12-22 17:50 | disposition home or self-care (01) ==
LOC: ER 12:02 → 4TH 18:03
PROVIDERS: ADMIT Hospitalist; ATTEND Hospitalist
PROC: 0DB68ZX Excision of Stomach, Via Natural or Artificial Opening Endoscopic, Diagnostic (ICD-10-PCS; principal; 2023-12-22 13:30)
DX: K92.2 Gastrointestinal hemorrhage, unspecified (principal); K29.50 Unspecified chronic gastritis without bleeding; R63.4 Abnormal weight loss; I10 Essential (primary) hypertension; E05.00 Thyrotoxicosis with diffuse goiter without thyrotoxic crisis or storm; K52.9 Noninfective gastroenteritis and colitis, unspecified; E05.90 Thyrotoxicosis, unspecified without thyrotoxic crisis or storm; D64.9 Anemia, unspecified; R10.13 Epigastric pain; K44.9 Diaphragmatic hernia without obstruction or gangrene; Z79.1 Long term (current) use of non-steroidal anti-inflammatories (NSAID); Z80.0 Family history of malignant neoplasm of digestive organs
CPT/HCPCS: 85025 ×2; 81001; 36415; 88312; 81025; 85610; 83605; 88305; 85730; 84443; 84439; 83690; 80053 ×2; 74177; 96375; 96374; 99285; 43239; Q9967; J2704 ×2; J2001; J2543 ×3; C9113 ×3; J2270 ×3; J2405 ×4; G0378 ×4; J7030 ×3

== ENCOUNTER 2024-10-23 09:53 | Emergency (ER) | payer OTHER ==
--- OUTSIDE RECORDS SUMMARY | 2024-10-23 09:58 | XMS REPORT | Continuity of Care Document ---
Author Name Unknown Address [address] [facility]. [address] [place] [address] [facility] [address] [facility] [address] [place] [address] Care Team Providers Care Career Portals Teacher Name Role Phone Nikki Cummins Primary Care Physician + EPIFANIO LOPEZ Attending Clinician Unavail able EPIFANIO LOPEZ Attending Clinician Unavail able Epifanio Lopez MD Attending Clinician [phone] STEWART CAMARA Attending Clinician Unavailable STEWART CAMARA Attending Clinician Unavailable Basil Hood MD Attending Clinician [phone] JORDAN HULL Attending Clinician Unavailable Jordan Hull MD Attending Clinician [phone] SHWETA MORRISON Attending Clinician Unavailable Shweta Morrison MD Attending Clinician [phone] Rashad Ahn DO Attending Clinician [phone] Abimbola Adames Attending Clinician [phone] Conchis Norwood Attending Clinician + [phone] Provider, Geovany Gonzalez Attending Clinician Ilene vailable Sara Cates Attending Clinician + SARA CARVAJAL Attending Clinician Unavail able Sudeep MARILYNEddie Attending Clinician [phone] Doctor Unassigned, [place] Attending Clinician U navailable Pcp, Patient Does Not Have A Attending Clinician BASIL HOOD Admitting Clinician Unavailable JORDAN HULL Admitting Clinician Unavailable SHWETA MORRISON Admitting Clinician Unavailable Payers Payer Name Policy Type Policy Number Effective Date Expirati on Date Source [facility] [id number] 2019 00:00:00 [facility] W/ HUSSAIN MARTINEZ [id number] 1999 00:00:00 Problems Condition Name Condition Details Condition Category Status Onset Date Resolution Date Last Treatment Date Treating Clinician Comments Source Well woman exam Well woman exam Disease Active 02-04 00:00: 00 [facility] Other general counseling and advice for contracept sky management Other general counseling and advice for contracept sky management Disease Active 02-04 00:00: 00 [facility] UTI symptoms UTI symptoms Disease Active 02-04 00:00: 00 [facility] History of tubal ligation History of tubal ligation Disease Active 02-04 00:00: 00 [facility] Obese Obese Disease Active 02-04 00:00: 00 [facility] Essential hypertensi on, benign Essential hypertensi on, benign Disease Active 02-04 00:00: 00 [facility] BV (bacterial vaginosis) BV (bacterial vaginosis) Disease Active 02-04 00:00: 00 [facility] UTI symptoms UTI symptoms Disease Active 02-04 00:00: 00 [facility] Allergies, Adverse Reactions, Alerts Allergy Name Allergy Type Status Severity Reaction(s) Onset Date Inactive Date Treating Clinician Comments Source NO KNOWN ALLERGIE S Drug Class Active Unknown-Cmnt 05-21 00:00: 00 [facility] No Known Allergie s Propensi ty to adverse reaction s Active Unknown - See comments 05-21 00:00: 00 [facility] No Known Allergie s Propensi ty to adverse reaction s Active Unknown - See comments 05-21 00:00: 00 [facility] Social History Social Habit Start Date Stop Date Quantity Comments Source History of tobacco use Cigarette Smoker [facility] Alcoholic beverage intake 2024-05-19 00:00:00 2024-05-19 00:00:00 0 /d [facility] Alcohol intake 2023-04-17 00:00:00 2023-04-17 00:00:00 0 /d [facility] Exposure to SARS-CoV-2 (event) 2022-11-13 00:00:00 2022-11-23 06:54:00 Not sure [facility] Alcohol Comment 2020-03-24 00:00:00 2020-03-24 00:00:00 occasional [facility] Tobacco use and exposure 2020-03-24 00:00:00 2020-03-24 00:00:00 Smokeless tobacco non-user [facility] History of Social function 2020-03-24 00:00:00 2020-03-24 00:00:00 [facility] Tobacco Comment 2017-02-04 00:00:00 2017-02-04 00:00:00 3 cigarettes/day [facility] Sex assigned at 1985 00:00:00 1985 00:00:00 [facility] Smoking Status Start Date Stop Date Source Smokes tobacco daily 2020-03-24 00:00:00 [facility] Medications Ordered Medication Name Filled Medication Name Start Date Stop Date Current Medication? Ordering Clinician Indication Dosage Frequency Signature (SIG) Comments Components Source propranoloL (INDERAL) tablet 30 mg 2023-11 21:15: 00 10-21 20:24 :00 No 30mg 30 mg, Oral, ONCE NOW, 1 dose, On An 10/21/24 at 1515, Routine [facility] methIMAzole (TAPAZOLE) tablet 20 mg 2023-11 21:00: 00 10-22 08:59 :00 Yes 20mg 20 mg, Oral, ONCE NOW, 1 dose, On Fri10/21/24 at 1500, Routine [facility] magnesium sulfate in water 2 gram/50 mL (4 %) infusion 2 g 2023-11 19:45: 00 10-22 07:44 :00 Yes 2g 2 g, IV Piggyback, Administer over 60 Minutes, ONCE, 1 dose, On Fri10/21/24 at 1345, Routine [facility] ondansetron (ZOFRAN (PF)) injection 4 mg 2023-11 18:00: 00 10-21 18:00 :00 No 4mg 4 mg, Slow IV Push, ONCE, 1 dose, On Fri10/21/24 at 1200, Administer over 2-5 Minutes, 2 mL [facility] propranoloL (INDERAL) injection 1 mg 2023-11 17:45: 00 10-21 18:05 :00 No 1mg 1 mg, Slow IV Push, ONCE, 1 dose, On Fri10/21/24 at 1145, RAMIRO [facility] propranoloL 20 mg tablet 2023-11 00:00: 00 Yes [id number] 20mg Take 1 tablet by mouth in the morning and 1 tablet in the evening. [facility] methIMAzole 10 mg tablet 2023-11 00:00: 00 11-21 05:59 :00 Yes [id number] 20mg Take 2 tablets by mouth in the morning and 2 tablets in the evening. Do all this for 30 days. [facility] iopamidol (ISOVUE 370-500 mL) injection 100 mL 05-19 12:45: 00 05-19 12:45 :00 No [id number] 100mL 100 mL, Intravenou s, ONCE, 1 dose, On Fri05/19/24 at 0745, Routine [facility] hyoscyamine sulfate (LEVSIN/SL) sublingual tablet 0.25 mg 05-19 12:15: 00 05-19 11:36 :00 No .25mg 0.25 mg, Sublingual , ONCE NOW, 1 dose, On Fri05/19/24 at 0715, Routine [facility] acetaminoph en (OFIRMEV) IV piggyback 1,000 mg 05-19 12:00: 00 05-19 12:15 :00 No 1000mg 1,000 mg, IV Piggyback, at 400 mL/hr Administer over 15 Minutes, ONCE, 1 dose, On Fri05/19/24 at 0700, Routine, Is the patient strict NPO and unable to tolerate oral medication s? Yes [facility] cefTRIAXone (ROCEPHIN) 1,000 mg in NaCl 0.9% (NS) 100 mL MINI-BAG 05-19 11:45: 00 05-19 12:45 :00 No 1000mg 1,000 mg, IV Piggyback, ONCE, 1 dose, On Fri05/19/24 at 0645, Administer over 30 Minutes, 100 mL, Reason for Anti-Infec tive: Documented Infection, Documented Infection Site: Urine, Duration of Therapy: Once (ED) [facility] ketorolac (TORADOL) injection 30 mg 05-19 11:30: 00 05-19 10:48 :00 No 30mg 30 mg, Slow IV Push, ONCE NOW, 1 dose, On Fri05/19/24 at 0630, RAMIRO [facility] NaCl 0.9% (NS) bolus infusion 1,000 mL 05-19 11:30: 00 05-19 12:11 :00 No 1000mL at 999 mL/hr, 1,000 mL, IV Piggyback, ONCE, 1 dose, On Fri05/19/24 at 0630, STAT [facility] cephALEXin 500 mg capsule 05-19 00:00: 00 05-25 04:59 :00 No [id number] 500mg Take 1 capsule by mouth 4 (four) times daily for 5 days. [facility] iopamidol (ISOVUE 370-500 mL) injection 70 mL 11-23 08:15: 00 11-23 08:15 :00 No [id number] 70mL 70 mL, Intravenou s, ONCE, 1 dose, On Fri11/23/23 at 0215, Routine [facility] labetaloL (NORMODYNE) injection 10 mg 11-23 06:30: 00 11-23 05:41 :00 No 10mg 10 mg, Slow IV Push, ONCE, 1 dose, On 11/23/23 at 0030, RAMIRO [facility] diazePAM (VALIUM) injection 5 mg 11-23 05:45: 00 11-23 05:41 :00 No 5mg 5 mg, Slow IV Push, ONCE, 1 dose, On 11/22/23 at 2345, STAT [facility] atenoloL 25 mg tablet 11-23 00:00: 00 Yes [id number] 25mg Take 1 tablet by mouth in the morning. [facility] methIMAzole 10 mg tablet 04-18 00:00: 00 05-19 04:59 :00 No [id number] 10mg Take 1 tablet by mouth every 8 (eight) hours for 30 days. [facility] atenoloL 25 mg tablet 04-18 00:00: 00 05-19 04:59 :00 No [id number] 25mg Take 1 tablet by mouth in the morning for 30 days. [facility] ketorolac (TORADOL) injection 30 mg 11-23 15:30: 00 11-23 14:47 :00 No 30mg 30 mg, Slow IV Push, ONCE, 1 dose, On 11/23/22 at 0930, RAMIRO [facility] iopamidol (ISOVUE 370-500 mL) injection 90 mL 11-23 15:00: 00 11-23 14:05 :00 No [id number] 90mL 90 mL, Intravenou s, ONCE, 1 dose, On 11/23/22 at 0900, Routine [facility] morpHINE (2 mg/mL) injection 4 mg 11-23 14:45: 00 11-23 13:41 :00 No 4mg 4 mg, Slow IV Push, ONCE, 1 dose, On 1/14/23 at 0845, STAT [facility] NaCl 0.9% (NS) bolus infusion 1,000 mL 11-23 14:00: 00 11-23 16:12 :00 No 1000mL at 999 mL/hr, 1,000 mL, IV Piggyback, ONCE, 1 dose, On 11/23/22 at 0800, STAT [facility] ondansetron (ZOFRAN (PF)) injection 4 mg 11-23 13:45: 00 11-23 13:40 :00 No 4mg 4 mg, Slow IV Push, ONCE, 1 dose, On 11/23/22 at 0745, RAMIRO [facility] naproxen 500 mg tablet 11-23 00:00: 00 Yes [id number] 500mg Take 1 tablet by mouth 2 (two) times daily as needed for Pain (scale 4-6). [facility] cloNIDine (CATAPRES) tablet 0.2 mg 2019-11 03:00: 00 08-30 02:11 :00 No .2mg 0.2 mg, Oral, ONCE, 1 dose, 08/29/20 at 2200, STAT [facility] diphenhydrA MINE (BENADRYL) injection 12.5 mg 2019-11 03:00: 00 08-30 02:03 :00 No 12.5mg 12.5 mg, Slow IV Push, ONCE, 1 dose, 08/29/20 at 2200, STAT [facility] metoclopram patrick HCl (REGLAN) injection 10 mg 2019-11 03:00: 00 08-30 02:02 :00 No 10mg 10 mg, Slow IV Push, ONCE, 1 dose, 08/29/20 at 2200, RAMIRO [facility] HYDROCHLORO THIAZIDE ORAL 2019-11 00:10: 08 Yes 1{tbl} Take 1 tablet by mouth daily. [facility] HYDROCHLORO THIAZIDE ORAL 2019-11 19:10: 08 Yes 1{tbl} Take 1 tablet by mouth daily. [facility] hydroCHLORO thiazide 25 mg tablet 2019-11 00:00: 00 Yes [id number] 25mg Take 1 tablet by mouth every morning. [facility] amoxicillin 500 mg capsule 03-29 00:00: 00 Yes [id number] 500mg Take 1 capsule by mouth 2 (two) times daily. [facility] HYDROCHLORO THIAZIDE ORAL 03-24 16:15: 23 Yes 1{tbl} Take 1 tablet by mouth daily. [facility] ondansetron (ZOFRAN-ODT ) disintegrat ing tablet 4 mg 03-15 18:15: 00 03-15 17:25 :00 No 4mg 4 mg, Oral, ONCE, 1 dose, 03/15/20 at 1315, Routine [facility] metroNIDAZO LE (FLAGYL) tablet 2,000 mg 03-15 18:15: 00 03-15 17:25 :00 No 2000mg 2,000 mg, Oral, ONCE, 1 dose, 03/15/20 at 1315, RAMIRO
Re ason for Anti-Infec tive: Empiric Therapy for Suspected Infection< br>Empiric Therapy Site: Urine
D uration of therapy: 7 days [facility] azithromyci n (ZITHROMAX) tablet 1,000 mg 03-15 18:15: 00 03-15 17:26 :00 No 1000mg 1,000 mg, Oral, ONCE, 1 dose, 03/15/20 at 1315, RAMIRO
Re ason for Anti-Infec tive: Empiric Therapy for Suspected Infection< br>Empiric Therapy Site: Urine
D uration of therapy: 7 days [facility] lidocaine 1% (XYLOCAINE) 10 mg/mL (1 %) injection 2 mL 03-15 18:15: 00 03-15 17:32 :00 No 2mL 2 mL, Infiltrati on, ONCE, 1 dose, 03/15/20 at 1315, RAMIRO [facility] cefTRIAXone (ROCEPHIN) injection 250 mg 03-15 18:15: 03-15 17:28 :00 No 250mg 250 mg, Intramuscu lar, ONCE, 1 dose, Fri03/15/20 at 1315, RAMIRO
Re ason for Anti-Infec tive: Empiric Therapy for Suspected Infection< br>Empiric Therapy Site: Urine
D uration of therapy: 7 days [facility] phenazopyri dine (PYRIDIUM) tablet 200 mg 03-15 18:15: 00 03-15 17:26 :00 No 200mg 200 mg, Oral, ONCE, 1 dose, Fri03/15/20 at 1315, RAMIRO [facility] phenazopyri dine 200 mg tablet 03-15 00:00: 00 Yes [id number] 200mg Take 1 tablet by mouth 3 (three) times daily. [facility] ciprofloxac in HCl 500 mg tablet 03-15 00:00: 00 03-23 04:59 :00 No [id number] 500mg Take 1 tablet by mouth 2 (two) times daily for 7 days. [facility] erythromyci n 5 mg/gram (0.5 %) ophthalmic ointment 01-09 00:00: 00 Yes [id number] 9105 .5[in_u s] Place 0.5 Inches in left eye at bedtime. [facility] ketorolac (TORADOL) injection 60 mg 07-09 11:00: 00 07-09 09:58 :00 No 60mg 60 mg, Intramuscu lar, ONCE, 1 dose, Fri07/09/19 at 0600, RAMIRO
Fa culty member approving Restricted medication : SHWETA MORRISON [facility] butalbital- acetaminoph en-caff 50-325-40 mg tablet 07-09 00:00: 00 Yes [id number] 1{tbl} Take 1 tablet by mouth every 4 (four) hours as needed for Pain (scale 7-10) (HEADACHE) . [facility] KCL (KLOR-CON M20) tablet 40 mEq 06-23 11:30: 00 06-23 10:37 :00 No 40meq 40 mEq, Oral, ONCE, 1 dose, Fri06/23/19 at 0630, RAMIRO [facility] diphenhydrA MINE (BENADRYL) injection 12.5 mg 06-23 10:30: 00 06-23 09:52 :00 No 12.5mg 12.5 mg, Slow IV Push, ONCE, 1 dose, Fri06/23/19 at 0530, STAT [facility] metoclopram patrick HCl (REGLAN) injection 10 mg 06-23 10:30: 00 06-23 09:50 :00 No 10mg 10 mg, Slow IV Push, ONCE, 1 dose, Fri06/23/19 at 0530, RAMIRO [facility] hydroCHLORO thiazide (ESIDRIX) tablet 25 mg 06-23 10:30: 00 06-23 09:49 :00 No 25mg 25 mg, Oral, ONCE, 1 dose, Fri06/23/19 at 0530, RAMIRO [facility] hydroCHLORO thiazide 25 mg tablet 06-23 00:00: 00 Yes [id number] 25mg Take 1 tablet by mouth every morning. [facility] phenazopyri dine 200 mg tablet 05-07 00:00: 00 Yes [id number] 200mg Take 1 tablet by mouth 3 (three) times daily. [facility] traMADOL (ULTRAM) 50 mg tablet 05-07 00:00: 00 Yes [id number] 50mg Take 1 tablet by mouth every 8 (eight) hours as needed for Pain (scale 4-6). [facility] HYDROCHLORO THIAZIDE ORAL 18 16:43: 41 Yes 1{tbl} Take 1 tablet by mouth daily. [facility] Immunizations Ordered Immunization Name Filled Immunization Name Date Status Comments Source Tdap 2017-02-04 00:00:00 Completed [facility] Tdap 2017-02-04 00:00:00 Completed [facility] Tdap 2017-02-04 00:00:00 Completed [facility] Tdap 2017-02-04 00:00:00 Completed [facility] Tdap 2017-02-04 00:00:00 Completed [facility] Tdap 2017-02-04 00:00:00 Completed [facility] TDAP 2017-02-04 00:00:00 Completed [facility] TDAP 2017-02-04 00:00:00 Completed [facility] TDAP 2017-02-04 00:00:00 Completed [facility] Tdap 2017-02-04 00:00:00 Completed [facility] TDAP 2017-02-04 00:00:00 Completed [facility] TDAP 2017-02-04 00:00:00 Completed [facility] Tdap 2017-02-04 00:00:00 Completed [facility] TDAP 2017-02-04 00:00:00 Completed [facility] Tdap 2017-02-04 00:00:00 Completed [facility] Tdap 2017-02-04 00:00:00 Completed [facility] TDAP Unknown Completed [facility] TDAP Unknown Completed [facility] Vital Signs Vital Name Observation Time Observation Value Comments S ource Systolic blood pressure 2024-10-21 20:00:00 125 mm[Hg] [facility] Diastolic blood pressure 2024-10-21 20:00:00 104 mm[Hg] [facility] Heart rate 2024-10-21 20:00:00 79 /min [facility] Body temperature 2024-10-21 20:00:00 36.72 Angelique [facility] Respiratory rate 2024-10-21 20:00:00 21 /min [facility] Oxygen saturation in Arterial blood by Pulse oximetry 2024-10-21 20:00:00 99 /min [facility] Body height 2024-10-21 17:31:00 160 cm [facility] Body weight 2024-10-21 17:31:00 63.186 kg [facility] BMI 2024-10-21 17:31:00 24.68 kg/m2 [facility] Systolic blood pressure 2024-05-19 13:35:00 143 mm[Hg] [facility] Diastolic blood pressure 2024-05-19 13:35:00 88 mm[Hg] [facility] Heart rate 2024-05-19 13:35:00 96 /min [facility] Body temperature 2024-05-19 13:35:00 37.22 Angelique [facility] Respiratory rate 2024-05-19 13:35:00 20 /min [facility] Oxygen saturation in Arterial blood by Pulse oximetry 2024-05-19 13:35:00 100 /min [facility] Body height 2024-05-19 08:44:00 162.6 cm [facility] Body weight 2024-05-19 08:44:00 72.576 kg [facility] BMI 2024-05-19 08:44:00 27.46 kg/m2 [facility] Heart rate 2023-11-23 09:00:00 72 /min [facility] Respiratory rate 2023-11-23 09:00:00 18 /min [facility] Oxygen saturation in Arterial blood by Pulse oximetry 2023-11-23 09:00:00 100 /min [facility] Systolic blood pressure 2023-11-23 08:03:00 140 mm[Hg] [facility] Diastolic blood pressure 2023-11-23 08:03:00 88 mm[Hg] [facility] Body temperature 2023-11-23 05:28:00 36.5 Angelique [facility] Body height 2023-11-23 05:28:00 160 cm [facility] Body weight 2023-11-23 05:28:00 75.751 kg [facility] BMI 2023-11-23 05:28:00 29.58 kg/m2 [facility] Systolic blood pressure 2023-04-18 05:00:00 127 mm[Hg] [facility] Diastolic blood pressure 2023-04-18 05:00:00 81 mm[Hg] [facility] Heart rate 2023-04-18 05:00:00 86 /min [facility] Respiratory rate 2023-04-18 05:00:00 23 /min [facility] Oxygen saturation in Arterial blood by Pulse oximetry 2023-04-18 05:00:00 97 /min [facility] Body temperature 2023-04-18 03:20:00 36.67 Angelique [facility] Body height 2023-04-18 03:20:00 160 cm [facility] Body weight 2023-04-18 03:20:00 72.576 kg [facility] BMI 2023-04-18 03:20:00 28.34 kg/m2 [facility] Systolic blood pressure 2022-11-23 12:54:00 131 mm[Hg] [facility] Diastolic blood pressure 2022-11-23 12:54:00 82 mm[Hg] [facility] Heart rate 2022-11-23 12:54:00 101 /min [facility] Body temperature 2022-11-23 12:54:00 37.28 Angelique [facility] Respiratory rate 2022-11-23 12:54:00 18 /min [facility] Body height 2022-11-23 12:54:00 162.6 cm [facility] Body weight 2022-11-23 12:54:00 72.576 kg [facility] BMI 2022-11-23 12:54:00 27.46 kg/m2 [facility] Oxygen saturation in Arterial blood by Pulse oximetry 2022-11-23 12:54:00 100 /min [facility] Systolic blood pressure 2020-08-30 02:45:00 136 mm[Hg] [facility] Diastolic blood pressure 2020-08-30 02:45:00 97 mm[Hg] [facility] Heart rate 2020-08-30 02:45:00 94 /min [facility] Respiratory rate 2020-08-30 02:45:00 20 /min [facility] Oxygen saturation in Arterial blood by Pulse oximetry 2020-08-30 02:45:00 97 /min [facility] Body temperature 2020-08-30 00:08:00 37.17 Angelique [facility] Body height 2020-08-30 00:08:00 162.6 cm [facility] Body weight 2020-08-30 00:08:00 79.379 kg [facility] BMI 2020-08-30 00:08:00 30.04 kg/m2 [facility] Systolic blood pressure 2020-05-20 00:15:00 150 mm[Hg] [facility] Diastolic blood pressure 2020-05-20 00:15:00 102 mm[Hg] [facility] Heart rate 2020-05-20 00:15:00 102 /min [facility] Body temperature 2020-05-20 00:15:00 37.11 Angelique [facility] Respiratory rate 2020-05-20 00:15:00 22 /min [facility] Body weight 2020-05-20 00:15:00 83.915 kg [facility] BMI 2020-05-20 00:15:00 31.76 kg/m2 [facility] Oxygen saturation in Arterial blood by Pulse oximetry 2020-05-20 00:15:00 99 /min [facility] Systolic blood pressure 2020-03-24 16:03:00 148 mm[Hg] [facility] Diastolic blood pressure 2020-03-24 16:03:00 98 mm[Hg] [facility] Heart rate 2020-03-24 16:03:00 101 /min [facility] Body temperature 2020-03-24 16:03:00 36.39 Angelique [facility] Respiratory rate 2020-03-24 16:03:00 16 /min [facility] Body height 2020-03-24 16:03:00 162.6 cm [facility] Body weight 2020-03-24 16:03:00 75.921 kg [facility] BMI 2020-03-24 16:03:00 28.73 kg/m2 [facility] Systolic blood pressure 2020-03-15 16:47:00 162 mm[Hg] [facility] Diastolic blood pressure 2020-03-15 16:47:00 97 mm[Hg] [facility] Heart rate 2020-03-15 16:47:00 98 /min [facility] Body temperature 2020-03-15 16:47:00 36.83 Angelique [facility] Respiratory rate 2020-03-15 16:47:00 16 /min [facility] Body height 2020-03-15 16:47:00 162.6 cm [facility] Body weight 2020-03-15 16:47:00 77.111 kg [facility] BMI 2020-03-15 16:47:00 29.18 kg/m2 [facility] Oxygen saturation in Arterial blood by Pulse oximetry 2020-03-15 16:47:00 100 /min [facility] Systolic blood pressure 2020-01-10 15:06:00 117 mm[Hg] [facility] Diastolic blood pressure 2020-01-10 15:06:00 99 mm[Hg] [facility] Heart rate 2020-01-10 15:06:00 85 /min [facility] Body temperature 2020-01-10 15:06:00 36.78 Angelique [facility] Respiratory rate 2020-01-10 15:06:00 18 /min [facility] Body weight 2020-01-10 15:06:00 77.111 kg [facility] BMI 2020-01-10 15:06:00 30.11 kg/m2 [facility] Oxygen saturation in Arterial blood by Pulse oximetry 2020-01-10 15:06:00 100 /min [facility] Systolic blood pressure 2019-07-09 09:45:00 144 mm[Hg] [facility] Diastolic blood pressure 2019-07-09 09:45:00 92 mm[Hg] [facility] [facility] Heart rate 2019-07-09 09:45:00 75 /min [facility] Respiratory rate 2019-07-09 09:45:00 18 /min [facility] Body height 2019-07-09 09:45:00 160 cm [facility] Body weight 2019-07-09 09:45:00 83.008 kg [facility] BMI 2019-07-09 09:45:00 32.42 kg/m2 [facility] Oxygen saturation in Arterial blood by Pulse oximetry 2019-07-09 09:45:00 99 /min [facility] Systolic blood pressure 2019-06-23 10:25:00 132 mm[Hg] [facility] Diastolic blood pressure 2019-06-23 10:25:00 96 mm[Hg] [facility] Heart rate 2019-06-23 10:25:00 68 /min [facility] Respiratory rate 2019-06-23 10:25:00 20 /min [facility] Oxygen saturation in Arterial blood by Pulse oximetry 2019-06-23 10:25:00 99 /min [facility] Body weight 2019-06-23 09:24:00 77.111 kg [facility] BMI 2019-06-23 09:24:00 29.18 kg/m2 [facility] Body temperature 2019-06-23 09:04:00 36.44 Angelique [facility] Body height 2019-06-23 09:04:00 162.6 cm [facility] Procedures Procedure Date / Time Performed Performing Clinician Source POCT TEST 2024-10-21 18:02:00 Epifanio Lopez [facility] CREATINE KINASE 2024-10-21 17:52:00 Epifanio Lopez er [facility] MAGNESIUM 2024-10-21 17:52:00 Epifanio Lopez [facility] TROPONIN I 2024-10-21 17:52:00 Epifanio Lopez [facility] FREE T4 2024-10-21 17:52:00 Epifanio Lopez [facility] THYROID STIMULATING HORMONE 2024-10-21 17:52:00 Epifanio Lopez [facility] COMP. METABOLIC PANEL (10141) 2024-10-21 17:52:00 Epifanio Lopez [facility] CBC WITH DIFF 2024-10-21 17:52:00 Epifanio Lopez [facility] URINALYSIS 2024-10-21 17:52:00 Epifanio Lopez [facility] N-TERMINAL PRO-BNP 2024-10-21 17:52:00 Epifanio Lopez [facility] FREE T3 2024-10-21 17:52:00 Epifanio Lopez [facility] CT ABDOMEN PELVIS W CONTRAST 2024-05-19 11:49:09 Basil Hood [facility] POCT TEST 2024-05-19 11:36:00 Chandler Hood [facility] COMP. METABOLIC PANEL (62032) 2024-05-19 10:50:00 Basil Hood [facility] CBC WITH DIFF 2024-05-19 10:50:00 Basil Hood [facility] URINALYSIS 2024-05-19 10:50:00 Basil Hood [facility] INFLUENZA A/B RSV COVID NAAT 2024-05-19 10:50:00 Basil Hood [facility] CT CHEST PULMONARY ANGIOGRAM 2023-11-23 07:24:07 Jordan Hull [facility] POCT TEST 2023-11-23 07:16:00 Jordan Hull [facility] FREE T4 2023-11-23 05:47:00 Jordan Hull [facility] D-DIMER 2023-11-23 05:47:00 Jordan Hull [facility] LIPASE 2023-11-23 05:36:00 Jordan Hull [facility] TROPONIN I 2023-11-23 05:36:00 Jordan Hull [facility] COMP. METABOLIC PANEL (47766) 2023-11-23 05:36:00 Jordan Hull [facility] CBC WITH DIFF 2023-11-23 05:36:00 Jordan Hull [facility] CONSENT/REFUSAL FOR DIAGNOSIS AND TREATMENT 2023-11-23 05:25:54 Doctor Unassigned, [place] [facility] CT HEAD WO CONTRAST 2023-04-18 04:30:12 Shweta Morrison [facility] MAGNESIUM 2023-04-18 03:30:00 Shweta Morrison [facility] TROPONIN I 2023-04-18 03:30:00 Shweta Morrison S [facility] COMP. METABOLIC PANEL (82514) 2023-04-18 03:30:00 Shweta Morrison [facility] CBC WITH DIFF 2023-04-18 03:30:00 Shweta Morrison [facility] D-DIMER 2023-04-18 03:30:00 Shweta Morrison [facility] US OVARY TORSION 2022-11-23 14:41:00 [facility] PELVIS W CONTRAST 2022-11-23 14:12:00 Jordan Hull [facility] POCT TEST 2022-11-23 13:13:00 Jordan Hull [facility] LIPASE 2022-11-23 13:10:00 Jordan Hull [facility] COMP. METABOLIC PANEL (21267) 2022-11-23 13:10:00 oJrdan Hull [facility] CBC WITH DIFF 2022-11-23 13:10:00 Jordan Hull [facility] URINALYSIS 2022-11-23 13:10:00 Jordan Hull [facility] CONSENT/REFUSAL FOR DIAGNOSIS AND TREATMENT 2022-11-23 12:38:19 Doctor Unassigned, [place] [facility] ADC / LCC - DRUG SCREEN TRIAGE 2020-08-30 01:03:00 Shewta Morrison [facility] XR CHEST 1 VW 2020-08-30 00:55:08 Shweta Morrison [facility] URINALYSIS 2020-08-30 00:29:00 Shweta Morrison [facility] LIPASE 2020-08-30 00:25:00 Shweta Morrison [facility] TROPONIN I 2020-08-30 00:25:00 Shweta Morrison [facility] THYROID STIMULATING HORMONE 2020-08-30 00:25:00 Shweta Morrison [facility] COMP. METABOLIC PANEL (98057) 2020-08-30 00:25:00 Shweta Morrison [facility] CBC WITH DIFF 2020-08-30 00:25:00 Shweta Morrison Uni [facility] PROTHROMBIN TIME / INR 2020-08-30 00:25:00 Casey Morrison [facility] ACTIVATED PARTIAL THRMPLAS SHANNON 2020-08-30 00:25:00 Shweta Morrison [facility] EKG-12 LEAD 2020-08-30 00:23:19 Shweta Morrison [facility] ASSIGNMENT OF BENEFITS 2020-05-20 00:09:07 Docto r Unassigned, [place] [facility] NOTICE OF PRIVACY PRACTICES 2020-05-20 00:05:27 Doctor Unassigned, [place] [facility] CONSENT/REFUSAL FOR DIAGNOSIS AND TREATMENT 2020-05-20 00:05:07 Doctor Unassigned, [place] [facility] POCT TEST 2020-03-15 17:16:00 Eddie Sheets [facility] URINALYSIS 2020-03-15 17:13:00 Eddie Sheets [facility] CONSENT/REFUSAL FOR DIAGNOSIS AND TREATMENT 2020-03-15 16:41:49 Doctor Unassigned, [place] [facility] NOTICE OF PRIVACY PRACTICES 2020-01-10 14:55:15 Doctor Unassigned, [place] [facility] CONSENT/REFUSAL FOR DIAGNOSIS AND TREATMENT 2020-01-10 14:54:57 Doctor Unassigned, [place] [facility] CT HEAD WO CONTRAST 2019-07-09 10:39:05 Shweta Morrison [facility] NOTICE OF PRIVACY PRACTICES 2019-07-09 09:34:37 Doctor Unassigned, [place] [facility] CONSENT/REFUSAL FOR DIAGNOSIS AND TREATMENT 2019-07-09 09:34:16 Doctor Unassigned, [place] [facility] URINALYSIS 2019-06-23 10:01:00 Shweta Morrison [facility] POCT TEST 2019-06-23 09:54:00 Shweta Morrison [facility] BASIC METABOLIC PANEL (NA, K, CL, CO2, GLUCOSE, BUN, CREATININE, CA) 2019-06-23 09:46:00 Shweta Morrison [facility] CBC WITH DIFFERENTIAL 2019-06-23 09:46:00 Santi Morrison [facility] EKG-12 LEAD 2019-06-23 09:27:58 Shweta Morrison [facility] Encounters Start Date/Time End Date/Time Encounter Type Admission Type Attending Clinicians Care Facility Care Department Encounter ID Source 2021-09-08 00:06:01 Emergency [facility] [id number] [facility] 2021-09-07 06:08:37 Emergency [facility] [id number] [facility] 2021-09-06 20:05:09 Emergency [facility] [id number] [facility] 2021-09-06 11:54:55 Emergency [facility] [id number] [facility] 2024-10-21 11:32:00 2024-10-21 14:32:00 Emergency EPIFANIO SHUKLA JOSEPH [facility] ERT [id number] [facility] 2024-10-21 11:32:00 2024-10-21 14:32:00 Emergency Epifanio Lopez [facility] 1.2.840.114 350.1.13.10 4.2.7.2.686 [id number] [facility] 2024-10-21 10:52:19 2024-10-21 10:52:19 Outpatient SFA [facility] [id number] Andriy F Rojelio 2024-09-30 08:23:16 2024-09-30 08:23:16 Outpatient SFA SFA [id number] Andriy Barajas Rojelio 2024-05-19 03:46:00 2024-05-19 08:36:00 Emergency STEWART TREJO PHILLIP [facility] ERT [id number] [facility] 2024-05-19 03:46:00 2024-05-19 08:36:00 Emergency Basil Hood Phillip [facility] 1.2.840.114 350.1.13.10 4.2.7.2.686 [id number] [facility] 2023-11-22 23:25:00 2023-11-23 03:38:00 Emergency X JORDAN HULL [facility] ERT [id number] [facility] 2023-11-22 23:25:00 2023-11-23 03:38:00 Emergency Jordan Hull [facility] 1.2840.114 350.1.13.10 4.2.7.2.686 [id number] [facility] 2023-11-08 13:07:32 2023-11-08 13:07:32 Outpatient SFA SFA [id number] Andriy Serrato 2023-07-04 16:27:37 2023-07-04 16:27:37 Outpatient SFA SFA [id number] Andriy Serrato 2023-07-02 15:32:46 2023-07-02 15:32:46 Outpatient SFA [facility] [id number] Andriy Serrato 2023-06-24 10:11:44 2023-06-24 10:11:44 Outpatient SFA [facility] [id number] Andriy Serrato 2023-06-19 09:44:44 2023-06-19 09:44:44 Outpatient SFA [facility] [id number] Andriy Serrato 2023-04-17 22:14:00 2023-04-18 00:46:00 Emergency X SHWETA MORRISON [facility] ERT [id number] [facility] 2023-04-17 22:14:00 2023-04-18 00:46:00 Emergency Shweta Morrison [facility] 1.2.840.114 350.1.13.10 4.2.7.2.686 [id number] [facility] 2022-11-23 06:55:00 2022-11-23 10:13:00 Emergency X VASUT, JORDAN [facility] ERT [id number] [facility] 2022-11-23 06:55:00 2022-11-23 10:13:00 Emergency Jordan Hull [facility] 1.2.840.114 350.1.13.10 4.2.7.2.686 [id number] [facility] 2021-01-29 00:00:00 2021-01-29 00:00:00 Patient Outreach Jimy Rashad Mario [facility] 1.2.840.114 350.1.13.10 4.2.7.2.686 [id number] [facility] 2020-08-29 19:12:00 2020-08-29 21:56:00 Emergency Shweta Morrison [facility] 1.2.840.114 350.1.13.10 4.2.7.2.686 [id number] [facility] 2020-05-19 19:17:07 2020-05-19 22:36:00 Emergency Abimbola Bray [facility] 1.2.840.114 350.1.13.10 4.2.7.2.686 [id number] [facility] 2020-03-29 00:00:00 2020-03-29 00:00:00 Case Management Conchis Diana [facility] CURTAIN INSPECTOR [facility]ERNAL & [facility]ILD [facility] 1.2.840.114 350.1.13.10 4.2.7.2.686 [id number] [facility] 2020-03-24 10:41:59 2020-03-24 11:47:48 Office Visit Provider, Sara Perez [facility]TAIN INSPECT[facility] 1.2.840.114 350.1.13.10 4.2.7.2.686 [id number] [facility] 2020-03-24 10:30:00 2020-03-24 10:30:00 Outpatient R SARA CARVAJAL [facility] [id number] [facility] 2020-03-24 10:30:00 2020-03-24 10:30:00 Outpatient R SARA CARVAJAL [facility] [id number] [facility] 2020-03-15 11:57:03 2020-03-15 13:13:00 Emergency Eddie Sheets [facility] 1.2.840.114 350.1.13.10 4.2.7.2.686 [id number] [facility] 2020-03-15 00:00:00 2020-03-15 00:00:00 Orders Only Doctor Unassigned, [place] [facility] 1.2.840.114 350.1.13.10 4.2.7.2.686 [id number] [facility] 2020-03-15 00:00:00 2020-03-15 00:00:00 Telephone Sara Carvajal [facility] CURTAIN INSPECTOR [facility]ER[facility]ILD [facility] 1.2.840.114 350.1.13.10 4.2.7.2.686 [id number] [facility] 2020-02-15 00:00:00 2020-02-15 00:00:00 Telephone Pcp, Patient Does Not Have A [facility] CURTAIN INSPECTOR [facility] MATERNAL & CHILD [facility] 1.2.840.114 350.1.13.10 4.2.7.2.686 [id number] [facility] 2020-01-10 10:16:29 2020-01-10 10:19:00 Emergency Stewart Camara [facility] 1.2.840.114 350.1.13.10 4.2.7.2.686 [id number] [facility] 2020-01-10 00:00:00 2020-01-10 00:00:00 Orders Only Doctor Unassigned, [place] [facility] 1.2.840.114 350.1.13.10 4.2.7.2.686 [id number] [facility] 2019-07-09 04:40:10 2019-07-09 06:17:00 [facility] 1.2.840.114 350.1.13.10 4.2.7.2.686 [id number] [facility] 2019-06-23 04:00:44 2019-06-23 05:50:00 Emergency [facility] 1.2.840.114 350.1.13.10 4.2.7.2.686 [id number] [facility] Results Test Description Test Time Test Comments Results Result Co mments Source [facility] Stimulating [id number] 19:15:41 * Test Item Value Reference Range Interpretation Comme nts TSH (test code = 9980567248) 0.45-4.70 L Biotin has been reported to cause a negative bias, interpret results relative to patient's use of biotin. Lab Interpretation (test code = 75153-1) Abnormal [facility]-Terminal Ngf-[id number] 19:03:45* Test Item Value Reference Range Interpretation Comme nts NT-proBNP (test code = 52527-3) <=125 Lab Interpretation (test cod e = 61423-4) Normal [facility] [id number] 19:02:19* Test Item Value Reference Range Interpretation Comme nts FREE T4 (test code = 2106134509) 4.88 ng/dL 0.78-2.20 H Lab Interpretation (test cod e = 67839-8) Abnormal [facility] [id number] 19:01:58* Test Item Value Reference Range Interpretation Comme nts FREE T3 (test code = 4137002346) 20.30 pg/mL 2.77-5.27 H Lab Interpretation (test cod e = 57551-3) Abnormal [facility]Troponin [id number] 18:56:55* Test Item Value Reference Range Interpretation Comme nts TROPONIN I (test code = 0392273008) 0.008 ng/mL <=0.034 ANDREA (test code = ANDREA) [...] of biotin. Lab Interpretation (test code = 43024-4) Normal [facility] Resources[facility]esium2024-12-12 18:42:53* Test Item Value Reference Range Interpretation Comme nts MAGNESIUM (test code = 7288930393) 1.4 mg/dL 1.7-2.4 L Lab Interpretation (test cod e = 33223-3) Abnormal [facility] Metabolic Panel (66146)2024-10-21 18:42:33* Test Item Value Reference Range Interpretation Comme nts NA (test code = 1790446717) 136 mmol/L 135-145 K (test code = 5756134930) 5.1 mmol/L 3.5-5.0 H CL (test code = 4943403694) 103 mmol/L 98-108 CO2 TOTAL (test code = 0937067751) 21 mmol/L 23-31 L AGAP (test code = 0331461253) 12 2-16 BUN (test code = 9442261064) 18 mg/dL 7-23 GLUCOSE (test code = 5383576335) 103 mg/dL 70-110 CREATININE (test code = 2160-0) 0.73 mg/dL 0.50-1.04 TOTAL BILI (test code = 9173793708) 0.9 mg/dL 0.1-1.1 CALCIUM (test code = 7502285605) 11.3 mg/dL 8.6-10.6 H T PROTEIN (test code = 6642326956) 8.9 g/dL 6.3-8.2 H ALBUMIN (test code = 2805082333) 5.0 g/dL 3.5-5.0 ALK PHOS (test code = 8003871505) 97 U/L 34-122 ALTv (test code = 1742-6) 14 U/L 5-35 AST(SGOT) (test code = 8930516823) 28 U/L 13-40 eGFR (test code = 39997-1) 107.4 mL/min/1.73m2 CKD-EPI eGFR (2020). Assuming creatinine has been stable day-to-day for at least three months, the eGFR indicates Category G1 (>= 90 mL/min/1.73 m2) Lab Interpretation (test code = 43633-7) Abnormal [facility] Resources[facility]b with [id number] 18:35:54* Test Item Value Reference Range Interpretation Comme nts WBC (test code = 6690-2) 4.22 4.30-11.10 L RBC (test code = 789-8) 5.84 3.93-5.25 H HGB (test code = 718-7) 14.6 g/dL 11.6-15.0 HCT (test code = 4544-3) 45.9 % 35.7-45.2 H MCV (test code = 787-2) 78.6 fL 80.6-95.5 L MCH (test code = 785-6) 25.0 pg 25.9-32.8 L MCHC (test code = 786-4) 31.8 g/dL 31.6-35.1 RDW-SD (test code = 60247-9) 34.8 fL 39.0-49.9 L RDW-CV (test code = 788-0) 12.3 % 12.0-15.5 PLT (test code = 777-3) 404 166-358 H MPV (test code = 56554-6) 12.2 fL 9.5-12.9 NRBC/100 WBC (test code = 1277854356) 0.0 0.0-10.0 NRBC x10^3 (test code = 2975090893) See_Comment [Automated messa ge] The system which generated this result transmitted reference range: 10*3/?L. The reference range was not used to interpret this result as normal/abnormal. GRAN MAT (NEUT) % (test code = 770-8) 47.9 % IMM GRAN % (test code = 7495874718) 0.20 % LYMPH % (test code = 736-9) 41.2 % MONO % (test code = 5905-5) 9.5 % EOS % (test code = 713-8) 0.7 % BASO % (test code = 706-2) 0.5 % GRAN MAT x10^3(ANC) (test code = 0013968195) 2.02 10*3/uL 1.88-7.09 IMM GRAN x10^3 (test code = 9942591737) 0.00-0.06 LYMPH x10^3 (test code = 731-0) 1.74 10*3/uL 1.32-3.29 MONO x10^3 (test code = 742-7) 0.40 10*3/uL 0.33-0.92 EOS x10^3 (test code = 711-2) 0.03 10*3/uL 0.03-0.39 BASO x10^3 (test code = 704-7) 0.01-0.07 Lab Interpretation (test code = 89576-3) Abnormal [facility] [id number] 18:02:00* Test Item Value Reference Range Interpretation Comme nts POCT PREG (test code = 1605) Negative On board controls acceptable with C Line (test code = 3574) Yes Lab Interpretation (test cod e = 09149-9) Normal [facility] ABDOMEN PELVIS W [id number] 13:13:33ORDERING PHYSICIAN: [place]IL [place]. HISTORY: Abdominal pain, fever Abdominal abscess/infection suspected Abdominal pain, acute, nonlocalized RLQ pain with guarding and rebound tenderness with low grade Temp, ruleout appendicitis ? TECHNIQUE: CT abdomen and pelvis with intravenous contrast. ?CT wasperformed according to ALARA (As Low As Reasonably Achievable). ? COMPARISON: 11/23/2022 FINDINGS: Abdomen: Visualized Chest: Visualized portions of the lungs show no consolidation oreffusions. Liver And Biliary Tree: No hepatic lesions are identified. ?The gallbladderand biliary tree are unremarkable. Spleen: No splenic abnormalities are identified. Kidneys: There is a 1 cm simple renal cortical cyst at the lower pole ofthe right kidney (image 53/2). Small right hypodensities are too small tocharacterize. The kidneys enhance symmetrically. There is nonephrolithiasis or hydronephrosis. Adrenals: No adrenal masses are identified. Pancreas: No pancreatic masses are identified. Lymph Nodes: No ad enopathy is identified. Aorta: No aneurysms are seen. Small Bowel: There is no free air or focal bowel obstruction. ?No hiatalhernia is present. ?The terminal ileum is normal. PELVIS: Colon: The appendix is normal. Rest of the colon is normal. Bladder: Mild thickening at the anterior bladder apex in the location ofthe urachal remnant is stable. Reproductive Organs: An enlarged uterus containing multiple fibroids issimilar in appearance. The uterus measures 10.8 cm in long axis, and thelargest fibroid measures 5.8 cm. The left ovary is not identified withcertainty. Multiple small follicles arepresent within the right ovary, thelargest measuring 1.5 cm. Pelvic free fluid is present. Osseous S tructures: No suspicious lesions are identified.[facility] ResourcesPODE [id number] 11:36:00* Test Item Value Reference Range Interpretation Comme nts POCT PREG (test code = 1605) Negative On board controls acceptable with C Line (test code = 3574) Yes POCT PREG LOT # (test code = 3575) [id number] POCT PREG TEST DATE ( test code = 3576) 2025-03-17 Lab Interpretation (test cod e = 47253-9) Normal [facility] with [id number] 11:14:06* Test Item Value Reference Range Interpretation Comme [facility] WBC (test code = 6690-2) 10.82 4.30-11.10 RBC (test code = 789-8) 4.76 3.93-5.25 HGB (test code = 718-7) 11.8 g/dL 11.6-15.0 HCT (test code = 4544-3) 37.2 % 35.7-45.2 MCV (test code = 787-2) 78.2 fL 80.6-95.5 L MCH (test code = 785-6) 24.8 pg 25.9-32.8 L MCHC (test code = 786-4) 31.7 g/dL 31.6-35.1 RDW-SD (test code = 23153-8) 39.7 fL 39.0-49.9 RDW-CV (test code = 788-0) 14.0 % 12.0-15.5 PLT (test code = 777-3) 285 166-358 MPV (test code = 38162-3) 12.4 fL 9.5-12.9 NRBC/100 WBC (test code = 1150930407) 0.0 0.0-10.0 NRBC x10^3 (test code = 8720225729) See_Comment [Automated messa ge] The system which generated this result transmitted reference range: 10*3/?L. The reference range was not used to interpret this result as normal/abnormal. GRAN MAT (NEUT) % (test code = 770-8) 88.3 % IMM GRAN % (test code = 0486284620) 0.40 % LYMPH % (test code = 736-9) 5.9 % MONO % (test code = 5905-5) 5.2 % EOS % (test code = 713-8) 0.0 % BASO % (test code = 706-2) 0.2 % GRAN MAT x10^3(ANC) (test code = 0906691250) 9.56 10*3/uL 1.88-7.09 H IMM GRAN x10^3 (test code = 1522737532) 0.04 10*3/uL 0.00-0.06 LYMPH x10^3 (test code = 731-0) 0.64 10*3/uL 1.32-3.29 L MONO x10^3 (test code = 742-7) 0.56 10*3/uL 0.33-0.92 EOS x10^3 (test code = 711-2) 0.03-0.39 L BASO x10^3 (test code = 704-7) 0.01-0.07 Lab Interpretation (test code = 91866-5) Abnormal [facility] Metabolic Panel (14616)2024-05-19 11:12:04* Test Item Value Reference Range Interpretation Comme nts NA (test code = 1779908052) 136 mmol/L 135-145 K (test code = 9143243515) 3.5 mmol/L 3.5-5.0 CL (test code = 4714081028) 106 mmol/L 98-108 CO2 TOTAL (test code = 5785903265) 23 mmol/L 23-31 AGAP (test code = 7770149734) 7 2-16 BUN (test code = 9960358057) 12 mg/dL 7-23 GLUCOSE (test code = 6397329541) 112 mg/dL 70-110 H CREATININE (test code = 2160-0) 0.56 mg/dL 0.50-1.04 TOTAL BILI (test code = 6249028379) 1.4 mg/dL 0.1-1.1 H CALCIUM (test code = 0639112099) 9.6 mg/dL 8.6-10.6 T PROTEIN (test code = 6807030454) 8.3 g/dL 6.3-8.2 H ALBUMIN (test code = 6368572622) 4.3 g/dL 3.5-5.0 ALK PHOS (test code = 4916447984) 112 U/L 34-122 ALTv (test code = 1742-6) 13 U/L 5-35 AST(SGOT) (test code = 7027691507) 27 U/L 13-40 eGFR (test code = 88175-3) 119.2 mL/min/1.73m2 CKD-EPI eGFR (2020). Assuming creatinine has been stable day-to-day for at least three months, the eGFR indicates Category G1 (>= 90 mL/min/1.73 m2) Lab Interpretation (test code = 06528-2) [facility]normal [facility] [id number] 08:28:43EXAM: CT CHEST PULMONARY ANGIOGRAM ORDERING CLINICIAN: ?JORDAN ?VASUT HISTORY: Chest pain. COMPARISON: none TECHNIQUE: CT angiogram of the chest with IV contrast. Multiplanar MIPreformatted images were obtained. ?CT performed according to Leonela. TECHNICAL QUALITY: Limited by respiratory motion. FINDINGS:The lung volumes are slightly reduced. Mild groundglass attenuation in thelower lobesis probably related to respiratory motion and atelectasis. ?Thetrachea and bronchi are patent to the segmental level. ?There is nopathologic lymphadenopathy. ?There are no pleural effusions. ?The thyr oidappears normal. The heart is normal in size. ?The aorta and pulmonary arteries are normalin caliber. ?There is no pulmonary embolus. There is no aortic dissection. The visualized portion of the upper abdomen is unremarkable. Soft tissues are normal. ?Osseous structures are unremarkable.[facility] ResourcesFr [id number] 07:38:17* Test Item Value Reference Range Interpretation Comme nts FREE T4 (test code = 8392732287) 2.93 See_Comment H [Automated messa ge] The system which generated this result transmitted reference range: 0.78 - 2.20 ng/dL:. The reference range was not used to interpret this result as normal/abnormal. Lab Interpretation (test code = 98094-0) Abnormal [facility]PO[facility] [id number] 07:16:00* Test Item Value Reference Range Interpretation Comme nts POCT PREG (test code = 1605) Negative On board controls acceptable with C Line (test code = 3574) Yes Lab Interpretation (test cod e = 23664-5) Normal [facility] ResourcesTROPONIN [id number] 07:06:56* Test Item Value Reference Range Interpretation Comme nts TROPONIN I (test code = 9996775367) 0.002 ng/mL <=0.034 ANDREA (test code = [...] of biotin. Lab Interpretation (test code = 13621-5) Normal [facility] ResourcesD-Gapyb5563-76-81 07:02:15* Test Item Value Reference Range Interpretation Comments D-DIMER (test code = 1819741715) 0.57 See_Comment H [Automated message] The system [...] a diagnosis. Lab Interpretation (test code = 88729-9) Abnormal [facility]. METABOLIC PANEL ([id number])2023-11-23 06:55:31* Test Item Value Reference Range Interpretation Comme nts NA (test code = 9631855903) 139 mmol/L 135-145 K (test code = 3010860151) 3.1 mmol/L 3.5-5.0 L CL (test code = 2233019290) 107 mmol/L 98-108 CO2 TOTAL (test code = 4716188456) 20 mmol/L 23-31 L AGAP (test code = 6660402328) 12 2-16 BUN (test code = 5801395261) 19 mg/dL 7-23 GLUCOSE (test code = 0846954036) 105 mg/dL 70-110 CREATININE (test code = 7446103170) 0.68 mg/dL 0.50-1.04 TOTAL BILI (test code = 0957991547) 0.4 mg/dL 0.1-1.1 CALCIUM (test code = 6211263899) 9.8 mg/dL 8.6-10.6 T PROTEIN (test code = 7830637467) 8.8 g/dL 6.3-8.2 H ALBUMIN (test code = 2287889187) 4.6 g/dL 3.5-5.0 ALK PHOS (test code = 3851409414) 90 U/L 34-122 ALTv (test code = 1742-6) 11 U/L 5-35 AST(SGOT) (test code = 7077674853) 24 U/L 13-40 eGFR (test code = 82307-2) 114.5 mL/min/1.73m2 CKD-EPI eGFR (2020). Assuming creatinine has been stable day-to-day for at least three months, the eGFR indicates Category G1 (>= 90 mL/min/1.73 m2) Lab Interpretation (test code = 99347-6) Abnormal [facility] ResourcesLIPASE, [id number] 06:55:16* Test Item Value Reference Range Interpretation Comme nts LIPASE (test code = 6049957074) 77 U/L 0-220 Lab Interpretation (test cod e = 45329-2) Normal [facility]CB WITH [id number] 06:44:11* Test Item Value Reference Range Interpretation Comme nts WBC (test code = 6690-2) 6.78 See_Comment [Automated [employer]] The system which generated this result transmitted reference range: 4.30 - 11.10 10*3/?L. The reference range was not used to interpret this result as normal/abnormal. RBC (test code = 789-8) 4.77 See_Comment [Automated [employer]] The system which generated this result transmitted [...] 31.9 g/dL 31.6-35.1 RDW-SD (test code = 63493-7) 38.5 fL 39.0-49.9 L RDW-CV (test code = 788-0) 13.4 % 12.0-15.5 PLT (test code = 777-3) 407 See_Comment H [Automated messa ge] The system which generated this result transmitted reference range: 166 - 358 10*3/?L. The reference range was not used to interpret this result as normal/abnormal. MPV (test code = 69990-4) 12.3 fL 9.5-12.9 NRBC/100 WBC (test code = 7416604614) 0.0 See_Comment [Automated me ssage] The system which generated this result transmitted reference range: 0.0 - 10.0 /100 WBCs. The reference range was not used to interpret this result as normal/abnormal. NRBC x10^3 (test code = 0119140584) See_Comment [Automated messa ge] The system which generated this result transmitted reference range: 10*3/?L. The reference range was not used to interpret this result as normal/abnormal. GRAN MAT (NEUT) % (test code = 770-8) 52.6 % IMM GRAN % (test code = 9662145934) 0.30 % LYMPH % (test code = 736-9) 37.8 % MONO % (test code = 5905-5) 8.0 % EOS % (test code = 713-8) 0.7 % BASO % (test code = 706-2) 0.6 % GRAN MAT x10^3(ANC) (test code = 8838937162) 3.57 10*3/uL 1.88-7.09 IMM GRAN x10^3 (test code = 0951516867) 0.00-0.06 LYMPH x10^3 (test code = 731-0) 2.56 10*3/uL 1.32-3.29 MONO x10^3 (test code = 742-7) 0.54 10*3/uL 0.33-0.92 EOS x10^3 (test code = 711-2) 0.05 10*3/uL 0.03-0.39 BASO x10^3 (test code = 704-7) 0.04 10*3/uL 0.01-0.07 Lab Interpretation (test code = 23714-9) Abnormal [facility] ResourcesHEMOGLOBIN [id number] 13:25:29* Test Item Value Reference Range Interpretation Comme nts HEMOGLOBIN A1c (test code = 97364) TEST NOT PERFORMED % 4.2-5.6 Unable to perform testing, specimen not received.Charges adjusted as applicable. HEPATITIS B SURFACE [id number] 04:30:58* Test Item Value Reference Range Interpretation Comme nts HEPATITIS B SURFACE AB (test code = 2737) REACTIVE NON-REACTIVE A LIPID [id number] 02:47:41* Test Item Value Reference Range Interpretation Comme nts CHOLESTEROL (test code = 2210) 169 MG/DL <200 TRIGLYCERIDES (test code = 2232) 83 MG/DL <150 HDL CHOLESTEROL (test code = 2220) 70 MG/DL >39 CALC LDL CHOL (test code = 223) 82 MG/DL <100 NOTE: CALCULATED LDL IS BASED ON PASQUALE-BARBOZA METHOD WHICHINCLUDES ADJUSTABLE TRIGLYCERIDE:VLDL CHOLESTEROL RATIO.THIS FACTOR VARIES BY MEASURED TRIGLYCERIDE AND NON-HDLCHOLESTEROL CONCENTRATIONS WITH INCREASED CALCULATED LDL SEENIN HIGHER TRIGLYCERIDE OR LOWER NON-HDL SPECIMENS. FOR MOREINFORMATION, SEE CLIENT ANNOUNCEMENT AT [email or web address] RISK RATIO LDL/HDL (test code = 2238) 1.17 RATIO <3.22 COMPREHENSIVE METABOLIC [id number] 02:47:41* Test Item Value Reference Range Interpretation Comme nts GLUCOSE (test code = 2217) 90 MG/DL 70-99 BUN (test code = 2207) 7 MG/DL 6-20 CREATININE (test code = 2214) 0.58 MG/DL 0.60-1.30 L eGFR (2020 CKD-EPI) (test code = 68690) 119 ML/MIN/1.73 >60 CALC BUN/CREAT (test code = 2235) 12 RATIO 6-28 SODIUM (test code = 2230) 141 MEQ/L 133-146 POTASSIUM (test code = 8) 3.9 MEQ/L 3.5-5.4 CHLORIDE (test code = 5) 107 MEQ/L 95-107 CARBON DIOXIDE (test code = 6) 24 MEQ/L 19-31 CALCIUM (test code = 2208) 9.4 MG/DL 8.5-10.5 PROTEIN, TOTAL (test code = 2229) 6.9 G/DL 6.1-8.3 ALBUMIN (test code = 1) 4.2 G/DL 3.5-5.2 CALC GLOBULIN (test code = 2240) 2.7 G/DL 1.9-3.7 CALC A/G RATIO (test code = 2234) 1.6 RATIO 1.0-2.6 BILIRUBIN, TOTAL (test code = 7) 0.3 MG/DL See_Comment [Automated me ssage] The system which generated this result transmitted reference range: <=1.2. The reference range was not used to interpret this result as normal/abnormal. ALKALINE PHOSPHATASE (test code = 2204) 90 U/L 40-112 AST (test code = 2218) 15 U/L 9-40 ALT (test code = 2219) 8 U/L 5-40 UNLESS OTHERWISE INDICATED, ALL TESTING PERFORMED AT [facility] [address] [place] [address] PRODUCTION MACHINE COMPUTER OPERATOR: BURKE URIAS M.D. CLIA NUMBER [id number] [facility] [place]. [id number] TROPONIN [id number] 04:34:24* Test Item Value Reference Range Interpretation Comme nts TROPONIN I (test code = 8865950311) 0.001 ng/mL <=0.034 ANDREA (test code = [...] of biotin. Lab Interpretation (test code = 88816-7) Normal [facility] ResourcesD-[id number] 04:30:42* Test Item Value Reference Range Interpretation Comments D-DIMER (test code = 2784708286) 0.28 See_Comment [Automated message] The system which [...] a diagnosis. Lab Interpretation (test code = 67867-3) Normal [facility]. METABOLIC PANEL (57309)2023-04-18 04:22:44* Test Item Value Reference Range Interpretation Comme nts NA (test code = 9945039131) 138 mmol/L 135-145 K (test code = 3489469386) 3.8 mmol/L 3.5-5.0 CL (test code = 9935293772) 108 mmol/L 98-108 CO2 TOTAL (test code = 2140575809) 23 mmol/L 23-31 AGAP (test code = 8357417808) 7 2-16 BUN (test code = 2833078486) 17 mg/dL 7-23 GLUCOSE (test code = 4680105288) 103 mg/dL 70-110 CREATININE (test code = 9837545049) 0.63 mg/dL 0.50-1.04 TOTAL BILI (test code = 8383644883) 0.3 mg/dL 0.1-1.1 CALCIUM (test code = 2008602384) 9.0 mg/dL 8.6-10.6 T PROTEIN (test code = 0379864018) 6.8 g/dL 6.3-8.2 ALBUMIN (test code = 8014871227) 3.7 g/dL 3.5-5.0 ALK PHOS (test code = 9401147061) 94 U/L 34-122 ALTv (test code = 1742-6) 12 U/L 5-35 AST(SGOT) (test code = 9451838754) 21 U/L 13-40 eGFR (test code = 9055795090) 105.8 mL/min/1.73m2 ADNREA (test code = ANDREA) Association of Glomerular [...] or urine or abnormalities in imaging tests). [facility] ResourcesMAGNESIUM2023-06-09 04:22:44* Test Item Value Reference Range Interpretation Comme nts MAGNESIUM (test code = 4595646027) 1.5 mg/dL 1.7-2.4 L Lab Interpretation (test cod e = 45925-3) Abnormal [facility] WITH [id number] 04:10:22* Test Item Value Reference Range Interpretation Comme nts WBC (test code = 6690-2) 6.93 See_Comment [Automated [employer]] The system which generated this result transmitted reference range: 4.30 - 11.10 10*3/?L. The reference range was not used to interpret this result as normal/abnormal. RBC (test code = 789-8) 4.40 See_Comment [Automated messa ge] The system which [...] 32.5 g/dL 31.6-35.1 RDW-SD (test code = 17007-9) 34.6 fL 39.0-49.9 L RDW-CV (test code = 788-0) 12.0 % 12.0-15.5 PLT (test code = 777-3) 297 See_Comment [Automated [employer] ge] The system which generated this result transmitted reference range: 166 - 358 10*3/?L. The reference range was not used to interpret this result as normal/abnormal. MPV (test code = 36145-1) 11.8 fL 9.5-12.9 NRBC/100 WBC (test code = 4545161333) 0.0 See_Comment [Automated [employer] ssage] The system which generated this result transmitted reference range: 0.0 - 10.0 /100 WBCs. The reference range was not used to interpret this result as normal/abnormal. NRBC x10^3 (test code = 4566669995) See_Comment [Automated [employer]] The system which generated this result transmitted reference range: 10*3/?L. The reference range was not used to interpret this result as normal/abnormal. GRAN MAT (NEUT) % (test code = 770-8) 43.5 % IMM GRAN % (test code = 5107752148) 0.30 % LYMPH % (test code = 736-9) 47.8 % MONO % (test code = 5905-5) 5.8 % EOS % (test code = 713-8) 2.2 % BASO % (test code = 706-2) 0.4 % GRAN MAT x10^3(ANC) (test code = 0349820886) 3.02 10*3/uL 1.88-7.09 IMM GRAN x10^3 (test code = 6161773861) 0.00-0.06 LYMPH x10^3 (test code = 731-0) 3.31 10*3/uL 1.32-3.29 H MONO x10^3 (test code = 742-7) 0.40 10*3/uL 0.33-0.92 EOS x10^3 (test code = 711-2) 0.15 10*3/uL 0.03-0.39 BASO x10^3 (test code = 704-7) 0.03 10*3/uL 0.01-0.07 Lab Interpretation (test code = 91222-3) Abnormal [facility]. METABOLIC PANEL ([id number])2022-11-23 13:38:11* Test Item Value Reference Range Interpretation Comme nts NA (test code = 1034229966) 137 mmol/L 135-145 K (test code = 4235025654) 4.5 mmol/L 3.5-5.0 CL (test code = 5364540346) 108 mmol/L 98-108 CO2 TOTAL (test code = 0202436453) 20 mmol/L 23-31 L AGAP (test code = 5102050367) 2-16 BUN (test code = 6789368444) 14 mg/dL 7-23 GLUCOSE (test code = 0854755897) 97 mg/dL 70-110 CREATININE (test code = 7704913029) 0.54 mg/dL 0.50-1.04 TOTAL BILI (test code = 1880832162) 0.7 mg/dL 0.1-1.1 CALCIUM (test code = 4059025571) 9.7 mg/dL 8.6-10.6 T PROTEIN (test code = 5264491938) 8.4 g/dL 6.3-8.2 H ALBUMIN (test code = 9136227284) 4.7 g/dL 3.5-5.0 ALK PHOS (test code = 5320240831) 119 U/L 34-122 ALTv (test code = 1742-6) 16 U/L 5-35 AST(SGOT) (test code = 6255783827) 28 U/L 13-40 eGFR (test code = 7466662741) mL/min/1.73m2 ANDREA (test code = ANDREA) Association [...] imaging tests). Lab Interpretation (test code = 01671-1) Abnormal [facility] ResourcesLIPASE2023-01-14 13:37:31* Test Item Value Reference Range Interpretation Comme nts LIPASE (test code = 6234027767) 49 U/L 0-220 Lab Interpretation (test cod e = 24680-5) Normal [facility]CB WITH [id number] 13:21:08* Test Item Value Reference Range Interpretation Comme nts WBC (test code = 6690-2) See_Comment [Automated [employer]] The system which generated this result transmitted reference range: 4.30 - 11.10 10*3/?L. The reference range was not used to interpret this result as normal/abnormal. RBC (test code = 789-8) See_Comment [Automated [employer]] The system which generated this result [...] 31.6 g/dL 31.6-35.1 RDW-SD (test code = 74110-5) 35.0 fL 39.0-49.9 L RDW-CV (test code = 788-0) 12.7 % 12.0-15.5 PLT (test code = 777-3) See_Comment [Automated [employer]] The system which generated this result transmitted reference range: 166 - 358 10*3/?L. The reference range was not used to interpret this result as normal/abnormal. MPV (test code = 05559-0) 11.8 fL 9.5-12.9 NRBC/100 WBC (test code = 1859488062) See_Comment [Automated [employer] ssage] The system which generated this result transmitted reference range: 0.0 - 10.0 /100 WBCs. The reference range was not used to interpret this result as normal/abnormal. NRBC x10^3 (test code = 8647847563) See_Comment [Automated [employer]] The system which generated this result transmitted reference range: 10*3/?L. The reference range was not used to interpret this result as normal/abnormal. GRAN MAT (NEUT) % (test code = 770-8) 61.7 % IMM GRAN % (test code = 5689362484) 0.40 % LYMPH % (test code = 736-9) 25.4 % MONO % (test code = 5905-5) 11.0 % EOS % (test code = 713-8) 1.1 % BASO % (test code = 706-2) 0.4 % GRAN MAT x10^3(ANC) (test code = 9027080603) 3.49 10*3/uL 1.88-7.09 IMM GRAN x10^3 (test code = 5373187675) 0.00-0.06 LYMPH x10^3 (test code = 731-0) 1.43 10*3/uL 1.32-3.29 MONO x10^3 (test code = 742-7) 0.62 10*3/uL 0.33-0.92 EOS x10^3 (test code = 711-2) 0.06 10*3/uL 0.03-0.39 BASO x10^3 (test code = 704-7) 0.01-0.07 Lab Interpretation (test code = 25226-4) Abnormal [facility]PO[facility] [id number] 13:13:00* Test Item Value Reference Range Interpretation Comme nts POCT PREG (test code = 1605) negative On board controls acceptable with C Line (test code = 3574) present Lab Interpretation (test cod e = 45900-2) Normal [facility] ResourcesTHYROID STIMULATING [id number] 01:50:00 * Test Item Value Reference Range Interpretation Comme nts TSH (test code = 7510358378) <0.02 See_Comment L Biotin has been reported to cause a negative bias, interpret results relative to patient's use of biotin. [Automated message] The system which generated this result transmitted reference range: 0.45 - 4.70 mIU/L. The reference range was not used to interpret this result as normal/abnormal. Lab Interpretation (test code = 89762-2) Abnormal [facility] ResourcesAD / [facility] - DRUG SCREEN [id number] 01:31:00* Test Item Value Reference Range Interpretation Comme nts BENZO U (test code = 8731354450) Negative Negative YADIEL U (test code = 4118512471) Negative Negative AMPHET (test code = 8307692128) Negative Negative THC (test code = 1351618191) Presumptive Positive Negative A Confirmation of Presumptive Positive THC result requires physician order. METHADONE (test code = 5204755559) Negative Negative Meth U (test code = 4913820867) Negative Negative OPIATES (test code = 9427523180) Negative Negative Cocaine Metabolite (test code = 1981644066) Negative Negative PROPOXY (test code = 2339515838) Negative Negative Tric U (test code = 4443626058) Negative Negative PCP (test code = 3049445881) Negative Negative OXYCOD (test code = 1251946179) Negative Negative ANDREA (test code = ANDREA) [...] legal testing). Lab Interpretation (test code = 35961-7) Abnormal [facility] ResourcesXR CHEST 1 [id number] 01:04:49No acute cardiopulmonary abnormality within the confines [...] this study and agree with the abovereport. [id number] 01:03:00* Test Item Value Reference Range Interpretation Comme nts TROPONIN I (test code = 5323947318) <0.012 See_Comment [Automated message] The system which [...] biotin. ? Lab Interpretation (test code = 15507-6) Normal [facility]. METABOLIC PANEL (45583)2020-08-30 00:52:00* Test Item Value Reference Range Interpretation Comme nts NA (test code = 8459758454) 137 mmol/L 135-145 K (test code = 7227128709) 3.5 mmol/L 3.5-5 CL (test code = 0801078824) 103 mmol/L 98-108 CO2 TOTAL (test code = 8406117868) 19 mmol/L 23-31 L AGAP (test code = 6908813165) 2-16 BUN (test code = 7312290978) 17 mg/dL 7-23 GLUCOSE (test code = 3076245724) 112 mg/dL 70-110 H CREATININE (test code = 8471194627) 0.50 mg/dL 0.5-1.04 TOTAL BILI (test code = 1173750652) 0.7 mg/dL 0.1-1.1 CALCIUM (test code = 7685843090) 10.4 mg/dL 8.6-10.6 T PROTEIN (test code = 9586169153) 9.2 g/dL 6.3-8.2 H ALBUMIN (test code = 6416499102) 4.8 g/dL 3.5-5 ALK PHOS (test code = 9257713587) 163 U/L 34-122 H ALTv (test code = 1742-6) 17 U/L 5-35 AST(SGOT) (test code = 2045246567) 33 U/L 13-40 eGFR Calculation (Non-) (test code = 3224408246) mL/min/1.73m2 eGFR Calculation () (test code = 0798905084) mL/min/1.73m2 ANDREA (test code = ANDREA) Association [...] imaging tests). Lab Interpretation (test code = 84540-6) Abnormal [facility] ResourcesLIP[facility], [id number] 00:51:00* Test Item Value Reference Range Interpretation Comme [facility] LIPASE (test code = 2912450901) 54 U/L 0-220 Lab Interpretation (test cod e = 08149-5) Normal [facility] ResourcesaPTT2020-10-21 00:48:00* Test Item Value Reference Range Interpretation Comme [facility] APTT Patient (test code = 3173-2) See_Comment [Automated message] The system which generated this result transmitted reference range: 23 - 38 Seconds. The reference range was not used to interpret this result as normal/abnormal. ANDREA (test code = ANDREA) The [facility] patient population mean normal value for aPTT is 30 seconds. Lab Interpretation (test code = 11491-4) Normal [facility] ResourcesPROTHROMBIN TIME / [id number] 00:46:00* Test Item Value Reference Range Interpretation Comme [facility] PROTIME PATIENT (test code = 5964-2) See_Comment [Automated [employer]] The system which generated this result transmitted reference range: 12.0 - 14.7 Seconds. The reference range was not used to interpret this result as normal/abnormal. INR (test code = 6301-6) Normal INR <1.1; Warfarin Therapeutic range 2.0 to 3.0 or 2.5 to 3.5, depending upon the indications. Lab Interpretation (test code = 97873-9) Normal [facility] ResourcesURINALYSIS2020-10-21 00:43:00* Test Item Value Reference Range Interpretation Comme [facility] APPEARANCE (test code = 3639558009) Hazy Clear A COLOR (test code = 2338647090) Nirmala Yellow A PH (test code = 9986690608) 4.8-8.0 SP GRAVITY (test code = 4540229027) 1.003-1.030 GLU U QUAL (test code = 4079719932) Normal Normal BLOOD (test code = 2389733386) 3+ Negative A KETONES (test code = 4711989522) 20 mg/dL Negative A PROTEIN (test code = 2887-8) 100 mg/dL Negative A UROBILIN (test code = 5399416589) 2.0 mg/dL Normal A BILIRUBIN (test code = 1882547680) Negative Negative NITRITE (test code = 4548683803) Negative Negative LEUK PARTH (test code = 2894566770) Negative Negative RBC/HPF (test code = 8952373430) See_Comment H [Automated messa ge] The system which generated this result transmitted reference range: 0 - 3 HPF. The reference range was not used to interpret this result as normal/abnormal. WBC/HPF (test code = 0111946985) See_Comment H [Automated messa ge] The system which generated this result transmitted reference range: 0 - 5 HPF. The reference range was not used to interpret this result as normal/abnormal. BACTERIA (test code = 2945018226) Moderate Negative A MUCOUS (test code = 4106981304) Marked Negative LPF A SQ EPITH (test code = 7700788037) HPF HYAL CAST (test code = 2718486532) See_Comment H [Automated messa ge] The system which generated this result transmitted reference range: <=2 LPF. The reference range was not used to interpret this result as normal/abnormal. Lab Interpretation (test code = 64963-2) Abnormal [facility] WITH [id number] 00:35:00* Test Item Value Reference Range Interpretation [...] 31.6 g/dL 31.6-35.1 RDW-SD (test code = 86691-2) 34.2 fL 39-49.9 L RDW-CV (test code = 788-0) 12.9 % 12-15.5 PLT (test code = 777-3) See_Comment H [Automated messa ge] The system which generated this result transmitted reference range: 166 - 358 10*3/?L. The reference range was not used to interpret this result as normal/abnormal. MPV (test code = 86683-9) 11.7 fL 9.5-12.9 NRBC/100 WBC (test code = 9809331866) See_Comment [Automated [employer] ssage] The system which generated this result transmitted reference range: 0.0 - 10.0 /100 WBCs. The reference range was not used to interpret this result as normal/abnormal. NRBC x10^3 (test code = 0504915568) <0.01 See_Comment [Automated messa ge] The system which generated this result transmitted reference range: 10*3/?L. The reference range was not used to interpret this result as normal/abnormal. GRAN MAT (NEUT) % (test code = 770-8) 47.0 % IMM GRAN % (test code = 4201943934) 0.30 % LYMPH % (test code = 736-9) 44.9 % MONO % (test code = 5905-5) 7.2 % EOS % (test code = 713-8) 0.3 % BASO % (test code = 706-2) 0.3 % GRAN MAT x10^3(ANC) (test code = 1181843348) 3.21 10*3/uL 1.88-7.09 IMM GRAN x10^3 (test code = 9659519433) <0.03 0-0.06 LYMPH x10^3 (test code = 731-0) 3.07 10*3/uL 1.32-3.29 MONO x10^3 (test code = 742-7) 0.49 10*3/uL 0.33-0.92 EOS x10^3 (test code = 711-2) <0.03 0.03-0.39 L BASO x10^3 (test code = 704-7) <0.03 0.01-0.07 Lab Interpretation (test code = 80444-3) Abnormal [facility]URINALYSIS2020-05-06 17:52:00* Test Item Value Reference Range Interpretation Comme nts APPEARANCE (test code = 9808528661) Cloudy Clear A COLOR (test code = 2882158686) Yellow Yellow PH (test code = 3643779133) 4.8-8.0 SP GRAVITY (test code = 6414246655) 1.003-1.030 GLU U QUAL (test code = 7611804930) Normal Normal BLOOD (test code = 9036640222) 3+ Negative A KETONES (test code = 8567053845) Negative Negative PROTEIN (test code = 2887-8) 100 mg/dL Negative A UROBILIN (test code = 8514910344) 4.0 mg/dL Normal A BILIRUBIN (test code = 3218577634) Negative Negative NITRITE (test code = 6171922374) Positive Negative A LEUK PARTH (test code = 5624654553) 500/uL Negative A RBC/HPF (test code = 3813084386) >182 See_Comment H [Automated messa ge] The system which generated this result transmitted reference range: 0 - 3 HPF. The reference range was not used to interpret this result as normal/abnormal. WBC/HPF (test code = 0452265494) >182 See_Comment H [Automated messa ge] The system which generated this result transmitted reference range: 0 - 5 HPF. The reference range was not used to interpret this result as normal/abnormal. BACTERIA (test code = 5264879014) Many Negative A SQ EPITH (test code = 2489645868) HPF WBC CLUMPS (test code = 3226018037) See_Comment H [Automated messa ge] The system which generated this result transmitted reference range: <=1 HPF. The reference range was not used to interpret this result as normal/abnormal. Lab Interpretation (test code = 20189-5) Abnormal [facility] [id number] 17:16:00* Test Item Value Reference Range Interpretation Comme nts POCT PREG (test code = 1605) negative On board controls acceptable with C Line (test code = 3574) present POCT PREG LOT # (test code = 3575) [id number] POCT PREG TEST DATE ( test code = 3576) 2021-06-09 Lab Interpretation (test cod e = 84406-6) Normal [facility] HEAD WO [id number] 10:48:25No acute intracranial abnormality.? RL: 5252 CT [...] CDTCT HEAD WITHOUTORDERING PHYSICIAN: SHWETA MORRISONHISTORY: Acute headacheCOMPARIS ON: noneTECHNIQUE: CT of the head without contrastThe Technique was utilized with ALARA (as low as reasonably achievable)protocol.FINDINGS:There is no acute intracranial hemorrhage. No extra axial fluidcollections.No midline shift. Ventricles are normal in size and symmetric.The garcia-white matter di fferentiation is preserved. The visualizedparanasal sinuses and mastoid air cells are clear. Osseous structures areunremarkable. IMPRESSIONNo acute intracranial abnormality. [facility] 10:41:00* Test Item Value Reference Range Interpretation Comme nts APPEARANCE (test code = 6727733920) Clear Clear COLOR (test code = 7232470190) Yellow Yellow PH (test code = 6134061260) 4.8-8.0 SP GRAVITY (test code = 5546210768) >=1.030 1.003-1.030 GLU U QUAL (test code = 2853080673) Negative Negative BLOOD (test code = 4939086434) Moderate Negative A KETONES (test code = 8608230181) Negative Negative PROTEIN (test code = 2887-8) Negative Negative UROBILIN (test code = 2565780726) 1.0 mg/dL See_Comment [Automated messa ge] The system which generated this result transmitted reference range: 0-1.0 mg/dL. The reference range was not used to interpret this result as normal/abnormal. BILIRUBIN (test code = 3219485193) Negative Negative NITRITE (test code = 0197372030) Negative Negative LEUK PARTH (test code = 3881469093) Negative Negative RBC/HPF (test code = 9267472122) See_Comment H [Automated messa ge] The system which generated this result transmitted reference range: 0 - 3 HPF. The reference range was not used to interpret this result as normal/abnormal. WBC/HPF (test code = 8862056288) See_Comment [Automated messa ge] The system which generated this result transmitted reference range: 0 - 5 HPF. The reference range was not used to interpret this result as normal/abnormal. BACTERIA (test code = 6262881311) Few Negative A MUCOUS (test code = 0236868911) Slight Negative LPF A Lab Interpretation (test code = 68741-8) Abnormal [facility] METABOLIC PANEL (NA, K, CL, CO2, GLUCOSE, BUN, CREATININE, CA)2019-06-23 10:17:00* Test Item Value Reference Range Interpretation Comme nts NA (test code = 8862595077) 143 mmol/L 135-145 K (test code = 0519864477) 3.4 mmol/L 3.5-5 L CL (test code = 3407432838) 110 mmol/L 98-108 H CO2 TOTAL (test code = 7610397049) 25 mmol/L 23-31 AGAP (test code = 5121503484) 2-16 BUN (test code = 7993607299) 12 mg/dL 7-23 GLUCOSE (test code = 2329458085) 91 mg/dL 70-110 CREATININE (test code = 0820479794) 0.46 mg/dL 0.5-1.04 L CALCIUM (test code = 3512705868) 9.4 mg/dL 8.6-10.6 eGFR Calculation (Non-) (test code = 6454836256) mL/min/1.73m2 eGFR Calculation () (test code = 1403050374) mL/min/1.73m2 ANDREA (test code = ANDREA) Association [...] imaging tests). Lab Interpretation (test code = 92842-3) Abnormal [facility] WITH [id number] 10:01:00* Test Item Value Reference Range Interpretation Comme nts WBC (test code = 6690-2) See_Comment [Automated [employer]] The system which generated this result transmitted reference range: 4.30 - 11.10 10*3/?L. The reference range was not used to interpret this result as normal/abnormal. RBC (test code = 789-8) See_Comment [Automated [employer]] The system which generated this result transmitted [...] 32.0 g/dL 31.6-35.1 RDW-SD (test code = 89077-2) 35.1 fL 39-49.9 L RDW-CV (test code = 788-0) 12.1 % 12-15.5 PLT (test code = 777-3) See_Comment [Automated [employer]] The system which generated this result transmitted reference range: 166 - 358 10*3/?L. The reference range was not used to interpret this result as normal/abnormal. MPV (test code = 17636-2) 11.7 fL 9.5-12.9 NRBC/100 WBC (test code = 6400287484) See_Comment [Automated [employer] ssage] The system which generated this result transmitted reference range: 0.0 - 10.0 /100 WBCs. The reference range was not used to interpret this result as normal/abnormal. NRBC x10^3 (test code = 0626122123) <0.01 See_Comment [Automated [employer] ge] The system which generated this result transmitted reference range: 10*3/?L. The reference range was not used to interpret this result as normal/abnormal. GRAN MAT (NEUT) % (test code = 770-8) 49.5 % IMM GRAN % (test code = 8202917618) 0.40 % LYMPH % (test code = 736-9) 40.7 % MONO % (test code = 5905-5) 8.3 % EOS % (test code = 713-8) 0.7 % BASO % (test code = 706-2) 0.4 % GRAN MAT x10^3(ANC) (test code = 5025399812) 2.75 10*3/uL 1.88-7.09 IMM GRAN x10^3 (test code = 4515157456) <0.03 0-0.06 LYMPH x10^3 (test code = 731-0) 2.26 10*3/uL 1.32-3.29 MONO x10^3 (test code = 742-7) 0.46 10*3/uL 0.33-0.92 EOS x10^3 (test code = 711-2) 0.04 10*3/uL 0.03-0.39 BASO x10^3 (test code = 704-7) <0.03 0.01-0.07 Lab Interpretation (test code = 27894-9) Abnormal [facility] [id number] 09:54:00* Test Item Value Reference Range Interpretation Comme nts POCT PREG (test code = 1605) negative On board controls acceptable with C Line (test code = 3574) yes POCT PREG LOT # (test code = 3575) [id number] POCT PREG TEST DATE ( test code = 3576) 11/09/2020 Lab Interpretation (test cod e = 92660-7) Normal [facility]
[2024-10-23] MEDS ORDERED: NA CHLORIDE 0.9% 1,000 ML ONE (10:19)
[2024-10-23] MEDS ORDERED: ONDANSETRON 4 MG/2 ML VIAL ONE (10:20)
[2024-10-23 11:01] LABS: Absolute Lymphocytes (CBC) 1.2 K/uL (0.7-4.9); Absolute Monocytes 0.4 K/uL (0.1-1.3); Absolute Neutrophil 1.4 K/uL (1.8-8.0); Basophils % 0.9 % (0-1.3); Eosinophils % 1.4 % (0-4.4); Hematocrit 40.5 % (36.0-45.0); Lymphocytes % 38.3 % (15.3-44.8); MCH 24.8 pg (27.0-35.0); MCHC 32.2 g/dL (32.0-36.0); MPV 10.3 fL (7.6-11.3); Monocytes % 13.9 % (3.3-12.3); Neutrophils % 45.5 % (41.7-73.7); Nucleated Red Blood Cells % 0.1 % (0-0); Platelets 275 thou/uL (152-406); RBC Red Blood Cell Count 5.25 M/uL (3.86-4.86); Red Cell Distribution Width 12.3 % (12.1-15.2)
[2024-10-23 11:04] LABS: Specific Gravity 1.019 (1.005-1.030); Sqamous Epithelial <5 /HPF (None Seen); Urine Bacteria None Seen /HPF (<20); Urine Bilirubin NEGATIVE (Negative); Urine Blood 3+ (Negative); Urine Clarity Extremely Turbid (Clear); Urine Color Light-Yellow (Yellow); Urine Culture Reflex Order NOT NEEDED; Urine Glucose NEGATIVE (Negative); Urine Ketones NEGATIVE (Negative); Urine Micro Reflex YN NO BILL MICROSCOPIC; Urine Mucus Slight /HPF (None Seen); Urine Nitrite NEGATIVE (Negative); Urine Protein TRACE (Negative); Urine RBC 21-50 /HPF (None Seen); Urine Urobilinogen Normal (Normal); Urine WBC <5 /HPF (<5)
--- NOTE | 2024-10-23 11:24 | RAD REPORT ---
EXAMINATION: ONE VIEW CHEST XR CLINICAL INDICATION: CHEST PAIN TECHNIQUE: Frontal chest projection is submitted. Examination is limited by patient positioning and t echnique. COMPARISON: 05/22/2024 FINDINGS: The lungs are well inflated and clear. The heart is upper limit of normal in size. No displaced fract ures identified. IMPRESSION: No acute intrathoracic abnormalities.
[2024-10-23 11:31] LABS: ALT/SGPT 15 U/L (13-56); AST/SGOT 22 U/L (15-37); Albumin 3.4 g/dL (3.4-5.0); Albumin/Globulin Ratio 0.8 (1.1-1.8); Alkaline Phosphatase 94 U/L (45-117); Anion Gap 12.3 mEq/L (5.0-15.0); BUN Blood Urea Nitrogen 25 mg/dL (7-18); Bicarbonate 20 mEq/L (21-32); Bilirubin Total 0.4 mg/dL (0.2-1.0); Globulin 4.4 g/dL (2.3-3.5); Glomerular Filtration Rate 85 ml/min (=/>90); Glucose Level 160 mg/dL (74-106); Magnesium 1.7 mg/dL (1.6-2.4); Potassium 3.3 mEq/L (3.5-5.1); Protein, Total 7.8 g/dL (6.4-8.2); Sodium Level 135 mEq/L (136-145); T3 Free 11.69 pg/mL (2.18-3.98); T4,Total 20.5 ug/dL (4.8-13.9); Troponin High Sensitivity 4.6 pg/mL (<58.9)
[2024-10-23 11:37] LABS: Bilirubin Direct < 0.2 mg/dL (0-0.2); Bilirubin Indirect, Calculated 0.2 mg/dL (0.2-0.8); Thyroid Stimulating Hormone < 0.005 uIU/mL (0.358-3.740)
[2024-10-23 12:05] LABS: Barbiturates NEGATIVE (NEGATIVE); Benzodiazepines NEGATIVE (NEGATIVE); Cocaine NEGATIVE (NEGATIVE); METHAMPHETAM NEGATIVE (NEGATIVE); Methadone NEGATIVE (NEGATIVE); Opiates NEGATIVE (NEGATIVE); Phencyclidine NEGATIVE (NEGATIVE); THC Cannibis POSITIVE (NEGATIVE)
--- NOTE | 2024-10-23 12:14 | EDPHYS ---
Physician Documentation [facility] Name: Tran Ocampo Age: 39 yrs Sex: Female : 1985 Arrival Date: 10/23/2024 Time: 09:53 Bed 13 Private MD: ED Physician Moisés Olivera HPI: 10/23 10:15 This 39 yrs old Black Female presents to ER via Ambulatory with complaints of Nausea, sb4 Arm Problem, Headache. 10:15 patient reports feeling poorly for the last few days- weak, nauseated, metallic taste sb4 in mouth. states she was diagnosed with hyperthyroidism 2 years ago, has not been consistent with her medications due to insurance reasons. went to a different ED 2 days ago, was restarted on methimazole and propranolol, states she is not feeling any better. 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 - Infectious Disease History:: Denies. - Social history:: Smoking status: Reported history of juuling and/or vaping. ROS: 10:15 Cardiovascular: Negative for chest pain, palpitations, and edema, sb4 10:15 Constitutional: Positive for fatigue, malaise, 10:15 Abdomen/GI: Positive for nausea, 10:15 All other systems are negative, Exam: 10:15 Head/Face: Normocephalic, atraumatic. Eyes: Extra-ocular motions intact. Periorbital sb4 areas with no swelling, redness, or edema. ENT: Mucous membranes moist. Cardiovascular: Regular rate and rhythm with a normal S1 and S2. Respiratory: No increased work of breathing, no retractions or nasal flaring. Abdomen/GI: Soft, non-tender, no distension. Skin: Warm, dry with normal turgor. Normal color with no rashes, no lesions, and no evidence of cellulitis. 10:15 Constitutional: The patient appears alert, awake, restless, uncomfortable, Vital Signs: 10:06 BP 139 / 106; Pulse 82; Resp 16; Temp 97.3; Pulse Ox 100% on R/A; Weight 63.05 kg; iw Height 5 ft. 3 in. ; Pain 8/10; 10:57 BP 137 / 98; Pulse 67; Resp 21; Pulse Ox 100% on R/A; cm10 12:00 BP 137 / 91; Pulse 74; Resp 18; Pulse Ox 100% on R/A; cm10 10:06 Body Mass Index 24.62 (63.05 kg, 160.02 cm) iw 10:06 Pain Scale: Adult iw MDM: 10:07 Medical Screening Exam initiated sb4 12:11 Data reviewed: vital signs, nurses notes, lab test result(s), EKG, radiologic studies, sb4 and as a result, I will discharge patient. Counseling: I had a detailed discussion with the patient and/or guardian regarding the historical points, exam findings, and any diagnostic results supporting the discharge/admit diagnosis, the presence of at least one elevated blood pressure reading (>120/80) during this emergency department visit, lab results, radiology results, the need for outpatient follow up, endocrinology, to return to the emergency department if symptoms worsen or persist or if there are any questions or concerns that arise at home. ED course: reviewed blood work from 2 days ago, T3 and T4 have decreased. patient feels better after fluids and nausea medication. instructed to continue taking methimazole and propranolol. she understands. 10/23 10:15 Order name: Basic Metabolic Panel; Complete Time: 11:40 sb4 10/23 10:15 Order name: CBC with Diff; Complete Time: 11:02 sb4 10/23 10:15 Order name: LFT's; Complete Time: 11:40 sb4 10/23 10:15 Order name: Magnesium; Complete Time: 11:40 sb4 10/23 10:15 Order name: Troponin HS; Complete Time: 11:40 sb4 10/23 10:15 Order name: TSH; Complete Time: 11:40 sb4 10/23 10:15 Order name: T4 Free; Complete Time: 11:40 sb4 10/23 10:15 Order name: T3 Free; Complete Time: 11:40 sb4 10/23 10:15 Order name: T4,Total; Complete Time: 11:40 sb4 10/23 10:15 Order name: UDS; Complete Time: 12:06 sb4 10/23 10:15 Order name: UAM; Complete Time: 11:08 sb4 10/23 10:15 Order name: XRAY Chest (1 view); Complete Time: 11:24 sb4 10/23 10:15 Order name: EKG; Complete Time: 10:16 sb4 10/23 10:15 Order name: Cardiac monitoring; Complete Time: 10:55 sb4 10/23 10:15 Order name: EKG - Nurse/Tech; Complete Time: 10:39 sb4 10/23 10:15 Order name: IV Saline Lock; Complete Time: 10:55 sb4 10/23 10:15 Order name: Labs collected and sent; Complete Time: 10:55 sb4 10/23 10:15 Order name: O2 Per Protocol; Complete Time: 10:55 sb4 10/23 10:15 Order name: O2 Sat Monitoring; Complete Time: 10:55 sb4 EC:15 Rate is 74 beats/min. Rhythm is regular, Normal Sinus Rhythm. ND interval is normal at sb4 154 msec. QRS interval is normal at 90 msec. QT interval is normal at 392 msec. No Q waves. T waves are Normal. No ST changes noted. Clinical impression: LVH. Interpreted by me. Reviewed by me. Administered Medications: 10:54 Drug: Ondansetron IVP 4 mg IVP once; over 2 minutes Route: IVP; Site: left wrist; cm10 11:47 Follow up: Response: No adverse reaction; Nausea is decreased cm10 10:55 Drug: NS 0.9% IV 1000 ml IV at 1 bolus Per protocol; to be given as a bolus over 60 cm10 minutes Route: IV; Rate: 1 bolus; Site: left wrist; 11:47 Follow up: Response: No adverse reaction; IV Status: Completed infusion; IV Intake: cm10 1000ml Disposition Summary: 10/23/24 12:13 Discharge Ordered Notes: Location: Home sb4 Problem: an ongoing problem sb4 Symptoms: have improved sb4 Condition: Stable sb4 Diagnosis - Hyperthyroidism sb4 - Dehydration sb4 Followup: sb4 - With: Private Physician - When: 1 week - Reason: Recheck today's complaints, Re-evaluation by your physician Discharge Instructions: - Discharge Summary Sheet sb4 - Dehydration, Adult sb4 - Hyperthyroidism sb4 Forms: - Patient Portal Instructions sb4 - Leadership Thank You Letter sb4 Prescriptions: - ondansetron 4 mg Oral Tablet,disintegrating - take 1 tablet ORAL route every 4-6 hours; 12 tablet; Refills: 0, Product sb4 Selection Permitted Signatures: Dispatcher [employer] Marlin Starks, RN RN Brandi Rod PA-C PAGerald sb4 Cecilia Morton RN RN cm10
--- NOTE | 2024-10-23 12:14 | ER ---
Nurse's Notes [facility] Name: Tran Ocampo Age: 39 yrs Sex: Female : 1985 Arrival Date: 10/23/2024 Time: 09:53 Bed 13 Private MD: Diagnosis: Hyperthyroidism;Dehydration Presentation: 10/23 10:04 Chief complaint: Patient states: last two days feeling nauseated and my left arm feels iw heavy this morning, when I swallow I taste pennies, headache X 2 days. Coronavirus screen: At this time, the client does not indicate any symptoms associated with coronavirus-19. Ebola Screen: No symptoms or risks identified at this time. 10:04 Method Of Arrival: Ambulatory iw 10:04 Acuity: ILIA 3 iw 12:39 Initial Sepsis Screen: Does the patient meet any 2 criteria? No. Patient's initial cm10 sepsis screen is negative. Does the patient have a suspected source of infection? No. Patient's initial sepsis screen is negative. Risk Assessment: Do you want to hurt yourself or someone else? Patient reports no desire to harm self or others. Onset of symptoms was October 23, 2024. 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 - Infectious Disease History:: Denies. - Social history:: Smoking status: Reported history of juuling and/or vaping. Screenin:56 [facility] ED Fall Risk Assessment (Adult) History of falling in the last 3 months, cm10 including since admission No falls in past 3 months (0 pts) Confusion or Disorientation No (0 pts) Intoxicated or Sedated No (0 pts) Impaired Gait No (0 pts) Mobility Assist Device Used No (0 pt) Altered Elimination No (0 pt) Score/Fall Risk Level 0 - 2 = Low Risk Oriented to surroundings, Maintained a safe environment, Hourly rounding (assess needs \T\ fall precautionary measures) done. Abuse screen: Denies threats or abuse. Denies injuries from another. Nutritional screening: No deficits noted. Tuberculosis screening: No symptoms or risk factors identified. Assessment: 10:56 General: Appears in no apparent distress. uncomfortable, Behavior is calm, cooperative. cm10 Pain: Complains of pain in head. Neuro: No deficits noted. Level of Consciousness is awake, alert, obeys commands, Oriented to person, place, time, situation, Appropriate for age Reports headache. Respiratory: No deficits noted. Airway is patent Respiratory effort is even, unlabored, Respiratory pattern is regular, symmetrical. GI: Abdomen is flat, Reports nausea. Musculoskeletal: No deficits noted. Range of motion: intact in all extremities. 12:00 Reassessment: Patient appears in no apparent distress at this time. No changes from cm10 previously documented assessment. Patient and/or family updated on plan of care and expected duration. Pain level reassessed. Patient states feeling better. Patient states symptoms have improved. Vital Signs: 10:06 BP 139 / 106; Pulse 82; Resp 16; Temp 97.3; Pulse Ox 100% on R/A; Weight 63.05 kg; iw Height 5 ft. 3 in. ; Pain 8/10; 10:57 BP 137 / 98; Pulse 67; Resp 21; Pulse Ox 100% on R/A; cm10 12:00 BP 137 / 91; Pulse 74; Resp 18; Pulse Ox 100% on R/A; cm10 10:06 Body Mass Index 24.62 (63.05 kg, 160.02 cm) iw 10:06 Pain Scale: Adult iw ED Course: 09:56 Patient arrived in ED. mr 09:58 Brandi Mercedes PA-C [facility] sb4 09:58 Moisés Olivera MD is Attending Physician. sb4 10:05 Triage completed. iw 10:11 Cecilia Morton, RN is Primary Nurse. cm10 10:52 XRAY Chest (1 view) In Process Unspecified. EDMS 10:55 UAM Sent. cm10 10:55 UDS Sent. cm10 10:55 T4,Total Sent. cm10 10:55 T3 Free Sent. cm10 10:55 T4 Free Sent. cm10 10:55 TSH Sent. cm10 10:55 Basic Metabolic Panel Sent. cm10 10:55 CBC with Diff Sent. cm10 10:55 LFT's Sent. cm10 10:55 Magnesium Sent. cm10 10:55 Troponin HS Sent. cm10 10:55 Initial lab(s) drawn, by co, sent to lab. Urine collected: clean catch specimen. cm10 Inserted saline lock: 22 gauge in left wrist, using aseptic technique. Blood collected. Flushed with 10 mL NS. Missed attempt(s): 20 gauge in left antecubital area. Bleeding controlled, band aid applied, catheter tip intact. 10:56 Patient has correct armband on for positive identification. Bed in low position. Call cm10 light in reach. Side rails up X2. Provided Education on: ER process and procedures.. Client placed on continuous cardiac and pulse oximetry monitoring. NIBP monitoring applied. hall monitor on. 12:38 No provider procedures requiring assistance completed. IV discontinued, intact, cm10 bleeding controlled, No redness/swelling at site. Pressure dressing applied. 12:39 Arm band placed on. cm10 Administered Medications: 10:54 Drug: Ondansetron IVP 4 mg IVP once; over 2 minutes Route: IVP; Site: left wrist; cm10 11:47 Follow up: Response: No adverse reaction; Nausea is decreased cm10 10:55 Drug: NS 0.9% IV 1000 ml IV at 1 bolus Per protocol; to be given as a bolus over 60 cm10 minutes Route: IV; Rate: 1 bolus; Site: left wrist; 11:47 Follow up: Response: No adverse reaction; IV Status: Completed infusion; IV Intake: cm10 1000ml Medication: 10:56 VIS not applicable for this client. cm10 Intake: 11:47 IV: 1000ml; Total: 1000ml. cm10 Outcome: 12:13 Discharge ordered by MD. bell 12:39 Discharged to home ambulatory, cm10 12:39 Condition: good 12:39 Discharge instructions given to patient, Instructed on discharge instructions, follow up and referral plans. medication usage, Demonstrated understanding of instructions, follow-up care, medications, Prescriptions given X 1, 12:39 Patient left the ED. cm10 Signatures: Dispatcher [employer] EDMS Elena Nagy, Marlin Ford, RN Brandi Monae PAGerald PACecilia Foster RN RN cm10
[2024-10-23 12:55] VITALS: TEMP 97.3; O2SAT 100
[2024-10-23 13:07] VITALS: BP 137/91
--- NOTE | 2024-10-26 12:06 | EKG ---
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
== END 2024-10-23 12:39 | disposition home or self-care (01) ==
LOC: ER 09:53
DX: E05.90 Thyrotoxicosis, unspecified without thyrotoxic crisis or storm (principal); E86.0 Dehydration; I10 Essential (primary) hypertension
CPT/HCPCS: 96361; 85025; 81001; 80048; 36415; 83735; 80076; 84436; 84443; 84484; 84481; 84439; 80307; 71045; 96374; 99285; J2405; J7030; 93005